=== PATIENT | female | born 1955 | race Caucasian/White ===

== ENCOUNTER → 2019-11-04 12:51 | Outpatient (BNVA) | payer MEDICARE, MEDICAID, SELFPAY | PROVIDERS: Family Provider Physician Assistant; PCP Family Medicine; Visit Provider Nurse Practitioner Psychiatric/Mental Health | DX: F33.2 Major depressive disorder, recurrent severe without psychotic features (principal) | CPT/HCPCS: 99214 ==

== ENCOUNTER → 2020-02-02 07:59 | Outpatient (BNVA) | payer MEDICARE, MEDICAID, SELFPAY | PROVIDERS: Family Provider Physician Assistant; PCP Family Medicine; Visit Provider Nurse Practitioner Psychiatric/Mental Health | DX: F33.2 Major depressive disorder, recurrent severe without psychotic features (principal); F41.1 Generalized anxiety disorder | CPT/HCPCS: 99213 ==

== ENCOUNTER → 2020-04-26 10:35 | Outpatient (BNVA) | payer MEDICARE, MEDICAID, SELFPAY | PROVIDERS: Family Provider Physician Assistant; PCP Family Medicine; Visit Provider Nurse Practitioner Psychiatric/Mental Health | DX: F33.2 Major depressive disorder, recurrent severe without psychotic features (principal) | CPT/HCPCS: 99213 ==

== ENCOUNTER → 2020-07-26 07:53 | Outpatient (BNVA) | payer MEDICARE, MEDICAID, SELFPAY | PROVIDERS: Family Provider Physician Assistant; PCP Family Medicine; Visit Provider Nurse Practitioner Psychiatric/Mental Health | DX: F33.2 Major depressive disorder, recurrent severe without psychotic features (principal) | CPT/HCPCS: 99213 ==

== ENCOUNTER → 2020-10-24 08:15 | Outpatient (BNVA) | payer MEDICARE, MEDICAID, SELFPAY | PROVIDERS: Family Provider Physician Assistant; PCP Family Medicine; Visit Provider Nurse Practitioner Psychiatric/Mental Health | DX: F33.2 Major depressive disorder, recurrent severe without psychotic features (principal) | CPT/HCPCS: 99214 ==

== ENCOUNTER → 2021-01-24 08:01 | Outpatient (BNVA) | payer MEDICARE, MEDICAID, SELFPAY | PROVIDERS: Family Provider Physician Assistant; PCP Family Medicine; Visit Provider Nurse Practitioner Psychiatric/Mental Health | DX: F33.2 Major depressive disorder, recurrent severe without psychotic features (principal) | CPT/HCPCS: 99214 ==

== ENCOUNTER 2021-03-17 10:18 | Inpatient (IN) | payer MEDICARE, MEDICAID, SELFPAY ==
[2021-03-17] VITALS (9 sets, daily range): BP systolic 91–127; BP diastolic 52–100; PULSE 84–114; RESP 15–24; TEMP 36.6–37.3; O2SAT 92–97; BMI 64.3
--- NOTE | 2021-03-17 10:53 | XR_ITS ---
WS: [id number] Portable AP upright chest, 03/17/2021 Clinical Data: dyspnea/cough Comparison: None. Findings: No nodules, masses or effusions are seen. The heart is normal. The pulmonary vascularity is not increased. No pneumonia or pneumothorax is seen. The aortic arch and descending aorta show minim al tortuosity. There is a left cardiomediastinal phrenic fat pad or cyst unchanged. XR/XR chest 1V portable [id number] Impression: Atherosclerosis.
--- NOTE | 2021-03-17 10:53 | ECG_ITS ---
[facility] Test Date: 2021-03-17 Pat Name: Sirena Priest Department: Room: Gender: Female Medical Information Specialist: : [id number] Requested By: Nate Britt Order Number: [id number] Juan R MD: Azul Garcia M.D. Measurements Intervals [place] Rate: 138 P: [place]: QRS: 15 QRSD: 83 T: 145 QT: 262 QTc: 398 Interpretive Statements ATRIAL FIBRILLATION WITH RAPID VENTRICULAR RESPONSE NONSPECIFIC ST & T-WAVE ABNORMALITY No previous ECG available for comparison Electronically Signed On 03-17-2021 14:56:27 CDT by Azul Garcia M.D. [id number]
--- NOTE | 2021-03-17 11:44 | ED_ITS ---
HPI - Nausea/Vomiting/Diarrhea General: Chief complaint: Nausea/Vomiting/Diarrhea Stated complaint: N/V, Time Seen by Provider: 03/17/21 10:42 History of Present Illness: MD elicited complaint: nausea and vomiting Onset (ago): day(s) (3) Description of vomiting: food contents and watery Associated nausea: Yes Associated abdominal pain: Yes Location of pain: Diffuse Radiation: diffuse Pain consistency: intermittent Severity: mild Quality: cramping Exacerbating factors: eating and movement Relieving factors: none Associated symtoms: Reports bloating, cough, fatigue, anorexia, malaise, myalgias, nausea and weakness; Denies altered mental status, anxiety, change in vision, chest pain, diaphoresi s, decreased urine output, dizziness, dysuria, epistaxis, fecal incontinence, fevers/chills, headache(s), numbness, palpitations, rash, short of breath, syncope, tenesmus or tinnitus Review of Systems Const: Reports: fatigue and malaise; Denies: diaphoresis Eyes: Denies: change in vision ENMT: Denies: tinnitus or epistaxis Card: Denies: chest pain, palpitations or syncope Resp: Denies: dyspnea, productive cough or non-productive cough GI: Reports: nausea and bloating; Denies: fecal incontinence : Denies: dysuria Skin/Breast: Denies: rash or pruritus Neuro: Denies: headache(s) or dizziness Psych: Denies: anxiety PFSH ED PFSH: Medical History BMI over 35 BMI of 61.7 Major depressive disorder, recurrent severe without psychotic features Obstructive sleep apnea Restless leg syndrome Ventral hernia Surgical History H/O laparoscopy adhesiolysis Family History Other Family history non-contributory Social History Smoking and tobacco status: never smoked Second hand smoke exposure: No Alcohol intake: never Adopted: No Lives independently: Yes Marital status: Current gender identity: Female Physical Exam Const: COMMON NORMALS: no acute distress EXAM LIMITATIONS: no altered mental status GENERAL APPEARANCE: cooperative and comfortable OR IENTATION/CONSCIOUSNESS: Yes awake, Yes oriented to person, Yes oriented to place and Yes oriented to time HENMT: COMMON NORMALS: normocephalic, atraumatic and hearing grossly normal bilaterally HEAD & SCALP: normocephalic and atraumatic Neck/C-Spine: COMMON NORMALS: no JVD Resp: COMMON NORMALS: normal respiratory effort, No retractions, No use of accessory muscles and clear to auscultation bilaterally AUSCULTATION: clear to auscultation bilaterally Cardio: COMMON NORMALS: no JVD, regular rate, regular rhythm and No murmurs present (Cardio) RATE: regular rate RHYTHM: regular rhythm GI: COMMON NORMALS: Soft to palpation and No hepatosplenomegaly present AUSCULTATION: Yes normoactive bowel sounds PALPATION: Yes Soft to palpation, No Tenderness to palpation present (GI), No Guarding due to palpation present (GI) and Yes No hepatosplenomegaly present Extremity: NARRATIVE EXTREMITY EXAM: Drainage from the left leg mildly reddened GENERAL: Yes edema Neuro: SENSORIUM/ORIENTATION: Yes oriented to person, Yes oriented to place and Yes oriented to time Course Vital Signs: Vital signs: Vital Signs Temperature 98 F 03/19/21 23:56 Pulse Rate 105 H 03/19/21 23:56 Respiratory Rate 31 H 03/19/21 23:56 Blood Pressure 108/68 03/19/21 23:56 Pulse Oximetry 91 03/19/21 23:56 MDM - Nausea/Vomiting/Diarrhea MDM Narrative: Medical decision making narrative: Acute kidney injury along with A. fib with RVR. Started on rate control. Discussed with hospitalist will admit. Treat for cellulitis. Lab Data: Labs: Lab Results 03/17/21 03/17/21 03/17/21 Range/Units 11:45 11:45 11:45 WBC 9.1 (4.0-10.0) 10^3/ uL RBC 3.81 L (4.1-5.3) 10^6/u L Hgb 11.3 L (11.5-15.3) g/dL Hct 35.5 L (37.0-47.0) % MCV 93.2 (81-99) fL MCH 29.7 (28.0-34.0) pg MCHC 31.8 (30.0-36.0) g/dL RDW 15.2 H (12.1-15.1) % Plt Count 297 (130-400) 10^3/c mm MPV 10.3 (7.4-10.4) fL Neut % (Auto) 79.7 % Lymph % (Auto) 10.4 % [place] % (Auto) 8.3 % Eos % (Auto) 0.4 % Baso % (Auto) 0.4 % Neut # (Auto) 7.28 (1.8-7.7) 10^3/u L Lymph # (Auto) 1.0 (0.8-4.8) 10^3/u L [place] # (Auto) 0.8 (0.2-0.9) 10^3/u L Eos # (Auto) 0.0 (0.0-0.8) 10^3/u L Baso # (Auto) 0.0 (0.0-0.1) 10^3/u L Nucleated RBC % (a uto) 0 % Nucleated RBCs # 0.0 /100WBC APTT (23.9-36.7) SECO NDS D-Dimer (0-0.59) ug/mIFE U Sodium 136 (136-145) mmol/L Potassium 4.1 (3.5-5.1) mmol/L Chloride 95 L (98-107) mmol/L Carbon Dioxide 23 (22-29) mmol/L Anion Gap 22.1 H (5-19) BUN 58 H (8-23) mg/dL Creatinine 2.1 H (0.5-0.9) mg/dL GFR Calculation 23.7 L (90-130) mL/min Glucose 142 H (65-115) mg/dL POC Glucose (70-110) mg/dL Calculated Osmolal ity 301 H (285-295) mOsm/k g Lactic Acid 2.5 H (0.5-2.2) mmol/L Lactic Acid (Sepsi s) (0.5-2.2) mmol/L Calcium 8.6 (8.5-10.5) mg/dL Magnesium (1.7-2.3) mg/dL Total Bilirubin 0.7 (0.15-1.2) mg/dL AST 15 (0-32) U/L ALT 11 (0-33) U/L Alkaline Phosphata se 86 (35-105) IU/L Creatine Kinase 100 (26-192) U/L Total Protein 7.0 (6.6-8.7) g/dL Albumin 3.4 L (3.5-5.2) g/dL Globulin 3.6 (1.3-4.6) g/dL Lipase 11 L (13-60) U/L TSH (0.27-4.20) uIU/ mL Free T4 (0.82-1.77) ng/d L Urine Color (Yellow) Urine Appearance (CLEAR) Urine pH (5-7) Ur Specific Gravit y (1.005-1.030) Urine Protein (Negative) Urine Glucose (UA) (Normal) Urine Ketones (Negative) Urine Blood (Negative) Urine Nitrate (Negative) Urine Bilirubin (Negative) Urine Urobilinogen (Negative) mg/dL Ur Leukocyte Cande ase (Negative) Urine RBC (0-2) /hpf Urine WBC (0-5) /hpf Ur Squamous Epith Cells (0-5) /hpf Amorphous Sediment Urine Bacteria (NONE) /hpf Coarse Granular Ca sts /lpf 03/17/21 03/17/21 03/17/21 Range/Units 11:45 11:45 13:22 WBC (4.0-10.0) 10^3/ uL RBC (4.1-5.3) 10^6/u L Hgb (11.5-15.3) g/dL Hct (37.0-47.0) % MCV (81-99) fL MCH (28.0-34.0) pg MCHC (30.0-36.0) g/dL RDW (12.1-15.1) % Plt Count (130-400) 10^3/c mm MPV (7.4-10.4) fL Neut % (Auto) % Lymph % (Auto) % [place] % (Auto) % Eos % (Auto) % Baso % (Auto) % Neut # (Auto) (1.8-7.7) 10^3/u L Lymph # (Auto) (0.8-4.8) 10^3/u L [place] # (Auto) (0.2-0.9) 10^3/u L Eos # (Auto) (0.0-0.8) 10^3/u L Baso # (Auto) (0.0-0.1) 10^3/u L Nucleated RBC % (a uto) % Nucleated RBCs # /100WBC APTT (23.9-36.7) SECO NDS D-Dimer (0-0.59) ug/mIFE U Sodium (136-145) mmol/L Potassium (3.5-5.1) mmol/L Chloride (98-107) mmol/L Carbon Dioxide (22-29) mmol/L Anion Gap (5-19) BUN (8-23) mg/dL Creatinine (0.5-0.9) mg/dL GFR Calculation (90-130) mL/min Glucose (65-115) mg/dL POC Glucose (70-110) mg/dL Calculated Osmolal ity (285-295) mOsm/k g Lactic Acid (0.5-2.2) mmol/L Lactic Acid (Sepsi s) (0.5-2.2) mmol/L Calcium (8.5-10.5) mg/dL Magnesium 1.3 L (1.7-2.3) mg/dL Total Bilirubin (0.15-1.2) mg/dL AST (0-32) U/L ALT (0-33) U/L Alkaline Phosphata se (35-105) IU/L Creatine Kinase (26-192) U/L Total Protein (6.6-8.7) g/dL Albumin (3.5-5.2) g/dL Globulin (1.3-4.6) g/dL Lipase (13-60) U/L TSH 5.09 H (0.27-4.20) uIU/ mL Free T4 1.19 (0.82-1.77) ng/d L Urine Color Yellow (Yellow) Urine Appearance Sl hazy (CLEAR) Urine pH 5 (5-7) Ur Specific Gravit y 1.015 (1.005-1.030) Urine Protein Trace (Negative) Urine Glucose (UA) Trace H (Normal) Urine Ketones Negative (Negative) Urine Blood 2+ H (Negative) Urine Nitrate Negative (Negative) Urine Bilirubin 1+ H (Negative) Urine Urobilinogen Norm (Negative) mg/dL Ur Leukocyte Cande ase Trace H (Negative) Urine RBC 5-10 H (0-2) /hpf Urine WBC 5-10 H (0-5) /hpf Ur Squamous Epith Cells 5-10 H (0-5) /hpf Amorphous Sediment Not Reportable Urine Bacteria Trace (NONE) /hpf Coarse Granular Ca sts 0-4 H /lpf 03/17/21 03/17/21 03/17/21 Range/Units 14:52 18:40 21:20 WBC (4.0-10.0) 10^3/ uL RBC (4.1-5.3) 10^6/u L Hgb (11.5-15.3) g/dL Hct (37.0-47.0) % MCV (81-99) fL MCH (28.0-34.0) pg MCHC (30.0-36.0) g/dL RDW (12.1-15.1) % Plt Count (130-400) 10^3/c mm MPV (7.4-10.4) fL Neut % (Auto) % Lymph % (Auto) % [place] % (Auto) % Eos % (Auto) % Baso % (Auto) % Neut # (Auto) (1.8-7.7) 10^3/u L Lymph # (Auto) (0.8-4.8) 10^3/u L [place] # (Auto) (0.2-0.9) 10^3/u L Eos # (Auto) (0.0-0.8) 10^3/u L Baso # (Auto) (0.0-0.1) 10^3/u L Nucleated RBC % (a uto) % Nucleated RBCs # /100WBC APTT (23.9-36.7) SECO NDS D-Dimer 9.74 H (0-0.59) ug/mIFE U Sodium (136-145) mmol/L Potassium (3.5-5.1) mmol/L Chloride (98-107) mmol/L Carbon Dioxide (22-29) mmol/L Anion Gap (5-19) BUN (8-23) mg/dL Creatinine (0.5-0.9) mg/dL GFR Calculation (90-130) mL/min Glucose (65-115) mg/dL POC Glucose 124 H (70-110) mg/dL Calculated Osmolal ity (285-295) mOsm/k g Lactic Acid (0.5-2.2) mmol/L Lactic Acid (Sepsi s) 1.9 (0.5-2.2) mmol/L Calcium (8.5-10.5) mg/dL Magnesium (1.7-2.3) mg/dL Total Bilirubin (0.15-1.2) mg/dL AST (0-32) U/L ALT (0-33) U/L Alkaline Phosphata se (35-105) IU/L Creatine Kinase (26-192) U/L Total Protein (6.6-8.7) g/dL Albumin (3.5-5.2) g/dL Globulin (1.3-4.6) g/dL Lipase (13-60) U/L TSH (0.27-4.20) uIU/ mL Free T4 (0.82-1.77) ng/d L Urine Color (Yellow) Urine Appearance (CLEAR) Urine pH (5-7) Ur Specific Gravit y (1.005-1.030) Urine Protein (Negative) Urine Glucose (UA) (Normal) Urine Ketones (Negative) Urine Blood (Negative) Urine Nitrate (Negative) Urine Bilirubin (Negative) Urine Urobilinogen (Negative) mg/dL Ur Leukocyte Cande ase (Negative) Urine RBC (0-2) /hpf Urine WBC (0-5) /hpf Ur Squamous Epith Cells (0-5) /hpf Amorphous Sediment Urine Bacteria (NONE) /hpf Coarse Granular Ca sts /lpf 03/17/21 03/18/21 03/18/21 Range/Units Unknown 03:50 03:50 WBC 5.9 (4.0-10.0) 10^3/ uL RBC 3.31 L (4.1-5.3) 10^6/u L Hgb 9.9 L (11.5-15.3) g/dL Hct 31.3 L (37.0-47.0) % MCV 94.6 (81-99) fL MCH 29.9 (28.0-34.0) pg MCHC 31.6 (30.0-36.0) g/dL RDW 15.1 (12.1-15.1) % Plt Count 268 (130-400) 10^3/c mm MPV 10.7 H (7.4-10.4) fL Neut % (Auto) 67.8 % Lymph % (Auto) 17.5 % [place] % (Auto) 12.1 % Eos % (Auto) 1.2 % Baso % (Auto) 0.7 % Neut # (Auto) 4.03 (1.8-7.7) 10^3/u L Lymph # (Auto) 1.0 (0.8-4.8) 10^3/u L [place] # (Auto) 0.7 (0.2-0.9) 10^3/u L Eos # (Auto) 0.1 (0.0-0.8) 10^3/u L Baso # (Auto) 0.0 (0.0-0.1) 10^3/u L Nucleated RBC % (a uto) 0 % Nucleated RBCs # 0.0 /100WBC APTT 29.8 (23.9-36.7) SECO NDS D-Dimer (0-0.59) ug/mIFE U Sodium 136 (136-145) mmol/L Potassium 3.6 (3.5-5.1) mmol/L Chloride 101 (98-107) mmol/L Carbon Dioxide 22 (22-29) mmol/L Anion Gap 16.6 (5-19) BUN 58 H (8-23) mg/dL Creatinine 1.7 H (0.5-0.9) mg/dL GFR Calculation 30.3 L (90-130) mL/min Glucose 96 (65-115) mg/dL POC Glucose (70-110) mg/dL Calculated Osmolal ity 298 H (285-295) mOsm/k g Lactic Acid (0.5-2.2) mmol/L Lactic Acid (Sepsi s) (0.5-2.2) mmol/L Calcium 7.5 L (8.5-10.5) mg/dL Magnesium (1.7-2.3) mg/dL Total Bilirubin 0.7 (0.15-1.2) mg/dL AST 13 (0-32) U/L ALT 9 (0-33) U/L Alkaline Phosphata se 72 (35-105) IU/L Creatine Kinase (26-192) U/L Total Protein 5.6 L (6.6-8.7) g/dL Albumin 2.9 L (3.5-5.2) g/dL Globulin 2.7 (1.3-4.6) g/dL Lipase (13-60) U/L TSH (0.27-4.20) uIU/ mL Free T4 (0.82-1.77) ng/d L Urine Color (Yellow) Urine Appearance (CLEAR) Urine pH (5-7) Ur Specific Gravit y (1.005-1.030) Urine Protein (Negative) Urine Glucose (UA) (Normal) Urine Ketones (Negative) Urine Blood (Negative) Urine Nitrate (Negative) Urine Bilirubin (Negative) Urine Urobilinogen (Negative) mg/dL Ur Leukocyte Cande ase (Negative) Urine RBC (0-2) /hpf Urine WBC (0-5) /hpf Ur Squamous Epith Cells (0-5) /hpf Amorphous Sediment Urine Bacteria (NONE) /hpf Coarse Granular Ca sts /lpf 03/18/21 03/18/21 03/18/21 Range/Units 03:50 03:50 06:26 WBC (4.0-10.0) 10^3/ uL RBC (4.1-5.3) 10^6/u L Hgb (11.5-15.3) g/dL Hct (37.0-47.0) % MCV (81-99) fL MCH (28.0-34.0) pg MCHC (30.0-36.0) g/dL RDW (12.1-15.1) % Plt Count (130-400) 10^3/c mm MPV (7.4-10.4) fL Neut % (Auto) % Lymph % (Auto) % [place] % (Auto) % Eos % (Auto) % Baso % (Auto) % Neut # (Auto) (1.8-7.7) 10^3/u L Lymph # (Auto) (0.8-4.8) 10^3/u L [place] # (Auto) (0.2-0.9) 10^3/u L Eos # (Auto) (0.0-0.8) 10^3/u L Baso # (Auto) (0.0-0.1) 10^3/u L Nucleated RBC % (a uto) % Nucleated RBCs # /100WBC APTT 24.0 (23.9-36.7) SECO NDS D-Dimer (0-0.59) ug/mIFE U Sodium (136-145) mmol/L Potassium (3.5-5.1) mmol/L Chloride (98-107) mmol/L Carbon Dioxide (22-29) mmol/L Anion Gap (5-19) BUN (8-23) mg/dL Creatinine (0.5-0.9) mg/dL GFR Calculation (90-130) mL/min Glucose (65-115) mg/dL POC Glucose 109 (70-110) mg/dL Calculated Osmolal ity (285-295) mOsm/k g Lactic Acid (0.5-2.2) mmol/L Lactic Acid (Sepsi s) (0.5-2.2) mmol/L Calcium (8.5-10.5) mg/dL Magnesium 1.5 L (1.7-2.3) mg/dL Total Bilirubin (0.15-1.2) mg/dL AST (0-32) U/L ALT (0-33) U/L Alkaline Phosphata se (35-105) IU/L Creatine Kinase (26-192) U/L Total Protein (6.6-8.7) g/dL Albumin (3.5-5.2) g/dL Globulin (1.3-4.6) g/dL Lipase (13-60) U/L TSH (0.27-4.20) uIU/ mL Free T4 (0.82-1.77) ng/d L Urine Color (Yellow) Urine Appearance (CLEAR) Urine pH (5-7) Ur Specific Gravit y (1.005-1.030) Urine Protein (Negative) Urine Glucose (UA) (Normal) Urine Ketones (Negative) Urine Blood (Negative) Urine Nitrate (Negative) Urine Bilirubin (Negative) Urine Urobilinogen (Negative) mg/dL Ur Leukocyte Cande ase (Negative) Urine RBC (0-2) /hpf Urine WBC (0-5) /hpf Ur Squamous Epith Cells (0-5) /hpf Amorphous Sediment Urine Bacteria (NONE) /hpf Coarse Granular Ca sts /lpf 03/18/21 03/18/21 Range/Units 11:27 12:50 WBC (4.0-10.0) 10^3/ uL RBC (4.1-5.3) 10^6/u L Hgb (11.5-15.3) g/dL Hct (37.0-47.0) % MCV (81-99) fL MCH (28.0-34.0) pg MCHC (30.0-36.0) g/dL RDW (12.1-15.1) % Plt Count (130-400) 10^3/c mm MPV (7.4-10.4) fL Neut % (Auto) % Lymph % (Auto) % [place] % (Auto) % Eos % (Auto) % Baso % (Auto) % Neut # (Auto) (1.8-7.7) 10^3/u L Lymph # (Auto) (0.8-4.8) 10^3/u L [place] # (Auto) (0.2-0.9) 10^3/u L Eos # (Auto) (0.0-0.8) 10^3/u L Baso # (Auto) (0.0-0.1) 10^3/u L Nucleated RBC % (a uto) % Nucleated RBCs # /100WBC APTT 229.2 H* D (23.9-36.7) SECO NDS D-Dimer (0-0.59) ug/mIFE U Sodium (136-145) mmol/L Potassium (3.5-5.1) mmol/L Chloride (98-107) mmol/L Carbon Dioxide (22-29) mmol/L Anion Gap (5-19) BUN (8-23) mg/dL Creatinine (0.5-0.9) mg/dL GFR Calculation (90-130) mL/min Glucose (65-115) mg/dL POC Glucose 113 H (70-110) mg/dL Calculated Osmolal ity (285-295) mOsm/k g Lactic Acid (0.5-2.2) mmol/L Lactic Acid (Sepsi s) (0.5-2.2) mmol/L Calcium (8.5-10.5) mg/dL Magnesium (1.7-2.3) mg/dL Total Bilirubin (0.15-1.2) mg/dL AST (0-32) U/L ALT (0-33) U/L Alkaline Phosphata se (35-105) IU/L Creatine Kinase (26-192) U/L Total Protein (6.6-8.7) g/dL Albumin (3.5-5.2) g/dL Globulin (1.3-4.6) g/dL Lipase (13-60) U/L TSH (0.27-4.20) uIU/ mL Free T4 (0.82-1.77) ng/d L Urine Color (Yellow) Urine Appearance (CLEAR) Urine pH (5-7) Ur Specific Gravit y (1.005-1.030) Urine Protein (Negative) Urine Glucose (UA) (Normal) Urine Ketones (Negative) Urine Blood (Negative) Urine Nitrate (Negative) Urine Bilirubin (Negative) Urine Urobilinogen (Negative) mg/dL Ur Leukocyte Cande ase (Negative) Urine RBC (0-2) /hpf Urine WBC (0-5) /hpf Ur Squamous Epith Cells (0-5) /hpf Amorphous Sediment Urine Bacteria (NONE) /hpf Coarse Granular Ca sts /lpf Discharge Plan Discharge Patient Disposition: Admitted As Inpatient Admit Provider: Calista Myles Clinical Impression: Atrial fibrillation with RVR, YUSRA (acute kidney injury), Cellulitis Condition: Stable Coding Level of Care Code ED Crinkling Machine Operator for Chg Fwd Exam Comprehensive
[2021-03-17 11:55] LABS: Basophils % 0.4 %; Eosinophils % 0.4 %; Hematocrit 35.5 % (37.0-47.0); Hemoglobin 11.3 g/dL (11.5-15.3); Lymphocytes % 10.4 %; Mean Corpuscular HGB Conc 31.8 g/dL (30.0-36.0); Mean Corpuscular Hemoglobin 29.7 pg (28.0-34.0); Mean Corpuscular Volume 93.2 fL (81-99); Mean Platelet Volume 10.3 fL (7.4-10.4); Monocytes # 0.8 10^3/uL (0.2-0.9); Monocytes % 8.3 %; Neutrophils # 7.28 10^3/uL (1.8-7.7); Neutrophils % 79.7 %; Nucleated Red Blood Cells % 0 %; Platelet Count 297 10^3/cmm (130-400); Red Blood Count 3.81 10^6/uL (4.1-5.3); Red Cell Distribution Width 15.2 % (12.1-15.1); White Blood Count 9.1 10^3/uL (4.0-10.0)
[2021-03-17 12:14] LABS: Alanine Aminotransferase 11 U/L (0-33); Albumin Level 3.4 g/dL (3.5-5.2); Alkaline Phosphatase 86 IU/L (35-105); Anion Gap 22.1 (5-19); Aspartate Amino Transferase 15 U/L (0-32); Blood Urea Nitrogen 58 mg/dL (8-23); Calcium 8.6 mg/dL (8.5-10.5); Carbon Dioxide 23 mmol/L (22-29); Chloride 95 mmol/L (98-107); Creatine Phosphokinase 100 U/L (26-192); Globulin 3.6 g/dL (1.3-4.6); Glomerular Filtration Rate 23.7 mL/min (90-130); Glucose 142 mg/dL (65-115); Lipase 11 U/L (13-60); Osmolality Calculated 301 mOsm/kg (285-295); Potassium 4.1 mmol/L (3.5-5.1); Sodium 136 mmol/L (136-145); Total Bilirubin 0.7 mg/dL (0.15-1.2)
[2021-03-17 12:15] LABS: Lactic Sepsis W/Reflex 2.5 mmol/L (0.5-2.2)
[2021-03-17 12:18] LABS: Slide Review Slide Review Perform
[2021-03-17] MEDS: ondansetron 2 mg/ML SDV 2 mL 4 MG IVP (12:26)
[2021-03-17 13:38] LABS: Reflex Lactate Order REFLEX LACTIC ORDERD
[2021-03-17 13:42] LABS: Bilirubin Urine 1+ (Negative); Blood Urine 2+ (Negative); Glucose Urine UA Trace (Normal); Ketones Urine Negative (Negative); Nitrate Urine Negative (Negative); Protein Urine Trace (Negative); Specific Gravity, Urine 1.015 (1.005-1.030); Urine Appearance SL Hazy (CLEAR); Urine Color Yellow (Yellow); pH Urine 5 (5-7)
[2021-03-17 13:43] LABS: Add Urine Culture? No; Add Urine Microscopic? YES; Bacteria Urine TRACE /hpf; Coarse Granular Casts Urine 0-4 /lpf; Leukocyte Esterase Urine Trace (Negative); Urobilinogen Urine Norm (Negative)
--- NOTE | 2021-03-17 15:03 | PC.PHAR ---
pt states she takes care of her own medications-pt states she hasnt taken her meds since saturday03/14/21
[2021-03-17] MEDS: metoprolol tartrate 1 mg/1 mL SDV 5 mL 5 MG IV (15:04)
[2021-03-17] MEDS: metoprolol tartrate 25 mg Tablet PO (15:04)
[2021-03-17 15:35] LABS: Lactic Acid level (Lactate) 1.9 mmol/L (0.5-2.2)
--- NOTE | 2021-03-17 16:10 | P.HP_ITS ---
Providers/Chief Complaint Primary Care Provider: Nate Sainz DO Chief Complaint: N/V, History of Present Illness Sirena Priest is a 65 year old female who presented today with chief complaint of recurrent vomiting. During that her symptoms started on Saturday with abdominal cramps and pain which were associated with nausea and dry heaves the next day and then 24 hours before her arrival in the ER experienced 5 episodes of emesis. She has not noticed any fever, blood in stool or recent use of antibiotics. She has been noticing increase her left leg swelling with discharge. She is requiring frequent dressing change. She also has home health service who would visit her once or twice a week. She is denying chest pain, shortness of breath, fever. She is vaccinated with moderna vaccine. Diagnostics in the ER revealed A. fib RVR for which she required Lopressor 5 mg IV push and then p.o. 25 mg which did not improve her heart rate which necessitated hospitalization, she was started on Cardizem drip which was running at 5 at the time of my evaluation heart rate fluctuate between 95-1 05. Normal hemodynamically, I have requested TSH which came back high 5.09 will get free T4, check magnesium level no active signs of infection. Lactic 2.5 magnesium 1.3 started on heparin drip because of high [id number] score Review of Systems Const: Reports: chills, body aches, change in weight and fatigue; Denies: fever(s) Eyes: Denies: change in vision ENMT: Denies: throat pain Card: Denies: chest pain Resp: Reports: dyspnea GI: Reports: abdominal pain, nausea and vomiting; Denies: diarrhea : Denies: flank pain Musc: Reports: extremity swelling, limited range of motion and muscle cramps; Denies: neck pain Skin/Breast: Reports: skin pain, skin tenderness, skin swelling, new lesions, non-healing lesions and lesions; Denies: rash Neuro: Denies: headache(s) Psych: Reports: anxiety Endo: Denies: polyuria Shade/Lymph: Denies: easy bruising All/Imm: Denies: urticaria Medications/Allergies Home Medications Medication Instructions Recorded Confirmed Last Taken Type atorvastatin 40 mg tablet 40 mg PO BEDTIME 11/04/19 03/17/21 03/14/21 History cetirizine 10 mg capsule 10 mg PO DAILY PRN 11/04/19 03/17/21 Unknown History cyanocobalamin (vitamin B-12) 1,000 mcg IM Q30D ml 11/04/19 03/17/21 02/23/21 History 1,000 mcg/mL injection solution gabapentin 600 mg tablet 300 mg PO BID tab 11/04/19 03/17/21 03/14/21 History hydrochlorothiazide 25 mg tablet 25 mg PO DAILY 11/04/19 03/17/21 03/14/21 History hydrocodone 7.5 mg-ibuprofen 200 1 tab PO QID PRN 11/04/19 03/17/21 Unknown History mg tablet metformin 850 mg tablet 850 mg PO TID 11/04/19 03/17/21 03/14/21 History metoprolol tartrate 25 mg tablet 25 mg PO BID 11/04/19 03/17/21 03/14/21 History pioglitazone 15 mg tablet 15 mg PO DAILY 11/04/19 03/17/21 03/14/21 History ramipril 10 mg capsule 10 mg PO DAILY 11/04/19 03/17/21 03/14/21 History ferrous gluconate 324 mg (37.5 mg 324 mg PO DAILY tab 10/21/20 03/17/21 03/14/21 History iron) tablet clonazepam 1 mg tablet 1 mg PO BID PRN #60 tab 10/24/20 03/17/21 Unknown Rx ropinirole 1 mg tablet 2 mg PO BID #360 tab 10/24/20 03/17/21 Unknown Rx Seroquel 25 - 50 mg PO BEDTIME PRN 03/17/21 03/17/21 03/14/21 History furosemide 40 mg PO DAILY 03/17/21 03/17/21 Unknown History Allergies Allergy/AdvReac Type Severity Reaction Status Date / Time No Known Allergies Allergy Verified 03/17/21 15:02 PFSH Acute PFSH: Medical History BMI over 35 BMI of 61.7 Major depressive disorder, recurrent severe without psychotic features Obstructive sleep apnea Restless leg syndrome Ventral hernia Surgical History H/O laparoscopy adhesiolysis Family History Other Family history non-contributory Social History Smoking and tobacco status: never smoked Second hand smoke exposure: No Alcohol intake: never Adopted: No Lives independently: Yes Marital status: Current gender identity: Female Vitals/I&O/Wt Last Vital Signs Temp 97.9 F 03/17/21 10:34 Pulse 108 H 03/17/21 15:06 Resp 18 03/17/21 15:06 BP 112/62 03/17/21 10:34 Pulse Ox 92 03/17/21 15:06 Weight last 48 hrs Weight 164.654 kg Physical Exam Narrative: EXAM NARRATIVE: Morbid obese female She is laying comfortably in her bed saturating well on room air S1, S2 variable with active signs of lower extremity edema Serosanguineous discharge of left leg with mild purulence around medial side noted dressing soaked with discharge from the wound EOMI, PERRLA No neurological deficit Distended abdomen soreness to deep palpation No joint swelling Appropriate mood and affect No acute respiratory distress Data : 03/17/21 11:45 03/17/21 11:45 A&P Assessment and plan (1) Atrial fibrillation with RVR: Status: Acute (2) YUSRA (acute kidney injury): Status: Acute (3) Cellulitis: Status: Acute Additional A&P Information Symptomatic A. fib with acute RVR Patient chief complaint was abdominal pain however no hematochezia no active signs of peritonitis Highly doubt mesenteric/embolic phenomenon at this point however going to start heparin drip considering high [id number] 4, Currently on Cardizem drip running at 5 heart rate fluctuating between 95-1 01 We will request echo in the morning, she does have electrolyte abnormality hypomagnesemia and abnormal TSH We will request free T4 and replenish magnesium Patient is vaccinated with moderate vaccine she received 2 doses Acute kidney injury Likely secondary to CHF exacerbation/prerenal Active sign of fluid overload will start patient on Bumex Avoid fluids Discontinue Metformin I do believe her lactic acidemia is secondary to Metformin with YUSRA no active signs of sepsis, monitor for Metformin toxicity Purulent cellulitis We will start her on doxycycline, dry dressing, Kerlix and ABD Morbid obesity Consistent carb diet Full code DVT prophylaxis currently on heparin drip will switch to p.o. anticoagulant once kidney function improves Attestations Medical Necessity Statement*: Anticipating discharge within 48 hours need IV Cardizem for rate control Time Spent in Patient Care: 35mins Coding Level of Care Code Acute Predictive Maintenance Technician for Chg Fwd Diagnoses Atrial fibrillation with RVR I48.91 YUSRA (acute kidney injury) N17.9 Cellulitis L03.90
[2021-03-17] MEDS: sodium chlor 0.9% + KCl 20 mEq 20 MEQ/1,000 ML BAG 125 MEQ IV (16:18)
[2021-03-17 17:17] LABS: Magnesium 1.3 mg/dL (1.7-2.3); Thyroid Stimulating Hormone 5.09 uIU/mL (0.27-4.20)
[2021-03-17 19:39] LABS: D Dimer 9.74 ug/mIFEU (0-0.59)
[2021-03-17 19:58] LABS: Partial Thromboplastin Time 29.8 SECONDS (23.9-36.7)
[2021-03-17 20:02] LABS: Free T4 Free Thyroxine 1.19 ng/dL (0.82-1.77)
[2021-03-17 21:32] LABS: Glucose Point of Care 124 mg/dL (70-110)
[2021-03-17] MEDS: heparin drip 25,000 UNIT/500 ML PREMIX 36 UNIT IV (21:41)
[2021-03-17] MEDS: heparin 5,000 unit/mL INJ 1 mL IV (21:48)
[2021-03-17] MEDS: magnesium sulfate premix 2 GM/50 ML PIGGYBACK IV (22:08)
[2021-03-17] MEDS: metoprolol tartrate 50 mg Tablet PO (22:09)
[2021-03-17] MEDS: quetiapine 25 mg Tablet PO (22:10)
[2021-03-17] MEDS: acetaminophen 500 mg Tablet PO (22:10)
[2021-03-17] MEDS: ropinirole 1 mg Tablet 2 MG PO (22:10)
[2021-03-17] MEDS: atorvastatin 40 mg Tablet PO (22:10)
[2021-03-18] VITALS (11 sets, daily range): BP systolic 89–137; BP diastolic 53–72; PULSE 64–130; RESP 15–22; TEMP 36.2–37.1; O2SAT 93–98
[2021-03-18] MEDS: acetaminophen 500 mg Tablet PO ×4 (02:55→23:51)
[2021-03-18] MEDS: CLONazepam 1 mg Tablet PO (03:31)
[2021-03-18 04:35] LABS: Alanine Aminotransferase 9 U/L (0-33); Albumin Level 2.9 g/dL (3.5-5.2); Alkaline Phosphatase 72 IU/L (35-105); Anion Gap 16.6 (5-19); Aspartate Amino Transferase 13 U/L (0-32); Blood Urea Nitrogen 58 mg/dL (8-23); Calcium 7.5 mg/dL (8.5-10.5); Carbon Dioxide 22 mmol/L (22-29); Chloride 101 mmol/L (98-107); Globulin 2.7 g/dL (1.3-4.6); Glomerular Filtration Rate 30.3 mL/min (90-130); Glucose 96 mg/dL (65-115); Osmolality Calculated 298 mOsm/kg (285-295); Potassium 3.6 mmol/L (3.5-5.1); Sodium 136 mmol/L (136-145); Total Bilirubin 0.7 mg/dL (0.15-1.2); Total Protein 5.6 g/dL (6.6-8.7)
[2021-03-18 04:43] LABS: Basophils % 0.7 %; Eosinophils # 0.1 10^3/uL (0.0-0.8); Eosinophils % 1.2 %; Hematocrit 31.3 % (37.0-47.0); Hemoglobin 9.9 g/dL (11.5-15.3); Lymphocytes % 17.5 %; Mean Corpuscular HGB Conc 31.6 g/dL (30.0-36.0); Mean Corpuscular Hemoglobin 29.9 pg (28.0-34.0); Mean Corpuscular Volume 94.6 fL (81-99); Mean Platelet Volume 10.7 fL (7.4-10.4); Monocytes # 0.7 10^3/uL (0.2-0.9); Monocytes % 12.1 %; Neutrophils # 4.03 10^3/uL (1.8-7.7); Neutrophils % 67.8 %; Nucleated Red Blood Cells % 0 %; Platelet Count 268 10^3/cmm (130-400); Red Blood Count 3.31 10^6/uL (4.1-5.3); Red Cell Distribution Width 15.1 % (12.1-15.1); White Blood Count 5.9 10^3/uL (4.0-10.0)
[2021-03-18] MEDS: heparin 5,000 unit/mL INJ 1 mL IV (05:51)
[2021-03-18 06:42] LABS: Glucose Point of Care 109 mg/dL (70-110)
[2021-03-18] MEDS: ropinirole 1 mg Tablet 2 MG PO ×2 (07:31→17:37)
[2021-03-18] MEDS: doxycycline 100 mg Tablet PO ×2 (07:32→17:37)
[2021-03-18] MEDS: metoprolol tartrate 50 mg Tablet PO ×2 (07:32→09:01)
[2021-03-18] MEDS: bumetanide 1 mg Tablet PO (07:32)
[2021-03-18] MEDS: dilTIAZem ER (12HR) 60 mg Capsule PO ×2 (09:01→17:38)
[2021-03-18 09:54] LABS: Magnesium 1.5 mg/dL (1.7-2.3)
--- NOTE | 2021-03-18 10:18 | PC.NURSE ---
she has had a bowel movement of stool and urine three times
[2021-03-18 11:37] LABS: Glucose Point of Care 113 mg/dL (70-110)
[2021-03-18] MEDS: heparin drip 25,000 UNIT/500 ML PREMIX 44 UNIT IV (12:19)
[2021-03-18] MEDS: ondansetron 2 mg/ML SDV 2 mL 4 MG IVP (12:36)
--- NOTE | 2021-03-18 13:06 | P.PN_ITS ---
Subjective Subjective: Interval history: Patient was seen and examined this morning, her Cardizem drip was stopped around midnight and she was not bridged with any AV ame blocking agent after that she received first dose of metoprolol in the morning and her heart rate in the morning was fluctuating between 1 10-1 20s No active symptoms Patient is feeling very nauseous and complaining of diarrhea I have given her extra dose of metoprolol this morning and she will get 100 mg of metoprolol twice a day added Cardizem 60 mg twice a day Vitals/I&O/Wt Last Vital Signs Temp 97.7 F 03/18/21 08:00 Pulse 97 03/18/21 08:00 Resp 18 03/18/21 08:00 BP 110/67 03/18/21 08:00 Pulse Ox 94 03/18/21 08:00 03/17/21 03/18/21 03/18/21 22:59 06:59 14:59 Intake Total 29.25 / 29.25 2363 / 2392.25 320 / 320 Balance 29.25 / 29.25 2363 / 2392.25 320 / 320 Weight last 48 hrs Weight 164.654 kg Physical Exam Narrative: EXAM NARRATIVE: Patient was in distress because of her diarrhea otherwise no active chest pain shortness of breath she was saturating well on room air Her low extremities were wrapped with clean dressing Heart rate fluctuated between 1 10-1 20s A. fib RVR CHF exacerbation with fluid overload state Distended abdomen with obesity Lower extremity 3+ pitting edema extending up to her thighs Bilateral breath sounds without adventitious rhonchi or crackles Data : 03/18/21 03:50 03/18/21 03:50 A&P Assessment and plan (1) Cellulitis: Status: Acute (2) YUSRA (acute kidney injury): Status: Acute (3) Atrial fibrillation with RVR: Status: Acute (4) BMI over 35: Status: Chronic (5) Hypomagnesemia: Status: Acute Additional A&P Information A. fib with RVR I have increased her metoprolol 200 mg twice a day and added Cardizem 60 mg twice a day heart rate still fluctuating between 100 220s I would like to monitor her 1 more day to keep her heart rate at least below 110 on ambulation, No active chest pain or shortness of breath Electrolyte abnormality noted [id number] score 4 for age, sex, CHF and diabetes, currently on heparin drip which I will transition to Eliquis without any loading dose, will obtain lower extremity Dopplers Abnormal TsH normal T4 Hypomagnesemia: Repleted YUSRA: Improving, continue diuresis, current creatinine 1.7 improved from 2.1 patient has not made adequate urine with diuresis, monitor for now Diarrhea: Rule out C. difficile Mesenteric ischemia/embolic phenomenon less likely Purulent cellulitis of left foot: Continue doxycycline no active signs of sepsis cultures negative to date Kerlix and ABD dressing Cardiac diet Full code DVT prophylaxis currently on therapeutic dose of heparin which will be transitioned to Eliquis Attestations Medical Necessity Statement*: Anticipating discharge tomorrow Time Spent in Patient Care: 30mins Coding Level of Care Code Acute Special Collections Librarian for Chg Fwd Diagnoses Cellulitis L03.90 YUSRA (acute kidney injury) N17.9 Atrial fibrillation with RVR I48.91 BMI over 35 Hypomagnesemia E83.42
--- NOTE | 2021-03-18 13:15 | USR_ITS ---
PROCEDURE INFORMATION: Exam: US Duplex Lower Extremity Veins, Bilateral Exam date and time: 03/18/2021 1:15 PM Age: 65 years old Clinical indication: Swelling (edema) of limb; Lower extremity, bilateral; Additional info: Swelling rule out dvt TECHNIQUE: Imaging protocol: Real-time duplex ultrasound of the extremities with 2-D woodward scale, color Doppler flow and spectral waveform analysis with image documentation. Complete exam focused on the bilateral lower extremity veins. COMPARISON: US Renal Kidney Structu* [id number] 08/16/2015 6:55 AM FINDINGS: Right deep veins: There is nonocclusive thrombus in the right popliteal and peroneal veins. The age of this finding is unknown. . The common femoral, femoral, proximal profunda and femoral veins are patent without thrombus. Normal Doppler waveforms. Normal compressibility and/or augmentation response. Right superficial veins: Saphenofemoral junction is patent without thrombus. Left deep veins: Unremarkable. The common femoral, femoral, proximal profunda femoral and popliteal veins are patent without thrombus. Normal Doppler waveforms. Normal compressibility and/or augmentation response. Left superficial veins: Saphenofemoral junction is patent without thrombus. Soft tissues: Unremarkable. US/[place] [id number] IMPRESSION: 1. Nonocclusive intraluminal thrombus right popliteal and peroneal likely DVT 2. No evidence of left leg deep vein thrombosis.
--- NOTE | 2021-03-18 13:16 | NMR_ITS ---
PROCEDURE INFORMATION: Exam: ND Lung Ventilation and Perfusion Imaging Exam date and time: 03/18/2021 1:16 PM Age: 65 years old Clinical indication: Abnormal findings; Abnormal diagnostic tests; Elevated d-dimer; Additional info: New onset a. Fib rvr rule out dvt high d-dimer TECHNIQUE: Imaging protocol: Nuclear pulmonary ventilation with aerosol or gas was performed followed by perfusion. Views: Ventilation acquired with multiple projections. Perfusion acquired with multiple projections. Total images: 2 Radiopharmaceutical: 5.5 mCi Tc-99m MAA (Macroaggregated Albumin), IV. 32.5 mCi Tc-99m DTPA (DTPA Aerosol), Inhalation. COMPARISON: CR XR chest 1V portable [id number] 03/17/2021 11:12 AM FINDINGS: Ventilation: Normal. No ventilation defects. Perfusion: Normal. No perfusion defects. ND/ND pul vent and perfus* [id number] IMPRESSION: Normal perfusion. No evidence of pulmonary embolism.
[2021-03-18 13:52] LABS: Partial Thromboplastin Time 229.2 SECONDS (23.9-36.7)
--- NOTE | 2021-03-18 14:08 | PC.NURSE ---
PTT 229.2.DR VIZCARRA NOTIFIED AT 1400.HEPARIN DEEDEE BOWEN'Leti.PT TO START ELIQUIS THIS EVENING.
[2021-03-18] MEDS: potassium chloride ER 20 mEq Tablet 40 MEQ PO ×2 (15:03→17:37)
--- NOTE | 2021-03-18 16:14 | PC.NURSE ---
right leg positive for dvt.dr ledezma aware.completed vq scan..tolerated well.
[2021-03-18] MEDS: metoprolol tartrate 50 mg Tablet 100 MG PO (17:36)
[2021-03-18] MEDS: magnesium oxide 400 mg tablet PO (17:38)
[2021-03-18 17:41] LABS: Glucose Point of Care 82 mg/dL (70-110)
[2021-03-18] MEDS: apixaban 5 mg Tablet 10 MG PO (21:41)
[2021-03-18] MEDS: atorvastatin 40 mg Tablet PO (21:41)
[2021-03-18 21:45] LABS: Glucose Point of Care 101 mg/dL (70-110)
[2021-03-18] MEDS: quetiapine 25 mg Tablet PO (23:55)
[2021-03-19] VITALS (8 sets, daily range): BP systolic 97–116; BP diastolic 53–82; PULSE 82–128; RESP 13–31; TEMP 36.6–36.8; O2SAT 91–99
[2021-03-19] MEDS: CLONazepam 1 mg Tablet PO (01:23)
[2021-03-19] MEDS: HYDROcodone-acetaminophen 5-325 mg Tablet 1 TAB PO ×2 (03:41→22:29)
[2021-03-19 03:50] LABS: Basophils % 0.4 %; Hematocrit 33.8 % (37.0-47.0); Hemoglobin 10.9 g/dL (11.5-15.3); Lymphocytes # 1.9 10^3/uL (0.8-4.8); Lymphocytes % 23.9 %; Mean Corpuscular HGB Conc 32.2 g/dL (30.0-36.0); Mean Corpuscular Hemoglobin 30.2 pg (28.0-34.0); Mean Corpuscular Volume 93.6 fL (81-99); Mean Platelet Volume 10.6 fL (7.4-10.4); Monocytes # 0.7 10^3/uL (0.2-0.9); Monocytes % 8.5 %; Neutrophils # 5.17 10^3/uL (1.8-7.7); Neutrophils % 66.3 %; Nucleated Red Blood Cells % 0 %; Platelet Count 320 10^3/cmm (130-400); Red Blood Count 3.61 10^6/uL (4.1-5.3); Red Cell Distribution Width 14.9 % (12.1-15.1); White Blood Count 7.8 10^3/uL (4.0-10.0)
[2021-03-19 04:20] LABS: Anion Gap 16.1 (5-19); Blood Urea Nitrogen 64 mg/dL (8-23); Calcium 7.8 mg/dL (8.5-10.5); Carbon Dioxide 23 mmol/L (22-29); Chloride 101 mmol/L (98-107); Glomerular Filtration Rate 30.3 mL/min (90-130); Glucose 104 mg/dL (65-115); Osmolality Calculated 303 mOsm/kg (285-295); Potassium 3.1 mmol/L (3.5-5.1); Sodium 137 mmol/L (136-145)
[2021-03-19 04:31] LABS: NT Pro B Type Natriuretic Pept 10359 pg/mL (0-125)
--- NOTE | 2021-03-19 06:00 | USCV_ITS ---
Sirena Priest Age: 65 Gender: F : 1955 Exam Date: 03/19/2021 11:11 Ordering Phys: Calista Myles MD Technologist: Oliva Wall Exam Location: [facility] [place] Indication: Atrial fibrillation, CHF BP: 98 / 53 HR: 94 Rhythm: Atrial fibrillation Technical Quality: Poor because of body habitus MEASUREMENTS (Male / Female) Normal Values 2D ECHO LV Diastolic Diameter PLAX 3.7 cm 4.2 - 5.9 / 3.9 - 5.3 cm LV Systolic Diameter PLAX 2.7 cm LV Chamber Size 5.3 cm IVS Diastolic Thickness 1.3 cm 0.6 - 1.0 / 0.6 - 0.9 cm IVS Systolic Thickness 1.9 cm LVPW Diastolic Thickness 1.1 cm 0.6 - 1.0 / 0.6 - 0.9 cm LVPW Systolic Thickness 1.7 cm RV Chamber Size 2.9 cm LVOT Diameter 1.8 cm LV Ejection Fraction 2D Teich 54.5 % LV Ejection Fraction MOD 2C 67.2 % LV Ejection Fraction 2C AL 66.5 % LA Diameter 3.5 cm LA Width 3.2 cm LA Height 5.6 cm RA Width 3.4 cm RA Height 5.1 cm Aorta at Sinotubular Diameter 2.6 cm M-MODE LV Diastolic Diameter MM 5.3 cm 4.2 - 5.9 / 3.9 - 5.3 cm LV Systolic Diameter MM 3.3 cm LV Ejection Fraction MM Teich 68.6 % IVS Diastolic Thickness MM 1.5 cm 0.6 - 1.0 / 0.6 - 0.9 cm IVS Systolic Thickness MM 2.2 cm LVPW Diastolic Thickness MM 1.4 cm 0.6 - 1.0 / 0.6 - 0.9 cm LVPW Systolic Thickness MM 2.4 cm Aortic Annulus Diameter 3.0 cm LA Ao Ratio MM 1.3 MV E Point Septal Separation 0.3 cm DOPPLER AV Peak Velocity 106.0 cm/s LVOT Peak Velocity 69.0 cm/s AV Area Cont Eq vti 1.9 cm squared AV Area Cont Eq pk 1.6 cm squared MV Area PHT 4.8 cm squared MV E' Velocity 86.0 cm/s TR Peak Velocity 183.4 cm/s TR Peak Gradient 13.4 mmHg TR Mean Velocity 158.5 cm/s TR Mean Gradient 10.5 mmHg TR Velocity Time Integral 58.1 cm Right Atrial Pressure 3.0 mmHg Pulmonary Artery Systolic Pressu 16.4 mmHg PV Peak Velocity 72.0 cm/s RV Acceleration Time 0.1 s RV Ejection Time 0.2 s RV AcT/ET 0.3 FINDINGS Left Ventricle Normal left ventricular cavity size and systolic function. Increased left ventricular wall thickness. Left ventricular ejection fraction is estimated at 60 %. No regional wall motion abnormalities. Rhythm precludes evaluation of diastolic function. Abnormal septal motion. Right Ventricle Upper normal right ventricle size. Mildly decreased right ventricular systolic function with right ventrciular free wall hypokinesis. Right ventricular systolic pressure 21 mmHg. Right Atrium Mildly increased right atrial size. Right atrial pressure estimated at 3 mm Hg. Left Atrium Mildly increased left atrial size. Mitral Valve Mild mitral annular calcification. Mildly thickened mitral valve. No mitral valve stenosis. No significant mitral valve regurgitation. Aortic Valve Structurally normal trileaflet aortic valve. No aortic valve stenosis. No aortic valve regurgitation. Tricuspid Valve Structurally normal tricuspid valve. No tricuspid valve stenosis. Mild tricuspid valve regurgitation. Pulmonic Valve Structurally normal pulmonic valve. No pulmonary valve stenosis. Trace pulmonary valve regurgitation. Pericardium No pericardial effusion. Aorta Normal size aortic root. Normal sized inferior vena cava with normal respiratory variation. CONCLUSIONS 1. Normal left ventricular cavity size and systolic function. Increased left ventricular wall thickness. Left ventricular ejection fraction is estimated at 60 %. No regional wall motion abnormalities. Abnormal septal motion. 2. Upper normal right ventricle size. Mildly decreased right ventricular systolic function with right ventrciular free wall hypokinesis. 3. Mild tricuspid valve regurgitation. 4. Normal pulmonary artery pressure. 5. Mild biatrial enlargement. 6. No prior similar studies to compare. Jannette Santacruz MD (Electronically Signed) Final Date: 19 March 2021 12:13 S
[2021-03-19] MEDS: acetaminophen 500 mg Tablet PO (06:11)
[2021-03-19 07:03] LABS: Glucose Point of Care 94 mg/dL (70-110)
[2021-03-19] MEDS: metoprolol tartrate 50 mg Tablet 100 MG PO ×2 (09:02→17:45)
[2021-03-19] MEDS: bumetanide 1 mg Tablet 2 MG PO (09:02)
[2021-03-19] MEDS: potassium chloride ER 20 mEq Tablet 40 MEQ PO ×2 (09:02→09:05)
[2021-03-19] MEDS: apixaban 5 mg Tablet 10 MG PO ×2 (09:03→20:19)
[2021-03-19] MEDS: magnesium oxide 400 mg tablet PO ×2 (09:03→17:44)
[2021-03-19] MEDS: doxycycline 100 mg Tablet PO ×2 (09:03→17:44)
[2021-03-19] MEDS: ropinirole 1 mg Tablet 2 MG PO ×2 (09:03→17:44)
[2021-03-19] MEDS: digoxin 250 mcg/ml INJ 2 mL 125 MCG IVP ×2 (09:04→14:45)
--- NOTE | 2021-03-19 11:16 | XR_ITS ---
WS: [id number] XR KUB portable [id number] REASON FOR EXAM: abd pain FINDINGS: No free air or retroperitoneal air. There is significantly dilated small bowel in the central and lef t abdomen. No colon gas. No mass or significant calcification. XR/XR KUB portable [id number] IMPRESSION: Findings compatible with distal small bowel obstruction.
--- NOTE | 2021-03-19 11:31 | P.PN_ITS ---
Subjective Subjective: Interval history: Patient was seen and examined this morning, patient is stating that she was able to tolerate her breakfast this morning, had 1 regular bowel movement her abdominal pain has subsided, heart rate is fluctuating between 1 20-1 30s on ambulation it gets up to 140s, blood pressure on softer side systolic ranging between 98 to 110 mmHg no active chest pain or shortness of breath, urine output has not been calculated correctly Right leg DVT on Doppler Echo is pending Noted low potassium will check magnesium level Requested Dr. Santacruz consult Updated family Creatinine 1.7 BNP 10,000 Vitals/I&O/Wt Last Vital Signs Temp 98.2 F 03/19/21 08:00 Pulse 122 H 03/19/21 08:00 Resp 16 03/19/21 08:00 BP 116/82 03/19/21 08:00 Pulse Ox 94 03/19/21 08:00 03/18/21 03/19/21 03/19/21 22:59 06:59 14:59 Intake Total 240 / 1180 Balance 240 / 1180 Physical Exam Narrative: EXAM NARRATIVE: Patient was sitting in her chair saturating well on room air No active chest pain Variable S1-S2 with signs of fluid overload Lower extremity nonpitting edema Bilateral breath sounds with crackles at the bases Awake alert oriented x3 GCS 15 abdomen soft nontender bowel sounds present EOMI, PERRLA Left lower extremity hyperemia will serosanguineous discharge Data : 03/19/21 03:17 03/19/21 03:17 A&P Assessment and plan (1) Atrial fibrillation with RVR: Status: Acute (2) Hypomagnesemia: Status: Acute (3) Cellulitis: Status: Acute (4) YUSRA (acute kidney injury): Status: Acute (5) Ventral hernia: Status: Acute (6) BMI over 35: Status: Chronic Additional A&P Information Atrial fibrillation with acute RVR On day 1 Cardizem drip was initiated her heart rate improved within 12 hours and that was turned off at midnight however next dose of p.o. metoprolol was given around 8 AM, then metoprolol dose was increased to 100 mg twice a day with Cardizem 60 mg twice a day and today her heart rate is still fluctuating between 1 20-1 30s Her echo is still pending I do not know her ejection fraction I have discontinued Cardizem because of her low blood pressure, continue metoprolol and added digoxin low-dose because of YUSRA, scheduled for another dose in 6 hours on [address] Santacruz's consult No active chest pain,, no signs of PE or VQ scan, elevated D-dimer, right leg DVT Would continue Eliquis, monitor creatinine closely, she has poor IV access it was very hard to monitor APTT heparin was discontinued yesterday, she has been getting loading dose of Eliquis Abdominal pain No signs of mesenteric ischemia, today her bowel movement improve no active fever no signs of peritonitis We will get KUB to rule out ileus she does complain abdominal pain after eating food would add Protonix and sucralfate for GERD GI cocktail She also has history of ventral hernia repair Hypomagnesemia and hypokalemia secondary to frequent bowel movements, today her bowel movement improved potassium repleted today check magnesium level currently on 400 mg twice a day Acute kidney injury with signs of fluid overload BNP 10,000, this most likely is cardiorenal in nature Would not request urine electrolytes that would show skewed results Her creatinine improved from 2.1-1.7 with Bumex 2 mg dosage Her urine output has not been calculated correctly Patient is denying dysuria she has been complaining of frequent urination with Bumex No fever or signs of leukocytosis Right leg DVT currently on loading dose of Eliquis Monitor creatinine function poor IV access heparin was discontinued yesterday Purulent cellulitis of left leg: Currently on doxycycline no signs of sepsis Full code Cardiac diet Currently on loading dose of Eliquis Attestations Medical Necessity Statement*: Continue medical management for A. fib RVR Time Spent in Patient Care: 30mins Coding Level of Care Code Acute Supervisor Motor Vehicle [employer] for Chg Fwd Diagnoses Atrial fibrillation with RVR I48.91 Hypomagnesemia E83.42 Cellulitis L03.90 YUSRA (acute kidney injury) N17.9 Ventral hernia K43.9 BMI over 35
[2021-03-19 14:16] LABS: Magnesium 1.6 mg/dL (1.7-2.3)
[2021-03-19 14:57] LABS: Glucose Point of Care 114 mg/dL (70-110)
--- NOTE | 2021-03-19 15:44 | P.CONIM_ITS ---
Providers/Reason For Consult Consulting Physician/Specialty*: Dr. Santacruz, cardiology Reason for Consult*: Atrial fibrillation with rapid ventricle response and congestive heart failure Attending Physician: Calista Myles MD Primary Care Provider: Nate Sainz DO History of Present Illness History of Present Illness Sirena Priest is a 65 year old female with past medical history of with past medical history of hypertension, diabetes mellitus type 2, obstructive sleep apnea intolerant to CPAP, morbid obesity, restless leg syndrome presented with chief complaints of nausea, vomiting and right upper abdominal pain. She complains of recurrent episodes of vomiting with inability to eat or drink along with nausea and dry heaving for almost 3 days prior to arrival. No fever no hematochezia or melena. She lives by herself and also noticed left leg swelling with discharge. She has home health services at home. On arrival to the ER where she was noted to be in A. fib with RVR she was started on Cardizem drip and subsequently transitioned to metoprolol p.o. and this morning she has been started on digoxin because of heart rate running in 120s. BNP was elevated, creatinine increased and potassium and magnesium are low. I have been asked to assist in further management. She denies any prior prior cardiac history. No CAD, NH, stroke or TIA or PAD history. No known history of atrial fibrillation or chronic kidney disease. She was also noted to have right lower extremity DVT and was started on anticoagulation. Review of Systems Narrative: GENERAL: Averagely built and averagely nourished in no acute distress HEENT: Extraocular movement intact. Pupils equal round reactive to light. No pallor or icterus. NECK: central trachea, [] JVD, [] abdominojugular reflex. No carotid bruit. CARDIOVASCULAR SYSTEM: S1-S2 regular. No S3 or S4 present. [No murmur rubs or gallops.] RESPIRATORY SYSTEM: Chest clear to auscultation. No wheezes rhonchi or rubs heard. [] No use of accessory muscles. ABDOMEN: Soft, nontender and nondistended. Normal bowel sounds present. No hepatosplenomegaly appreciated. [] EXTREMITIES: No cyanosis or clubbing. [No edema]. No signs of chronic venous insufficiency. PROFESSOR OF KINESIOLOGY: Patient is alert oriented ?3. No focal neurological deficits. Cranial nerves intact. [] SKIN: Normal turgor and temperature. No breakdown, rash or nail changes noted. [] PSYCH: Normal insight and judgment. No suicidal or homicidal ideations. Meds/Allergies Home Medications and Allergies Home Medications Medication Instructions Recorded Confirmed Last Taken Type atorvastatin 40 mg tablet 40 mg PO BEDTIME 11/04/19 03/17/21 03/14/21 History cetirizine 10 mg capsule 10 mg PO DAILY PRN 11/04/19 03/17/21 Unknown History cyanocobalamin (vitamin B-12) 1,000 mcg IM Q30D ml 11/04/19 03/17/21 02/23/21 History 1,000 mcg/mL injection solution gabapentin 600 mg tablet 300 mg PO BID tab 11/04/19 03/17/21 03/14/21 History hydrochlorothiazide 25 mg tablet 25 mg PO DAILY 11/04/19 03/17/21 03/14/21 History hydrocodone 7.5 mg-ibuprofen 200 1 tab PO QID PRN 11/04/19 03/17/21 Unknown History mg tablet metformin 850 mg tablet 850 mg PO TID 11/04/19 03/17/21 03/14/21 History metoprolol tartrate 25 mg tablet 25 mg PO BID 11/04/19 03/17/21 03/14/21 History pioglitazone 15 mg tablet 15 mg PO DAILY 11/04/19 03/17/21 03/14/21 History ramipril 10 mg capsule 10 mg PO DAILY 11/04/19 03/17/21 03/14/21 History ferrous gluconate 324 mg (37.5 mg 324 mg PO DAILY tab 10/21/20 03/17/21 03/14/21 History iron) tablet clonazepam 1 mg tablet 1 mg PO BID PRN #60 tab 10/24/20 03/17/21 Unknown Rx ropinirole 1 mg tablet 2 mg PO BID #360 tab 10/24/20 03/17/21 Unknown Rx Seroquel 25 - 50 mg PO BEDTIME PRN 03/17/21 03/17/21 03/14/21 History furosemide 40 mg PO DAILY 03/17/21 03/17/21 Unknown History Allergies Allergy/AdvReac Type Severity Reaction Status Date / Time No Known Allergies Allergy Verified 03/17/21 15:02 Current Medications Current Medications Generic Name Dose Route Start Last Admin Trade Name Freq PRN Reason Stop Dose Admin Acetaminophen 500 mg 03/17/21 19:04 03/19/21 06:11 Acetaminophen 500 Mg Tablet PO 500 mg Q4H PRN Administration fever Hydrocodone Bitart/Acetaminophen 1 tab 03/19/21 03:31 03/19/21 03:41 Hydrocodone-Acetaminophen 5-325 Mg Tablet PO 1 tab Q6H PRN Administration MODERATE PAIN Apixaban 10 mg 03/18/21 21:00 03/19/21 09:03 Apixaban 5 Mg Tablet PO 10 mg BID@0900,2100 HERNANDEZ Administration Atorvastatin Calcium 40 mg 03/17/21 21:00 03/18/21 21:41 Atorvastatin 40 Mg Tablet PO 40 mg BEDTIME HERNANDEZ Administration Bumetanide 2 mg 03/19/21 09:00 03/19/21 09:02 Bumetanide 1 Mg Tablet PO 2 mg DAILY HERNANDEZ Administration Clonazepam 1 mg 03/17/21 19:04 03/19/21 01:23 Clonazepam 1 Mg Tablet PO 1 mg BID PRN Administration anxiety Doxycycline Monohydrate 100 mg 03/18/21 09:00 03/19/21 09:03 Doxycycline 100 Mg Tablet PO 100 mg BID HERNANDEZ Administration Protocol Insulin Aspart 0 unit 03/17/21 21:00 03/19/21 12:03 Insulin Aspart 100 Unit/1 Ml SUBCUT Not Given WM&BEDTIME HERNANDEZ Protocol Magnesium Oxide 400 mg 03/18/21 18:00 03/19/21 09:03 Magnesium Oxide 400 Mg Tablet PO 400 mg BID HERNANDEZ Administration Metoprolol Tartrate 100 mg 03/18/21 18:00 03/19/21 09:02 Metoprolol Tartrate 50 Mg Tablet PO 100 mg BID HERNANDEZ Administration Ondansetron HCl 4 mg 03/17/21 19:04 03/18/21 12:36 Ondansetron 2 Mg/Ml Sdv 2 Ml IVP 4 mg Q6H PRN Administration NAUSEA AND VOMITING Potassium Chloride 40 meq 03/19/21 09:00 03/19/21 09:05 Potassium Chloride Er 20 Meq Tablet PO 40 meq DAILY HERNANDEZ Administration Quetiapine Fumarate 25 mg 03/17/21 19:04 03/18/21 23:55 Quetiapine 25 Mg Tablet PO 25 mg BEDTIME PRN Administration sleep Ropinirole HCl 2 mg 03/17/21 19:04 03/19/21 09:03 Ropinirole 1 Mg Tablet PO 2 mg BID HERNANDEZ Administration Senna/Docusate Sodium 1 tab 03/18/21 09:00 03/19/21 09:05 Sennosides-Docusate Tablet PO Not Given DAILY HERNANDEZ PFSH Acute PFSH: Medical History BMI over 35 BMI of 61.7 Major depressive disorder, recurrent severe without psychotic features Obstructive sleep apnea Restless leg syndrome Ventral hernia Surgical History H/O laparoscopy adhesiolysis Family History Other Family history non-contributory Social History Smoking and tobacco status: never smoked Second hand smoke exposure: No Alcohol intake: never Adopted: No Lives independently: Yes Marital status: Current gender identity: Female Vitals/I&O/Wt Last Vital Signs Temp 98.0 F 03/19/21 15:36 Pulse 91 03/19/21 15:36 Resp 18 03/19/21 15:36 BP 108/73 03/19/21 15:36 Pulse Ox 99 03/19/21 15:36 03/19/21 03/19/21 03/19/21 06:59 14:59 22:59 Intake Total 360 / 360 Output Total 1100 / 1100 Balance -740 / -740 Physical Exam Narrative: EXAM NARRATIVE: GENERAL: Morbidly obese patient in no acute distress HEENT: Extraocular movement intact. Pupils equal round reactive to light. NECK: Short thick neck. JVD not appreciated. CARDIOVASCULAR SYSTEM: S1-S2 irregular. No murmur appreciated. RESPIRATORY SYSTEM: Chest clear to auscultation. Decreased breath sounds at bases likely habitus related ABDOMEN: Soft, distended with fat with mild tenderness in right upper quadrant. Normal bowel sounds present. Abdominal pannus+ EXTREMITIES: No cyanosis or clubbing. Trace right lower extremity and 1+ left lower extremity edema. Bilateral leg dressing present PROFESSOR OF KINESIOLOGY: Patient is alert oriented ?3. No focal neurological deficits. PSYCH: Normal insight and judgment. Data Micro: Micro: Microbiology 03/19/21 09:50 C.difficile Toxin B Gene (PCR) - Fin al Stool Routine Col lection Other Data: Attestation for Other Data: I personally reviewed and interpreted the following: Other data: 18 March 2021: normal perfusion no evidence of pulmonary embolism on VQ scan. 19 March 2021: Transthoracic echocardiogram CONCLUSIONS 1. Normal left ventricular cavity size and systolic function. Increased left ventricular wall thickness. Left ventricular ejection fraction is estimated at 60 %. No regional wall motion abnormalities. Abnormal septal motion. 2. Upper normal right ventricle size. Mildly decreased right ventricular systolic function with right ventrciular free wall hypokinesis. 3. Mild tricuspid valve regurgitation. 4. Normal pulmonary artery pressure. 5. Mild biatrial enlargement. 6. No prior similar studies to compare. EKG with A. fib with RVR at [address]-T wave abnormality. A&P Assessment and plan (1) Atrial fibrillation with RVR: Newly diagnosed atrial fibrillation [id number]= 4/ , 1 for hypertension, 1 for diabetes mellitus, 1 for female sex and 1 for CHF. -Dose of metoprolol was increased from 50 to 100 mg twice daily. She received 2 dosages of digoxin 125 mcg IV. -Heart rate is fairly controlled right now. -May start on p.o. Cardizem 30 mg p.o. every 8 hours if she is tachycardic. -Continue Eliquis. Status: Acute (2) YUSRA (acute kidney injury): Status: Acute (3) CHF (congestive heart failure), NYHA class III: RV dysfunction likely in setting of untreated sleep apnea and OHS. -No PE noted on VQ scan. She is anticoagulated anyways with Eliquis. -Currently on p.o. Bumex. -May need to transition to Bumex IV. Status: Acute (4) Cellulitis: Status: Acute Additional A&P Information YUSRA: No known history of CKD however baseline is not available. Creatinine has improved to 1.7. Hypokalemia Hypomagnesemia History of renal stones Nonocclusive intraluminal thrombus thrombus in right popliteal and peroneal likely DVT Anemia Abdominal pain Thank you for allowing me to participate in patient's care. Please feel free to call with questions or concerns. Consult Attestations Time Spent in Patient Care: Greater than 35 minutes (>than 50% of time spent in counselling and/or direct pt care on unit) . 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
[2021-03-19] MEDS: sucralfate 1 gm Tablet PO ×2 (17:44→20:19)
[2021-03-19] MEDS: quetiapine 25 mg Tablet PO (20:19)
[2021-03-19] MEDS: atorvastatin 40 mg Tablet PO (20:19)
[2021-03-19 20:53] LABS: Glucose Point of Care 115 mg/dL (70-110)
[2021-03-20] VITALS (9 sets, daily range): BP systolic 109–127; BP diastolic 62–87; PULSE 69–136; RESP 15–21; TEMP 36.4–36.7; O2SAT 92–98
[2021-03-20] MEDS: acetaminophen 500 mg Tablet PO (02:50)
[2021-03-20] MEDS: HYDROcodone-acetaminophen 5-325 mg Tablet 1 TAB PO ×3 (05:15→21:08)
[2021-03-20 05:17] LABS: Basophils % 0.4 %; Eosinophils # 0.2 10^3/uL (0.0-0.8); Eosinophils % 1.9 %; Hematocrit 33.3 % (37.0-47.0); Hemoglobin 10.7 g/dL (11.5-15.3); Lymphocytes # 2.3 10^3/uL (0.8-4.8); Lymphocytes % 25.6 %; Mean Corpuscular HGB Conc 32.1 g/dL (30.0-36.0); Mean Corpuscular Hemoglobin 30.4 pg (28.0-34.0); Mean Corpuscular Volume 94.6 fL (81-99); Mean Platelet Volume 10.2 fL (7.4-10.4); Monocytes # 0.9 10^3/uL (0.2-0.9); Monocytes % 9.6 %; Neutrophils # 5.45 10^3/uL (1.8-7.7); Neutrophils % 59.7 %; Nucleated Red Blood Cells % 0 %; Platelet Count 330 10^3/cmm (130-400); Red Blood Count 3.52 10^6/uL (4.1-5.3); Red Cell Distribution Width 15.1 % (12.1-15.1); White Blood Count 9.1 10^3/uL (4.0-10.0)
[2021-03-20 05:46] LABS: Anion Gap 16.2 (5-19); Blood Urea Nitrogen 53 mg/dL (8-23); Calcium 7.6 mg/dL (8.5-10.5); Carbon Dioxide 23 mmol/L (22-29); Chloride 104 mmol/L (98-107); Glucose 97 mg/dL (65-115); Magnesium 1.5 mg/dL (1.7-2.3); Osmolality Calculated 304 mOsm/kg (285-295); Potassium 3.2 mmol/L (3.5-5.1); Sodium 140 mmol/L (136-145)
[2021-03-20] MEDS: sucralfate 1 gm Tablet PO ×4 (06:28→21:07)
[2021-03-20 06:44] LABS: Glucose Point of Care 98 mg/dL (70-110)
--- NOTE | 2021-03-20 09:06 | CT_ITS ---
WS: [id number] CT ABDOMEN PELVIS TECHNIQUE: Noncontrast CT of the abdomen and pelvis with coronal and sagittal reformatted images. CLINICAL INFORMATION: SBO COMPARISON: None. DLP: 5002.[address] scans at [facility] use at least one of these dose optimization techniques: automat ed exposure control; mA and/or kV adjustment per patient size (includes targeted exams where dose is matched to clinical indication); or iterative reconstruction. FINDINGS: Prior hysterectomy. Diastases of the rectus muscles with diffuse laxity of the abdominal wall. Left v entral abdominal wall hernia containing a loop small bowel with air-fluid levels. Mild partial small bowel obstruction. No evidence of perforation or ischemia. Incidental Fat-containing right ventral a bdominal wall hernia. Noncontrast liver is normal. Noncontrast spleen is normal. Normal GE junction. Lung bases are well ae rated. Adrenal glands are normal. No hydronephrosis in either kidney. Noncontrast pancreas is normal. Normal caliber abdominal aorta. No abdominal or pelvic lymphadenopath y. No inguinal lymphadenopathy. Diffuse induration and subcutaneous edema in the pelvic pannus consis tent with cellulitis. No drainable fluid collections. Diffuse skin thickening. CT/CT abdomen pelvis wo con [id number] IMPRESSION: 1. Left lower abdominal wall ventral [place] hernia with hernia mouth measur ing 4.5 CM. Herniated loop of small bowel with air-fluid levels. Mild small bow el obstruction. Mild distention of fluid-filled small bowel loops. No ischemia or strangulation. 2. Additional fat-containing right ventral abdominal wall hernia. 3. Diffuse skin thickening with cellulitis involving the pelvic pannus. No mady inable fluid collections. Recommend correlation for infection. 4. No other significant changes from previous. 5. Prior hysterectomy.
[2021-03-20] MEDS: metoprolol tartrate 50 mg Tablet 100 MG PO ×2 (09:25→18:49)
[2021-03-20] MEDS: potassium chloride ER 20 mEq Tablet 40 MEQ PO ×2 (09:25→18:48)
[2021-03-20] MEDS: ropinirole 1 mg Tablet 2 MG PO ×2 (09:25→18:49)
[2021-03-20] MEDS: sennosides-docusate Tablet 1 TAB PO (09:26)
[2021-03-20] MEDS: doxycycline 100 mg Tablet PO ×2 (09:26→18:49)
[2021-03-20] MEDS: magnesium oxide 400 mg tablet PO ×2 (09:26→18:49)
[2021-03-20] MEDS: bumetanide 1 mg Tablet 2 MG PO (09:26)
[2021-03-20] MEDS: pantoprazole DR 40 mg Tablet PO (09:26)
[2021-03-20] MEDS: lidocaine 1% 5 ML in potassium chloride premix 100 ML 50 ML IV (09:27)
[2021-03-20] MEDS: apixaban 5 mg Tablet 10 MG PO ×2 (09:27→21:07)
[2021-03-20] MEDS: magnesium sulfate premix 2 GM/50 ML PIGGYBACK IV (09:28)
--- NOTE | 2021-03-20 09:57 | P.PN_ITS ---
Subjective Subjective: Interval history: No CP. She feels tired. Had CT abdomen today Medications: Reviewed: Yes Medication Review Details: Current Medications Acetaminophen (Acetaminophen 500 Mg Tablet) 500 mg PO Q4H PRN PRN Reason: fever Last Admin: 03/20/21 02:50 Dose: 500 mg Documented by: Hydrocodone Bitart/Acetaminophen (Hydrocodone-Acetaminophen 5-325 Mg Tablet) 1 tab PO Q6H PRN PRN Reason: MODERATE PAIN Last Admin: 03/20/21 05:15 Dose: 1 tab Documented by: Apixaban (Apixaban 5 Mg Tablet) 10 mg PO BID@0900,2100 [facility] Last Admin: 03/20/21 09:27 Dose: 10 mg Documented by: Atorvastatin Calcium (Atorvastatin 40 Mg Tablet) 40 mg PO BEDTIME HERNANDEZ Last Admin: 03/19/21 20:19 Dose: 40 mg Documented by: Bumetanide (Bumetanide 1 Mg Tablet) 2 mg PO DAILY [facility] Last Admin: 03/20/21 09:26 Dose: 2 mg Documented by: Clonazepam (Clonazepam 1 Mg Tablet) 1 mg PO BID PRN PRN Reason: anxiety Last Admin: 03/19/21 01:23 Dose: 1 mg Documented by: Dextrose (Dextrose 50% Syringe 50 Ml) 25 ml IVP ONCE PRN; Protocol PRN Reason: hypoglycemia protocol Dextrose (Dextrose 50% Syringe 50 Ml) 50 ml IVP PRN PRN; Protocol PRN Reason: hypoglycemia protocol Doxycycline Monohydrate (Doxycycline 100 Mg Tablet) 100 mg PO BID [facility]; Protocol Last Admin: 03/20/21 09:26 Dose: 100 mg Documented by: Glucagon (Glucagon 1 Mg/Ml Inj 1 Ml) 1 mg IM ONCE PRN; Protocol PRN Reason: Adult Acute Hypoglycemia Prot. Dextrose (D5w) 500 mls @ 100 mls/hr IV ONCE PRN; Protocol PRN Reason: Adult Acute Hypoglycemia Prot Lidocaine HCl 5 ml/ Potassium (Chloride) 105 mls @ 50 mls/hr IV ONCE ONE Stop: 03/20/21 10:00 Last Admin: 03/20/21 09:27 Dose: 50 mls/hr Documented by: Insulin Aspart (Insulin Aspart 100 Unit/1 Ml) 0 unit SUBCUT WM&BEDTIME HERNANDEZ; Protocol Last Admin: 03/20/21 07:35 Dose: Not Given Documented by: Magnesium Oxide (Magnesium Oxide 400 Mg Tablet) 400 mg PO BID [facility] Last Admin: 03/20/21 09:26 Dose: 400 mg Documented by: Metoprolol Tartrate (Metoprolol Tartrate 50 Mg Tablet) 100 mg PO BID [facility] Last Admin: 03/20/21 09:25 Dose: 100 mg Documented by: Ondansetron HCl (Ondansetron 2 Mg/Ml Sdv 2 Ml) 4 mg IVP Q6H PRN PRN Reason: NAUSEA AND VOMITING Last Admin: 03/18/21 12:36 Dose: 4 mg Documented by: Pantoprazole Sodium (Pantoprazole Dr 40 Mg Tablet) 40 mg PO DAILY [facility] Last Admin: 03/20/21 09:26 Dose: 40 mg Documented by: Potassium Chloride (Potassium Chloride Er 20 Meq Tablet) 40 meq PO BID [facility] Last Admin: 03/20/21 09:25 Dose: 40 meq Documented by: Quetiapine Fumarate (Quetiapine 25 Mg Tablet) 25 mg PO BEDTIME PRN PRN Reason: sleep Last Admin: 03/19/21 20:19 Dose: 25 mg Documented by: Ropinirole HCl (Ropinirole 1 Mg Tablet) 2 mg PO BID [facility] Last Admin: 03/20/21 09:25 Dose: 2 mg Documented by: Senna/Docusate Sodium (Sennosides-Docusate Tablet) 1 tab PO DAILY [facility] Last Admin: 03/20/21 09:26 Dose: 1 tab Documented by: Sucralfate (Sucralfate 1 Gm Tablet) 1 gm PO AC&BEDTIME [facility] Last Admin: 03/20/21 06:28 Dose: 1 gm Documented by: Vitals/I&O/Wt Last Vital Signs Temp 97.6 F 03/20/21 08:00 Pulse 79 03/20/21 08:00 Resp 19 H 03/20/21 08:00 BP 109/87 03/20/21 08:00 Pulse Ox 98 03/20/21 08:00 03/19/21 03/20/21 03/20/21 22:59 06:59 14:59 Intake Total 100 / 460 Output Total 300 / 1400 500 / 1900 Balance -300 / -1040 -400 / -1440 Physical Exam Narrative: EXAM NARRATIVE: GENERAL: Morbidly obese patient in no acute distress HEENT: Extraocular movement intact. Pupils equal round reactive to light. NECK: Short thick neck. JVD not appreciated. CARDIOVASCULAR SYSTEM: S1-S2 irregular. No murmur appreciated. RESPIRATORY SYSTEM: Chest clear to auscultation. Decreased breath sounds at bases likely habitus related ABDOMEN: Soft, distended with fat with mild tenderness in right upper quadrant. Normal bowel sounds present. Large abdominal pannus+ EXTREMITIES: No cyanosis or clubbing. Trace right lower extremity and 1+ left lower extremity edema. Bilateral leg dressing present BATTERY CHECKER: Patient is alert oriented ?3. No focal neurological deficits. PSYCH: Normal insight and judgment. Data : 03/20/21 04:28 03/21/21 04:53 Micro: Microbiology 03/19/21 09:50 C.difficile Toxin B Gene (PCR) - Final Stool Routine Collection A&P Assessment and plan (1) Atrial fibrillation with RVR: Newly diagnosed atrial fibrillation [id number]= 4/ , 1 for hypertension, 1 for diabetes mellitus, 1 for female sex and 1 for CHF. -Dose of metoprolol was increased from 50 to 100 mg twice daily. She received 2 dosages of digoxin 125 mcg IV. -Heart rate is fairly controlled right now. start on digoxin PO. -May start on p.o. Cardizem 30 mg p.o. every 8 hours if she is tachycardic. -Continue Eliquis. Status: Acute (2) YUSRA (acute kidney injury): Status: Acute (3) CHF (congestive heart failure), NYHA class III: RV dysfunction likely in setting of untreated sleep apnea and OHS. -No PE noted on VQ scan. She is anticoagulated anyways with Eliquis. -Currently on p.o. Bumex. -diuresing well. Status: Acute (4) Cellulitis: Status: Acute Additional A&P Information YUSRA: No known history of CKD however baseline is not available. Creatinine has improved to 1.5. Hypokalemia : replaced Hypomagnesemia: replaced History of renal stones Nonocclusive intraluminal thrombus thrombus in right popliteal and peroneal likely DVT Anemia Abdominal pain Hernia Thank you for allowing me to participate in patient's care. Please feel free to call with questions or concerns. Attestations Medical Necessity Statement*: Needs hospital stay for CHF, anemia and placement Time Spent in Patient Care: 16 - 35 minutes (>than 50% of time spent in counselling and/or direct pt care on unit) . 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
[2021-03-20 12:19] LABS: Glucose Point of Care 99 mg/dL (70-110)
--- NOTE | 2021-03-20 12:47 | P.PN_ITS ---
Subjective Subjective: Interval history: Ms. Priest is able to tolerate her diet, she has been having 1 bowel movement for last 2 days, no active nausea or vomiting, afebrile, With addition of digoxin her heart rate has been better today heart rate ranging between 95-1 09, blood pressure fluctuating between 10 9-1 20 mmhg No active chest pain or shortness of breath No extremity wound dressing intact without any active signs of drainage Requested Dr. Nieto for abd CT findings Vitals/I&O/Wt Last Vital Signs Temp 97.6 F 03/20/21 08:00 Pulse 79 03/20/21 08:00 Resp 19 H 03/20/21 08:00 BP 109/87 03/20/21 08:00 Pulse Ox 98 03/20/21 08:00 03/19/21 03/20/21 03/20/21 22:59 06:59 14:59 Intake Total 100 / 460 Output Total 300 / 1400 500 / 1900 Balance -300 / -1040 -400 / -1440 Physical Exam Narrative: EXAM NARRATIVE: Pleasant elderly female who was sitting in her chair when I entered the room She did not endorse any abdominal pain no active nausea vomiting Abdomen soft, distended, with obesity, morbid obesity No active signs of peritonitis Lower extremity bilateral pitting edema Left leg with signs of cellulitis Abdominal pannus with mild signs of cellulitis Variable S1-S2 Volume overloaded Saturating well on room air Appropriate mood and affect Data : 03/20/21 04:28 03/20/21 04:28 Micro: Microbiology 03/19/21 09:50 C.difficile Toxin B Gene (PCR) - Final Stool Routine Collection A&P Assessment and plan (1) Ventral hernia: Status: Acute (2) Atrial fibrillation with RVR: Status: Acute (3) YUSRA (acute kidney injury): Status: Acute (4) Cellulitis: Status: Acute (5) Hypomagnesemia: Status: Acute (6) CHF (congestive heart failure), NYHA class III: Status: Acute (7) BMI over 35: Status: Chronic Additional A&P Information A. fib with CHF exacerbation Heart rate seems to be slightly better on digoxin Digoxin maintenance dose started by cardiology [id number] score of 4 Continue Eliquis 10 twice daily Currently she is on Bumex 2 mg Metoprolol 100 mg twice a day she has preserved ejection fraction, if needed Cardizem can be added check digoxin level within 3 days Hypokalemia: Potassium repleted Hypomagnesemia: Magnesium repleted Ventral hernia Initial presentation with bowel obstruction which has improved patient is able to tolerate p.o. diet having bowel movement every day Will request general surgery consult however no active ischemia strangulation or incarceration signs of hernia, Dr. 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
--- NOTE | 2021-03-20 13:10 | P.CONIM_ITS ---
Providers/Reason For Consult Consulting Physician/Specialty*: General Surgery Edson Nieto MD Reason for Consult*: Recurrent incisional hernia with evidence of bowel obstruction at this admission. Attending Physician: Calista Myles MD Primary Care Provider: Nate Sainz DO History of Present Illness History of Present Illness Sirena Priest is a 65 year old female who who was admitted several days ago with atrial fibrillation with rapid ventricular response. She said she actually started having trouble with abdominal cramping, nausea and vomiting for a day prior to presenting to the emergency department. I believe all of her symptoms were felt secondary to her cardiac abnormality at that time, but eventually a KUB showed possible evidence of a small bowel obstruction. A CAT scan today showed evidence of a recurrent incisional hernia with that being the likely cisco rce of the obstructive process. Since she had the CAT scan, however, she has been eating, having bowel movements, etc. She says her abdomen is no longer symptomatic. The patient had a laparoscopic incisional hernia repair done by Dr. Ravin mcqueen in 2014. She seems to recall that she had a another bulge at the site even prior to leaving the hospital at that time. Despite that, she says she has been asymptomatic until just this last episode occurred. Review of Systems General: Reports: 10 or more systems reviewed and unremarkable except in HPI and below Const: Denies: fever(s) GI: Reports: abdominal pain (Resolved) and vomiting (Resolved) Musc: Reports: joint pain (Arthritis) Meds/Allergies Home Medications and Allergies Home Medications Medication Instructions Recorded Confirmed Last Taken Type atorvastatin 40 mg tablet 40 mg PO BEDTIME 11/04/19 03/17/21 03/14/21 History cetirizine 10 mg capsule 10 mg PO DAILY PRN 11/04/19 03/17/21 Unknown History cyanocobalamin (vitamin B-12) 1,000 mcg IM Q30D ml 11/04/19 03/17/21 02/23/21 History 1,000 mcg/mL injection solution gabapentin 600 mg tablet 300 mg PO BID tab 11/04/19 03/17/21 03/14/21 History hydrochlorothiazide 25 mg tablet 25 mg PO DAILY 11/04/19 03/17/21 03/14/21 History hydrocodone 7.5 mg-ibuprofen 200 1 tab PO QID PRN 11/04/19 03/17/21 Unknown History mg tablet metformin 850 mg tablet 850 mg PO TID 11/04/19 03/17/21 03/14/21 History metoprolol tartrate 25 mg tablet 25 mg PO BID 11/04/19 03/17/21 03/14/21 History pioglitazone 15 mg tablet 15 mg PO DAILY 11/04/19 03/17/21 03/14/21 History ramipril 10 mg capsule 10 mg PO DAILY 11/04/19 03/17/21 03/14/21 History ferrous gluconate 324 mg (37.5 mg 324 mg PO DAILY tab 10/21/20 03/17/21 03/14/21 History iron) tablet clonazepam 1 mg tablet 1 mg PO BID PRN #60 tab 10/24/20 03/17/21 Unknown Rx ropinirole 1 mg tablet 2 mg PO BID #360 tab 10/24/20 03/17/21 Unknown Rx Seroquel 25 - 50 mg PO BEDTIME PRN 03/17/21 03/17/21 03/14/21 History furosemide 40 mg PO DAILY 03/17/21 03/17/21 Unknown History Allergies Allergy/AdvReac Type Severity Reaction Status Date / Time No Known Allergies Allergy Verified 03/17/21 15:02 Current Medications Current Medications Generic Name Dose Route Start Last Admin Trade Name Freq PRN Reason Stop Dose Admin Acetaminophen 500 mg 03/17/21 19:04 03/20/21 02:50 Acetaminophen 500 Mg Tablet PO 500 mg Q4H PRN Administration fever Hydrocodone Bitart/Acetaminophen 1 tab 03/19/21 03:31 03/20/21 05:15 Hydrocodone-Acetaminophen 5-325 Mg Tablet PO 1 tab Q6H PRN Administration MODERATE PAIN Apixaban 10 mg 03/18/21 21:00 03/20/21 09:27 Apixaban 5 Mg Tablet PO 10 mg BID@0900,2100 HERNANDEZ Administration Atorvastatin Calcium 40 mg 03/17/21 21:00 03/19/21 20:19 Atorvastatin 40 Mg Tablet PO 40 mg BEDTIME HERNANDEZ Administration Bumetanide 2 mg 03/19/21 09:00 03/20/21 09:26 Bumetanide 1 Mg Tablet PO 2 mg DAILY HERNANDEZ Administration Clonazepam 1 mg 03/17/21 19:04 03/19/21 01:23 Clonazepam 1 Mg Tablet PO 1 mg BID PRN Administration anxiety Doxycycline Monohydrate 100 mg 03/18/21 09:00 03/20/21 09:26 Doxycycline 100 Mg Tablet PO 100 mg BID HERNANDEZ Administration Protocol Insulin Aspart 0 unit 03/17/21 21:00 03/20/21 07:35 Insulin Aspart 100 Unit/1 Ml SUBCUT Not Given WM&BEDTIME HERNANDEZ Protocol Magnesium Oxide 400 mg 03/18/21 18:00 03/20/21 09:26 Magnesium Oxide 400 Mg Tablet PO 400 mg BID HERNANDEZ Administration Metoprolol Tartrate 100 mg 03/18/21 18:00 03/20/21 09:25 Metoprolol Tartrate 50 Mg Tablet PO 100 mg BID HERNANDEZ Administration Ondansetron HCl 4 mg 03/17/21 19:04 03/18/21 12:36 Ondansetron 2 Mg/Ml Sdv 2 Ml IVP 4 mg Q6H PRN Administration NAUSEA AND VOMITING Pantoprazole Sodium 40 mg 03/20/21 09:00 03/20/21 09:[address] 40 Mg Tablet PO 40 mg DAILY HERNANDEZ Administration Potassium Chloride 40 meq 03/20/21 09:00 03/20/21 09:25 Potassium Chloride Er 20 Meq Tablet PO 40 meq BID HERNANDEZ Administration Quetiapine Fumarate 25 mg 03/17/21 19:04 03/19/21 20:19 Quetiapine 25 Mg Tablet PO 25 mg BEDTIME PRN Administration sleep Ropinirole HCl 2 mg 03/17/21 19:04 03/20/21 09:25 Ropinirole 1 Mg Tablet PO 2 mg BID HERNANDEZ Administration Senna/Docusate Sodium 1 tab 03/18/21 09:00 03/20/21 09:26 Sennosides-Docusate Tablet PO 1 tab DAILY HERNANDEZ Administration Sucralfate 1 gm 03/19/21 17:00 03/20/21 06:28 Sucralfate 1 Gm Tablet PO 1 gm AC&BEDTIME HERNANDEZ Administration PFSH Acute PFSH: Medical History (Updated 03/20/21 @ 13:18 by Edson Nieto MD) BMI over 35 BMI of 61.7 Major depressive disorder, recurrent severe without psychotic features Obstructive sleep apnea Restless leg syndrome Surgical History (Updated 03/20/21 @ 13:14 by Edson Nieto MD) H/O laparoscopy adhesiolysis/repair of incisional hernia with mesh -- 2014 -- Dr. Alicia History of section, low vertical X 2 History of total abdominal hysterectomy and bilateral salpingo-oophorectomy Family History Other Family history non-contributory Social History Smoking and tobacco status: never smoked Second hand smoke exposure: No Alcohol intake: never Adopted: No Lives independently: Yes Marital status: Current gender identity: Female Vitals/I&O/Wt Last Vital Signs Temp 97.6 F 03/20/21 08:00 Pulse 79 03/20/21 08:00 Resp 19 H 03/20/21 08:00 BP 109/87 03/20/21 08:00 Pulse Ox 98 03/20/21 08:00 03/19/21 03/20/21 03/20/21 22:59 06:59 14:59 Intake Total 100 / 460 240 / 240 Output Total 300 / 1900 500 / 1900 1700 / 1700 Balance -300 / -1440 -400 / -1440 -1460 / -1460 Physical Exam Narrative: EXAM NARRATIVE: The patient was encountered in her hospital room. She does not appear to be in any distress. The pupils seem equal. No carotid bruits are heard. The lungs are clear anteriorly. The heart is actually regular despite her history of atrial fibrillation. The abdomen is super obese with a dependent pannus. The patient has an obvious hernia on the left side somewhat lower in the dependent portion of her abdominal tissue. It is very soft and nontender, however. The extremities reveal edema and she has her left lower extremity wrapped with some Kerlix. Neurologically the patient can move all limbs. Data Micro: Micro: Microbiology 03/19/21 09:50 C.difficile Toxin B Gene (PCR) - Fin al Stool Routine Col lection Imaging^: CT Abd/Pel: Radiologist's impression: CT abdomen/pelvis 03/20/2021 IMPRESSION: 1. Left lower abdominal wall ventral wide mouth hernia with hernia mouth measuring 4.5 CM. Herniated loop of small bowel with air-fluid levels. Mild small bowel obstruction. Mild distention of fluid-filled small bowel loops. No ischemia or strangulation. 2. Additional fat-containing right ventral abdominal wall hernia. 3. Diffuse skin thickening with cellulitis involving the pelvic pannus. No drainable fluid collections. Recommend correlation for infection. 4. No other significant changes from previous. 5. Prior hysterectomy. A&P Assessment and plan (1) Recurrent incisional hernia: The patient has a recurrent incisional hernia. Based on her imaging, I believe this was the cause of her abdominal symptoms that started just prior to this admission. She seems to think that the hernia may have been there even before she left the hospital at the time of her repair in 2014. If that was the case, it does not seem to have caused any trouble until now by her own reports. I told the patient that I would be happy to set her back up to see Dr. Alicia to discuss any options if she has an interest in that. She says she would just like to keep an eye on this for now but she will contact him if she continues to have any symptoms. Status: Acute Consult Attestations Medical Necessity Statement: See admitting service's notation. 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
[2021-03-20 13:12] LABS: Glucose Point of Care 84 mg/dL (70-110)
[2021-03-20] MEDS: digoxin 125 mcg Tablet PO (13:38)
[2021-03-20 17:11] LABS: Glucose Point of Care 107 mg/dL (70-110)
--- NOTE | 2021-03-20 19:46 | PC.NURSE ---
Drsg to lower legs done with silvercel covered with abd pad and wrapped with gauze. Pt tolerated well. Call light in reach.
[2021-03-20 20:32] LABS: Glucose Point of Care 101 mg/dL (70-110)
[2021-03-20] MEDS: quetiapine 25 mg Tablet PO (21:08)
[2021-03-20] MEDS: atorvastatin 40 mg Tablet PO (21:08)
[2021-03-20] MEDS: CLONazepam 1 mg Tablet PO (23:44)
[2021-03-21] VITALS (12 sets, daily range): BP systolic 98–129; BP diastolic 56–89; PULSE 76–136; RESP 15–24; TEMP 36.4–36.9; O2SAT 93–97
[2021-03-21] MEDS: HYDROcodone-acetaminophen 5-325 mg Tablet 1 TAB PO ×3 (03:31→17:18)
[2021-03-21 05:38] LABS: Anion Gap 18.7 (5-19); Blood Urea Nitrogen 49 mg/dL (8-23); Calcium 7.6 mg/dL (8.5-10.5); Carbon Dioxide 24 mmol/L (22-29); Chloride 103 mmol/L (98-107); Glomerular Filtration Rate 37.9 mL/min (90-130); Glucose 158 mg/dL (65-115); Osmolality Calculated 310 mOsm/kg (285-295); Potassium 3.7 mmol/L (3.5-5.1); Sodium 142 mmol/L (136-145)
[2021-03-21] MEDS: sucralfate 1 gm Tablet PO ×4 (06:12→20:47)
[2021-03-21 06:45] LABS: Glucose Point of Care 119 mg/dL (70-110)
[2021-03-21] MEDS: apixaban 5 mg Tablet 10 MG PO ×2 (09:12→20:47)
[2021-03-21] MEDS: dilTIAZem 30 mg Tablet PO (09:12)
[2021-03-21] MEDS: digoxin 125 mcg Tablet PO (09:12)
[2021-03-21] MEDS: metoprolol tartrate 50 mg Tablet 100 MG PO ×2 (09:13→17:17)
[2021-03-21] MEDS: bumetanide 1 mg Tablet 2 MG PO (09:13)
[2021-03-21] MEDS: sennosides-docusate Tablet 1 TAB PO (09:13)
[2021-03-21] MEDS: ropinirole 1 mg Tablet 2 MG PO ×2 (09:13→17:19)
[2021-03-21] MEDS: magnesium oxide 400 mg tablet PO ×2 (09:13→17:19)
[2021-03-21] MEDS: doxycycline 100 mg Tablet PO ×2 (09:13→17:19)
[2021-03-21] MEDS: potassium chloride ER 20 mEq Tablet 40 MEQ PO ×2 (09:14→17:18)
[2021-03-21] MEDS: pantoprazole DR 40 mg Tablet PO (09:22)
--- NOTE | 2021-03-21 10:44 | P.PN_ITS ---
Subjective Subjective: Interval history: c/o some blood in stool on wiping today. Medications: Reviewed: Yes Vitals/I&O/Wt Last Vital Signs Temp 98.4 F 03/21/21 08:00 Pulse 123 H 03/21/21 09:12 Resp 15 03/21/21 08:00 BP 129/89 03/21/21 08:00 Pulse Ox 96 03/21/21 08:00 03/20/21 03/21/21 03/21/21 22:59 06:59 14:59 Intake Total 360 / 755 150 / 905 240 / 240 Output Total 600 / 2300 150 / 2450 Balance -240 / -1545 0 / -1545 240 / 240 Physical Exam Narrative: EXAM NARRATIVE: GENERAL: Morbidly obese patient in no acute distress HEENT: Extraocular movement intact. Pupils equal round reactive to light. NECK: Short thick neck. JVD not appreciated. CARDIOVASCULAR SYSTEM: S1-S2 irregular. No murmur appreciated. RESPIRATORY SYSTEM: Chest clear to auscultation. Decreased breath sounds at bases likely habitus related ABDOMEN: Soft, distended with fat. Normal bowel sounds present. Large abdominal pannus+ EXTREMITIES: No cyanosis or clubbing. trace-1+ Right lower extremity and 1+ left lower extremity edema. 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 No focal neurological deficits. PSYCH: Normal insight and judgment. Data : 03/20/21 04:28 03/21/21 04:53 A&P Assessment and plan (1) Atrial fibrillation with RVR: Newly diagnosed atrial fibrillation [id number]= 4/9 , 1 for hypertension, 1 for diabetes mellitus, 1 for female sex and 1 for CHF. -continue on metoprolol tartrate 100 mg twice daily. She received 2 dosages of digoxin 125 mcg IV on 03/19/21. -continue on digoxin PO. - started on p.o. Cardizem 30 mg p.o. every 8 hours. May have to increase depending on her HR. -Continue Eliquis. Status: Acute (2) YUSRA (acute kidney injury): BUN and creatinine improving with diuresis, down to 1.4. Status: Acute (3) CHF (congestive heart failure), NYHA class III: RV dysfunction likely in setting of untreated sleep apnea and OHS. -No PE noted on VQ scan. She is anticoagulated anyways with Eliquis. -Currently on p.o. Bumex. -diuresing well. Status: Acute (4) Cellulitis: Status: Acute Additional A&P Information Hypokalemia : replaced Hypomagnesemia: replaced History of renal stones Nonocclusive intraluminal thrombus thrombus in right popliteal and peroneal likely DVT Anemia Ventral hernia Abdominal pain likley d/t above Hernia Thank you for allowing me to participate in patient's care. Please feel free to call with questions or concerns. Attestations Medical Necessity Statement*: Needs hospital stay for CHF, A. fib with RVR and NH placement Time Spent in Patient Care: 16 - 35 minutes (>than 50% of time spent in counselling and/or direct pt care on unit) . 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
[2021-03-21 11:01] LABS: Glucose Point of Care 114 mg/dL (70-110)
--- NOTE | 2021-03-21 11:27 | PC.SOCIAL ---
IMM Update Pg. 2 of IMM updated and reviewed with patient, who verbalized understanding. Copy provided to patient.
[2021-03-21 11:29] LABS: Magnesium 1.8 mg/dL (1.7-2.3)
--- NOTE | 2021-03-21 13:42 | P.PN_ITS ---
Subjective Subjective: Interval history: Patient was seen and examined this morning she was sitting at the bedside, she is feeling tired and fatigued and agreeable to go to a assisted, Today I have added Cardizem because of her A. fib RVR heart rate fluctuate between 120-1 40s at night Potassium 3.7 magnesium 1.8 today, noticed some blood when she wiped herself today her previous hemoglobin has been stable between 10.7-10.9 hemodynamically stable No pain around hernia able to tolerate her diet and have bowel movement Vitals/I&O/Wt Last Vital Signs Temp 98.4 F 03/21/21 08:00 Pulse 123 H 03/21/21 09:12 Resp 15 03/21/21 08:00 BP 129/89 03/21/21 08:00 Pulse Ox 96 03/21/21 08:00 03/20/21 03/21/21 03/21/21 22:59 06:59 14:59 Intake Total 360 / 755 150 / 905 240 / 240 Output Total 600 / 2300 150 / 2450 Balance -240 / -1545 0 / -1545 240 / 240 Physical Exam Narrative: EXAM NARRATIVE: Patient was sitting at the bedside Morbidly obese female Ventral hernia without any pain Dependent pannus Variable S1-S2 with signs of fluid overload Bilateral lower extremity pitting edema 3+ Left lower extremity dressing covered with exudative discharge, tender to touch some regression of hyperemic borders noted No acute respite distress Awake alert oriented x3 GCS 15 Data : 03/20/21 04:28 03/21/21 04:53 A&P Assessment and plan (1) Recurrent incisional hernia: Status: Acute (2) CHF (congestive heart failure), NYHA class III: Status: Acute (3) Hypomagnesemia: Status: Acute (4) Cellulitis: Status: Acute (5) YUSRA (acute kidney injury): Status: Acute (6) Atrial fibrillation with RVR: Status: Acute (7) BMI over 35: Status: Chronic (8) Hypokalemia: Status: Acute Additional A&P Information A. fib RVR Currently on metoprolol 100 mg twice a day, digoxin maintenance dose, Cardizem added on 03/21 30 mg every 6h Currently on Eliquis loading dose for DVT No active chest pain or shortness of breath Appreciate cardiology recommendations EF preserved Recurrent incisional hernia: No active signs of obstruction, she is able to tolerate diet and have bowel movement, hemodynamically stable, patient would like to follow-up with Dr. Alicia in case of her recurrence of symptoms no in tervention recommended by general surgery for now, appreciate general surgery recommendations YUSRA: Improving with diuresis, I will continue her current dose of Bumex for now Hypomagnesemia: Repleted Hypokalemia: Repleted Purulent cellulitis of left leg: Continue doxycycline no active signs of sepsis Right leg DVT currently on loading dose of Eliquis Will need assisted placement on discharge PT Cardiac diet DVT prophylaxis Eliquis would suffice Attestations Medical Necessity Statement*: Awaiting assisted placement Time Spent in Patient Care: 16 - 35 minutes 30mins Coding Level of Care Code Acute 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
--- NOTE | 2021-03-21 14:36 | ECG_ITS ---
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 Measurements Intervals [place] Rate: 93 P: MD: QRS: 20 QRSD: 89 T: 10 QT: 362 QTc: 451 Interpretive Statements ATRIAL FIBRILLATION NONSPECIFIC ST & T-WAVE ABNORMALITY ABNORMAL RHYTHM ECG Compared to ECG 03/17/2021 14:18:12 No significant changes Electronically Signed On 03-22-2021 0:54:04 CDT by Alexis Hill M.D. [id number]
[2021-03-21 17:50] LABS: Glucose Point of Care 124 mg/dL (70-110)
[2021-03-21 20:33] LABS: Glucose Point of Care 123 mg/dL (70-110)
[2021-03-21] MEDS: atorvastatin 40 mg Tablet PO (20:47)
[2021-03-21] MEDS: quetiapine 25 mg Tablet PO (21:09)
[2021-03-22] MEDS: dilTIAZem 30 mg Tablet PO ×2 (02:12→08:45)
[2021-03-22] MEDS: HYDROcodone-acetaminophen 5-325 mg Tablet 1 TAB PO ×2 (03:07→11:51)
[2021-03-22 04:00] VITALS: BP 120/75; PULSE 78; RESP 26; TEMP 36.6; O2SAT 94
[2021-03-22 04:21] LABS: Basophils % 0.4 %; Eosinophils # 0.1 10^3/uL (0.0-0.8); Hematocrit 32.8 % (37.0-47.0); Hemoglobin 10.2 g/dL (11.5-15.3); Lymphocytes # 2.4 10^3/uL (0.8-4.8); Lymphocytes % 23.9 %; Mean Corpuscular HGB Conc 31.1 g/dL (30.0-36.0); Mean Corpuscular Volume 96.5 fL (81-99); Mean Platelet Volume 9.9 fL (7.4-10.4); Monocytes # 0.9 10^3/uL (0.2-0.9); Monocytes % 8.6 %; Neutrophils # 6.18 10^3/uL (1.8-7.7); Neutrophils % 62.2 %; Nucleated Red Blood Cells % 0.2 %; Platelet Count 329 10^3/cmm (130-400); White Blood Count 9.9 10^3/uL (4.0-10.0)
[2021-03-22 04:40] LABS: Anion Gap 14.4 (5-19); Blood Urea Nitrogen 46 mg/dL (8-23); Calcium 7.6 mg/dL (8.5-10.5); Carbon Dioxide 27 mmol/L (22-29); Chloride 105 mmol/L (98-107); Glomerular Filtration Rate 41.2 mL/min (90-130); Glucose 105 mg/dL (65-115); Magnesium 1.7 mg/dL (1.7-2.3); Osmolality Calculated 308 mOsm/kg (285-295); Potassium 3.4 mmol/L (3.5-5.1); Sodium 143 mmol/L (136-145)
[2021-03-22] MEDS: acetaminophen 500 mg Tablet PO (05:25)
[2021-03-22] MEDS: CLONazepam 1 mg Tablet PO (06:03)
[2021-03-22 06:50] LABS: Glucose Point of Care 102 mg/dL (70-110)
[2021-03-22 08:00] VITALS: BP 105/60; PULSE 128; RESP 19; TEMP 36.7; O2SAT 97
[2021-03-22] MEDS: ropinirole 1 mg Tablet 2 MG PO (08:45)
[2021-03-22] MEDS: potassium chloride ER 20 mEq Tablet 40 MEQ PO (08:45)
[2021-03-22 08:46] VITALS: PULSE 109
[2021-03-22] MEDS: pantoprazole DR 40 mg Tablet PO (08:46)
[2021-03-22] MEDS: digoxin 125 mcg Tablet PO (08:46)
[2021-03-22] MEDS: doxycycline 100 mg Tablet PO (08:46)
[2021-03-22] MEDS: bumetanide 1 mg Tablet 2 MG PO (08:46)
[2021-03-22] MEDS: magnesium oxide 400 mg tablet PO (08:46)
[2021-03-22] MEDS: metoprolol tartrate 50 mg Tablet 100 MG PO (08:46)
[2021-03-22] MEDS: sucralfate 1 gm Tablet PO ×2 (08:47→11:51)
[2021-03-22] MEDS: apixaban 5 mg Tablet 10 MG PO (08:47)
[2021-03-22 10:39] LABS: SARS Covid-2 Antigen Negative (Negative)
--- NOTE | 2021-03-22 10:42 | P.DS_ITS ---
Discharge Providers Date of Admission: 03/18/21 15:55 Date of Discharge: March 22, 2021 Attending Provider at Admission: Calista Myles MD Attending Provider at Discharge: Calista Myles MD Primary Care Provider: Nate Sainz DO Diagnoses at Discharge Discharge Diagnosis (1) Recurrent incisional hernia: Status: Acute (2) CHF (congestive heart failure), NYHA class III: Status: Acute (3) Hypomagnesemia: Status: Acute (4) Cellulitis: Status: Acute (5) YUSRA (acute kidney injury): Status: Acute (6) Atrial fibrillation with RVR: Status: Acute (7) BMI over 35: Status: Chronic Permanent problem details: BMI of 61.7 (8) Hypokalemia: Status: Acute Reason for Visit Reason for Visit: N/V, Hospital Course Hospital Course [facility] Sirena Priest is a 65 year old female who presented today with chief complaint of recurrent vomiting. During that her symptoms started on Saturday with abdominal cramps and pain which were associated with nausea and dry heaves the next day and then 24 hours before her arrival in the ER experienced 5 episodes of emesis. She has not noticed any fever, blood in stool or recent use of antibiotics. She has been noticing increase her left leg swelling with discharge. She is requiring frequent dressing change. She also has home health service who would visit her once or twice a week. She is denying chest pain, shortness of breath, fever. She is vaccinated with moderna vaccine. Diagnostics in the ER revealed A. fib RVR for which she required Lopressor 5 mg IV push and then p.o. 25 mg which did not improve her heart rate which necessitated hospitalization, she was started on Cardizem drip which was running at 5 at the time of my evaluation heart rate fluctuate between 95-1 05. Normal hemodynamically, I have requested TSH which came back high 5.09 will get free T4, check magnesium level no active signs of infection. Lactic 2.5 magnesium 1.3 started on heparin drip because of high [id number] score Hospital course Patient was admitted for management of A. fib without acute RVR, she was on Cardizem drip for about 12 hours which was discontinued and metoprolol was initiated next day, dose was increased 100 mg twice a day, her heart rate was fluctuating between 95-1 30s, secondary to her preserved ejection fraction heart failure exacerbation digoxin was added after loading dose of 125 mcg x 2, low- dose was chosen secondary to YUSRA, which seemed to improved her heart rate to some extent but it was never below 110. Cardiology was consulted who recommen ded Cardizem p.o. 30 mg every 8 hours, it seemed to improve her heart rate. Echo showed preserved ejection fraction TSH 5.09 however free T4 normal Her hypomagnesemia and hypokalemia was repleted Events during hospitalization Left leg cellulitis: Purulent: She was not septic, she was treated with doxycycline, Kerlix and ABD with dry dressing Right leg DVT noted with venous Doppler, she was started on Eliquis loading dose CTA rule out PE COVID-19 negative Recurrent ventral hernia, CT abdomen revealed large multiple ventral hernia without any signs of obstruction, her initial complaint abdominal pain nausea and vomiting improved, she was able to tolerate diet and have a bowel movement, Dr. Niteo was consulted. Patient will like to follow-up with Dr. Alicia in case of recurrence of symptoms no signs of strangulation or incarceration noted on CT abdomen pelvis. YUSRA: Improved with aggressive diuresis of Bumex 2 mg p.o. daily Medications added at the time of discharge Metoprolol 100 mg twice a day Cardizem extended release 120 mg daily Digoxin 125 mcg daily Bumex 1 mg daily Eliquis 5 mg twice a day for at least 3 months then she will need another Doppler, provoked DVT secondary to sedentary lifestyle Follow-up Cardiology and general surgery PT evaluation was done: qualify for SNF without any oxygen Physical Exam Narrative: EXAM NARRATIVE: Patient was very pleasant and was eating her breakfast Morbidly obese female Ventral hernia without any pain Dependent pannus Variable S1-S2 with signs of fluid overload Bilateral lower extremity pitting edema 3+ Left lower extremity dressing covered with exudative discharge, tender to touch some regression of hyperemic borders noted No acute respite distress Awake alert oriented x3 GCS 15 Discharge Data Data Completed and Pending: Completed Studies During Hospitalization Category Date Time Status CT abdomen pelvis wo con [id number] Stat Cat Scan 03/20/21 09:06 Completed XR KUB portable 7 [id number] Routine Exams 03/19/21 11:16 Completed XR chest 1V donna ble [id number] Stat Exams 03/17/21 10:53 Completed NM pul vent and p erfus* [id number] Routi ne Nuc Med 03/18/21 13:16 [place] [id number] Routin e Ultrasound 03/18/21 13:15 Completed CV. echo complete * [id number] Routine Ultrasound 03/19/21 06:00 Completed Labs from last 24 hours 03/22/21 03/22/21 03/22/21 09:30 06:44 03:40 WBC RBC Hgb Hct MCV MCH MCHC RDW Plt Count MPV Neut % (Auto) Lymph % (Auto) Crook % (Auto) Eos % (Auto) Baso % (Auto) Neut # (Auto) Lymph # (Auto) [place] # (Auto) Eos # (Auto) Baso # (Auto) Nucleated RBC % (a uto) Nucleated RBCs # Sodium 143 Potassium 3.4 L Chloride 105 Carbon Dioxide 27 Anion Gap 14.4 BUN 46 H Creatinine 1.3 H GFR Calculation 41.2 L Glucose 105 POC Glucose 102 Calculated Osmolal ity 308 H Calcium 7.6 L Magnesium 1.7 SARS-CoV-2 Ag (Rap id) Negative 03/22/21 03/21/21 03/21/21 03:40 19:45 17:18 WBC 9.9 RBC 3.40 L Hgb 10.2 L Hct 32.8 L MCV 96.5 MCH 30.0 MCHC 31.1 RDW 15.0 Plt Count 329 MPV 9.9 Neut % (Auto) 62.2 Lymph % (Auto) 23.9 Crook % (Auto) 8.6 Eos % (Auto) 1.0 Baso % (Auto) 0.4 Neut # (Auto) 6.18 Lymph # (Auto) 2.4 Crook # (Auto) 0.9 Eos # (Auto) 0.1 Baso # (Auto) 0.0 Nucleated RBC % (a uto) 0.2 Nucleated RBCs # 0.0 Sodium Potassium Chloride Carbon Dioxide Anion Gap BUN Creatinine GFR Calculation Glucose POC Glucose 123 H 124 H Calculated Osmolal ity Calcium Magnesium SARS-CoV-2 Ag (Rap id) 03/21/21 03/21/21 10:56 04:53 WBC RBC Hgb Hct MCV MCH MCHC RDW Plt Count MPV Neut % (Auto) Lymph % (Auto) [place] % (Auto) Eos % (Auto) Baso % (Auto) Neut # (Auto) Lymph # (Auto) [place] # (Auto) Eos # (Auto) Baso # (Auto) Nucleated RBC % (a uto) Nucleated RBCs # Sodium Potassium Chloride Carbon Dioxide Anion Gap BUN Creatinine GFR Calculation Glucose POC Glucose 114 H Calculated Osmolal ity Calcium Magnesium 1.8 SARS-CoV-2 Ag (Rap id) Vitals: Last Vital Signs Temp 98.1 F 03/22/21 08:00 Pulse 109 H 03/22/21 08:46 Resp 19 H 03/22/21 08:00 BP 105/60 03/22/21 08:00 Pulse Ox 97 03/22/21 08:00 Discharge Plan Discharge Patient Disposition: Xfer SNF Condition: Stable Prescriptions: New bumetanide 1 mg Tablet 1 mg PO DAILY 30 Days Qty: 30 RF: 0 Eliquis 5 mg tablet 5 mg PO BID 30 Days Qty: 60 RF: 3 magnesium 30 mg tablet 30 mg PO DAILY 30 Days Qty: 30 RF: 1 doxycycline monohydrate 100 mg Tablet 100 mg PO BID 5 Days Qty: 10 RF: 0 metoprolol tartrate 50 mg Tablet 100 mg PO BID 30 Days Qty: 120 RF: 0 potassium chloride [Klor-Con M20] 20 mEq Tablet,Er Particles/Crystals 40 meq PO DAILY 30 Days Qty: 30 RF: 0 digoxin 125 mcg (0.125 mg) Tablet 125 mcg PO DAILY 30 Days Qty: 30 RF: 1 diltiazem HCl [Cardizem CD] 120 mg capsule,extended release 24hr 120 mg PO DAILY 30 Days Qty: 30 RF: 1 Continued atorvastatin 40 mg tablet 40 mg PO BEDTIME RF: 0 All Day Allergy (cetirizine) 10 mg capsule 10 mg PO DAILY PRN (Reason: Allergy Symptoms) RF: 0 ramipril 10 mg capsule 10 mg PO DAILY RF: 0 pioglitazone 15 mg tablet 15 mg PO DAILY RF: 0 hydrocodone-ibuprofen 7.5-200 mg tablet 1 tab PO QID PRN (Reason: Pain) RF: 0 cyanocobalamin (vitamin B-12) 1,000 mcg/mL solution 1,000 mcg IM Q30D RF: 0 ferrous gluconate 324 mg (37.5 mg iron) tablet 324 mg PO DAILY RF: 0 clonazepam [Klonopin] 1 mg tablet 1 mg PO BID PRN (Reason: anxiety) Qty: 60 RF: 3 ropinirole 1 mg tablet 2 mg PO BID Qty: 360 RF: 2 Seroquel 25 mg tablet 25 - 50 mg PO BEDTIME PRN (Reason: sleep) RF: 0 Changed gabapentin 600 mg tablet 100 mg PO BID Qty: 0 RF: 0 Discontinued metoprolol tartrate 25 mg tablet 25 mg PO BID RF: 0 hydrochlorothiazide 25 mg tablet 25 mg PO DAILY RF: 0 metformin 850 mg tablet 850 mg PO TID RF: 0 furosemide 40 mg tablet 40 mg PO DAILY RF: 0 Discharge Orders: Discharge Order (Routine); Ordered 03/22/21 Ordered By: Calista Myles Other Ambulatory Orders: CV venous dup insufficie LE RT (Routine) Timeframe: 3 Months Facility: [facility] - Location: Radiology Ordered By: Calista Myles Referrals: Red Alicia MD [Physician] - 1 month Jannette Santacruz MD [Physician] - 2 weeks Discharge Diet: Cardiac and Diabetic Discharge Activity: Use walker/crutches as instructed and As per PT/OT instructions Activity Restrictions/Additional Instructions: 1-continue Eliquis 5 mg twice a day for DVT, you will need another right leg ultrasound to see progression of DVT within 3 months 2-you will need digoxin, metoprolol 100 mg twice a day and Cardizem 120 mg daily for control of your heart rate ideally at rest should be less than 100 on ambulation less than 110 If your heart rate is less than 60 and blood pressure systolic less than 90 you can hold your metoprolol and Cardizem 3-for recurrence of ventral hernia symptoms please follow-up with Dr. Alicia Discharge Attestations Time Spent in Discharge Care*: less than 30 min Quality Metrics Clinical Quality Measures During this hospital stay, did patient experience: VTE Contraindication to Overlap Therapy: Overlap therapy prescribed VTE Discharge Education: Education about anticoagulant therapy/Care Notes given Deep Vein Thrombosis/Pulmonary Embolism Present on Admission: Yes Contraindication to Pharm VTE Prophylaxis: VTE prophylaxis given and None Coding Level of Care Code Acute Chg FW DC note Diagnoses Recurrent incisional hernia K43.2 CHF (congestive heart failure), NYHA class III I50.9 Hypomagnesemia E83.42 Cellulitis L03.90 YUSRA (acute kidney injury) N17.9 Atrial fibrillation with RVR I48.91 BMI over 35 Hypokalemia E87.6
[2021-03-22 12:00] VITALS: BP 107/60; PULSE 72; RESP 17; TEMP 36.7; O2SAT 95
[2021-03-22 12:09] LABS: Glucose Point of Care 105 mg/dL (70-110)
[2021-03-22 12:37] VITALS: BP 107/60; PULSE 72; RESP 17; TEMP 36.7; O2SAT 95
[2021-03-22 12:39] VITALS: BP 107/60; PULSE 72; RESP 17; TEMP 36.7; O2SAT 95
--- NOTE | 2021-03-22 12:43 | PC.NURSE ---
report phoned to [facility].pt discharged via w/c.transportation service to transport pt.
== END 2021-03-22 12:43 | disposition skilled nursing facility (03) | DRG 308 ==
LOC: ER 12:52 → CSU 18:27
PROVIDERS: Internal Medicine Cardiovascular Disease; Admitting Provider Internal Medicine; Emergency Provider Family Medicine; PCP Family Medicine; Visit Provider Internal Medicine
DX: I48.91 Unspecified atrial fibrillation (principal); I50.33 Acute on chronic diastolic (congestive) heart failure; N17.9 Acute kidney failure, unspecified; L03.90 Cellulitis, unspecified; I82.431 Acute embolism and thrombosis of right popliteal vein; I82.451 Acute embolism and thrombosis of right peroneal vein; F33.2 Major depressive disorder, recurrent severe without psychotic features; Z68.44 Body mass index [BMI] 60.0-69.9, adult; K43.0 Incisional hernia with obstruction, without gangrene; E87.2 Acidosis; T38.3X5A Adverse effect of insulin and oral hypoglycemic [antidiabetic] drugs, initial encounter; I11.0 Hypertensive heart disease with heart failure; E83.42 Hypomagnesemia; E66.01 Morbid (severe) obesity due to excess calories; G47.33 Obstructive sleep apnea (adult) (pediatric); G25.81 Restless legs syndrome; E87.6 Hypokalemia; E11.9 Type 2 diabetes mellitus without complications; D64.9 Anemia, unspecified; Z79.84 Long term (current) use of oral hypoglycemic drugs; Z87.442 Personal history of urinary calculi
CPT/HCPCS: 36415; 36416; 71045; 74018; 74176; 78014; 80048; 80053; 81001; 82550; 82962; 83605; 83690; 83735; 83880; 84439; 84443; 85025; 85378; 85730; 87426; 87493; 93005; 93306; 93970; 96365; 96367; 96372; 96375; 97116; 97161; 97530; 99285; A9540; A9567; G0378; J1160; J1644; J2405; J3475; J3480; J3490

== ENCOUNTER 2021-04-16 14:24 | Outpatient (CLI) | payer OTHER, SELFPAY ==
[2021-04-16 15:33] LABS: Anion Gap 13.3 (5-19); Blood Urea Nitrogen 22 mg/dL (8-23); Calcium 8.1 mg/dL (8.5-10.5); Carbon Dioxide 31 mmol/L (22-29); Chloride 102 mmol/L (98-107); Glomerular Filtration Rate 34.9 mL/min (90-130); Glucose 118 mg/dL (65-115); Osmolality Calculated 298 mOsm/kg (285-295); Potassium 4.3 mmol/L (3.5-5.1); Sodium 142 mmol/L (136-145)
== END 2021-04-16 14:25 | disposition home or self-care (01) ==
PROVIDERS: PCP Family Medicine; Visit Provider Internal Medicine
DX: I50.9 Heart failure, unspecified (principal)
CPT/HCPCS: 80048

== ENCOUNTER → 2021-04-18 07:37 | Outpatient (BNVA) | payer MEDICARE, MEDICAID, SELFPAY | PROVIDERS: PCP Family Medicine; Visit Provider Nurse Practitioner Psychiatric/Mental Health | DX: F33.2 Major depressive disorder, recurrent severe without psychotic features (principal) | CPT/HCPCS: 99214 ==

== ENCOUNTER → 2021-05-16 07:35 | Outpatient (BNVA) | payer MEDICARE, MEDICAID, SELFPAY | PROVIDERS: PCP Physician Assistant; Visit Provider Nurse Practitioner Psychiatric/Mental Health | DX: F33.2 Major depressive disorder, recurrent severe without psychotic features (principal) | CPT/HCPCS: 99214 ==

== ENCOUNTER → 2021-06-14 08:29 | Outpatient (BNVA) | payer MEDICARE, MEDICAID, SELFPAY | PROVIDERS: PCP Physician Assistant; Visit Provider Nurse Practitioner Psychiatric/Mental Health | DX: F33.2 Major depressive disorder, recurrent severe without psychotic features (principal) | CPT/HCPCS: 99214 ==

== ENCOUNTER 2021-06-15 14:00 | Outpatient (CLI) | payer MEDICARE, MEDICAID, SELFPAY | END 2021-06-15 14:01 | disposition home or self-care (01) | LOC: WOUND 14:02 | PROVIDERS: PCP Physician Assistant; Visit Provider Emergency Medicine | DX: E11.622 Type 2 diabetes mellitus with other skin ulcer (principal); L97.821 Non-pressure chronic ulcer of other part of left lower leg limited to breakdown of skin | CPT/HCPCS: 87070; 87077; 87186; 97597; 97598; G0463 ==

== ENCOUNTER 2021-06-20 15:18 | Outpatient (CLI) | payer MEDICARE, MEDICAID, SELFPAY ==
--- NOTE | 2021-06-20 15:21 | USCV_ITS ---
Sirena Priest Age: 66 Gender: F : 1955 Exam Date: 06/20/2021 15:29 Ordering Phys: Esther Min DO Technologist: Sherry Christy Exam Location: [facility] [place] Indication: H/O DVT HISTORY: Lower extremity swelling. Patient has history of. DVT. PROCEDURES: Venous duplex imaging was performed in bilateral lower extremities. The following venous structures were evaluated: common femoral vein, profunda vein, proximal portion of the greater saphenous vein, superficial femoral vein, and the popliteal vein. In addition, the posterior tibial and peroneal trunk were evaluated. FINDINGS: Very TDS due to body habitus. All veins where seen appear compressible and free of thrombus at this time. CONCLUSIONS No DVT bilateral lower extremities. Dr. Virginie Reeder DO (Electronically Signed) Final Date: 20 June 2021 16:14 S
== END 2021-06-20 15:19 | disposition home or self-care (01) ==
LOC: RAD 15:19
PROVIDERS: PCP Physician Assistant; Visit Provider Emergency Medicine
DX: E11.622 Type 2 diabetes mellitus with other skin ulcer (principal); Z86.718 Personal history of other venous thrombosis and embolism
CPT/HCPCS: 93970

== ENCOUNTER 2021-06-22 15:03 | Outpatient (CLI) | payer MEDICARE, MEDICAID, SELFPAY | END 2021-06-22 15:04 | disposition home or self-care (01) | LOC: WOUND 15:04 | PROVIDERS: PCP Physician Assistant; Visit Provider Thoracic Surgery (Cardiothoracic Vascular Surgery) | DX: E11.622 Type 2 diabetes mellitus with other skin ulcer (principal); L97.821 Non-pressure chronic ulcer of other part of left lower leg limited to breakdown of skin | CPT/HCPCS: 97597; 97598 ==

== ENCOUNTER 2021-06-29 14:01 | Outpatient (CLI) | payer MEDICARE, MEDICAID, SELFPAY | END 2021-06-29 14:02 | disposition home or self-care (01) | LOC: WOUND 14:02 | PROVIDERS: PCP Physician Assistant; Visit Provider Nurse Practitioner Family | DX: I96 Gangrene, not elsewhere classified (principal); E11.622 Type 2 diabetes mellitus with other skin ulcer; L97.829 Non-pressure chronic ulcer of other part of left lower leg with unspecified severity; I10 Essential (primary) hypertension; I87.2 Venous insufficiency (chronic) (peripheral) | CPT/HCPCS: 87070; 87075; 87077; 87186; 87205; A6253; G0463 ==

== ENCOUNTER 2021-07-06 14:44 | Outpatient (CLI) | payer MEDICARE, MEDICAID, SELFPAY | END 2021-07-06 14:45 | disposition home or self-care (01) | LOC: WOUND 14:47 | PROVIDERS: PCP Physician Assistant; Visit Provider Emergency Medicine | DX: E11.622 Type 2 diabetes mellitus with other skin ulcer (principal); L97.822 Non-pressure chronic ulcer of other part of left lower leg with fat layer exposed; L97.812 Non-pressure chronic ulcer of other part of right lower leg with fat layer exposed; I87.2 Venous insufficiency (chronic) (peripheral); I10 Essential (primary) hypertension | CPT/HCPCS: 11042; 11045; 99212 ==

== ENCOUNTER 2021-07-13 14:36 | Outpatient (CLI) | payer MEDICARE, MEDICAID, SELFPAY | END 2021-07-13 14:37 | disposition home or self-care (01) | LOC: WOUND 14:37 | PROVIDERS: PCP Physician Assistant; Visit Provider Nurse Practitioner Family | DX: E11.622 Type 2 diabetes mellitus with other skin ulcer (principal); L97.829 Non-pressure chronic ulcer of other part of left lower leg with unspecified severity; S30.811A Abrasion of abdominal wall, initial encounter; X58.XXXA Exposure to other specified factors, initial encounter; I87.2 Venous insufficiency (chronic) (peripheral); I10 Essential (primary) hypertension | CPT/HCPCS: G0463 ==

== ENCOUNTER 2021-07-18 15:25 | Inpatient (IN) | payer MEDICARE, MEDICAID, SELFPAY ==
[2021-07-18] VITALS (7 sets, daily range): BP systolic 87–115; BP diastolic 40–48; PULSE 68–88; RESP 15–20; TEMP 36.8; O2SAT 92–98; BMI 54.6
--- NOTE | 2021-07-18 15:42 | XRR_ITS ---
PROCEDURE INFORMATION: Exam: XR Right Shoulder Exam date and time: 07/18/2021 3:42 PM Age: 66 years old Clinical indication: Injury or trauma; Fall; Blunt trauma (contusions or hematomas); Shoulder; Right TECHNIQUE: Imaging protocol: XR Right shoulder. Views: 2 or more views. Total images: 3 COMPARISON: CR XR chest 1V portable [id number] 03/17/2021 11:12 AM FINDINGS: Bones/joints: No visible evidence of active or acute osseous pathology. Mild arthrosis of the acromioclavicular joint. Soft tissues: Unremarkable. XR/XR shoulder RT min 2V* [id number] IMPRESSION: Nonacute. Radiation Dose CTDIVOL = (mGy): DLP = (mGy-cm)
--- NOTE | 2021-07-18 15:42 | ECG_ITS ---
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 Measurements Intervals [place] Rate: 64 P: 93 MT: 191 QRS: 27 QRSD: 102 T: 45 QT: 381 QTc: 394 Interpretive Statements SINUS RHYTHM Compared to ECG 03/21/2021 15:08:53 Atrial fibrillation no longer present T-wave abnormality no longer present Electronically Signed On 07-19-2021 17:39:40 BATTERY INSTALLER by Alexis Hill M.D. [id number]
--- NOTE | 2021-07-18 15:42 | XRR_ITS ---
PROCEDURE INFORMATION: Exam: XR Chest Exam date and time: 07/18/2021 3:42 PM Age: 66 years old Clinical indication: Cough and dyspnea; Additional info: Dyspnea/cough TECHNIQUE: Imaging protocol: XR of the chest. Views: 1 view. Total images: 1 COMPARISON: CR XR chest 1V portable [id number] 03/17/2021 11:12 AM FINDINGS: Lungs: No visible active interstitial or alveolar airspace disease. Pleural spaces: Unremarkable. No pleural effusion. No pneumothorax. Heart/Mediastinum: Cardiac structures and configuration stable with mild arteriosclerosis. Bones/joints: Scoliosis of the spine. Soft tissues: Heavy body habitus. XR/XR chest 1V portable [id number] IMPRESSION: Nonacute. Radiation Dose CTDIVOL = (mGy): DLP = (mGy-cm)
[2021-07-18 16:34] LABS: Basophils # 0.1 10^3/uL (0.0-0.1); Basophils % 0.4 %; Hematocrit 34.1 % (37.0-47.0); Hemoglobin 10.5 g/dL (11.5-15.3); Lymphocytes # 2.7 10^3/uL (0.8-4.8); Lymphocytes % 23.2 %; Mean Corpuscular HGB Conc 30.8 g/dL (30.0-36.0); Mean Corpuscular Hemoglobin 30.3 pg (28.0-34.0); Mean Corpuscular Volume 98.6 fl (81-99); Mean Platelet Volume 10.4 fL (7.4-10.4); Monocytes # 0.8 10^3/uL (0.2-0.9); Monocytes % 6.5 %; Neutrophils # 8.12 10^3/uL (1.8-7.7); Neutrophils % 69.4 %; Nucleated Red Blood Cells % 0 %; Platelet Count 340 10^3/cmm (130-400); Red Blood Count 3.46 10^6/uL (4.1-5.3); Red Cell Distribution Width 13.7 % (12.1-15.1); White Blood Count 11.7 10^3/uL (4.0-10.0)
--- NOTE | 2021-07-18 16:51 | W.ED.WEAKNES ---
HPI - Weakness General: Chief complaint: Weakness Stated complaint: LOW BP Time Seen by Provider: 07/18/21 15:33 History of Present Illness: HPI Narrative: 66-year-old female presents emergency room complaining of low blood pressure generally not feeling well and being very weak. They recently adjusted some medications stop diltiazem and digoxin and increased her metoprolol. She denies any chest pain. She states she is weak confused and felt very disoriented yesterday its a little better today but it persisted. She denies any difficulty breathing no dysuria urgency or frequency. MD Complaint: generalized weakness Onset (ago): day(s) Duration: constant and improved (Slightly) Location: generalized Severity: moderate Relieving factors: none Exacerbating factors: none Associated symptoms: Reports confusion; Denies chest pain, chills, melena, decreased appetite, diaphoresis, dysuria, easy bruising, fever(s), headache(s), myalgias, nausea, rash, short of breath, syncope or vomiting Review of Systems Const: Denies: fever(s), chills or diaphoresis ENMT: Denies: throat pain, ear or mastoid pain, nasal discharge or nasal congestion Card: Denies: chest pain or syncope Resp: Denies: dyspnea, productive cough or non-productive cough GI: Denies: nausea, vomiting or melena : Denies: dysuria Skin/Breast: Denies: rash or pruritus Neuro: Reports: confusion; Denies: headache(s) Shade/Lymph: Denies: easy bruising PFSH ED PFSH: Medical History Atrial fibrillation with RVR BMI over 35 BMI of 61.7 CHF (congestive heart failure), NYHA class III History of kidney stones Major depressive disorder, recurrent severe without psychotic features Obstructive sleep apnea Psychiatric care Recurrent incisional hernia Restless leg syndrome Surgical History H/O laparoscopy adhesiolysis/repair of incisional hernia with mesh -- 2014 -- Dr. Alicia History of section, low vertical X 2 History of lithotripsy R temporary ureteral stent History of total abdominal hysterectomy and bilateral salpingo-oophorectomy Family History Other Family history non-contributory Social History Second hand smoke exposure: No Alcohol intake: never Adopted: No Lives independently: Yes Marital status: Current gender identity: Female Physical Exam Const: COMMON NORMALS: no acute distress GENERAL APPEARANCE: cooperative and comfortable ORIENTATION/CONSCIOUSNESS: Yes awake, Yes oriented to person, Yes oriented to place and Yes oriented to time HENMT: COMMON NORMALS: normocephalic, atraumatic, hearing grossly normal bilaterally and external ears normal HEAD & SCALP: normocephalic and atraumatic EXTERNAL EAR: Yes external ears normal Neck/C-Spine: COMMON NORMALS: no JVD Resp: COMMON NORMALS: normal respiratory effort, No retractions, No use of accessory muscles and clear to auscultation bilaterally AUSCULTATION: clear to auscultation bilaterally Cardio: COMMON NORMALS: no JVD, regular rate, regular rhythm and No murmurs present (Cardio) RATE: regular rate RHYTHM: regular rhythm GI: COMMON NORMALS: Soft to palpation and No hepatosplenomegaly present AUSCULTATION: Yes normoactive bowel sounds PALPATION: Yes Soft to palpation, No Tenderness to palpation present (GI), No Guarding due to palpation present (GI) and Yes No hepatosplenomegaly present Extremity: COMMON NORMALS: normal to inspection, capillary refill normal, no clubbing, cyanosis or edema and no calf tenderness GENERAL: Yes edema Neuro: SENSORIUM/ORIENTATION: Yes oriented to person, Yes oriented to place and Yes oriented to time Skin: COMMON NORMALS: no rashes or lesions noted GENERAL SKIN EXAM: no rashes or lesions noted Course Vital Signs: Vital signs: Vital Signs Temperature 99.0 F 07/21/21 19:05 Pulse Rate 68 07/22/21 08:00 Respiratory Rate 20 H 07/22/21 08:00 Blood Pressure 109/60 07/22/21 08:00 Pulse Oximetry 97 07/22/21 08:00 MDM - Weakness MDM Narrative: Medical decision making narrative: Acute renal failure. Patient also has hyperkalemia. We will go ahead and admit her discussed with hospitalist orders written Lab Data: Labs: Lab Results 07/18/21 07/18/21 07/18/21 16:10 16:20 16:20 WBC 11.7 10^3/uL H 10 ^3/uL (4.0-10.0) RBC 3.46 10^6/uL L 10 ^6/uL (4.1-5.3) Hgb 10.5 g/dL L g/dL (11.5-15.3) Hct 34.1 % L % (37.0-47.0) MCV 98.6 fl fl (81-99) MCH 30.3 pg pg (28.0-34.0) MCHC 30.8 g/dL g/dL (30.0-36.0) RDW 13.7 % % (12.1-15.1) Plt Count 340 10^3/cmm 10^3 /cmm (130-400) MPV 10.4 fL fL (7.4-10.4) Neut % (Auto) 69.4 % % Lymph % (Auto) 23.2 % % Cross % (Auto) 6.5 % % Eos % (Auto) 0.0 % % Baso % (Auto) 0.4 % % Neut # (Auto) 8.12 10^3/uL H 10 ^3/uL (1.8-7.7) Lymph # (Auto) 2.7 10^3/uL 10^3/ uL (0.8-4.8) Cross # (Auto) 0.8 10^3/uL 10^3/ uL (0.2-0.9) Eos # (Auto) 0.0 10^3/uL 10^3/ uL (0.0-0.8) Baso # (Auto) 0.1 10^3/uL 10^3/ uL (0.0-0.1) Nucleated RBC % (a uto) 0 % % Nucleated RBCs # 0.0 /100WBC /100W BC Sodium 134 mmol/L L mmol /L (136-145) Potassium 8.3 mmol/L H* mmo l/L (3.5-5.1) Chloride 101 mmol/L mmol/L (98-107) Carbon Dioxide 18 mmol/L L mmol/ L (22-29) Anion Gap 23.3 H (5-19) BUN 98 mg/dL H* D mg/ dL (8-23) Creatinine 5.3 mg/dL H mg/dL (0.5-0.9) GFR Calculation 8.1 mL/min L mL/m in (90-130) Glucose 90 mg/dL mg/dL (65-115) Calculated Osmolal ity 308 mOsm/kg H mOs m/kg (285-295) Calcium 8.8 mg/dL mg/dL (8.5-10.5) Total Bilirubin 0.7 mg/dL mg/dL (0.15-1.2) AST 14 U/L U/L (0-32) ALT 13 U/L U/L (0-33) Alkaline Phosphata se 90 IU/L IU/L (35-105) Total Protein 7.4 g/dL g/dL (6.6-8.7) Albumin 3.6 g/dL g/dL (3.5-5.2) Globulin 3.8 g/dL g/dL (1.3-4.6) Urine Color Yellow (Yellow) Urine Appearance Clear (CLEAR) Urine pH 5 (5-7) Ur Specific Gravit y 1.015 (1.005-1.030) Urine Protein Neg (Negative) Urine Glucose (UA) Norm (Normal) Urine Ketones Negative (Negative) Urine Blood 2+ H (Negative) Urine Nitrate Negative (Negative) Urine Bilirubin Neg (Negative) Urine Urobilinogen Norm mg/dL mg/dL (Negative) Ur Leukocyte Cande ase Negative (Negative) Urine RBC None /hpf /hpf (0-2) Urine WBC 0-4 /hpf H /hpf (0-5) Ur Squamous Epith Cells None /hpf /hpf (0-5) Amorphous Sediment Not Reportable Urine Bacteria None /hpf /hpf (NONE) Discharge Plan Discharge Patient Disposition: Admitted As Inpatient Admit Provider: Mima Gutierres Clinical Impression: Acute kidney failure, Hyperkalemia, Altered mental state, Obstructive sleep apnea Condition: Stable Coding Level of Care Code ED Farm Products Shipper for Chg Fwd Exam Comprehensive
[2021-07-18 16:58] LABS: Add Urine Culture? No; Add Urine Microscopic? YES; Bilirubin Urine Neg (Negative); Blood Urine 2+ (Negative); Glucose Urine UA Norm (Normal); Ketones Urine Negative (Negative); Leukocyte Esterase Urine Negative (Negative); Nitrate Urine Negative (Negative); Protein Urine Neg (Negative); Specific Gravity, Urine 1.015 (1.005-1.030); Urine Appearance Clear (CLEAR); Urine Color Yellow (Yellow); Urobilinogen Urine Norm (Negative); WBC Urine 0-4 /hpf (0-5); pH Urine 5 (5-7)
[2021-07-18 17:00] LABS: Alanine Aminotransferase 13 U/L (0-33); Albumin Level 3.6 g/dL (3.5-5.2); Alkaline Phosphatase 90 IU/L (35-105); Anion Gap 23.3 (5-19); Aspartate Amino Transferase 14 U/L (0-32); Calcium 8.8 mg/dL (8.5-10.5); Carbon Dioxide 18 mmol/L (22-29); Chloride 101 mmol/L (98-107); Globulin 3.8 g/dL (1.3-4.6); Glomerular Filtration Rate 8.1 mL/min (90-130); Glucose 90 mg/dL (65-115); Osmolality Calculated 308 mOsm/kg (285-295); Sodium 134 mmol/L (136-145); Total Bilirubin 0.7 mg/dL (0.15-1.2); Total Protein 7.4 g/dL (6.6-8.7)
[2021-07-18 17:01] LABS: Creatinine Clr Calc Pharmacy 14.5881
[2021-07-18 17:04] LABS: Blood Urea Nitrogen 98 mg/dL (8-23); Potassium 8.3 mmol/L (3.5-5.1)
[2021-07-18] MEDS: dextrose 50% syringe 50 mL IVP ×2 (17:30→21:50)
[2021-07-18] MEDS: sodium bicarbonate 8.4% 1 mEq/mL 50mL Syr 100 MEQ IVP (17:38)
[2021-07-18] MEDS: calcium gluconate 0.1 gm/mL 10% SDV 10mL 2 GM IVP (17:42)
[2021-07-18] MEDS: sodium chloride 0.9% 1,000 ML 999 ML IV (17:47)
[2021-07-18] MEDS: sodium polystyrene sulfonate 15 gm/60 mL Btl 30 GM PO (17:49)
[2021-07-18] MEDS: insulin regular-human 100 units/1 mL 10 UNIT IVP ×2 (17:50→22:04)
--- NOTE | 2021-07-18 17:59 | PC.PHAR ---
pt states she takes care of her own medications-pt states the dr blue her dilt xr 120mg daily filled on 07/07/21 30d/s and digoxin 125mcg daily filled on 05/17/21 30d/s-notes are made in the pharmacy comments-pt states she finished her cipro and cefdinir this am
[2021-07-18 19:45] LABS: ABG PCO2 34.7 mmHg (35-45); ABG PH Result 7.35 (7.35-7.45); Arterial Blood Gas Hematocrit 34.6 % (37-47); Base Excess ABG -5.6 mmol/L (-2.0-2.0); Blood Gas Allen Test Pos; Blood Gas Operator Identificat glc; Blood Gas Sample Site Radial, left; Blood Gas Sample Type Arterial; HCO3 ABG 19.3 mmol/L (22-26); Oxygen Device ROOM AIR; PO2 ABG 78.7 mmHg (80.0-100.0)
--- NOTE | 2021-07-18 20:06 | PM.CONSULT ---
Providers/Reason For Consult Consulting Physician/Specialty*: Nephrology Reason for Consult*: Renal failure and hyperkalemia Primary Care Provider: Farzaneh Grewal History of Present Illness History of Present Illness Thank you for consultation, today the pleasure of reviewing this very pleasant 66-year-old female for evaluation of acute kidney injury. Back in February, she was admitted for atrial fibrillation with RVR, she was medically managed, discharged to rehab. Her course was complicated by severe lower extremity lymphedema, cellulitis. She was initiated on combination diuretic therapy and ultimately sent home. At the time of her discharge she was 351 pounds. It appears that she takes combination diuretic pills, it is likely somewhat of an error as she takes both bumetanide and furosemide in combination with spironolactone, ramipril. She also takes potassium supplements for kaliuresis. Over the last few months following her discharge, her weight is come down from 351 to 308 pounds. She reports significant improvement in her lower extremity lymphedema, her wounds are clearing up nicely. Over the last few days she has become progressively more confused, disoriented, she is having wild, vivid dreams. Family members have noticed her acting unusually as well. Her blood pressure has been low and has been checked and they have had difficulty getting an accurate read. Her legs didn't work today, she couldn't mobilize and so her daughter advised her to come to the emergency room. On arrival here her blood pressure was 87/40 and initial lab work demonstrated a potassium of 8.3, BUN 98, creatinine 5.3, bicarb of 18 and an anion gap of 23.3. She is received hyperkalemic cocktail including a bolus of normal saline, insulin, dextrose, Kayexalate. She is still to have a bowel movement. Haile catheter was placed, she has produced 500 mL of clear urine. Lying supine on the bed, she feels comfortable at this time. She is lucid, clear minded. Her blood pressure is now improved to 115/43. She denies any liik-pyt-vjogyxr anti-inflammatory medications or other potentially nephrotoxic substances. She reports having prior episodes of acute kidney injury, back in February it is noted that admission creatinine was 2.1, but more recently her creatinine was 1.5 mg/dL which likely represents her baseline. She has not received dialysis and does not follow with a kidney specialist. No episodes of bladder outflow obstruction or urinary incontinence. Review of Systems Narrative: ROS - 12 point review of systems completed per HPI and subjective assessment, this includes Constitutional: Weakness, fatigue Respiratory: No SOB on exertion, comfortable at rest CardioVasc: No chest pain, palpitations Gastrointestinal: No nausea, no vomiting Neurological: No seizures, no AMS Derm: No new rashes, lesions or wounds Immunological: No seasonal and no food allergies Meds/Allergies Home Medications and Allergies Home Medications Medication Instructions Recorded Confirmed Last Taken Type atorvastatin 40 mg tablet 40 mg PO BEDTIME 11/04/19 07/18/21 07/17/21 History cetirizine 10 mg capsule 10 mg PO DAILY PRN 11/04/19 07/18/21 Unknown History ramipril 10 mg capsule 10 mg PO QAM 11/04/19 07/18/21 07/18/21 History ropinirole 1 mg tablet 2 mg PO BID #360 tab 10/24/20 07/18/21 07/18/21 09:00 Rx loperamide 2 mg capsule 2 mg PO TID PRN cap 04/17/21 07/18/21 Unknown History ondansetron HCl 4 mg tablet 4 mg PO Q6H PRN 04/17/21 07/18/21 Unknown History apixaban 5 mg tablet 5 mg PO BID tab 04/18/21 07/18/21 07/18/21 09:00 History bumetanide 1 mg tablet 2 mg PO QAM tab 04/18/21 07/18/21 07/18/21 09:00 History clonazepam 1 mg tablet 1 mg PO BID PRN #60 tab 04/18/21 07/18/21 Unknown Rx hydrocodone 7.5 mg-acetaminophen 1 tab PO QID PRN tab 05/12/21 07/18/21 07/18/21 10:00 History 325 mg tablet metformin 850 mg tablet 850 mg PO TID 05/12/21 07/18/21 07/18/21 09:00 History potassium chloride 10 mEq 40 meq PO QAM cap 05/12/21 07/18/21 07/18/21 History capsule,extended release quetiapine 25 mg tablet 25 - 50 mg PO BEDTIME PRN #60 tab 05/16/21 07/18/21 Unknown Rx spironolactone 25 mg tablet 12.5 mg PO DAILY tab 06/22/21 07/18/21 Unknown History magnesium oxide 400 mg PO BID tab 06/28/21 07/18/21 07/18/21 History cefdinir 300 mg PO BID 07/18/21 07/18/21 07/18/21 History finished this am ciprofloxacin HCl 500 mg PO BID 07/18/21 07/18/21 07/18/21 History finished this am cyanocobalamin (vitamin B-12) 1,000 mcg IM Q30D 07/18/21 07/18/21 Unknown History furosemide 40 mg PO DAILY 07/18/21 07/18/21 07/18/21 History gabapentin 300 mg PO BID 07/18/21 07/18/21 07/18/21 09:00 History metoprolol tartrate See Rx Instructions .ROUTE .COMPLEX 07/18/21 07/18/21 07/18/21 09:00 History 75 mg Allergies Allergy/AdvReac Type Severity Reaction Status Date / Time No Known Allergies Allergy Verified 07/18/21 17:59 PFSH Acute PFSH: Medical History Atrial fibrillation with RVR BMI over 35 BMI of 61.7 CHF (congestive heart failure), NYHA class III History of kidney stones Major depressive disorder, recurrent severe without psychotic features Obstructive sleep apnea Psychiatric care Recurrent incisional hernia Restless leg syndrome Surgical History H/O laparoscopy adhesiolysis/repair of incisional hernia with mesh -- 2014 -- Dr. Alicia History of section, low vertical X 2 History of lithotripsy R temporary ureteral stent History of total abdominal hysterectomy and bilateral salpingo-oophorectomy Family History Other Family history non-contributory Social History Second hand smoke exposure: No Alcohol intake: never Adopted: No Lives independently: Yes Marital status: Current gender identity: Female Vitals/I&O/Wt Last Vital Signs Temp 98.3 F 07/18/21 15:27 Pulse 85 07/18/21 19:39 Resp 15 07/18/21 19:39 BP 115/43 07/18/21 19:39 Pulse Ox 92 07/18/21 19:39 Weight last 48 hrs Weight 139.706 kg Physical Exam Narrative: EXAM NARRATIVE: Constitutional: Awake, comfortable HEENT: Wet mucosa, no jvp, non icteric Lungs: Bilaterally clear without discernible wheeze or rales in all lung zones CVS: S1 S2, no murmurs Abdo: Soft, BS ok Ext 4: Minimal edema, peripheral perfusion with no cyanosis Neurological: Grossly non-focal Urinary Catheter Management^: Haile Latex Free: Cath Placed During This Visit: yes Reason for Continuing Indwelling Catheter: Other Urinary Catheter Date of Insertion: 07/18/21 Urinary Catheter Time of Insertion: 18:35 A&P Additional A&P Information 1. Acute renal failure Unfortunately it appears that she is now overmedicated on combination loop diuretic therapy. It is likely this has been an error as she is on both bumetanide as well as furosemide. The diuretic therapy is in combination with spironolactone, ramipril which will also increase potassium. Of note due to a variety of homeostatic mechanisms, in the setting of volume depletion, loop diuretics lose their efficacy and lose the kaliuretic properties but despite this she continued to take potassium supplements. The perfect storm. Fortunately she came to the emergency room just in time. Obviously we have to hold the diuretic therapy She received a bolus of normal saline I will continue normal saline at 200 mL/h She has received temporizing therapy, continue to monitor potassium levels every couple of hours. If potassium levels continue to stay in this range I'll provide stat emergency hemodialysis this evening. Limited evaluation to include renal sonogram, fractional excretion of sodium, CPK, uric acid, TSH. Her current weight of 305lbs is a big drop of likely water weight since her discharge in March from 351lbs. Her ideal weight will likely be in the 320lb range. Dose medication for GFR less than 15 Avoid usual nephrotoxic agents. 2. Electrolytes As mentioned above, the perfect storm to cause hyperkalemia. Management of hyperkalemia as outlined above. Anion gap metabolic acidosis, likely secondary to uremia but will check lactic acid levels, ketones (these were negative and the urine) other chemistry looks acceptable and mildly aberrant. 3. Hemodynamics Blood pressures on the low side consistent with hypovolemia. EKG reviewed, no peaked T waves at this time. 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
[2021-07-18 20:10] LABS: Anion Gap 22.2 (5-19); Calcium 9.5 mg/dL (8.5-10.5); Carbon Dioxide 20 mmol/L (22-29); Chloride 102 mmol/L (98-107); Glomerular Filtration Rate 7.8 mL/min (90-130); Glucose 111 mg/dL (65-115); Osmolality Calculated 315 mOsm/kg (285-295); Potassium 6.2 mmol/L (3.5-5.1); Sodium 138 mmol/L (136-145)
[2021-07-18 20:16] LABS: Blood Urea Nitrogen 92 mg/dL (8-23)
[2021-07-18 20:31] LABS: Creatine Phosphokinase 114 U/L (26-192)
[2021-07-18] MEDS: sodium chloride 0.9% 1,000 ML 200 ML IV (21:56)
--- NOTE | 2021-07-18 22:51 | P.HP_ITS ---
Providers/Chief Complaint Admitting Physician: Mima Gutierres MD Primary Care Provider: Farzaneh Grewal Chief Complaint: LOW BP History of Present Illness 66-year-old with a past medical history significant for hypertension, diabetes mellitus , obstructive sleep apnea , restless leg syndrome, paroxysmal atrial fibrillation and right lower extremity DVT on Eliquis who presented to the ER with altered mental status. Patient was confused and drowsy at the time of my eval. History was obtained from review of records. Patient apparently weak and noted to have difficulty ambulating. Unable to fully assess review of systems. Laboratory workup on arrival showed a WBC of 11.7, hemoglobin 10.5, hematocrit 34.1 and a platelet count of 340. Sodium 134, potassium 8.3, chloride 101, bicarb 18, BUN 98 and creatinine of 5.3. Appears previous creatinine of 1.5 on 04/16. Imaging studies included chest x-ray which did not show any acute findings. Right shoulder x-ray also was negative for any acute findings. Patient was treated with calcium gluconate 2gm Iv x 1, 1amp d50/ Insulin 10units combo x 2, sodium bicarb 100 meq IV x 1, kayexalate 30g Po x 1, and started on NS at 200cc/hr. Nephrology was consulted. Repeat bmp had shown a creatinine of 5.5 and a potassium of 6.2. Review of Systems General: Reports: ROS unobtainable due to medical condition Medications/Allergies Home Medications Medication Instructions Recorded Confirmed Last Taken Type atorvastatin 40 mg tablet 40 mg PO BEDTIME 11/04/19 07/18/21 07/17/21 History cetirizine 10 mg capsule 10 mg PO DAILY PRN 11/04/19 07/18/21 Unknown History ramipril 10 mg capsule 10 mg PO QAM 11/04/19 07/18/21 07/18/21 History ropinirole 1 mg tablet 2 mg PO BID #360 tab 10/24/20 07/18/21 07/18/21 09:00 Rx loperamide 2 mg capsule 2 mg PO TID PRN cap 04/17/21 07/18/21 Unknown History ondansetron HCl 4 mg tablet 4 mg PO Q6H PRN 04/17/21 07/18/21 Unknown History apixaban 5 mg tablet 5 mg PO BID tab 04/18/21 07/18/2121 09:00 History bumetanide 1 mg tablet 2 mg PO QAM tab 04/18/21 07/18/21 07/18/21 09:00 History clonazepam 1 mg tablet 1 mg PO BID PRN #60 tab 04/18/21 07/18/21 Unknown Rx hydrocodone 7.5 mg-acetaminophen 1 tab PO QID PRN tab 05/12/21 07/18/21 07/18/21 10:00 History 325 mg tablet metformin 850 mg tablet 850 mg PO TID 05/12/21 07/18/21 07/18/21 09:00 History potassium chloride 10 mEq 40 meq PO QAM cap 05/12/21 07/18/21 07/18/21 History capsule,extended release quetiapine 25 mg tablet 25 - 50 mg PO BEDTIME PRN #60 tab 05/16/21 07/18/21 Unknown Rx spironolactone 25 mg tablet 12.5 mg PO DAILY tab 06/22/21 07/18/21 Unknown History magnesium oxide 400 mg PO BID tab 06/28/21 07/18/21 07/18/21 History cefdinir 300 mg PO BID 07/18/21 07/18/21 07/18/21 History finished this am ciprofloxacin HCl 500 mg PO BID 07/18/21 07/18/21 07/18/21 History finished this am cyanocobalamin (vitamin B-12) 1,000 mcg IM Q30D 07/18/21 07/18/21 Unknown History furosemide 40 mg PO DAILY 07/18/21 07/18/21 07/18/21 History gabapentin 300 mg PO BID 07/18/21 07/18/21 07/18/21 09:00 History metoprolol tartrate See Rx Instructions .ROUTE .COMPLEX 07/18/21 07/18/21 07/18/21 09:00 History 75 mg Allergies Allergy/AdvReac Type Severity Reaction Status Date / Time No Known Allergies Allergy Verified 07/18/21 17:59 PFSH Acute PFSH: Medical History Atrial fibrillation with RVR BMI over 35 BMI of 61.7 CHF (congestive heart failure), NYHA class III History of kidney stones Major depressive disorder, recurrent severe without psychotic features Obstructive sleep apnea Psychiatric care Recurrent incisional hernia Restless leg syndrome Surgical History H/O laparoscopy adhesiolysis/repair of incisional hernia with mesh -- 2014 -- Dr. Alicia History of section, low vertical X 2 History of lithotripsy R temporary ureteral stent History of total abdominal hysterectomy and bilateral salpingo-oophorectomy Family History Other Family history non-contributory Social History Second hand smoke exposure: No Alcohol intake: never Adopted: No Lives independently: Yes Marital status: Current gender identity: Female Vitals/I&O/Wt Last Vital Signs Temp 98.0 F 07/19/21 00:34 Pulse 84 07/19/21 00:34 Resp 16 07/19/21 00:34 BP 84/51 07/19/21 00:34 Pulse Ox 90 07/19/21 00:34 07/18/21 07/18/21 07/19/21 14:59 22:59 06:59 Intake Total 1783.333 / 1783.333 Balance 1783.333 / 1783.333 Weight last 48 hrs Weight 139.706 kg Physical Exam Narrative: EXAM NARRATIVE: General : Morbid obesity, sleeping, NAD HEENT ; Grossly unremarkable CVS: NSR Chest: CTABL - difficult to assess due to body habitus ABD; soft Ext; B/L LE edema Urinary Catheter Management^: Haile Latex Free: Cath Placed During This Visit: yes Reason for Continuing Indwelling Catheter: Other Urinary Catheter Date of Insertion: 07/18/21 Urinary Catheter Time of Insertion: 18:35 Data : 07/18/21 16:20 07/18/21 19:15 A&P Assessment and plan (1) Altered mental state: Likely due to toxic metabolic Baseline mental status unclear Bedside swallow Status: Acute (2) Acute kidney failure: Creatinine of 1.5 in 03/2021 Likely component of chronic kidney Renal US ordered NS at 200cc/hr Haile placement Nephrology on consult Monitor u/o Holding diuretics BMP in am Status: Acute (3) Hyperkalemia: Due to YUSRA Creatinine improved to 6.2 Telemetry monitoring sp Calcium gluconate 2g IV x1 Kayexelate 30g Po x 1 Sodium bicarb Insulin + d50 Nephro on board Status: Acute (4) Obstructive sleep apnea: hx of intolerace to cpap Status: Acute (5) Paroxysmal atrial fibrillation: currently hypotensive holding rate control Verify if on eliquis at home Status: Acute (6) DVT prophylaxis: Verify and resume eliquis if no indication for HD Will hold for now as may need HD catheter placement if worsening renal failure SCDS ordered Status: Acute Attestations Medical Necessity Statement*: anticipate > 2 midnight stay in hospital for barb l and treatment Time Spent in Patient Care: Greater than 35 minutes (>than 50% of time spent in counselling and/or direct pt care on unit) . 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
[2021-07-19] VITALS (7 sets, daily range): BP systolic 84–178; BP diastolic 49–75; PULSE 75–113; RESP 16–18; TEMP 36.7–37.4; O2SAT 90–93
[2021-07-19] MEDS: sodium chloride 0.9% 1,000 ML 200 ML IV ×2 (01:51→07:48)
[2021-07-19 05:24] LABS: Basophils % 0.3 %; Hematocrit 30.2 % (37.0-47.0); Hemoglobin 9.3 g/dL (11.5-15.3); Lymphocytes # 2.1 10^3/uL (0.8-4.8); Lymphocytes % 23.2 %; Mean Corpuscular HGB Conc 30.8 g/dL (30.0-36.0); Mean Corpuscular Hemoglobin 30.3 pg (28.0-34.0); Mean Corpuscular Volume 98.4 fl (81-99); Mean Platelet Volume 10.8 fL (7.4-10.4); Monocytes # 0.8 10^3/uL (0.2-0.9); Monocytes % 8.9 %; Neutrophils % 67.3 %; Nucleated Red Blood Cells % 0 %; Platelet Count 281 10^3/cmm (130-400); Red Blood Count 3.07 10^6/uL (4.1-5.3); Red Cell Distribution Width 13.9 % (12.1-15.1); White Blood Count 9.1 10^3/uL (4.0-10.0)
[2021-07-19 05:41] LABS: Anion Gap 18.7 (5-19); Calcium 8.4 mg/dL (8.5-10.5); Carbon Dioxide 20 mmol/L (22-29); Chloride 108 mmol/L (98-107); Glomerular Filtration Rate 10.9 mL/min (90-130); Glucose 95 mg/dL (65-115); Osmolality Calculated 318 mOsm/kg (285-295); Potassium 5.7 mmol/L (3.5-5.1); Sodium 141 mmol/L (136-145)
[2021-07-19 05:44] LABS: Blood Urea Nitrogen 85 mg/dL (8-23)
--- NOTE | 2021-07-19 06:00 | US_ITS ---
WS: [id number] RENAL ULTRASOUND HISTORY: renal failure COMPARISON: 08/16/2015 TECHNIQUE: 2-D and color Doppler imaging of the kidney submitted. Right kidney: 11.3 cm x 4.4 cm x 4.2 cm. Normal echogenicity with no hydronephrosis or mass. Left kidney: 12.3 cm x 5.3 cm x 5.5 cm. Normal echogenicity with no hydronephrosis or mass. Aorta: Normal. Urinary Bladder: Not visualized. Due to body habitus. Haile catheter is in place. US/US renal BI* [id number] IMPRESSION: Normal renal ultrasound.
[2021-07-19 06:33] LABS: Glucose Point of Care 100 mg/dL (70-110)
[2021-07-19] MEDS: ropinirole 2 mg Tablet PO ×2 (07:48→17:02)
[2021-07-19] MEDS: gabapentin 300 mg Capsule PO ×2 (07:48→17:02)
--- NOTE | 2021-07-19 09:18 | P.PN_ITS ---
Subjective Subjective: Interval history: still weak, feels better. has good uop in [place]. no n/v/f/c/tucker/d Medications: Reviewed: Yes Medication Review Details: Current Medications Acetaminophen (Acetaminophen 325 Mg Tablet) 650 mg PO Q6H PRN PRN Reason: Mild/Mod Pain Or Temp >/= 101 Apixaban (Apixaban 5 Mg Tablet) 5 mg PO BID [facility] Atorvastatin Calcium (Atorvastatin 40 Mg Tablet) 40 mg PO BEDTIME HERNANDEZ Dextrose (Dextrose 50% Syringe 50 Ml) 25 ml IVP ONCE PRN; Protocol PRN Reason: hypoglycemia protocol Dextrose (Dextrose 50% Syringe 50 Ml) 50 ml IVP PRN PRN; Protocol PRN Reason: hypoglycemia protocol Gabapentin (Gabapentin 300 Mg Capsule) 300 mg PO BID [facility] Last Admin: 07/19/21 07:48 Dose: 300 mg Documented by: Glucagon (Glucagon 1 Mg/Ml Inj 1 Ml) 1 mg IM ONCE PRN; Protocol PRN Reason: Adult Acute Hypoglycemia Prot. Sodium Chloride (Sodium Chloride 0.9%) 1,000 mls @ 200 mls/hr IV .Q5H [facility] Last Admin: 07/19/21 07:48 Dose: 200 mls/hr Documented by: Dextrose (D5w) 500 mls @ 100 mls/hr IV ONCE PRN; Protocol PRN Reason: Adult Acute Hypoglycemia Prot Insulin Human Lispro (Insulin Lispro 100 Unit/1 Ml) 0 unit SUBCUT WM&BEDTIME [facility]; Protocol Last Admin: 07/19/21 07:33 Dose: Not Given Documented by: Ondansetron HCl (Ondansetron 2 Mg/Ml Sdv 2 Ml) 4 mg IVP Q6H PRN PRN Reason: NAUSEA AND VOMITING Ropinirole HCl (Ropinirole 2 Mg Tablet) 2 mg PO BID [facility] Last Admin: 07/19/21 07:48 Dose: 2 mg Documented by: Vitals/I&O/Wt Last Vital Signs Temp 98.5 F 07/19/21 07:52 Pulse 75 07/19/21 07:52 Resp 16 07/19/21 07:52 BP 178/75 07/19/21 07:52 Pulse Ox 91 07/19/21 07:52 07/18/21 07/19/21 07/19/21 22:59 06:59 14:59 Intake Total 2022.333 / 2023.333 1000 / 1000 Output Total 500 / 500 Balance 1523.333 / 4330.864 9605 / 1000 Weight last 48 hrs Weight 139.706 kg Physical Exam Narrative: EXAM NARRATIVE: exam by hospitalist- telehealth visit vs noted- bp elevated heent- nc/at, eomi, anicteric neck supple lungs clear heart reg abd soft, nt, + bs ext 1+ edema neuro- a,a, o x 3 Urinary Catheter Management^: [place] Latex Free: Cath Placed During This Visit: yes Reason for Continuing Indwelling Catheter: Other Urinary Catheter Date of Insertion: 07/18/21 Urinary Catheter Time of Insertion: 18:35 Data : 07/19/21 04:22 07/19/21 04:22 A&P Additional A&P Information 1. Acute renal failure likely from medications, aldactone, loop diuretics, ramipril, potassium - normal renal us -renal fxn improving off above meds and w/ ivf -u/a 2+ blood -monitor uop, chemistries Her current weight of 305lbs is a big drop of likely water weight since her discharge in March from 351lbs. Her ideal weight will likely be in the 320lb range. Dose medication for GFR less than 15 Avoid usual nephrotoxic agents. -MS improving -please lower eliquis dose w/ YUSRA 1b. CKD stage 3- baseline cr 1.5 mg/dl- underlying obesity, dm, htn 2. hyperkalemia -improving 3. anemia 4. 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
[2021-07-19 10:09] LABS: Uric Acid 11.5 mg/dL (2.4-5.7)
--- NOTE | 2021-07-19 10:22 | PC.CHAP ---
Pastoral Care Encounter/Spiritual Assessment Type of Contact [] Declined teacher of the handicapped visit [] Patient/Family/Request visit [] Outpatient visit [] Follow-up visit [] Physician referral [] Code/Alert [x] Routine visit [] Staff referral [] Actively dying [] Patient sleeping [] Family support [] [] Out of room [] Palliative care [] [] Receiving care in room [] Pre-surgical visit [] Trauma [] Long length of stay [] ICU visit [] Other: Relational/Emotional Strength [x] Patient feels connected with others/family/visitors/staff [] Distress [] Loneliness/isolation [] Abandonment Spirituality of Patient [x] Person of Isha [] Attends Jain of their Isha [x] Believes in Prayer [x] Reads Bible or Mormonism materials [] There are Spiritual issues to be addressed Sieve Maker Interventions [x] Prayer [x] Active listening [x] Non-anxious presence [x] Spiritual/emotional support [] Crisis/trauma care [] Spiritual counseling [] Bereavement support [] Provided bereavement packet [] Provided Bible/devotional materials [] Provided toy/stuffed animal, coloring book to patient or family member [] Provided Communion [] Anointing/Calion [] Salvation [x] Completed spiritual assessment [] Other: Impact on Illness or Injury [] Angry [] Fearful [] Anxious [] Often cries [] Exhaustion [] Unable to work [] Unable to attend baptism [] Unable to walk/stand [] Unable to read [] Unable to drive [] Unable to eat/drink [] Unable to sleep [] Unable to be with family [] Patient intubated [] Other: Summary patient feelinf much better Time spent with patient 10 min
[2021-07-19 11:01] LABS: Glucose Point of Care 116 mg/dL (70-110)
[2021-07-19 14:20] LABS: Anion Gap 15.7 (5-19); Blood Urea Nitrogen 74 mg/dL (8-23); Carbon Dioxide 22 mmol/L (22-29); Chloride 108 mmol/L (98-107); Creatinine Clr Calc Pharmacy 25.7722; Glomerular Filtration Rate 15.7 mL/min (90-130); Glucose 114 mg/dL (65-115); Osmolality Calculated 315 mOsm/kg (285-295); Potassium 4.7 mmol/L (3.5-5.1); Sodium 141 mmol/L (136-145)
--- NOTE | 2021-07-19 14:34 | P.PN_ITS ---
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 Barclay. Patient states she is doing much better. She states she is much more coherent now. Does not feel confused anymore. Does not offer any complaints. She wanted to know her potassium level this morning it was 5.7. Vitals/I&O/Wt Last Vital Signs Temp 98.8 F 07/19/21 11:23 Pulse 81 07/19/21 11:23 Resp 16 07/19/21 11:23 BP 94/49 07/19/21 11:23 Pulse Ox 91 07/19/21 11:23 07/18/21 07/19/21 07/19/21 22:59 06:59 14:59 Intake Total 3.333 / 3.333 2096.667 / 2096.667 Output Total 500 / 500 550 / 550 Balance 1523.333 / 9841.914 0508.667 / 1546.667 Weight last 48 hrs Weight 139.706 kg Physical Exam Narrative: EXAM NARRATIVE: EXAM NARRATIVE: General : Morbid obesity, alert and oriented x3 and coherent. HEENT ; Grossly unremarkable CVS: NSR, no murmurs rubs or gallops associated Chest: CTABL -no crackles wheezes or rhonchi heard. ABD; soft, nontender, abdominal obesity Ext; B/L TRACE LE edema, wearing compression stockings. Urinary Catheter Management^: Haile Latex Free: Cath Placed During This Visit: yes Reason for Continuing Indwelling Catheter: Other Urinary Catheter Date of Insertion: 07/18/21 Urinary Catheter Time of Insertion: 18:35 Data : 07/19/21 04:22 07/19/21 12:59 A&P Assessment and plan (1) Paroxysmal atrial fibrillation: Status: Acute (2) Hyperkalemia: Status: Acute (3) Acute kidney failure: Status: Acute (4) Altered mental state: Status: Acute (5) Obstructive sleep apnea: Status: Acute (6) CHF (congestive heart failure), NYHA class III: Status: Acute Qualifiers: Congestive heart failure type: diastolic Congestive heart failure chronicity: chronic Qualified Code(s): I50.32 - Chronic diastolic (congestive) heart failure Additional A&P Information #Acute renal failure #Hyperkalemia #Altered mental status?resolved -Potassium 8.3 on admission. Improved to 5.7 today. ?Nephrology on board. Will follow recommendations She got Kayexalate 30x1, sodium bicarb, insulin plus D50 at admission in the ER. Continue normal saline at 200 cc/h as per nephrology recommendations. ?We will monitor electrolytes ?Continue to monitor output through Haile catheter -No plan to dialyze for now. #Obstructive sleep apnea #Congestive heart failure?not in exacerbation -Last echo February 2021 showed LVEF 60%, mildly decreased right ventricular systolic function with right ventricular free wall hypokinesis, mild tricuspid valve regurg. ?Continue CPAP at night Continue metoprolol tartrate, Eliquis, Hold spironolactone, potassium tablets, Lasix, Bumex ?Patient will definitely need reconciliation of medication at discharge. Reduce Eliquis dose due to renal failure. Full code Diet: Renal cardiac diabetic diet. Attestations Medical Necessity Statement*: Greater than 48 hours day. 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
[2021-07-19 17:07] LABS: Glucose Point of Care 140 mg/dL (70-110)
[2021-07-19] MEDS: atorvastatin 40 mg Tablet PO (19:59)
[2021-07-19 21:27] LABS: Glucose Point of Care 296 mg/dL (70-110)
[2021-07-19 21:27] LABS: Glucose Point of Care 141 mg/dL (70-110)
[2021-07-19 21:42] LABS: Glucose Point of Care 147 mg/dL (70-110)
[2021-07-19] MEDS: quetiapine 25 mg Tablet PO (23:04)
[2021-07-20] VITALS (8 sets, daily range): BP systolic 96–129; BP diastolic 60–78; PULSE 85–130; RESP 17–18; TEMP 36.5–37.8; O2SAT 91–97
[2021-07-20] MEDS: acetaminophen 325 mg Tablet 650 MG PO (03:30)
--- NOTE | 2021-07-20 04:41 | ECG_ITS ---
[facility] Test Date: 2021-07-20 Pat Name: Sirena Priest Department: Room: 252 Gender: Female Residential Care Facility Manager: : [id number] Requested By: Sondra Palacio Order Number: [id number] Juan R MD: ANI REDD Measurements Intervals [place] Rate: 137 P: OK: QRS: 28 QRSD: 90 T: 32 QT: 272 QTc: 412 Interpretive Statements ATRIAL FIBRILLATION WITH RAPID VENTRICULAR RESPONSE LOW QRS VOLTAGE IN PRECORDIAL LEADS [QRS DEFLECTION < 1.0 mV IN CHEST LEADS] NONSPECIFIC ST & T-WAVE ABNORMALITY ABNORMAL RHYTHM ECG Compared to ECG 07/18/2021 16:05:40 Low QRS voltage now present T-wave abnormality now present Sinus rhythm no longer present Electronically Signed On 07-21-2021 14:31:06 IOS PROGRAMMER by ANI REDD [id number]
[2021-07-20 05:35] LABS: Basophils % 0.3 %; Hematocrit 27.7 % (37.0-47.0); Hemoglobin 8.6 g/dL (11.5-15.3); Lymphocytes # 2.5 10^3/uL (0.8-4.8); Lymphocytes % 26.2 %; Mean Corpuscular Hemoglobin 30.3 pg (28.0-34.0); Mean Corpuscular Volume 97.5 fl (81-99); Mean Platelet Volume 10.5 fL (7.4-10.4); Monocytes # 0.7 10^3/uL (0.2-0.9); Monocytes % 7.8 %; Neutrophils # 6.13 10^3/uL (1.8-7.7); Neutrophils % 65.2 %; Nucleated Red Blood Cells % 0 %; Platelet Count 258 10^3/cmm (130-400); Red Blood Count 2.84 10^6/uL (4.1-5.3); Red Cell Distribution Width 13.7 % (12.1-15.1); White Blood Count 9.4 10^3/uL (4.0-10.0)
[2021-07-20 06:04] LABS: Alanine Aminotransferase 8 U/L (0-33); Albumin Level 2.5 g/dL (3.5-5.2); Alkaline Phosphatase 62 IU/L (35-105); Anion Gap 15.8 (5-19); Aspartate Amino Transferase 11 U/L (0-32); Blood Urea Nitrogen 53 mg/dL (8-23); Calcium 8.3 mg/dL (8.5-10.5); Carbon Dioxide 23 mmol/L (22-29); Chloride 109 mmol/L (98-107); Ferritin 131 ng/mL (15-150); Globulin 2.9 g/dL (1.3-4.6); Glomerular Filtration Rate 26.5 mL/min (90-130); Glucose 102 mg/dL (65-115); Iron 33 ug/dL (37-145); Magnesium 1.6 mg/dL (1.7-2.3); Osmolality Calculated 313 mOsm/kg (285-295); Phosphorus 3.7 mg/dL (2.5-4.5); Potassium 3.8 mmol/L (3.5-5.1); Sodium 144 mmol/L (136-145); Total Bilirubin 0.9 mg/dL (0.15-1.2); Total Iron Binding Capacity 165 mcg/dl; Total Protein 5.4 g/dL (6.6-8.7); Unsaturated Iron Binding 132 ug/dL (112-347)
[2021-07-20 06:11] LABS: 25 Hydroxy Vitamin D 32 ng/mL (30-100)
[2021-07-20 06:12] LABS: Parathyroid Hormone 73.3 pg/mL (15-65)
[2021-07-20 06:13] LABS: Calcium 8.2 mg/dL (8.5-10.5)
[2021-07-20 06:35] LABS: Glucose Point of Care 129 mg/dL (70-110)
[2021-07-20] MEDS: ropinirole 2 mg Tablet PO ×2 (07:58→20:37)
[2021-07-20] MEDS: gabapentin 300 mg Capsule PO ×2 (07:58→17:28)
--- NOTE | 2021-07-20 08:00 | PM.PN ---
Subjective Subjective: Interval history: feels better. no n/v/f/c/tucker/d Medications: Reviewed: Yes Medication Review Details: Current Medications Acetaminophen (Acetaminophen 325 Mg Tablet) 650 mg PO Q6H PRN PRN Reason: Mild/Mod Pain Or Temp >/= 101 Last Admin: 07/20/21 03:30 Dose: 650 mg Documented by: Apixaban (Apixaban 5 Mg Tablet) 2.5 mg PO BID HERNANDEZ Atorvastatin Calcium (Atorvastatin 40 Mg Tablet) 40 mg PO BEDTIME HERNANDEZ Last Admin: 07/19/21 19:59 Dose: 40 mg Documented by: Dextrose (Dextrose 50% Syringe 50 Ml) 25 ml IVP ONCE PRN; Protocol PRN Reason: hypoglycemia protocol Dextrose (Dextrose 50% Syringe 50 Ml) 50 ml IVP PRN PRN; Protocol PRN Reason: hypoglycemia protocol Diltiazem HCl (Diltiazem 30 Mg Tablet) 30 mg PO Q6H HERNANDEZ Gabapentin (Gabapentin 300 Mg Capsule) 300 mg PO BID [facility] Last Admin: 07/20/21 07:58 Dose: 300 mg Documented by: Glucagon (Glucagon 1 Mg/Ml Inj 1 Ml) 1 mg IM ONCE PRN; Protocol PRN Reason: Adult Acute Hypoglycemia Prot. Dextrose (D5w) 500 mls @ 100 mls/hr IV ONCE PRN; Protocol PRN Reason: Adult Acute Hypoglycemia Prot Sodium Bicarbonate 75 meq/ (Dextrose/Sodium Chloride) 1,075 mls @ 75 mls/hr IV .[id number] [facility] Last Admin: 07/20/21 00:50 Dose: 75 mls/hr Documented by: Magnesium Sulfate (Magnesium Sulfate Premix) 2 gm in 50 mls @ 50 mls/hr IV ONCE ONE Stop: 07/20/21 09:00 Insulin Human Lispro (Insulin Lispro 100 Unit/1 Ml) 0 unit SUBCUT WM&BEDTIME HERNANDEZ; Protocol Last Admin: 07/20/21 07:35 Dose: Not Given Documented by: Metoprolol Tartrate (Metoprolol Tartrate 50 Mg Tablet) 50 mg PO BID@0900,2100 [facility] Ondansetron HCl (Ondansetron 2 Mg/Ml Sdv 2 Ml) 4 mg IVP Q6H PRN PRN Reason: NAUSEA AND VOMITING Quetiapine Fumarate (Quetiapine 25 Mg Tablet) 25 mg PO BEDTIME [facility] Last Admin: 07/19/21 23:04 Dose: 25 mg Documented by: Ropinirole HCl (Ropinirole 2 Mg Tablet) 2 mg PO BID HERNANDEZ Last Admin: 07/20/21 07:58 Dose: 2 mg Documented by: Vitals/I&O/Wt Last Vital Signs Temp 100.0 F H 07/20/21 07:46 Pulse 111 H 07/20/21 07:46 Resp 18 07/20/21 07:46 BP 129/64 07/20/21 07:46 Pulse Ox 92 07/20/21 07:46 07/19/21 07/20/21 07/20/21 22:59 06:59 14:59 Intake Total 250 / 2346.667 1595 / 3941.667 Output Total 1150 / 1700 1650 / 3350 Balance -900 / 646.667 -55 / 591.667 Weight last 48 hrs Weight 139.706 kg Physical Exam Narrative: EXAM NARRATIVE: exam by hospitalist- telehealth visit vs noted- low grade temp, techycardic, bp normal heent- nc/at, eomi, anicteric neck supple lungs- b/l crackles heart reg abd soft, nt, + bs ext 1+ edema neuro- a,a, o x 3 Urinary Catheter Management^: Haile Latex Free: Cath Placed During This Visit: yes Reason for Continuing Indwelling Catheter: Other Urinary Catheter Date of Insertion: 07/18/21 Urinary Catheter Time of Insertion: 18:35 Data : 07/20/21 04:42 07/20/21 04:42 A&P Additional A&P Information 1. Acute renal failure likely from medications, aldactone, loop diuretics, ramipril, potassium - normal renal us -renal fxn improving off above meds and w/ ivf -u/a 2+ blood -monitor uop, chemistries Avoid usual nephrotoxic agents. -MS improved 2. CKD stage 3- baseline cr 1.5 mg/dl- underlying obesity, dm, htn -pth 73- repeat in 4- 6 weeks as renal fxn improves 3. recent leg infection 4. hyperkalemia -improved 5. anemia -iron sat 20%, ferritin 131- start iv iron 4. ANDRA Exam and interview performed with aid of hospitalist, Dr Gutierres using telemedicine Time spent 30 min inc > 50% of time in face to face counseling Attestations Medical Necessity Statement*: per medicine. 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
[2021-07-20] MEDS: magnesium sulfate premix 2 GM/50 ML PIGGYBACK IV (09:06)
[2021-07-20] MEDS: potassium chloride oral liq 20 mEq/15 mL UDC 10 MEQ PO (09:06)
[2021-07-20] MEDS: dilTIAZem 30 mg Tablet PO ×3 (09:06→20:37)
[2021-07-20] MEDS: metoprolol tartrate 50 mg Tablet PO ×2 (09:06→20:37)
[2021-07-20] MEDS: ferric gluconate 125 MG in sodium chloride 0.9% (100 ml) 100 ML 110 MG IV (10:13)
--- NOTE | 2021-07-20 10:32 | PM.PN ---
Subjective Subjective: Interval history: Seen this AM. She says she had a rough night and couldnt sleep due to restless legs. She is on ropinirole at home for that. Otherwise she feels ok. Vitals/I&O/Wt Last Vital Signs Temp 100.0 F H 07/20/21 07:46 Pulse 111 H 07/20/21 07:46 Resp 18 07/20/21 07:46 BP 129/64 07/20/21 07:46 Pulse Ox 92 07/20/21 07:46 07/19/21 07/20/21 07/20/21 22:59 06:59 14:59 Intake Total 250 / 2346.667 1595 / 3941.667 546.5 / 546.5 Output Total 1150 / 1700 1650 / 3350 Balance -900 / 646.667 -55 / 591.667 546.5 / 546.5 Weight last 48 hrs Weight 139.706 kg Physical Exam Narrative: EXAM NARRATIVE: EXAM NARRATIVE: General : Morbid obesity, alert and oriented x3 and coherent. HEENT ; Grossly unremarkable CVS: NSR, no murmurs rubs or gallops associated Chest: CTABL -no crackles wheezes or rhonchi heard. ABD; soft, nontender, abdominal obesity Ext; B/L TRACE LE edema, wearing compression stockings. Urinary Catheter Management^: Haile Latex Free: Cath Placed During This Visit: yes Reason for Continuing Indwelling Catheter: Other Urinary Catheter Date of Insertion: 07/18/21 Urinary Catheter Time of Insertion: 18:35 Data : 07/20/21 04:42 07/20/21 04:42 A&P Assessment and plan (1) Paroxysmal atrial fibrillation: Status: Acute (2) Hyperkalemia: Status: Acute (3) Acute kidney failure: Status: Acute (4) Altered mental state: Status: Acute (5) Obstructive sleep apnea: Status: Acute (6) CHF (congestive heart failure), NYHA class III: Status: Acute Qualifiers: Congestive heart failure type: diastolic Congestive heart failure chronicity: chronic Qualified Code(s): I50.32 - Chronic diastolic (congestive) heart failure Additional A&P Information #Acute renal failure #Hyperkalemia - resolved. #Altered mental status?resolved -Potassium 8.3 on admission. Improved to 5.7 today. K 3.8. ?Nephrology on board. Will follow recommendations -She got Kayexalate 30x1, sodium bicarb, insulin plus D50 at admission in the ER. ?We will monitor electrolytes ?Continue to monitor output through Haile catheter -No plan to dialyze for now. - Cr improved to 1.9, #Atrial fibrillation with RVR - in afib this AM. - restart cardizem 60 q6H and metoprolol 50 BID - Continue eliquis but with dropped hemoglobin today, will hold. Will recheck CBC and BMP in afternoon - WIll check FOBT #Obstructive sleep apnea #Congestive heart failure?not in exacerbation -Last echo February 2021 showed LVEF 60%, mildly decreased right ventricular systolic function with right ventricular free wall hypokinesis, mild tricuspid valve regurg. ?Continue CPAP at night Continue metoprolol tartrate, Eliquis, Hold spironolactone, potassium tablets, Lasix, Bumex ?Patient will definitely need reconciliation of medication at discharge. -Reduce Eliquis dose due to renal failure. Full code Diet: Renal cardiac diabetic diet. Attestations Medical Necessity Statement*: > 24 hour stay Coding Level of Care Code Acute Single Fold Machine Operator for [facility] Fwd Diagnoses Paroxysmal atrial fibrillation I48.0 Hyperkalemia E87.5 Acute kidney failure N17.9 Altered mental state R41.82 Obstructive sleep apnea G47.33 CHF (congestive heart failure), NYHA class III I50.32 Congestive heart failure type: diastolic Congestive heart failure chronicity: chronic
[2021-07-20 12:02] LABS: Glucose Point of Care 160 mg/dL (70-110)
[2021-07-20] MEDS: insulin lispro 100 unit/1 mL SUBCUT (13:06)
[2021-07-20 16:13] LABS: Basophils % 0.2 %; Hematocrit 33.3 % (37.0-47.0); Hemoglobin 10.2 g/dL (11.5-15.3); Lymphocytes # 2.2 10^3/uL (0.8-4.8); Lymphocytes % 18.5 %; Mean Corpuscular HGB Conc 30.6 g/dL (30.0-36.0); Mean Corpuscular Hemoglobin 30.4 pg (28.0-34.0); Mean Corpuscular Volume 99.1 fl (81-99); Mean Platelet Volume 10.4 fL (7.4-10.4); Monocytes # 1.1 10^3/uL (0.2-0.9); Neutrophils # 8.36 10^3/uL (1.8-7.7); Neutrophils % 71.8 %; Nucleated Red Blood Cells % 0 %; Platelet Count 237 10^3/cmm (130-400); Red Blood Count 3.36 10^6/uL (4.1-5.3); Red Cell Distribution Width 13.7 % (12.1-15.1); White Blood Count 11.7 10^3/uL (4.0-10.0)
[2021-07-20 16:37] LABS: Blood Urea Nitrogen 44 mg/dL (8-23); Calcium 8.5 mg/dL (8.5-10.5); Carbon Dioxide 24 mmol/L (22-29); Chloride 107 mmol/L (98-107); Glomerular Filtration Rate 30.2 mL/min (90-130); Glucose 104 mg/dL (65-115); Osmolality Calculated 307 mOsm/kg (285-295); Sodium 143 mmol/L (136-145)
[2021-07-20 16:38] LABS: Anion Gap 16.3 (5-19); Potassium 4.3 mmol/L (3.5-5.1)
[2021-07-20 17:23] LABS: Glucose Point of Care 124 mg/dL (70-110)
[2021-07-20] MEDS: quetiapine 25 mg Tablet PO (20:37)
[2021-07-20] MEDS: atorvastatin 40 mg Tablet PO (20:37)
[2021-07-20 21:07] LABS: Glucose Point of Care 115 mg/dL (70-110)
[2021-07-21] VITALS (10 sets, daily range): BP systolic 104–127; BP diastolic 57–70; PULSE 77–120; RESP 9–19; TEMP 36.6–37.5; O2SAT 90–97
[2021-07-21] MEDS: dilTIAZem 30 mg Tablet PO ×4 (02:25→20:46)
[2021-07-21 06:32] LABS: Glucose Point of Care 112 mg/dL (70-110)
[2021-07-21 06:47] LABS: Basophils % 0.2 %; Hematocrit 27.5 % (37.0-47.0); Hemoglobin 8.6 g/dL (11.5-15.3); Lymphocytes # 2.1 10^3/uL (0.8-4.8); Lymphocytes % 25.6 %; Mean Corpuscular HGB Conc 31.3 g/dL (30.0-36.0); Mean Corpuscular Hemoglobin 30.8 pg (28.0-34.0); Mean Corpuscular Volume 98.6 fl (81-99); Mean Platelet Volume 10.8 fL (7.4-10.4); Monocytes # 0.8 10^3/uL (0.2-0.9); Monocytes % 9.3 %; Neutrophils # 5.38 10^3/uL (1.8-7.7); Neutrophils % 64.3 %; Nucleated Red Blood Cells % 0 %; Platelet Count 250 10^3/cmm (130-400); Red Blood Count 2.79 10^6/uL (4.1-5.3); Red Cell Distribution Width 13.9 % (12.1-15.1); White Blood Count 8.4 10^3/uL (4.0-10.0)
[2021-07-21 07:11] LABS: Alanine Aminotransferase 7 U/L (0-33); Albumin Level 2.5 g/dL (3.5-5.2); Alkaline Phosphatase 53 IU/L (35-105); Blood Urea Nitrogen 35 mg/dL (8-23); Calcium 7.9 mg/dL (8.5-10.5); Carbon Dioxide 23 mmol/L (22-29); Chloride 110 mmol/L (98-107); Globulin 2.9 g/dL (1.3-4.6); Glomerular Filtration Rate 45.1 mL/min (90-130); Glucose 87 mg/dL (65-115); Magnesium 1.6 mg/dL (1.7-2.3); Osmolality Calculated 305 mOsm/kg (285-295); Phosphorus 2.4 mg/dL (2.5-4.5); Sodium 144 mmol/L (136-145); Total Bilirubin 0.7 mg/dL (0.15-1.2); Total Protein 5.4 g/dL (6.6-8.7)
[2021-07-21 07:12] LABS: Anion Gap 14.9 (5-19); Aspartate Amino Transferase 11 U/L (0-32); Potassium 3.9 mmol/L (3.5-5.1)
--- NOTE | 2021-07-21 07:55 | PC.NURSE ---
pt. in Afib. Pulse was fluctuating between 80-115 and went up to 100- 120.
[2021-07-21] MEDS: gabapentin 300 mg Capsule PO ×2 (09:02→17:59)
[2021-07-21] MEDS: ropinirole 2 mg Tablet PO ×2 (09:02→17:59)
[2021-07-21] MEDS: metoprolol tartrate 50 mg Tablet PO (09:02)
[2021-07-21] MEDS: apixaban 5 mg Tablet 2.5 MG PO ×2 (09:02→17:59)
[2021-07-21 10:18] LABS: Urine Random Sodium 44 mmol/L
[2021-07-21] MEDS: ferric gluconate 125 MG in sodium chloride 0.9% (100 ml) 100 ML 110 MG IV (10:58)
[2021-07-21 11:13] LABS: Glucose Point of Care 142 mg/dL (70-110)
[2021-07-21 15:43] LABS: Glucose Point of Care 119 mg/dL (70-110)
--- NOTE | 2021-07-21 16:19 | PC.SOCIAL ---
IMM updated IMM initialed and dated and copy given to patient
--- NOTE | 2021-07-21 17:03 | P.PN_ITS ---
Subjective Subjective: Interval history: Seen this morning. Patient states she is doing well. Overnight on telemetry there were some bradycardic events noted down to 50s. And she has also had tachycardia/A. fib 160s 170s. I was not notified of any of these events. Patient does not report any issues overnight. Creatinine is improved to 1.2. We will be transferring her to cardiac stepdown unit for management of atrial fibrillation. Eliquis has been continued at this point. Patient denies having obstructive sleep apnea and does not wear CPAP at night. Vitals/I&O/Wt Last Vital Signs Temp 98.7 F 07/21/21 16:30 Pulse 87 07/21/21 16:30 Resp 15 07/21/21 16:30 BP 118/57 07/21/21 16:30 Pulse Ox 95 07/21/21 16:30 07/21/21 07/21/21 07/21/21 06:59 14:59 22:59 Intake Total 1656.25 / 3837.75 0 / 0 Output Total 1750 / 2950 450 / 450 Balance -93.75 / 887.75 -450 / -450 Physical Exam Narrative: EXAM NARRATIVE: EXAM NARRATIVE: General : Morbid obesity, alert and oriented x3 and coherent. HEENT ; Grossly unremarkable CVS: NSR, no murmurs rubs or gallops associated Chest: CTABL -no crackles wheezes or rhonchi heard. ABD; soft, nontender, abdominal obesity Ext; B/L TRACE LE edema, wearing compression stockings. Urinary Catheter Management^: Haile Latex Free: Cath Placed During This Visit: yes, but has since been removed by the nurse Reason for Continuing Indwelling Catheter: Accurate Measurement of Urinary Output in Critically Ill Patients Urinary Catheter Date of Insertion: 07/18/21 Urinary Catheter Time of Insertion: 18:35 Date Urinary Catheter Removed: 07/21/21 Time Urinary Catheter Discontinued: 12:18 Data : 07/21/21 05:40 07/21/21 05:40 A&P Assessment and plan (1) Paroxysmal atrial fibrillation: Status: Acute (2) Hyperkalemia: Status: Acute (3) Acute kidney failure: Status: Acute (4) Altered mental state: Status: Acute (5) Obstructive sleep apnea: hx of intolerace to cpap Status: Acute (6) CHF (congestive heart failure), NYHA class III: Status: Acute Qualifiers: Congestive heart failure type: diastolic Congestive heart failure chronicity: chronic Qualified Code(s): I50.32 - Chronic diastolic (congestive) heart failure Additional A&P Information #Acute renal failure Resolved #Hyperkalemia - resolved. #Altered mental status?resolved -Potassium 8.3 on admission. Improved to 5.7 today. K 3.8. ?Nephrology on board. Will follow recommendations -She got Kayexalate 30x1, sodium bicarb, insulin plus D50 at admission in the ER. ?We will monitor electrolytes ?Continue to monitor output through Haile catheter -No plan to dialyze for now. - Cr improved to 1.2 #Atrial fibrillation with RVR #Possible tachybradycardia syndrome. - in afib this AM. - restart cardizem 60 q6H and metoprolol 50 BID yesterday -Had some bradycardic events overnight. Seems to be a tachybradycardia type of syndrome at this point. We will cut down metoprolol to half the dose of home dose to metoprolol 25 twice daily. We will continue Cardizem 60 every 6 hours. Will transfer to cardiac stepdown unit for further monitoring of atrial fibrillation. We will adjust Cardizem as required. Curb sided cardiology as well. We will try the following and if patient still uncontrolled will discuss with cardiology again. -Eliquis to be continued at this point. ?Hemoglobin stable between 8-10 range. Will order for FOBT. Iron panel shows low percent saturation. She was ordered Venofer by nephrology. We will continue. #Obstructive sleep apnea (as reported in documentation but patient denies having it.) #Congestive heart failure?not in exacerbation -Last echo February 2021 showed LVEF 60%, mildly decreased right ventricular systolic function with right ventricular free wall hypokinesis, mild tricuspid valve regurg. ?Continue CPAP at night Continue metoprolol tartrate, Eliquis, Hold spironolactone, potassium tablets, Lasix, Bumex ?Patient will definitely need reconciliation of medication at discharge. -Reduce Eliquis dose due to renal failure. Full code Diet: Renal cardiac diabetic diet. Attestations Medical Necessity Statement*: > 24 hour due to a.fib Coding Level of Care Code Acute Mixer Operator for [facility] Fwd Diagnoses Paroxysmal atrial fibrillation I48.0 Hyperkalemia E87.5 Acute kidney failure N17.9 Altered mental state R41.82 Obstructive sleep apnea G47.33 CHF (congestive heart failure), NYHA class III I50.32 Congestive heart failure type: diastolic Congestive heart failure chronicity: chronic
--- NOTE | 2021-07-21 19:09 | PC.NURSE ---
Received report from ADIN Vera. Patient resting in bed watching tv. Discussed need for stool sample and plan for scheduled dressing changes. Patient is aware and verbalized understanding. Denies pain at this time. No other distress observed.
[2021-07-21 20:18] LABS: Glucose Point of Care 96 mg/dL (70-110)
[2021-07-21] MEDS: metoprolol tartrate 25 mg Tablet PO (20:46)
[2021-07-21] MEDS: atorvastatin 40 mg Tablet PO (20:46)
[2021-07-21] MEDS: quetiapine 25 mg Tablet PO (20:46)
--- NOTE | 2021-07-21 21:23 | PC.NURSE ---
Dressing changes performed to bilateral calves and lower panis. No drainage observed to bilateral leg wounds. Light drainage with serosanguenous drainage to panis. Cleaned all sites with NS. Covered bilateral legs with Optifoam and replaced compression dressings to legs. Covered panis site with Optifoam x2 and placed ABD pads to help with additional drainage. Patient tolerated well. Patient did stated, I can't feel anything on the right side of my panis. Just numb. No other distress observed.
[2021-07-22] VITALS (28 sets, daily range): BP systolic 65–120; BP diastolic 46–80; PULSE 50–80; RESP 17–20; TEMP 36.6; O2SAT 90–100
[2021-07-22] MEDS: dilTIAZem 30 mg Tablet PO ×3 (01:36→20:09)
[2021-07-22 06:16] LABS: Basophils % 0.3 %; Hematocrit 27.7 % (37.0-47.0); Hemoglobin 8.5 g/dL (11.5-15.3); Lymphocytes # 2.1 10^3/uL (0.8-4.8); Lymphocytes % 26.2 %; Mean Corpuscular HGB Conc 30.7 g/dL (30.0-36.0); Mean Corpuscular Hemoglobin 30.7 pg (28.0-34.0); Mean Platelet Volume 10.5 fL (7.4-10.4); Monocytes # 0.7 10^3/uL (0.2-0.9); Monocytes % 9.1 %; Neutrophils # 5.05 10^3/uL (1.8-7.7); Neutrophils % 64.1 %; Nucleated Red Blood Cells % 0 %; Platelet Count 230 10^3/cmm (130-400); Red Blood Count 2.77 10^6/uL (4.1-5.3); Red Cell Distribution Width 13.8 % (12.1-15.1); White Blood Count 7.9 10^3/uL (4.0-10.0)
--- NOTE | 2021-07-22 06:19 | PC.NURSE ---
Shift Note Frequent safety and comfort rounds continue. Orders and/or nursing care completed as indicated. Patient monitored for response to intervention and treatment(s). Education provided includes yesi. Patient verbalized complete understanding. Patient used cpap periodically through the night. Reports mask not comfortable and smells funny . Patient denies pain or other needs. No distress observed. Will continue to monitor.
[2021-07-22] MEDS: acetaminophen 325 mg Tablet 650 MG PO (06:29)
[2021-07-22 06:32] LABS: Alanine Aminotransferase 10 U/L (0-33); Albumin Level 2.4 g/dL (3.5-5.2); Alkaline Phosphatase 53 IU/L (35-105); Anion Gap 14.7 (5-19); Aspartate Amino Transferase 12 U/L (0-32); Blood Urea Nitrogen 27 mg/dL (8-23); Calcium 7.7 mg/dL (8.5-10.5); Carbon Dioxide 22 mmol/L (22-29); Chloride 109 mmol/L (98-107); Globulin 2.9 g/dL (1.3-4.6); Glomerular Filtration Rate 45.1 mL/min (90-130); Glucose 86 mg/dL (65-115); Magnesium 1.6 mg/dL (1.7-2.3); Osmolality Calculated 298 mOsm/kg (285-295); Phosphorus 2.9 mg/dL (2.5-4.5); Potassium 3.7 mmol/L (3.5-5.1); Sodium 142 mmol/L (136-145); Total Bilirubin 0.6 mg/dL (0.15-1.2); Total Protein 5.3 g/dL (6.6-8.7)
[2021-07-22 06:43] LABS: Glucose Point of Care 92 mg/dL (70-110)
[2021-07-22] MEDS: ropinirole 2 mg Tablet PO ×2 (08:41→18:32)
[2021-07-22] MEDS: metoprolol tartrate 25 mg Tablet PO (08:41)
[2021-07-22] MEDS: gabapentin 300 mg Capsule PO ×2 (08:41→18:32)
[2021-07-22] MEDS: apixaban 5 mg Tablet 2.5 MG PO ×2 (08:41→18:32)
[2021-07-22 12:13] LABS: Glucose Point of Care 93 mg/dL (70-110)
--- NOTE | 2021-07-22 12:30 | EV_ITS ---
[facility] Test Date: 2021-08-13 Pat Name: Sirena Priest Department: Room: 104 Gender: Female Alumni Coordinator: : 1955 Requested By: Mima Gutierres Order Number: [id number] MD: Jannette Santacruz M.D. Interpretive Statements Date of enrollment: 24 July 2021 End of service: 13 August 2021 Name of study: Mobile cardiac telemetry Requesting provider: Dr. Myles Clinical indication: Paroxysmal atrial fibrillation Interpretation: EVENT MONITOR FINDINGS: Total events recorded----14 Manual 2 Auto triggered------ 12 The baseline rhythm was sinus rhythm with PAC with a heart rate of 67 bpm. There were 0 critical, 3 serious and 11 stable events that occurred. There were episodes of paroxysmal atrial fibrillation. Heart rate ranged from 62 to 176 bpm with average heart rate of 104 bpm. Longest episode of atrial fibrillation was 7 hours 40 minutes on 07 August at 4:07 PM. Patient was tachycardic less than 1% and bradycardic 9% (46-59, average 55 bpm) of time. There were less than 1% ventricular ectopic beats, 6% supraventricular ectopic and less than 1% other beats. Average heart rate of 76 beats per minute. There were 2 pauses greater than or equal to 3 seconds. Symptoms mentioned with the recording---- None Arrhythmias recorded with the monitoring-- Episodes of atrial fibrillation with RVR, runs of NSVT. Atrial fibrillation with pauses > 3 sec (3-4.3 sec) on 08/05/21 at 07:55 am. Maximum heart rate recorded atrial fibrillation with rapid response at 176 bpm on 25 July 2021 at 8:06 AM. Minimum heart rate recorded sinus bradycardia at 46 bpm on 28 July at 1:07 AM. Conclusion: 1. Baseline rhythm is sinus rhythm. HR ranged from 46-176 bpm, average 76 bpm. 2. Episodes of atrial fibrillation with RVR, runs of NSVT. Atrial fibrillation with pauses > 3 sec (3-4.3 sec) on 08/05/21 at 07:55 am. 3. There were episodes of paroxysmal atrial fibrillation. Heart rate ranged from 62 to 176 bpm with average heart rate of 104 bpm. Longest episode of atrial fibrillation was 7 hours 40 minutes on 07 August at 4:07 PM. 4. No patient symptoms mentioned. Copies to Dr. Myles Electronically Signed On 08-21-2021 23:07:42 NETWORK CONTRACTOR by Jannette Santacruz M.D. [email or web address]
--- NOTE | 2021-07-22 12:37 | PM.PN ---
Subjective Subjective: Interval history: Seen this morning. Overnight telemetry reviewed. Patient has had elevated heart rate 130s 140s at times but unsure she was moving at the time or having any activity. She also had 1 bradycardic event overnight heart rate 50. Discussed with on-call victim witness administrator. Advised to switch to Toprol 12.5 succinate overnight and to long-acting Cardizem during the day. From nephrology standpoint patient is cleared to discharge. Will place event monitor for her at discharge. Physical therapy has however recommended rehab. Discussed with case management for placement. Patient wore CPAP overnight. She also has a mask at home today she told me. But she has an older model of the machine. I have encouraged her to wear that daily at night. Vitals/I&O/Wt Last Vital Signs Temp 98 F 07/22/21 11:38 Pulse 62 07/22/21 11:38 Resp 18 07/22/21 11:38 BP 118/80 07/22/21 11:38 Pulse Ox 94 07/22/21 11:38 07/21/21 07/22/21 07/22/21 22:59 06:59 14:59 Intake Total 1161 / 1161 240 / 240 Output Total 250 / 700 500 / 1200 Balance 911 / 461 -500 / -39 240 / 240 Physical Exam Narrative: EXAM NARRATIVE: EXAM NARRATIVE: General : Morbid obesity, alert and oriented x3 and coherent. HEENT ; Grossly unremarkable CVS: NSR, no murmurs rubs or gallops associated Chest: CTABL -no crackles wheezes or rhonchi heard. ABD; soft, nontender, abdominal obesity Ext; B/L TRACE LE edema, wearing compression stockings. Urinary Catheter Management^: Haile Latex Free: Cath Placed During This Visit: yes, but has since been removed by the nurse Reason for Continuing Indwelling Catheter: Accurate Measurement of Urinary Output in Critically Ill Patients Urinary Catheter Date of Insertion: 07/18/21 Urinary Catheter Time of Insertion: 18:35 Date Urinary Catheter Removed: 07/21/21 Time Urinary Catheter Discontinued: 12:18 Data : 07/22/21 05:32 07/22/21 05:32 Micro: Microbiology 07/21/21 23:24 Occult Blood (FIT) - Final Stool Routine Collection A&P Assessment and plan (1) Paroxysmal atrial fibrillation: Status: Acute (2) Hyperkalemia: Status: Acute (3) Acute kidney failure: Status: Acute (4) Altered mental state: Status: Acute (5) Obstructive sleep apnea: hx of intolerace to cpap Status: Acute (6) CHF (congestive heart failure), NYHA class III: Status: Acute Qualifiers: Congestive heart failure type: diastolic Congestive heart failure chronicity: chronic Qualified Code(s): I50.32 - Chronic diastolic (congestive) heart failure Additional A&P Information #Acute renal failure Resolved #Hyperkalemia - resolved. #Altered mental status?resolved -Potassium 8.3 on admission. Improved to 5.7 today. K 3.8. ?Nephrology on board. Will follow recommendations -She got Kayexalate 30x1, sodium bicarb, insulin plus D50 at admission in the ER. ?We will monitor electrolytes ?Continue to monitor output through Haile catheter -No plan to dialyze for now. - Cr improved to 1.2 #Atrial fibrillation with RVR #Possible tachybradycardia syndrome. #History of right heart failure #Obstructive sleep apnea -Eliquis to be continued at this point. ?Hemoglobin stable between 8-10 range. Will order for FOBT. Iron panel shows low percent saturation. She was ordered Venofer by nephrology. We will continue. -She has been off diuretics since being in the hospital and did receive IV fluids. Anemia could be dilutional at this point. I restarted her Bumex 1 mg daily today. She is on 2 mg at home. Creatinine down to 1.2. ?Discussed with on-call victim witness administrator. Patient did have a bradycardic event overnight yesterday and the day before. We will switch her to Toprol succinate 12 point 5 at night time. Will change Cardizem to long-acting 120 daily in the morning. I was advised to put a cardiac event monitor at discharge. Patient will follow up outpatient with Dr. Santacruz after discharge. #Obstructive sleep apnea (as reported in documentation but patient denies having it.) #Right heart congestive heart failure?not in exacerbation -Last echo February 2021 showed LVEF 60%, mildly decreased right ventricular systolic function with right ventricular free wall hypokinesis, mild tricuspid valve regurg. ?Continue CPAP at night Continue metoprolol tartrate, Eliquis, Hold spironolactone, potassium tablets, Lasix, ?Patient will definitely need reconciliation of medication at discharge. -Reduce Eliquis dose due to renal failure. Full code Diet: Renal cardiac diabetic diet. Attestations Medical Necessity Statement*: Greater than 24-hour stay. Pending placement. Coding Level of Care Code Acute Pickling Tank Operator for [facility] Fwd Diagnoses Paroxysmal atrial fibrillation I48.0 Hyperkalemia E87.5 Acute kidney failure N17.9 Altered mental state R41.82 Obstructive sleep apnea G47.33 CHF (congestive heart failure), NYHA class III I50.32 Congestive heart failure type: diastolic Congestive heart failure chronicity: chronic
[2021-07-22] MEDS: ferric gluconate 125 MG in sodium chloride 0.9% (100 ml) 100 ML 110 MG IV (12:55)
[2021-07-22] MEDS: bumetanide 1 mg Tablet PO (13:15)
--- NOTE | 2021-07-22 15:32 | PC.NURSE ---
14:00 cardizem held due to decreased heart rate (50-60's).pt was sleeping with bipap on at the time.dr radford notified..and instructed to have manager shift hold evenin doses of cardizem and metoprolol if hr below 60
[2021-07-22 17:31] LABS: Glucose Point of Care 95 mg/dL (70-110)
--- NOTE | 2021-07-22 18:28 | PC.NURSE ---
Patient up to shower this afternoon. Patient has dry, flaky, peeling skin to bilateral legs with redness to calves. No drainage observed to legs. These areas are left open to air presently with compression tubing reapplied to both lower extremeties. Medial lower panis continues to have moderate drainage that is clear, yellow with some purulent areas. Noted large area of maceration to this area. Site cleaned with NS. 4x4 drain sponges x4 in addition to 2 abd pads applied. Used foam tape to secure in place. Patient tolerated well. Still complain of not being able to feel anything to right side of panis during dressing change. Nystatin cream ordered. Instructed patient on the use of nystatin to include possible side effects and benefits. Patient verbalized complete understanding. Waiting for medication from pharmacy.
[2021-07-22] MEDS: nystatin cream 30 gm 1 APPLIC TOPICAL (20:09)
[2021-07-22] MEDS: atorvastatin 40 mg Tablet PO (20:10)
[2021-07-22] MEDS: quetiapine 25 mg Tablet PO (20:10)
[2021-07-22] MEDS: metoprolol succinate ER (24 HR) 25 mg Tablet 12.5 MG PO (20:10)
[2021-07-22 20:17] LABS: Glucose Point of Care 80 mg/dL (70-110)
[2021-07-23] VITALS (12 sets, daily range): BP systolic 96–124; BP diastolic 50–87; PULSE 59–83; RESP 16–24; TEMP 36.6–36.9; O2SAT 91–99
[2021-07-23] MEDS: acetaminophen 325 mg Tablet 650 MG PO (01:30)
--- NOTE | 2021-07-23 03:05 | PC.NURSE ---
Patient c/o pain 7-8/10 to bilateral legs. Patient unable to get comfortable. Assisted patient up to chair. Dr Palacio present on the floor. Informed Dr Palacio of patient complaint of increased pain to bilateral legs. Received verbal order for Hydrocodone 7.5/325 PO one time. RBVO
[2021-07-23] MEDS: HYDROcodone-acetaminophen 7.5-325 mg Tablet 1 TAB PO (03:21)
[2021-07-23 04:37] LABS: Basophils % 0.2 %; Hematocrit 30.6 % (37.0-47.0); Hemoglobin 9.4 g/dL (11.5-15.3); Lymphocytes # 1.7 10^3/uL (0.8-4.8); Mean Corpuscular HGB Conc 30.7 g/dL (30.0-36.0); Mean Corpuscular Hemoglobin 30.8 pg (28.0-34.0); Mean Corpuscular Volume 100.3 fl (81-99); Mean Platelet Volume 10.8 fL (7.4-10.4); Monocytes # 0.5 10^3/uL (0.2-0.9); Monocytes % 5.6 %; Neutrophils # 6.79 10^3/uL (1.8-7.7); Neutrophils % 75.1 %; Nucleated Red Blood Cells % 0 %; Platelet Count 236 10^3/cmm (130-400); Red Blood Count 3.05 10^6/uL (4.1-5.3); Red Cell Distribution Width 13.7 % (12.1-15.1); White Blood Count 9.1 10^3/uL (4.0-10.0)
[2021-07-23 05:01] LABS: Anion Gap 16.7 (5-19); Blood Urea Nitrogen 25 mg/dL (8-23); Carbon Dioxide 24 mmol/L (22-29); Chloride 106 mmol/L (98-107); Glomerular Filtration Rate 41.1 mL/min (90-130); Glucose 92 mg/dL (65-115); Magnesium 1.4 mg/dL (1.7-2.3); Osmolality Calculated 300 mOsm/kg (285-295); Potassium 3.7 mmol/L (3.5-5.1); Sodium 143 mmol/L (136-145)
--- NOTE | 2021-07-23 06:35 | PC.NURSE ---
Shift Note Frequent safety and comfort rounds continue. Orders and/or nursing care completed as indicated. Patient monitored for response to intervention and treatment(s). Education provided includes hydrocodone. Patient verbalized understanding. Patient reporting that her pain medication has provided no relief this morning. Patient reports constant aching pain to bilateral legs. Patient has been up to chair, side of bed and frequent position changes to help with pain. No other distress observed. Will continue to monitor.
[2021-07-23 06:38] LABS: Glucose Point of Care 88 mg/dL (70-110)
[2021-07-23] MEDS: magnesium sulfate premix 2 GM/50 ML PIGGYBACK IV (09:25)
[2021-07-23] MEDS: apixaban 5 mg Tablet 2.5 MG PO ×2 (09:26→18:00)
[2021-07-23] MEDS: dilTIAZem ER (24HR) 120 mg Capsule PO (09:26)
[2021-07-23] MEDS: gabapentin 300 mg Capsule PO ×2 (09:26→18:00)
[2021-07-23] MEDS: ropinirole 2 mg Tablet PO ×2 (09:26→21:41)
[2021-07-23] MEDS: bumetanide 1 mg Tablet PO (09:26)
[2021-07-23] MEDS: nystatin cream 30 gm 1 APPLIC TOPICAL ×2 (10:42→18:01)
[2021-07-23] MEDS: ferric gluconate 125 MG in sodium chloride 0.9% (100 ml) 100 ML 110 MG IV (10:43)
--- NOTE | 2021-07-23 10:57 | PC.SOCIAL ---
IMM Updated IMM initialed and dated and copy given to patient
[2021-07-23 11:44] LABS: Glucose Point of Care 82 mg/dL (70-110)
--- NOTE | 2021-07-23 11:52 | PM.CONSULT ---
Providers/Reason For Consult Consulting Physician/Specialty*: Paroxysmal A. fib difficult to control, CHF Reason for Consult*: Cardiology Attending Physician: Mima Gutierres MD Primary Care Provider: Farzaneh Grewal History of Present Illness History of Present Illness Sirena Priest is a 66 year old female past medical history significant for paroxysmal atrial fibrillation hypertension diastolic heart failure diabetes mellitus chronic renal insufficiency obstructive sleep apnea was admitted with mental status changes acute on chronic renal failure with electrolyte imbalance. She was treated for infection renal failure but also noted to be in A. fib with RVR difficult to control with possible tachybradycardia syndrome specially she drops down in the night into 30s to 40s while asleep. We have been asked to assist in her care. Currently she is in sinus rhythm, our hospitalist colleague already had titrated her medications she is taking 120 mg of Cardizem in the morning and metoprolol succinate in the evening. Review of Systems General: Reports: ROS unobtainable due to medical condition Narrative: ROS - 12 point review of systems completed per HPI and subjective assessment, this includes Constitutional: Weakness, fatigue Respiratory: No SOB on exertion, comfortable at rest CardioVasc: No chest pain, palpitations Gastrointestinal: No nausea, no vomiting Neurological: No seizures, no AMS Derm: No new rashes, lesions or wounds Immunological: No seasonal and no food allergies Const: Denies: fever(s), chills or diaphoresis ENMT: Denies: throat pain, ear or mastoid pain, nasal discharge or nasal congestion Card: Denies: chest pain or syncope Resp: Denies: dyspnea, productive cough or non-productive cough GI: Denies: nausea, vomiting or melena : Denies: dysuria Skin/Breast: Denies: rash or pruritus Neuro: Reports: confusion; Denies: headache(s) Shade/Lymph: Denies: easy bruising Meds/Allergies Home Medications and Allergies Home Medications Medication Instructions Recorded Confirmed Last Taken Type atorvastatin 40 mg tablet 40 mg PO BEDTIME 11/04/19 07/18/21 07/17/21 History cetirizine 10 mg capsule 10 mg PO DAILY PRN 11/04/19 07/18/21 Unknown History ramipril 10 mg capsule 10 mg PO QAM 11/04/19 07/18/21 07/18/21 History ropinirole 1 mg tablet 2 mg PO BID #360 tab 10/24/20 07/18/21 07/18/21 09:00 Rx loperamide 2 mg capsule 2 mg PO TID PRN cap 04/17/21 07/18/21 Unknown History ondansetron HCl 4 mg tablet 4 mg PO Q6H PRN 04/17/21 07/18/21 Unknown History apixaban 5 mg tablet 5 mg PO BID tab 04/18/21 07/18/21 07/18/21 09:00 History bumetanide 1 mg tablet 2 mg PO QAM tab 04/18/21 07/18/21 07/18/21 09:00 History clonazepam 1 mg tablet 1 mg PO BID PRN #60 tab 04/18/21 07/18/21 Unknown Rx hydrocodone 7.5 mg-acetaminophen 1 tab PO QID PRN tab 05/12/21 07/18/21 07/18/21 10:00 History 325 mg tablet metformin 850 mg tablet 850 mg PO TID 05/12/21 07/18/21 07/18/21 09:00 History potassium chloride 10 mEq 40 meq PO QAM cap 05/12/21 07/18/21 07/18/21 History capsule,extended release quetiapine 25 mg tablet 25 - 50 mg PO BEDTIME PRN #60 tab 05/16/21 07/18/21 Unknown Rx spironolactone 25 mg tablet 12.5 mg PO DAILY tab 06/22/21 07/18/21 Unknown History magnesium oxide 400 mg PO BID tab 06/28/21 07/18/21 07/18/21 History cefdinir 300 mg PO BID 07/18/21 07/18/21 07/18/21 History finished this am ciprofloxacin HCl 500 mg PO BID 07/18/21 07/18/21 07/18/21 History finished this am cyanocobalamin (vitamin B-12) 1,000 mcg IM Q30D 07/18/21 07/18/21 Unknown History furosemide 40 mg PO DAILY 07/18/21 07/18/21 07/18/21 History gabapentin 300 mg PO BID 07/18/21 07/18/21 07/18/21 09:00 History metoprolol tartrate See Rx Instructions .ROUTE .COMPLEX 07/18/21 07/18/21 07/18/21 09:00 History 75 mg Allergies Allergy/AdvReac Type Severity Reaction Status Date / Time No Known Allergies Allergy Verified 07/18/21 17:59 Current Medications Current Medications Generic Name Dose Route Start Last Admin Trade Name Luisito PRN Reason Stop Dose Admin Acetaminophen 650 mg 07/18/21 23:05 07/23/21 01:30 Acetaminophen 325 Mg Tablet PO 650 mg Q6H PRN Administration Mild/Mod Pain Or Temp >/= 101 Apixaban 2.5 mg 07/19/21 18:00 07/23/21 09:26 Apixaban 5 Mg Tablet PO 2.5 mg BID HERNANDEZ Administration Atorvastatin Calcium 40 mg 07/19/21 21:00 07/22/21 20:10 Atorvastatin 40 Mg Tablet PO 40 mg BEDTIME HERNANDEZ Administration Bumetanide 1 mg 07/22/21 12:40 07/23/21 09:26 Bumetanide 1 Mg Tablet PO 1 mg DAILY HERNANDEZ Administration Diltiazem HCl 120 mg 07/23/21 09:00 07/23/21 09:26 Diltiazem Er (24hr) 120 Mg Capsule PO 120 mg DAILY HERNANDEZ Administration Gabapentin 300 mg 07/19/21 09:00 07/23/21 09:26 Gabapentin 300 Mg Capsule PO 300 mg BID HERNANDEZ Administration Ferric Sodium Gluconate 125 mg 110 mls @ 110 mls/hr 07/20/21 09:00 07/23/21 10:43 / Sodium Chloride IV 07/27/21 11:59 110 mls/hr Q24H HERNANDEZ Administration Insulin Human Lispro 0 unit 07/19/21 08:00 07/23/21 09:25 Insulin Lispro 100 Unit/1 Ml SUBCUT Not Given WM&BEDTIME HERNANDEZ Protocol Metoprolol Succinate 12.5 mg 07/22/21 21:00 07/22/21 20:10 Metoprolol Succinate Er (24 Hr) 25 Mg Tablet PO 12.5 mg BEDTIME HERNANDEZ Administration Nystatin 1 applic 07/22/21 19:00 07/23/21 10:42 Nystatin Cream 30 Gm TOPICAL 1 applic BID HERNANDEZ Administration Quetiapine Fumarate 25 mg 07/19/21 23:00 07/22/21 20:10 Quetiapine 25 Mg Tablet PO 25 mg BEDTIME HERNANDEZ Administration Ropinirole HCl 2 mg 07/19/21 09:00 07/23/21 09:26 Ropinirole 2 Mg Tablet PO 2 mg BID HERNANDEZ Administration Additional Medication Information Current Medications Acetaminophen (Acetaminophen 325 Mg Tablet) 650 mg PO Q6H PRN PRN Reason: Mild/Mod Pain Or Temp >/= 101 Last Admin: 07/20/21 03:30 Dose: 650 mg Documented by: Apixaban (Apixaban 5 Mg Tablet) 2.5 mg PO BID [facility] Atorvastatin Calcium (Atorvastatin 40 Mg Tablet) 40 mg PO BEDTIME [facility] Last Admin: 07/19/21 19:59 Dose: 40 mg Documented by: Dextrose (Dextrose 50% Syringe 50 Ml) 25 ml IVP ONCE PRN; Protocol PRN Reason: hypoglycemia protocol Dextrose (Dextrose 50% Syringe 50 Ml) 50 ml IVP PRN PRN; Protocol PRN Reason: hypoglycemia protocol Diltiazem HCl (Diltiazem 30 Mg Tablet) 30 mg PO Q6H HERNANDEZ Gabapentin (Gabapentin 300 Mg Capsule) 300 mg PO BID [facility] Last Admin: 07/20/21 07:58 Dose: 300 mg Documented by: Glucagon (Glucagon 1 Mg/Ml Inj 1 Ml) 1 mg IM ONCE PRN; Protocol PRN Reason: Adult Acute Hypoglycemia Prot. Dextrose (D5w) 500 mls @ 100 mls/hr IV ONCE PRN; Protocol PRN Reason: Adult Acute Hypoglycemia Prot Sodium Bicarbonate 75 meq/ (Dextrose/Sodium Chloride) 1,075 mls @ 75 mls/hr IV .[id number] [facility] Last Admin: 07/20/21 00:50 Dose: 75 mls/hr Documented by: Magnesium Sulfate (Magnesium Sulfate Premix) 2 gm in 50 mls @ 50 mls/hr IV ONCE ONE Stop: 07/20/21 09:00 Insulin Human Lispro (Insulin Lispro 100 Unit/1 Ml) 0 unit SUBCUT WM&BEDTIME [facility]; Protocol Last Admin: 07/20/21 07:35 Dose: Not Given Documented by: Metoprolol Tartrate (Metoprolol Tartrate 50 Mg Tablet) 50 mg PO BID@0900,2100 [facility] Ondansetron HCl (Ondansetron 2 Mg/Ml Sdv 2 Ml) 4 mg IVP Q6H PRN PRN Reason: NAUSEA AND VOMITING Quetiapine Fumarate (Quetiapine 25 Mg Tablet) 25 mg PO BEDTIME [facility] Last Admin: 07/19/21 23:04 Dose: 25 mg Documented by: Ropinirole HCl (Ropinirole 2 Mg Tablet) 2 mg PO BID [facility] Last Admin: 07/20/21 07:58 Dose: 2 mg Documented by: PFSH Acute PFSH: Medical History Atrial fibrillation with RVR BMI over 35 BMI of 61.7 CHF (congestive heart failure), NYHA class III History of kidney stones Major depressive disorder, recurrent severe without psychotic features Obstructive sleep apnea Psychiatric care Recurrent incisional hernia Restless leg syndrome Surgical History H/O laparoscopy adhesiolysis/repair of incisional hernia with mesh -- 2014 -- Dr. Alicia History of section, low vertical X 2 History of lithotripsy R temporary ureteral stent History of total abdominal hysterectomy and bilateral salpingo-oophorectomy Family History Other Family history non-contributory Social History Second hand smoke exposure: No Alcohol intake: never Adopted: No Lives independently: Yes Marital status: Current gender identity: Female Dietary Habits: Current diet type/program: regular Caffeine: Yes Caffeine intake frequency: carbonated beverages Vitals/I&O/Wt Last Vital Signs Temp 98.0 F 07/23/21 03:39 Pulse 71 07/23/21 06:00 Resp 18 07/23/21 03:39 BP 105/57 07/23/21 03:39 Pulse Ox 95 07/23/21 03:39 07/22/21 07/23/21 07/23/21 22:59 06:59 14:59 Intake Total 350 / 830 240 / 1070 240 / 240 Output Total 800 / 1100 500 / 1600 550 / 550 Balance -450 / -270 -260 / -530 -310 / -310 Physical Exam Narrative: EXAM NARRATIVE: GENERAL: Patient is alert, awake and oriented x3. Patient laying in the bed comfortably NECK: No jugular vein distension. HEENT: No cyanosis. No icterus. No pallor. HEART: Regular S1 and S2. No murmur, rub or gallop. LUNGS: Clear to auscultate bilaterally. ABDOMEN: Soft, nontender and nondistended. Positive bowel sounds. No guarding, rebound or tenderness. CENTRAL NERVOUS SYSTEM: Grossly nonfocal. EXTREMITIES: Lower extremities without edema bilaterally. Urinary Catheter Management^: Haile Latex Free: Cath Placed During This Visit: yes, but has since been removed by the nurse Reason for Continuing Indwelling Catheter: Accurate Measurement of Urinary Output in Critically Ill Patients Urinary Catheter Date of Insertion: 07/18/21 Urinary Catheter Time of Insertion: 18:35 Date Urinary Catheter Removed: 07/21/21 Time Urinary Catheter Discontinued: 12:18 A&P Assessment and plan (1) Paroxysmal atrial fibrillation: Patient appear to be in sinus rhythm we agree with continuing Cardizem 120 in the morning and 25 mg of metoprolol succinate in the evening, will recommend event monitor at discharge for titration of therapy as patient may have underlying conduction abnormality. At some point we may need to try dronedarone which in case of tachybradycardia syndrome may be better for the patient in order to prevent paroxysmal of atrial fibrillation and tachybradycardia syndrome. At this point we will continue with Cardizem and beta-mode. Status: Acute (2) Hyperkalemia: Resolved Status: Acute (3) Acute kidney failure: Improved. Continue as per nephrology recommendation Status: Acute Qualifiers: Acute renal failure type: with other specified pathological lesion Qualified Code(s): N17.8 - Other acute kidney failure (4) CHF (congestive heart failure), NYHA class III: Appear to be well compensated advise discontinuing Aldactone and other diuretics upon discharge. Continue to follow with Dr. Santacruz Status: Acute Qualifiers: Congestive heart failure type: diastolic Congestive heart failure chronicity: chronic Qualified Code(s): I50.32 - Chronic diastolic (congestive) heart failure (5) Cellulitis: As per medicine. Status: Acute Qualifiers: Site of cellulitis: unspecified site Qualified Code(s): L03.90 - Cellulitis, unspecified Consult Attestations Medical Necessity Statement: Patient require continuation hospitalization for above defined care. 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
--- NOTE | 2021-07-23 15:51 | PM.PN ---
Subjective Subjective: Interval history: She is doing well. Still has bradycardia overnight. Cardiology will be seeing patient making recommendations. Otherwise she is pending placement. Creatinine stable. She offers no complaints today. Vitals/I&O/Wt Last Vital Signs Temp 98.0 F 07/23/21 03:39 Pulse 73 07/23/21 09:00 Resp 18 07/23/21 03:39 BP 105/57 07/23/21 09:00 Pulse Ox 98 07/23/21 09:00 07/23/21 07/23/21 07/23/21 06:59 14:59 22:59 Intake Total 240 / 1070 480 / 480 Output Total 500 / 1600 800 / 800 Balance -260 / -530 -320 / -320 Physical Exam Narrative: EXAM NARRATIVE: EXAM NARRATIVE: General : Morbid obesity, alert and oriented x3 and coherent. HEENT ; Grossly unremarkable CVS: NSR, no murmurs rubs or gallops associated Chest: CTABL -no crackles wheezes or rhonchi heard. ABD; soft, nontender, abdominal obesity Ext; B/L TRACE LE edema, wearing compression stockings. Urinary Catheter Management^: Haile Latex Free: Cath Placed During This Visit: yes, but has since been removed by the nurse Reason for Continuing Indwelling Catheter: Accurate Measurement of Urinary Output in Critically Ill Patients Urinary Catheter Date of Insertion: 07/18/21 Urinary Catheter Time of Insertion: 18:35 Date Urinary Catheter Removed: 07/21/21 Time Urinary Catheter Discontinued: 12:18 Data : 07/23/21 03:53 07/23/21 03:53 A&P Assessment and plan (1) Paroxysmal atrial fibrillation: Status: Acute (2) Hyperkalemia: Status: Acute (3) Acute kidney failure: Status: Acute Qualifiers: Acute renal failure type: with other specified pathological lesion Qualified Code(s): N17.8 - Other acute kidney failure (4) Altered mental state: Status: Acute (5) Obstructive sleep apnea: hx of intolerace to cpap Status: Acute (6) CHF (congestive heart failure), NYHA class III: Status: Acute Qualifiers: Congestive heart failure type: diastolic Congestive heart failure chronicity: chronic Qualified Code(s): I50.32 - Chronic diastolic (congestive) heart failure Additional A&P Information #Acute renal failure Resolved #Hyperkalemia - resolved. #Altered mental status?resolved -Potassium 8.3 on admission. Improved to 5.7 today. K 3.8. ?Nephrology on board. Will follow recommendations -She got Kayexalate 30x1, sodium bicarb, insulin plus D50 at admission in the ER. ?We will monitor electrolytes ?Continue to monitor output through Haile catheter -No plan to dialyze for now. - Cr improved to 1.2. Creatinine 1.3 today. #Atrial fibrillation with RVR #Possible tachybradycardia syndrome. #History of right heart failure #Obstructive sleep apnea -Eliquis to be continued at this point. ?Hemoglobin stable between 8-10 range. Will order for FOBT. Iron panel shows low percent saturation. She was ordered Venofer by nephrology. We will continue. -She has been off diuretics since being in the hospital and did receive IV fluids. Anemia could be dilutional at this point. I restarted her Bumex 1 mg daily today. She is on 2 mg at home. Creatinine down to 1.2. ?Discussed with on-call dry heat cabinet attendant. Patient did have a bradycardic event overnight yesterday and the day before. We will switch her to Toprol succinate 12 point 5 at night time. Will change Cardizem to long-acting 120 daily in the morning. I was advised to put a cardiac event monitor at discharge. Patient will follow up outpatient with Dr. Santacruz after discharge. Cardiology saw patient. Recommendations appreciated. #Obstructive sleep apnea (as reported in documentation but patient denies having it.) #Right heart congestive heart failure?not in exacerbation -Last echo February 2021 showed LVEF 60%, mildly decreased right ventricular systolic function with right ventricular free wall hypokinesis, mild tricuspid valve regurg. ?Continue CPAP at night Continue metoprolol tartrate, Eliquis, Hold spironolactone, potassium tablets, Lasix, ?Patient will definitely need reconciliation of medication at discharge. -Reduce Eliquis dose due to renal failure. Full code Diet: Renal cardiac diabetic diet. Attestations Medical Necessity Statement*: Discharge pending placement to rehab. 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
[2021-07-23 16:41] LABS: Glucose Point of Care 107 mg/dL (70-110)
[2021-07-23 20:50] LABS: Glucose Point of Care 121 mg/dL (70-110)
[2021-07-23] MEDS: quetiapine 25 mg Tablet PO (21:41)
[2021-07-23] MEDS: atorvastatin 40 mg Tablet PO (21:41)
[2021-07-23] MEDS: metoprolol succinate ER (24 HR) 25 mg Tablet 12.5 MG PO (21:41)
--- NOTE | 2021-07-24 02:55 | PC.NURSE ---
Patient asking for home Clonazepam. Patient states her restless legs are really bothering her. Dr. Palacio notified. One time order given.
[2021-07-24 03:19] VITALS: BP 122/58; PULSE 82; RESP 18; O2SAT 94
[2021-07-24] MEDS: CLONazepam 1 mg Tablet PO (03:19)
--- NOTE | 2021-07-24 03:42 | PC.NURSE ---
Tubi photography coordinator changed to clean pair that patient brought from home and aloe vesta cream applied to bilateral lower legs per patient request.
[2021-07-24 05:35] LABS: Anion Gap 14.3 (5-19); Blood Urea Nitrogen 22 mg/dL (8-23); Calcium 7.8 mg/dL (8.5-10.5); Carbon Dioxide 26 mmol/L (22-29); Chloride 105 mmol/L (98-107); Glomerular Filtration Rate 41.1 mL/min (90-130); Glucose 93 mg/dL (65-115); Osmolality Calculated 297 mOsm/kg (285-295); Potassium 3.3 mmol/L (3.5-5.1); Sodium 142 mmol/L (136-145)
[2021-07-24 05:51] VITALS: PULSE 59
[2021-07-24 06:41] LABS: Glucose Point of Care 99 mg/dL (70-110)
[2021-07-24] MEDS: gabapentin 300 mg Capsule PO (09:08)
[2021-07-24] MEDS: dilTIAZem ER (24HR) 120 mg Capsule PO (09:08)
[2021-07-24] MEDS: apixaban 5 mg Tablet 2.5 MG PO (09:08)
[2021-07-24] MEDS: ropinirole 2 mg Tablet PO (09:08)
[2021-07-24 10:07] VITALS: BP 106/68; PULSE 78; TEMP 36.9; O2SAT 92
[2021-07-24] MEDS: bumetanide 1 mg Tablet PO (10:15)
[2021-07-24 10:24] LABS: Bilirubin Urine Neg (Negative); Blood Urine 2+ (Negative); Glucose Urine UA Norm (Normal); Ketones Urine Negative (Negative); Nitrate Urine Negative (Negative); Protein Urine Neg (Negative); Urine Appearance Clear (CLEAR); Urine Color Yellow (Yellow); pH Urine 5 (5-7)
[2021-07-24 10:25] LABS: Add Urine Microscopic? YES; Leukocyte Esterase Urine Negative (Negative); Urobilinogen Urine Norm (Negative)
[2021-07-24 10:30] LABS: Creatinine Urine, Random 98 mg/dL (28-217)
[2021-07-24 10:41] LABS: Bacteria Urine 1+ /hpf; RBC Urine RARE /hpf (0-2)
[2021-07-24 10:42] LABS: Add Urine Culture? No; Mucus Urine TRACE /hpf
[2021-07-24 11:15] VITALS: PULSE 59; RESP 16; O2SAT 93
[2021-07-24 12:02] LABS: Glucose Point of Care 102 mg/dL (70-110)
[2021-07-24 12:38] VITALS: BP 132/59; PULSE 85; TEMP 36.8
[2021-07-24 13:14] LABS: SARS Covid-2 Antigen Negative (Negative)
[2021-07-24 13:52] VITALS: BP 132/59; PULSE 85; RESP 18; TEMP 36.8; O2SAT 92
--- NOTE | 2021-07-24 14:15 | PC.NURSE ---
Pt discharge to SNF pt is brought to [facility] for event monitor fitting.
--- NOTE | 2021-07-24 14:30 | PC.NURSE ---
Report provided to SNF talked to staff at [facility].
--- NOTE | 2021-07-24 14:40 | PM.DCS ---
Discharge Providers Date of Admission: 07/18/21 17:43 Date of Discharge: July 24, 2021 Attending Provider at Admission: Mima Gutierres MD Attending Provider at Discharge: Calista Myles MD Primary Care Provider: Farzaneh Grewal Diagnoses at Discharge Discharge Diagnosis (1) Paroxysmal atrial fibrillation: Status: Resolved (2) Hyperkalemia: Status: Resolved (3) Acute kidney failure: Status: Resolved Qualifiers: Acute renal failure type: with other specified pathological lesion Qualified Code(s): N17.8 - Other acute kidney failure (4) Altered mental state: Status: Resolved (5) Obstructive sleep apnea: (6) CHF (congestive heart failure), NYHA class III: Qualifiers: Congestive heart failure chronicity: chronic Congestive heart failure type: diastolic Qualified Code(s): I50.32 - Chronic diastolic (congestive) heart failure Reason for Visit Reason for Visit: LOW BP Hospital Course Hospital Course History of Present Illness by Dr Palacio 66-year-old with a past medical history significant for hypertension, diabetes mellitus , obstructive sleep apnea , restless leg syndrome, paroxysmal atrial fibrillation and right lower extremity DVT on Eliquis who presented to the ER with altered mental status. Patient was confused and drowsy at the time of my eval. History was obtained from review of records. Patient apparently weak and noted to have difficulty ambulating. Unable to fully assess review of systems. Laboratory workup on arrival showed a WBC of 11.7, hemoglobin 10.5, hematocrit 34.1 and a platelet count of 340. Sodium 134, potassium 8.3, chloride 101, bicarb 18, BUN 98 and creatinine of 5.3. Appears previous creatinine of 1.5 on 04/16. Imaging studies included chest x-ray which did not show any acute findings. Right shoulder x-ray also was negative for any acute findings. Patient was treated with calcium gluconate 2gm Iv x 1, 1amp d50/ Insulin 10units combo x 2, sodium bicarb 100 meq IV x 1, kayexalate 30g Po x 1, and started on NS at 200cc/hr. Nephrology was consulted. Repeat bmp had shown a creatinine of 5.5 and a potassium of 6.2 HOSP COURSE: Patient was admitted for evaluation of encephalopathy which was related to metabolic derangement, YUSRA,. There was some discrepancy regarding her home medications, she has been taking combination of spironolactone, Lasix, Bumex on top of higher dose of potassium supplementation. Her potassium improved with treatment in the ER. She did not show any hyperkalemia related EKG changes. Her mentation improved as well with IV hydration and holding most of her medications. Cardiology was consulted who recommended using Cardizem 120 mg in the morning and metoprolol succinate 25mg at night for her possible tachybradycardia syndrome. Please review cardiology consultation note for further details. She will be discharged to a retirement with event monitor and moderate change in her discharge medications. Physical Exam Narrative: EXAM NARRATIVE: General : Morbid obesity, alert and oriented x3 and coherent. HEENT ; Grossly unremarkable CVS: NSR, no murmurs rubs or gallops associated Chest: CTABL -no crackles wheezes or rhonchi heard. ABD; soft, nontender, abdominal obesity Ext; B/L TRACE LE edema, wearing compression stockings. Urinary Catheter Management^: Haile Latex Free: Cath Placed During This Visit: yes, but has since been removed by the nurse Reason for Continuing Indwelling Catheter: Accurate Measurement of Urinary Output in Critically Ill Patients Urinary Catheter Date of Insertion: 07/18/21 Urinary Catheter Time of Insertion: 18:35 Date Urinary Catheter Removed: 07/21/21 Time Urinary Catheter Discontinued: 12:18 Discharge Data Data Completed and Pending: Completed Studies During Hospitalization Category Date Time Status XR chest 1V donna ble [id number] Stat Exams 07/18/21 15:42 Completed XR shoulder RT mi n 2V* [id number] Stat Exams 07/18/21 15:42 Completed US renal BI* [id number] Routine Ultrasound 07/19/21 06:00 Completed Pending at discharge Category Date Time Status CA cardiac event monitor Routine Exams 07/22/21 12:30 Ordered Labs from last 24 hours 07/24/21 07/24/21 07/24/21 12:42 11:52 09:00 Sodium Potassium Chloride Carbon Dioxide Anion Gap BUN Creatinine GFR Calculation Glucose POC Glucose 102 Calculated Osmolal ity Calcium Urine Color Yellow Urine Appearance Clear Urine pH 5 Ur Specific Gravit y 1.010 Urine Protein Neg Urine Glucose (UA) Norm Urine Ketones Negative Urine Blood 2+ H Urine Nitrate Negative Urine Bilirubin Neg Urine Urobilinogen Norm Ur Leukocyte Cande ase Negative Urine RBC Rare Urine WBC 5-10 H Ur Squamous Epith Cells 5-10 H Amorphous Sediment Not Reportable Urine Bacteria 1+ H Urine Mucus Trace Urine Creatinine 98 SARS-CoV-2 Ag (Rap id) Negative 07/24/21 07/24/21 07/23/21 06:30 04:09 19:27 Sodium 142 Potassium 3.3 L Chloride 105 Carbon Dioxide 26 Anion Gap 14.3 BUN 22 Creatinine 1.3 H GFR Calculation 41.1 L Glucose 93 POC Glucose 99 121 H Calculated Osmolal ity 297 H Calcium 7.8 L Urine Color Urine Appearance Urine pH Ur Specific Gravit y Urine Protein Urine Glucose (UA) Urine Ketones Urine Blood Urine Nitrate Urine Bilirubin Urine Urobilinogen Ur Leukocyte Cande ase Urine RBC Urine WBC Ur Squamous Epith Cells Amorphous Sediment Urine Bacteria Urine Mucus Urine Creatinine SARS-CoV-2 Ag (Rap id) 07/23/21 16:29 Sodium Potassium Chloride Carbon Dioxide Anion Gap BUN Creatinine GFR Calculation Glucose POC Glucose 107 Calculated Osmolal ity Calcium Urine Color Urine Appearance Urine pH Ur Specific Gravit y Urine Protein Urine Glucose (UA) Urine Ketones Urine Blood Urine Nitrate Urine Bilirubin Urine Urobilinogen Ur Leukocyte Cande ase Urine RBC Urine WBC Ur Squamous Epith Cells Amorphous Sediment Urine Bacteria Urine Mucus Urine Creatinine SARS-CoV-2 Ag (Rap id) Vitals: Last Vital Signs Temp 98.3 F 07/24/21 13:52 Pulse 85 07/24/21 13:52 Resp 18 07/24/21 13:52 BP 132/59 07/24/21 13:52 Pulse Ox 92 07/24/21 13:52 Discharge Plan Discharge Patient Disposition: Xfer SNF Condition: Stable Prescriptions: New bumetanide 1 mg tablet 1 mg PO DAILY Qty: 30 RF: 3 potassium chloride 10 mEq capsule, extended release 10 meq PO DAILY Qty: 30 RF: 3 Cardizem LA 120 mg tablet extended release 24 hr 120 mg PO .breakfast Qty: 60 RF: 0 Toprol XL 25 mg tablet extended release 24 hr 25 mg PO .evening Qty: 60 RF: 0 Continued Seroquel 25 mg tablet 25 - 50 mg PO BEDTIME PRN (Reason: sleep) Qty: 60 RF: 3 hydrocodone-acetaminophen 7.5-325 mg tablet 1 tab PO QID PRN (Reason: Pain) RF: 0 metformin 850 mg tablet 850 mg PO TID RF: 0 atorvastatin 40 mg tablet 40 mg PO BEDTIME RF: 0 All Day Allergy (cetirizine) 10 mg capsule 10 mg PO DAILY PRN (Reason: Allergy Symptoms) RF: 0 ropinirole 1 mg tablet 2 mg PO BID Qty: 360 RF: 2 loperamide [Imodium A-D] 2 mg capsule 2 mg PO TID PRN (Reason: Diarrhea) RF: 0 ondansetron HCl [Zofran] 4 mg tablet 4 mg PO Q6H PRN (Reason: Nausea And Vomiting) RF: 0 Eliquis 5 mg tablet 5 mg PO BID RF: 0 clonazepam [Klonopin] 1 mg tablet 1 mg PO BID PRN (Reason: anxiety) Qty: 60 RF: 3 magnesium oxide 400 mg magnesium tablet 400 mg PO BID RF: 0 cyanocobalamin (vitamin B-12) 1,000 mcg/mL solution 1,000 mcg IM Q30D RF: 0 gabapentin 300 mg capsule 300 mg PO BID RF: 0 Held ramipril 10 mg capsule 10 mg PO QAM RF: 0 Hold Instructions: Resume on 07/31/21. Discontinued potassium chloride 10 mEq capsule, extended release 40 meq PO QAM RF: 0 bumetanide 1 mg tablet 2 mg PO QAM RF: 0 spironolactone 25 mg tablet 12.5 mg PO DAILY RF: 0 furosemide 40 mg tablet 40 mg PO DAILY RF: 0 ciprofloxacin HCl 500 mg tablet 500 mg PO BID RF: 0 cefdinir 300 mg capsule 300 mg PO BID RF: 0 metoprolol tartrate 50 mg tablet See Rx Instructions .ROUTE .COMPLEX RF: 0 No Action ferrous gluconate 324 mg (36 mg iron) Tablet 324 mg PO DAILY RF: 0 lidocaine 4 % Adhesive Patch,Medicated 1 patch TOPICAL DAILY RF: 0 ProAir HFA 90 mcg/actuation Hfa Aerosol Inhaler 2 puff INHALATION QID PRN (Reason: shortness of breath) RF: 0 hydrochlorothiazide 25 mg Tablet 25 mg PO DAILY RF: 0 aspirin 81 mg Capsule 81 mg PO DAILY RF: 0 Discharge Orders: Discharge Order (Routine); Ordered 07/24/21 Ordered By: Calista Myles Other Ambulatory Orders: CA cardiac event monitor (Routine) Timeframe: 3 Weeks [facility] Location: [facility] Ordered By: Calista Myles DME: CPAP (Order) Location: None Selected Ordered By: Calista Myles Referrals: Andrew Kern MD [Referring] - 7-10 days Pat Moreau FNP [Nurse Practitioner] - 4-7 days Discharge Diet: Advance as tolerated and Cardiac Discharge Activity: Resume usual activity Patient Instructions: Bumetanide (By mouth) (Bumex), Potassium Chloride (By mouth) (K-Dur, K-Cayla, K-Tab, Viktor Mur) Activity Restrictions/Additional Instructions: Immediately after discharge, Please got down to [facility] to be fitted with an EVENT MONITOR. Thank you Discharge Attestations Time Spent in Discharge Care*: less than 30 min Quality Metrics Clinical Quality Measures During this hospital stay, did patient experience: None Coding Level of Care Code Acute Chg FW DC note Diagnoses Paroxysmal atrial fibrillation I48.0 Hyperkalemia E87.5 Acute kidney failure N17.8 Acute renal failure type: with other specified pathological lesion Altered mental state R41.82 Obstructive sleep apnea G47.33 CHF (congestive heart failure), NYHA class III I50.32 Congestive heart failure chronicity: chronic Congestive heart failure type: diastolic
--- NOTE | 2021-07-24 15:13 | PC.NURSE ---
Discharge meds Their is no actions on her Aspirin 81 mg, Hydrochlorothiazide 25 mg daily, ferrous sulfate, and pro air. Notified Dr. Myles said to Discontinue aspirin and hydrochlorothiazide. continue ferrous and pro air breathing treatment PRN. order received for cpap. Faxed discharge med list and cpap to snf.
--- NOTE | 2021-07-24 19:33 | P.PN_ITS ---
Subjective Subjective: Interval history: Continue to be sinus rhythm Medications: Reviewed: Yes Medication Review Details: Current Medications Acetaminophen (Acetaminophen 325 Mg Tablet) 650 mg PO Q6H PRN PRN Reason: Mild/Mod Pain Or Temp >/= 101 Last Admin: 07/20/21 03:30 Dose: 650 mg Documented by: Apixaban (Apixaban 5 Mg Tablet) 2.5 mg PO BID HERNANDEZ Atorvastatin Calcium (Atorvastatin 40 Mg Tablet) 40 mg PO BEDTIME HERNANDEZ Last Admin: 07/19/21 19:59 Dose: 40 mg Documented by: Dextrose (Dextrose 50% Syringe 50 Ml) 25 ml IVP ONCE PRN; Protocol PRN Reason: hypoglycemia protocol Dextrose (Dextrose 50% Syringe 50 Ml) 50 ml IVP PRN PRN; Protocol PRN Reason: hypoglycemia protocol Diltiazem HCl (Diltiazem 30 Mg Tablet) 30 mg PO Q6H HERNANDEZ Gabapentin (Gabapentin 300 Mg Capsule) 300 mg PO BID [facility] Last Admin: 07/20/21 07:58 Dose: 300 mg Documented by: Glucagon (Glucagon 1 Mg/Ml Inj 1 Ml) 1 mg IM ONCE PRN; Protocol PRN Reason: Adult Acute Hypoglycemia Prot. Dextrose (D5w) 500 mls @ 100 mls/hr IV ONCE PRN; Protocol PRN Reason: Adult Acute Hypoglycemia Prot Sodium Bicarbonate 75 meq/ (Dextrose/Sodium Chloride) 1,075 mls @ 75 mls/hr IV .[id number] [facility] Last Admin: 07/20/21 00:50 Dose: 75 mls/hr Documented by: Magnesium Sulfate (Magnesium Sulfate Premix) 2 gm in 50 mls @ 50 mls/hr IV ONCE ONE Stop: 07/20/21 09:00 Insulin Human Lispro (Insulin Lispro 100 Unit/1 Ml) 0 unit SUBCUT WM&BEDTIME HERNANDEZ; Protocol Last Admin: 07/20/21 07:35 Dose: Not Given Documented by: Metoprolol Tartrate (Metoprolol Tartrate 50 Mg Tablet) 50 mg PO BID@0900,2100 [facility] Ondansetron HCl (Ondansetron 2 Mg/Ml Sdv 2 Ml) 4 mg IVP Q6H PRN PRN Reason: NAUSEA AND VOMITING Quetiapine Fumarate (Quetiapine 25 Mg Tablet) 25 mg PO BEDTIME [facility] Last Admin: 07/19/21 23:04 Dose: 25 mg Documented by: Ropinirole HCl (Ropinirole 2 Mg Tablet) 2 mg PO BID HERNANDEZ Last Admin: 07/20/21 07:58 Dose: 2 mg Documented by: Vitals/I&O/Wt Last Vital Signs Temp 98.3 F 07/24/21 13:52 Pulse 85 07/24/21 13:52 Resp 18 07/24/21 13:52 BP 132/59 07/24/21 13:52 Pulse Ox 92 07/24/21 13:52 07/24/21 07/24/21 07/24/21 06:59 14:59 22:59 Intake Total 360 / 360 Output Total 350 / 350 Balance Physical Exam Narrative: EXAM NARRATIVE: GENERAL: Patient is alert, awake and oriented x3. HEENT: No cyanosis. No icterus. No pallor. HEART: Regular S1 and S2. No murmur, rub or gallop. LUNGS: Clear to auscultate bilaterally. ABDOMEN: Soft, nontender and nondistended. Positive bowel sounds. No guarding, rebound or tenderness. CENTRAL NERVOUS SYSTEM: Grossly nonfocal. EXTREMITIES: Lower extremities without edema bilaterally. Urinary Catheter Management^: Haile Latex Free: Cath Placed During This Visit: yes, but has since been removed by the nurse Reason for Continuing Indwelling Catheter: Accurate Measurement of Urinary Output in Critically Ill Patients Urinary Catheter Date of Insertion: 07/18/21 Urinary Catheter Time of Insertion: 18:35 Date Urinary Catheter Removed: 07/21/21 Time Urinary Catheter Discontinued: 12:18 Data : 07/23/21 03:53 07/24/21 04:09 A&P Assessment and plan (1) Paroxysmal atrial fibrillation: Patient appear to be in sinus rhythm we agree with continuing Cardizem 120 in the morning and 25 mg of metoprolol succinate in the evening, will recommend event monitor at discharge for titration of therapy as patient may have underlying conduction abnormality. At some point we may need to try dronedarone which in case of tachybradycardia syndrome may be better for the patient in order to prevent paroxysmal of atrial fibrillation and tachybradycardia syndrome. At this point we will continue with Cardizem and beta-mode. Patient is in sinus rhythm denies any problem continue current regimen Status: Acute (2) Hyperkalemia: Resolved Status: Acute (3) Acute kidney failure: Improving Status: Acute Qualifiers: Acute renal failure type: with other specified pathological lesion Qualified Code(s): N17.8 - Other acute kidney failure (4) CHF (congestive heart failure), NYHA class III: Well compensated continue current regimen Status: Acute Qualifiers: Congestive heart failure type: diastolic Congestive heart failure chronicity: chronic Qualified Code(s): I50.32 - Chronic diastolic (congestive) heart failure (5) Cellulitis: As per medicine. Status: Acute Qualifiers: Site of cellulitis: unspecified site Qualified Code(s): L03.90 - Cellulitis, unspecified Attestations Medical Necessity Statement*: As per medicine Coding Level of Care Code Established Pt Acute Potato Picker for g Fwd Patient Type Established History Detailed Exam Detailed Medical Decision Making Moderate Complexity Diagnoses Paroxysmal atrial fibrillation I48.0 Hyperkalemia E87.5 Acute kidney failure N17.8 Acute renal failure type: with other specified pathological lesion CHF (congestive heart failure), NYHA class III I50.32 Congestive heart failure type: diastolic Congestive heart failure chronicity: chronic Cellulitis L03.90 Site of cellulitis: unspecified site
== END 2021-07-24 14:00 | disposition skilled nursing facility (03) | DRG 682 ==
LOC: ER 16:05 → MEDSURG 21:47 → CSU 07-21 14:53
PROVIDERS: Emergency Medicine; Internal Medicine Nephrology; Admitting Provider Internal Medicine; Emergency Provider Family Medicine; PCP Physician Assistant; Visit Provider Internal Medicine
DX: N17.9 Acute kidney failure, unspecified (principal); G93.41 Metabolic encephalopathy; Z68.43 Body mass index [BMI] 50.0-59.9, adult; I13.0 Hypertensive heart and chronic kidney disease with heart failure and stage 1 through stage 4 chronic kidney disease, or unspecified chronic kidney disease; I50.32 Chronic diastolic (congestive) heart failure; F33.9 Major depressive disorder, recurrent, unspecified; I48.0 Paroxysmal atrial fibrillation; E66.9 Obesity, unspecified; N18.30 Chronic kidney disease, stage 3 unspecified; E11.22 Type 2 diabetes mellitus with diabetic chronic kidney disease; Z87.442 Personal history of urinary calculi; G47.33 Obstructive sleep apnea (adult) (pediatric); G25.81 Restless legs syndrome; E87.5 Hyperkalemia; Z86.718 Personal history of other venous thrombosis and embolism; D63.1 Anemia in chronic kidney disease; I49.5 Sick sinus syndrome; Z79.01 Long term (current) use of anticoagulants; Z79.84 Long term (current) use of oral hypoglycemic drugs; Z79.891 Long term (current) use of opiate analgesic
CPT/HCPCS: 36415; 36416; 36600; 51702; 71045; 73030; 76770; 80048; 80053; 81001; 82274; 82306; 82310; 82550; 82575; 82728; 82803; 82962; 83540; 83550; 83735; 83970; 84100; 84300; 84550; 85025; 87426; 93005; 93271; 94640; 94660; 96372; 96374; 96375; 97116; 97161; 97530; 99285; J0610; J1815; J2916; J3475; J7030; J7611; J7799; Q3014

== ENCOUNTER → 2021-08-09 08:03 | Outpatient (BNVA) | payer MEDICARE, MEDICAID, SELFPAY | PROVIDERS: PCP Physician Assistant; Visit Provider Nurse Practitioner Psychiatric/Mental Health | DX: F33.2 Major depressive disorder, recurrent severe without psychotic features (principal) | CPT/HCPCS: 99214 ==

== ENCOUNTER → 2021-09-25 07:39 | Outpatient (BNVA) | payer MEDICARE, MEDICAID, SELFPAY | PROVIDERS: PCP Internal Medicine; Visit Provider Nurse Practitioner Psychiatric/Mental Health | DX: F33.2 Major depressive disorder, recurrent severe without psychotic features (principal) | CPT/HCPCS: 99214 ==

== ENCOUNTER → 2021-11-17 07:35 | Outpatient (BNVA) | payer MEDICARE, MEDICAID, SELFPAY | PROVIDERS: PCP Internal Medicine; Visit Provider Nurse Practitioner Psychiatric/Mental Health | DX: F33.2 Major depressive disorder, recurrent severe without psychotic features (principal) | CPT/HCPCS: 99214 ==

== ENCOUNTER → 2021-12-04 10:54 | Outpatient (BNVA) | payer MEDICARE, MEDICAID, SELFPAY | PROVIDERS: PCP Internal Medicine; Visit Provider Internal Medicine Cardiovascular Disease | DX: I48.0 Paroxysmal atrial fibrillation (principal); I50.32 Chronic diastolic (congestive) heart failure; R00.1 Bradycardia, unspecified; G47.33 Obstructive sleep apnea (adult) (pediatric); K43.2 Incisional hernia without obstruction or gangrene; F33.2 Major depressive disorder, recurrent severe without psychotic features | CPT/HCPCS: 99214 ==

== ENCOUNTER → 2022-01-03 06:58 | Outpatient (BNVA) | payer MEDICARE, MEDICAID, SELFPAY | PROVIDERS: PCP Internal Medicine; Visit Provider Nurse Practitioner Psychiatric/Mental Health | DX: F33.2 Major depressive disorder, recurrent severe without psychotic features (principal) | CPT/HCPCS: 99214 ==

== ENCOUNTER 2022-01-04 16:58 | Outpatient (CLI) | payer MEDICARE, MEDICAID, SELFPAY ==
[2022-01-04 17:19] LABS: Basophils % 0.3 %; Hematocrit 36.5 % (37.0-47.0); Hemoglobin 11.5 g/dL (11.5-15.3); Lymphocytes # 2.7 10^3/uL (0.8-4.8); Lymphocytes % 22.3 %; Mean Corpuscular HGB Conc 31.5 g/dL (30.0-36.0); Mean Corpuscular Hemoglobin 29.5 pg (28.0-34.0); Mean Corpuscular Volume 93.6 fl (81-99); Mean Platelet Volume 10.5 fL (7.4-10.4); Monocytes # 0.7 10^3/uL (0.2-0.9); Monocytes % 5.9 %; Neutrophils # 8.67 10^3/uL (1.8-7.7); Neutrophils % 71.2 %; Nucleated Red Blood Cells % 0 %; Platelet Count 324 10^3/cmm (130-400); Red Cell Distribution Width 13.7 % (12.1-15.1); White Blood Count 12.2 10^3/uL (4.0-10.0)
[2022-01-04 18:42] LABS: Alanine Aminotransferase 10 U/L (0-33); Albumin Level 3.7 g/dL (3.5-5.2); Alkaline Phosphatase 124 IU/L (35-105); Anion Gap 18.9 (5-19); Aspartate Amino Transferase 15 U/L (0-32); Blood Urea Nitrogen 20 mg/dL (8-23); Calcium 8.5 mg/dL (8.5-10.5); Carbon Dioxide 28 mmol/L (22-29); Chloride 97 mmol/L (98-107); Globulin 3.2 g/dL (1.3-4.6); Glomerular Filtration Rate 41.1 mL/min (90-130); Glucose 114 mg/dL (65-115); Osmolality Calculated 293 mOsm/kg (285-295); Potassium 3.9 mmol/L (3.5-5.1); Sodium 140 mmol/L (136-145); Total Bilirubin 0.6 mg/dL (0.15-1.2); Total Protein 6.9 g/dL (6.6-8.7)
== END 2022-01-04 16:59 | disposition home or self-care (01) ==
LOC: LAB 17:04
PROVIDERS: PCP Internal Medicine; Visit Provider Internal Medicine
DX: I13.10 Hypertensive heart and chronic kidney disease without heart failure, with stage 1 through stage 4 chronic kidney disease, or unspecified chronic kidney disease (principal); N18.9 Chronic kidney disease, unspecified
CPT/HCPCS: 80053; 85025

== ENCOUNTER → 2022-02-07 06:11 | Outpatient (BNVA) | payer MEDICARE, MEDICAID, SELFPAY | PROVIDERS: PCP Internal Medicine; Visit Provider Nurse Practitioner Psychiatric/Mental Health | DX: F33.2 Major depressive disorder, recurrent severe without psychotic features (principal) | CPT/HCPCS: 99214 ==

== ENCOUNTER 2022-03-29 17:30 | Outpatient (CLI) | payer MEDICARE, MEDICAID, SELFPAY ==
[2022-03-29 19:22] LABS: Anion Gap 14.4 (5-19); Blood Urea Nitrogen 27 mg/dL (8-23); Calcium 8.7 mg/dL (8.5-10.5); Carbon Dioxide 33 mmol/L (22-29); Chloride 96 mmol/L (98-107); Glomerular Filtration Rate 45.1 mL/min (90-130); Glucose 143 mg/dL (65-115); Osmolality Calculated 298 mOsm/kg (285-295); Potassium 3.4 mmol/L (3.5-5.1); Sodium 140 mmol/L (136-145)
== END 2022-03-29 17:31 | disposition home or self-care (01) ==
PROVIDERS: PCP Internal Medicine; Visit Provider Internal Medicine
DX: I48.91 Unspecified atrial fibrillation (principal); I10 Essential (primary) hypertension
CPT/HCPCS: 80048

== ENCOUNTER 2022-04-27 20:41 | Outpatient (CLI) | payer MEDICARE, MEDICAID, SELFPAY ==
[2022-04-27 21:20] LABS: Anion Gap 16.5 (5-19); Blood Urea Nitrogen 31 mg/dL (8-23); Carbon Dioxide 33 mmol/L (22-29); Chloride 95 mmol/L (98-107); Glomerular Filtration Rate 44.9 mL/min (90-130); Glucose 111 mg/dL (65-115); Osmolality Calculated 299 mOsm/kg (285-295); Potassium 3.5 mmol/L (3.5-5.1); Sodium 141 mmol/L (136-145)
== END 2022-04-27 20:42 | disposition home or self-care (01) ==
LOC: LAB 20:44
PROVIDERS: PCP Internal Medicine; Visit Provider Internal Medicine
DX: I13.0 Hypertensive heart and chronic kidney disease with heart failure and stage 1 through stage 4 chronic kidney disease, or unspecified chronic kidney disease (principal)
CPT/HCPCS: 80048

== ENCOUNTER 2022-06-04 16:18 | Outpatient (CLI) | payer MEDICARE, MEDICAID, SELFPAY ==
[2022-06-04 18:19] LABS: Alanine Aminotransferase 13 U/L (0-33); Albumin Level 3.7 g/dL (3.5-5.2); Alkaline Phosphatase 138 U/L (35-105); Anion Gap 16.2 (5-19); Aspartate Amino Transferase 15 U/L (0-32); Blood Urea Nitrogen 20 mg/dL (8-23); Calcium 9.1 mg/dL (8.5-10.5); Carbon Dioxide 31 mmol/L (22-29); Chloride 96 mmol/L (98-107); Globulin 3.5 g/dL (1.3-4.6); Glomerular Filtration Rate 37.6 mL/min (90-130); Glucose 105 mg/dL (65-115); Osmolality Calculated 291 mOsm/kg (285-295); Potassium 4.2 mmol/L (3.5-5.1); Sodium 139 mmol/L (136-145); Total Bilirubin 0.9 mg/dL (0.15-1.2); Total Protein 7.2 g/dL (6.6-8.7)
== END 2022-06-04 16:19 | disposition home or self-care (01) ==
LOC: LAB 16:26
PROVIDERS: PCP Internal Medicine; Visit Provider Internal Medicine
DX: N18.30 Chronic kidney disease, stage 3 unspecified (principal)
CPT/HCPCS: 80053

== ENCOUNTER → 2022-06-12 11:14 | Outpatient (BNVA) | payer MEDICARE, MEDICAID, SELFPAY | PROVIDERS: PCP Internal Medicine; Visit Provider Internal Medicine Cardiovascular Disease | DX: I11.0 Hypertensive heart disease with heart failure (principal); I50.32 Chronic diastolic (congestive) heart failure; I48.0 Paroxysmal atrial fibrillation; Z79.01 Long term (current) use of anticoagulants | CPT/HCPCS: 99214 ==

== ENCOUNTER 2022-06-17 12:39 | Emergency (ER) | payer MEDICARE, MEDICAID, SELFPAY ==
[2022-06-17 13:42] VITALS: BMI 57.4
[2022-06-17 13:47] VITALS: BP 137/70; PULSE 57; RESP 18; TEMP 36.3; O2SAT 96
--- NOTE | 2022-06-17 14:14 | ECG_ITS ---
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 Measurements Intervals [place] Rate: 59 P: 88 MT: 192 QRS: 26 QRSD: 102 T: 55 QT: 459 QTc: 455 Interpretive Statements SINUS BRADYCARDIA Compared to ECG 07/20/2021 04:59:31 Atrial fibrillation no longer present T-wave abnormality no longer present Electronically Signed On 06-17-2022 21:45:29 CDT by Jannette Santacruz M.D. [email or web address]
--- NOTE | 2022-06-17 14:41 | W.ED.WEAKNES ---
HPI - Weakness General: Chief complaint: Weakness Stated complaint: WEAKNESS Time Seen by Provider: 06/17/22 14:13 History of Present Illness: 67-year-old female presenting today with Weakness. Patient notes started to have weakness last night. Recently had multiple medications changed. Including her spironolactone, Bumex, potassium supplements. Patient states she is concerned her potassium is either too high. Or she is taking too much of the spironolactone. Notes her weakness has improved since being in the ED. She denies chest pain. She notes dyspnea on exertion. She denies abdominal pain. She denies dysuria or polyuria. She notes gradual bilateral leg swelling. Review of Systems General: Reports: 10 or more systems reviewed and unremarkable except in HPI and below PFSH ED PFSH: Medical History Atrial fibrillation with RVR BMI over 35 BMI of 61.7 Bradycardia Cellulitis CHF (congestive heart failure), NYHA class III History of kidney stones Major depressive disorder, recurrent severe without psychotic features Obstructive sleep apnea Psychiatric care Recurrent incisional hernia Restless leg syndrome Surgical History H/O laparoscopy adhesiolysis/repair of incisional hernia with mesh -- 2015 -- Dr. Alicia History of section, low vertical X 2 History of lithotripsy R temporary ureteral stent History of total abdominal hysterectomy and bilateral salpingo-oophorectomy Family History Other Family history non-contributory Social History Smoking and tobacco status: never smoked Second hand smoke exposure: No Alcohol intake: never Adopted: No Lives independently: Yes Marital status: Current gender identity: Female Physical Exam Const: COMMON NORMALS: no acute distress, patient oriented x3 and alert GENERAL APPEARANCE: cooperative ORIENTATION/CONSCIOUSNESS: Yes awake, Yes oriented to person, Yes oriented to place and Yes oriented to time HENMT: COMMON NORMALS: normocephalic, atraumatic, external ears normal, Normal external nose present and moist oral mucous membranes HEAD & SCALP: normal to inspection, normocephalic and atraumatic NOSE: Normal external nose present GENERAL EAR: hearing grossly impaired EXTERNAL EAR: Yes external ears normal Eye: COMMON NORMALS: Equal, round and reactive pupils present, EOMs intact bilaterally, conjunctivae normal and no scleral icterus GENERAL EYE: appearance normal, both eyes and all related structures EYELID: eyelids normal CONJUNCTIVA: Yes conjunctivae normal SCLERA: sclerae normal PUPIL: Yes Equal, round and reactive pupils present Neck/C-Spine: COMMON NORMALS: full ROM, supple and no JVD GENERAL: Yes normal visual inspection Lymph: LYMPHATIC: no lymphadenopathy noted and no lymphedema noted Chest: COMMONS NORMALS: normal inspection of the chest Resp: COMMON NORMALS: normal respiratory effort, No retractions and No use of accessory muscles Cardio: COMMON NORMALS: no JVD, regular rate and regular rhythm RATE: regular rate RHYTHM: regular rhythm GI: COMMON NORMALS: Normal to inspection, nondistended, normoactive bowel sounds present : COMMON NORMALS: Yes no CVA tenderness BLADDER/KIDNEY EXAM: Yes no CVA tenderness Back/Pelvis: COMMON NORMALS: no CVA tenderness and thoracic and lumbar spine normal to inspection Extremity: COMMON NORMALS: normal to inspection, full ROM and capillary refill normal GENERAL: Yes normal exam except as noted Neuro: COMMON NORMALS: patient oriented x3, CN's II-XII intact bilaterally, moves all extremities, no focal motor deficits, no sensory deficits noted and gait normal SENSORIUM/ORIENTATION: Yes alert, Yes oriented to person, Yes oriented to place and Yes oriented to time Psych: COMMON NORMALS: mental status grossly normal, Normal thought process present, cooperative and normal affect THOUGHT PROCESS: Normal thought process present Skin: COMMON NORMALS: no rashes or lesions noted and no wounds GENERAL SKIN EXAM: no rashes or lesions noted Course Vital Signs: Vital signs: Vital Signs Temperature 97.4 F L 06/17/22 13:47 Pulse Rate 57 L 06/17/22 13:47 Respiratory Rate 18 06/17/22 13:47 Blood Pressure 137/70 06/17/22 13:47 Pulse Oximetry 96 06/17/22 13:47 Oxygen Delivery Me thod 06/17/22 13:47 MDM - Weakness Medical Decision Making 67-year-old female presenting today with weakness. CBC is with slight leukocytosis. CMP is with renal insufficiency which appears to be patient's baseline. Urinalysis is unremarkable. EKG is unremarkable. Troponin within normal limits. Patient was given strict return precautions and recommended routine outpatient follow-up. Lab Data : 06/17/22 14:35 06/17/22 14:35 Laboratory Results WBC 11.4 10^3/uL (4.0-10.0) H 06/17/22 14:35 RBC 4.27 10^6/uL (4.1-5.3) 06/17/22 14:35 Hgb 13.4 g/dL (11.5-15.3) 06/17/22 14:35 Hct 41.1 % (37.0-47.0) 06/17/22 14:35 MCV 96.3 fl (81-99) 06/17/22 14:35 MCH 31.4 pg (28.0-34.0) 06/17/22 14:35 MCHC 32.6 g/dL (30.0-36.0) 06/17/22 14:35 RDW 13.9 % (12.1-15.1) 06/17/22 14:35 Plt Count 347 10^3/cmm (130-400) 06/17/22 14:35 MPV 9.8 fL (7.4-10.4) 06/17/22 14:35 Neut % (Auto) 71.8 % 06/17/22 14:35 Lymph % (Auto) 22.5 % 06/17/22 14:35 [place] % (Auto) 4.9 % 06/17/22 14:35 Eos % (Auto) 0.0 % 06/17/22 14:35 Baso % (Auto) 0.4 % 06/17/22 14:35 Neut # (Auto) 8.20 10^3/uL (1.8-7.7) H 06/17/22 14:35 Lymph # (Auto) 2.6 10^3/uL (0.8-4.8) 06/17/22 14:35 [place] # (Auto) 0.6 10^3/uL (0.2-0.9) 06/17/22 14:35 Eos # (Auto) 0.0 10^3/uL (0.0-0.8) 06/17/22 14:35 Baso # (Auto) 0.1 10^3/uL (0.0-0.1) 06/17/22 14:35 Nucleated RBC % (auto) 0 % 06/17/22 14:35 Nucleated RBCs # 0.0 /100WBC 06/17/22 14:35 Sodium 142 mmol/L (136-145) 06/17/22 14:35 Potassium 4.1 mmol/L (3.5-5.1) 06/17/22 14:35 Chloride 96 mmol/L (98-107) L 06/17/22 14:35 Carbon Dioxide 32 mmol/L (22-29) H 06/17/22 14:35 Anion Gap 18.1 (5-19) 06/17/22 14:35 BUN 29 mg/dL (8-23) H 06/17/22 14:35 Creatinine 1.4 mg/dL (0.5-0.9) H 06/17/22 14:35 GFR Calculation 37.6 mL/min (90-130) L 06/17/22 14:35 Glucose 115 mg/dL (65-115) 06/17/22 14:35 Calculated Osmolality 301 mOsm/kg (285-295) H 06/17/22 14:35 Calcium 9.5 mg/dL (8.5-10.5) 06/17/22 14:35 Total Bilirubin 0.7 mg/dL (0.15-1.2) 06/17/22 14:35 AST 17 U/L (0-32) 06/17/22 14:35 ALT 13 U/L (0-33) 06/17/22 14:35 Alkaline Phosphatase 148 U/L (35-105) H 06/17/22 14:35 Troponin T Baseline 16 ng/L (0-10) H 06/17/22 15:00 Total Protein 8.4 g/dL (6.6-8.7) 06/17/22 14:35 Albumin 4.5 g/dL (3.5-5.2) 06/17/22 14:35 Globulin 3.9 g/dL (1.3-4.6) 06/17/22 14:35 Urine Color Straw (Yellow) 06/17/22 15:25 Urine Appearance Clear (CLEAR) 06/17/22 15:25 Urine pH 7 (5-7) 06/17/22 15:25 Ur Specific [place] 1.010 (1.005-1.030) 06/17/22 15:25 Urine Protein Neg (Negative) 06/17/22 15:25 Urine Glucose (UA) Norm (Normal) 06/17/22 15:25 Urine Ketones Negative (Negative) 06/17/22 15:25 Urine Blood 2+ (Negative) H 06/17/22 15:25 Urine Nitrate Negative (Negative) 06/17/22 15:25 Urine Bilirubin Neg (Negative) 06/17/22 15:25 Urine Urobilinogen Norm mg/dL (Negative) 06/17/22 15:25 Ur Leukocyte Esterase Negative (Negative) 06/17/22 15:25 Urine RBC 0-4 /hpf (0-2) H 06/17/22 15:25 Urine WBC Rare /hpf (0-5) 06/17/22 15:25 Ur Squamous Epith Cells 0-4 /hpf (0-5) H 06/17/22 15:25 Ur Transition Epith Cell 0-4 /hpf 06/17/22 15:25 Amorphous Sediment Not Reportable 06/17/22 15:25 Urine Bacteria Trace /hpf (NONE) 06/17/22 15:25 Discharge Plan Discharge Patient Disposition: Home Clinical Impression: Weakness Condition: Stable Prescriptions: No Action hydrocodone-acetaminophen 7.5-325 mg tablet 1 tab PO QID PRN (Reason: Pain) atorvastatin 40 mg tablet 40 mg PO BEDTIME All Day Allergy (cetirizine) 10 mg capsule 10 mg PO DAILY PRN (Reason: Allergy Symptoms) ropinirole 1 mg tablet 2 mg PO BID Qty: 360 2RF ondansetron HCl [Zofran] 4 mg tablet 4 mg PO Q6H PRN (Reason: Nausea And Vomiting) Eliquis 5 mg tablet 5 mg PO BID docusate sodium 100 mg capsule 100 mg PO DAILY PRN amiodarone 200 mg tablet 200 mg PO DAILY Cardizem LA 180 mg tablet extended release 24 hr 180 mg PO .breakfast Qty: 90 2RF quetiapine [Seroquel] 25 mg tablet 25 mg PO DIRECTED PRN (Reason: anxiety) Qty: 90 1RF Rx Instructions: May take one tablet three times per day as needed for anxiety potassium chloride 10 mEq capsule, extended release 20 meq PO .5X daily spironolactone 25 mg tablet 12.5 mg PO DAILY bumetanide 1 mg tablet 2 mg PO BID magnesium oxide 400 mg magnesium tablet 400 mg PO BID cyanocobalamin (vitamin B-12) 1,000 mcg/mL solution 1,000 mcg IM Q30D gabapentin 300 mg capsule 300 mg PO BID Discharge Orders: Discharge ED (Routine); Ordered 06/17/22 Ordered By: Valentin Lowe Referrals: Sameer Yang DO [Primary Care Provider] - Patient Instructions: Weakness (ED) Coding Level of Care Code ED [employer] for [employer] Fwd Exam Comprehensive
[2022-06-17 14:44] LABS: Basophils # 0.1 10^3/uL (0.0-0.1); Basophils % 0.4 %; Hematocrit 41.1 % (37.0-47.0); Hemoglobin 13.4 g/dL (11.5-15.3); Lymphocytes # 2.6 10^3/uL (0.8-4.8); Lymphocytes % 22.5 %; Mean Corpuscular HGB Conc 32.6 g/dL (30.0-36.0); Mean Corpuscular Hemoglobin 31.4 pg (28.0-34.0); Mean Corpuscular Volume 96.3 fl (81-99); Mean Platelet Volume 9.8 fL (7.4-10.4); Monocytes # 0.6 10^3/uL (0.2-0.9); Monocytes % 4.9 %; Neutrophils % 71.8 %; Nucleated Red Blood Cells % 0 %; Platelet Count 347 10^3/cmm (130-400); Red Blood Count 4.27 10^6/uL (4.1-5.3); Red Cell Distribution Width 13.9 % (12.1-15.1); White Blood Count 11.4 10^3/uL (4.0-10.0)
[2022-06-17 15:12] LABS: Alanine Aminotransferase 13 U/L (0-33); Albumin Level 4.5 g/dL (3.5-5.2); Alkaline Phosphatase 148 U/L (35-105); Aspartate Amino Transferase 17 U/L (0-32); Blood Urea Nitrogen 29 mg/dL (8-23); Calcium 9.5 mg/dL (8.5-10.5); Carbon Dioxide 32 mmol/L (22-29); Chloride 96 mmol/L (98-107); Globulin 3.9 g/dL (1.3-4.6); Glomerular Filtration Rate 37.6 mL/min (90-130); Glucose 115 mg/dL (65-115); Osmolality Calculated 301 mOsm/kg (285-295); Sodium 142 mmol/L (136-145); Total Bilirubin 0.7 mg/dL (0.15-1.2); Total Protein 8.4 g/dL (6.6-8.7)
[2022-06-17 15:13] LABS: Anion Gap 18.1 (5-19); Potassium 4.1 mmol/L (3.5-5.1)
[2022-06-17 15:31] LABS: Troponin(5th) Baseline 16 ng/L (0-10)
[2022-06-17 15:40] LABS: Add Urine Microscopic? YES; Bilirubin Urine Neg (Negative); Blood Urine 2+ (Negative); Glucose Urine UA Norm (Normal); Ketones Urine Negative (Negative); Leukocyte Esterase Urine Negative (Negative); Nitrate Urine Negative (Negative); Protein Urine Neg (Negative); Urine Appearance Clear (CLEAR); Urine Color Straw (Yellow); Urobilinogen Urine Norm (Negative); pH Urine 7 (5-7)
[2022-06-17 15:41] LABS: Add Urine Culture? No; Bacteria Urine TRACE /hpf; RBC Urine 0-4 /hpf (0-2); Squamous Epithelial Cell Urine 0-4 /hpf (0-5); Transitional Epi Cells Urine 0-4 /hpf; WBC Urine RARE /hpf (0-5)
[2022-06-17 15:53] VITALS: BP 114/60; PULSE 54; RESP 16; O2SAT 97
== END 2022-06-17 17:26 | disposition home or self-care (01) ==
PROVIDERS: Emergency Provider Emergency Medicine; PCP Internal Medicine
DX: R53.1 Weakness (principal); I48.91 Unspecified atrial fibrillation; I50.9 Heart failure, unspecified; Z79.01 Long term (current) use of anticoagulants
CPT/HCPCS: 80053; 81001; 84484; 85025; 93005; 99284

== ENCOUNTER 2022-06-19 17:17 | Outpatient (CLI) | payer MEDICARE, MEDICAID, SELFPAY ==
[2022-06-19 19:02] LABS: Blood Urea Nitrogen 28 mg/dL (8-23); Calcium 8.9 mg/dL (8.5-10.5); Carbon Dioxide 29 mmol/L (22-29); Chloride 98 mmol/L (98-107); Glomerular Filtration Rate 37.6 mL/min (90-130); Glucose 135 mg/dL (65-115); Osmolality Calculated 298 mOsm/kg (285-295); Sodium 140 mmol/L (136-145)
== END 2022-06-19 17:18 | disposition home or self-care (01) ==
PROVIDERS: PCP Internal Medicine; Visit Provider Internal Medicine
DX: N18.9 Chronic kidney disease, unspecified (principal); D63.1 Anemia in chronic kidney disease
CPT/HCPCS: 80048

== ENCOUNTER 2022-07-05 09:48 | Outpatient (CLI) | payer MEDICARE, MEDICAID, SELFPAY ==
[2022-07-05 10:30] LABS: Anion Gap 15.8 (5-19); Blood Urea Nitrogen 22 mg/dL (8-23); Calcium 8.8 mg/dL (8.5-10.5); Carbon Dioxide 28 mmol/L (22-29); Chloride 99 mmol/L (98-107); Glomerular Filtration Rate 44.9 mL/min (90-130); Glucose 98 mg/dL (65-115); Osmolality Calculated 291 mOsm/kg (285-295); Potassium 3.8 mmol/L (3.5-5.1); Sodium 139 mmol/L (136-145)
== END 2022-07-05 09:49 | disposition home or self-care (01) ==
PROVIDERS: PCP Internal Medicine; Visit Provider Internal Medicine
DX: Z01.89 Encounter for other specified special examinations (principal)
CPT/HCPCS: 80048

== ENCOUNTER 2022-07-24 16:30 | Outpatient (CLI) | payer MEDICARE, MEDICAID, SELFPAY ==
[2022-07-24 17:38] LABS: Anion Gap 15.4 (5-19); Blood Urea Nitrogen 21 mg/dL (8-23); Calcium 8.7 mg/dL (8.5-10.5); Carbon Dioxide 31 mmol/L (22-29); Chloride 99 mmol/L (98-107); Glomerular Filtration Rate 44.9 mL/min (90-130); Glucose 142 mg/dL (65-115); Osmolality Calculated 299 mOsm/kg (285-295); Potassium 3.4 mmol/L (3.5-5.1); Sodium 142 mmol/L (136-145)
== END 2022-07-24 16:31 | disposition home or self-care (01) ==
LOC: LAB 16:33
PROVIDERS: PCP Internal Medicine; Visit Provider Internal Medicine
DX: I48.91 Unspecified atrial fibrillation (principal); I50.32 Chronic diastolic (congestive) heart failure
CPT/HCPCS: 36415; 80048; 99214

== ENCOUNTER 2022-08-01 08:51 | Outpatient (CLI) | payer MEDICARE, MEDICAID, SELFPAY ==
[2022-08-01 09:53] LABS: Anion Gap 15.7 (5-19); Blood Urea Nitrogen 14 mg/dL (8-23); Calcium 8.8 mg/dL (8.5-10.5); Carbon Dioxide 30 mmol/L (22-29); Chloride 97 mmol/L (98-107); Glucose 116 mg/dL (65-115); Osmolality Calculated 289 mOsm/kg (285-295); Potassium 3.7 mmol/L (3.5-5.1); Sodium 139 mmol/L (136-145)
== END 2022-08-01 08:52 | disposition home or self-care (01) ==
PROVIDERS: PCP Internal Medicine; Visit Provider Internal Medicine
DX: I13.0 Hypertensive heart and chronic kidney disease with heart failure and stage 1 through stage 4 chronic kidney disease, or unspecified chronic kidney disease (principal)
CPT/HCPCS: 80048

== ENCOUNTER 2022-08-07 09:48 | Outpatient (CLI) | payer MEDICARE, MEDICAID, SELFPAY ==
[2022-08-07 11:00] LABS: Anion Gap 8.1 (5-19); Blood Urea Nitrogen 12 mg/dL (8-23); Carbon Dioxide 38 mmol/L (22-29); Chloride 102 mmol/L (98-107); Glomerular Filtration Rate 49.7 mL/min (90-130); Glucose 116 mg/dL (65-115); Osmolality Calculated 299 mOsm/kg (285-295); Potassium 4.1 mmol/L (3.5-5.1); Sodium 144 mmol/L (136-145)
== END 2022-08-07 09:49 | disposition home or self-care (01) ==
LOC: LAB 09:51
PROVIDERS: PCP Internal Medicine; Visit Provider Internal Medicine
DX: I13.0 Hypertensive heart and chronic kidney disease with heart failure and stage 1 through stage 4 chronic kidney disease, or unspecified chronic kidney disease (principal)
CPT/HCPCS: 80048

== ENCOUNTER 2022-08-16 09:43 | Outpatient (CLI) | payer MEDICARE, MEDICAID, SELFPAY ==
[2022-08-16 10:30] LABS: Anion Gap 17.5 (5-19); Blood Urea Nitrogen 18 mg/dL (8-23); Calcium 8.6 mg/dL (8.5-10.5); Carbon Dioxide 29 mmol/L (22-29); Chloride 96 mmol/L (98-107); Glucose 124 mg/dL (65-115); Osmolality Calculated 291 mOsm/kg (285-295); Potassium 3.5 mmol/L (3.5-5.1); Sodium 139 mmol/L (136-145)
== END 2022-08-16 09:44 | disposition home or self-care (01) ==
LOC: LAB 09:47
PROVIDERS: PCP Internal Medicine; Visit Provider Physician Assistant
DX: I13.0 Hypertensive heart and chronic kidney disease with heart failure and stage 1 through stage 4 chronic kidney disease, or unspecified chronic kidney disease (principal)
CPT/HCPCS: 80048

== ENCOUNTER 2022-08-22 14:24 | Outpatient (CLI) | payer MEDICARE, MEDICAID, SELFPAY ==
[2022-08-22 16:09] LABS: Anion Gap 12.9 (5-19); Blood Urea Nitrogen 17 mg/dL (8-23); Carbon Dioxide 33 mmol/L (22-29); Chloride 100 mmol/L (98-107); Glucose 141 mg/dL (65-115); Osmolality Calculated 298 mOsm/kg (285-295); Potassium 3.9 mmol/L (3.5-5.1); Sodium 142 mmol/L (136-145)
== END 2022-08-22 14:25 | disposition home or self-care (01) ==
LOC: LAB 14:27
PROVIDERS: PCP Internal Medicine; Visit Provider Internal Medicine
DX: I10 Essential (primary) hypertension (principal)
CPT/HCPCS: 80048

== ENCOUNTER 2022-08-29 09:10 | Outpatient (CLI) | payer MEDICARE, MEDICAID, SELFPAY ==
[2022-08-29 10:20] LABS: Anion Gap 16.8 (5-19); Blood Urea Nitrogen 12 mg/dL (8-23); Calcium 8.4 mg/dL (8.5-10.5); Carbon Dioxide 32 mmol/L (22-29); Chloride 98 mmol/L (98-107); Glomerular Filtration Rate 44.9 mL/min (90-130); Glucose 98 mg/dL (65-115); Osmolality Calculated 296 mOsm/kg (285-295); Potassium 3.8 mmol/L (3.5-5.1); Sodium 143 mmol/L (136-145)
== END 2022-08-29 09:11 | disposition home or self-care (01) ==
PROVIDERS: PCP Internal Medicine; Visit Provider Internal Medicine
DX: I13.0 Hypertensive heart and chronic kidney disease with heart failure and stage 1 through stage 4 chronic kidney disease, or unspecified chronic kidney disease (principal)
CPT/HCPCS: 80048

== ENCOUNTER 2022-09-05 09:26 | Outpatient (CLI) | payer MEDICARE, MEDICAID, SELFPAY ==
[2022-09-05 10:11] LABS: Anion Gap 16.6 (5-19); Blood Urea Nitrogen 19 mg/dL (8-23); Calcium 8.4 mg/dL (8.5-10.5); Carbon Dioxide 30 mmol/L (22-29); Chloride 99 mmol/L (98-107); Glucose 168 mg/dL (65-115); Osmolality Calculated 300 mOsm/kg (285-295); Potassium 3.6 mmol/L (3.5-5.1); Sodium 142 mmol/L (136-145)
== END 2022-09-05 09:27 | disposition home or self-care (01) ==
LOC: LAB 09:29
PROVIDERS: PCP Internal Medicine; Visit Provider Internal Medicine
DX: I13.0 Hypertensive heart and chronic kidney disease with heart failure and stage 1 through stage 4 chronic kidney disease, or unspecified chronic kidney disease (principal)
CPT/HCPCS: 80048

== ENCOUNTER → 2022-11-23 12:43 | Outpatient (BNVA) | payer MEDICARE, MEDICAID, SELFPAY | PROVIDERS: PCP Internal Medicine; Visit Provider Surgery | DX: K43.2 Incisional hernia without obstruction or gangrene (principal) | CPT/HCPCS: 99203 ==

== ENCOUNTER → 2023-01-30 14:53 | Outpatient (BNVA) | payer MEDICARE, MEDICAID, SELFPAY | PROVIDERS: PCP Internal Medicine; Visit Provider Internal Medicine Cardiovascular Disease | DX: I50.32 Chronic diastolic (congestive) heart failure (principal); I48.91 Unspecified atrial fibrillation; R00.1 Bradycardia, unspecified; G47.33 Obstructive sleep apnea (adult) (pediatric); K43.2 Incisional hernia without obstruction or gangrene; F33.2 Major depressive disorder, recurrent severe without psychotic features; Z79.01 Long term (current) use of anticoagulants | CPT/HCPCS: 99214 ==

== ENCOUNTER 2023-03-26 18:09 | Emergency (ER) | payer MEDICARE, MEDICAID, SELFPAY ==
[2023-03-26 18:30] VITALS: BP 120/64; PULSE 68; RESP 16; TEMP 36.8; O2SAT 94; BMI 58.4
--- NOTE | 2023-03-26 18:49 | CTR_ITS ---
PROCEDURE INFORMATION: Exam: CT Abdomen And Pelvis Without Contrast Exam date and time: 03/26/2023 8:48 PM Age: 67 years old Clinical indication: Other: Hernia; Additional info: Abd pain, hernia TECHNIQUE: Imaging protocol: Computed tomography of the abdomen and pelvis without contrast. Radiation optimization: All CT scans at this facility use at least one of these dose optimization techniques: automated exposure control; mA and/or kV adjustment per patient size (includes targeted exams where dose is matched to clinical indication); or iterative reconstruction. REPORTING DATA: Count of CT and Cardiac NM exams in prior 12 months: This patient has received 0 known CTs and 0 known cardiac nuclear medicine studies in the 12 months prior to the current study. COMPARISON: CT abdomen pelvis wo con [id number] 03/20/2021 10:03 AM RADIATION DOSE METRICS: Total DLP (mGy-cm): 1442.63 FINDINGS: Liver: Normal. No mass. Gallbladder and bile ducts: Minimal cholelithiasis. Pancreas: Normal. No ductal dilation. Spleen: Normal. No splenomegaly. Adrenal glands: Normal. No mass. Kidneys and ureters: Left kidney lower pole punctate nonobstructing calyceal stone. Stomach and bowel: Unremarkable. No obstruction. No mucosal thickening. Appendix: No evidence of appendicitis. Intraperitoneal space: Unremarkable. No free air. No significant fluid collection. Vasculature: Unremarkable. No abdominal aortic aneurysm. Lymph nodes: Unremarkable. No enlarged lymph nodes. Urinary bladder: Unremarkable as visualized. Reproductive: Unremarkable as visualized. Bones/joints: Unremarkable. No acute fracture. Soft tissues: Right lower abdominal wall hernia containing bowel without dilation or inflammation. Left lower abdominal wall hernia containing bowel without dilation or inflammation. CT/CT abdomen pelvis wo con [id number] IMPRESSION: 1. Negative for acute inflammatory process in the abdomen or pelvis. 2. Minimal cholelithiasis. 3. Left kidney lower pole punctate nonobstructing calyceal stone. 4. Right lower abdominal wall hernia containing bowel without dilation or inflammation. 5. Left lower abdominal wall hernia containing bowel without dilation or inflammation.
--- NOTE | 2023-03-26 18:58 | W.ED.ABDPA2 ---
HPI - Abdominal Pain General: Chief Complaint: Abdominal Pain Stated Complaint: Hernia Leaking Time Seen by Provider: 03/26/23 18:37 Source: patient Mode of arrival: ambulatory Limitations: no limitations History of Present Illness: 67-year-old female who has had a history of hernias for quite some time she states states that surgeon told her its inoperable due to her CHF and her weight. She states she became concerned as she has had some drainage from one of the hernias.. She has some excoriated skin on the hernia. She denies any increased pain she had no vomiting or diarrhea denies any fevers Associated Symptoms: Denies chills, diarrhea, fever(s), nausea and vomiting Review of Systems Const: Denies: fever(s) or chills ENMT: Denies: throat pain or dental pain Card: Denies: chest pain Resp: Denies: dyspnea GI: Reports: abdominal pain; Denies: nausea, vomiting or diarrhea Musc: Denies: neck pain or back pain Skin/Breast: Denies: rash Neuro: Denies: headache(s) PFSH ED PFSH: Medical History Atrial fibrillation with RVR BMI over 35 BMI of 61.7 Bradycardia Cellulitis CHF (congestive heart failure), NYHA class III History of kidney stones Major depressive disorder, recurrent severe without psychotic features Obstructive sleep apnea Psychiatric care Recurrent incisional hernia Restless leg syndrome Surgical History H/O laparoscopy adhesiolysis/repair of incisional hernia with mesh -- 2014 -- Dr. Alicia History of section, low vertical X 2 History of lithotripsy R temporary ureteral stent History of total abdominal hysterectomy and bilateral salpingo-oophorectomy Family History Other Family history non-contributory Social History Smoking and tobacco status: never smoked Second hand smoke exposure: No Alcohol intake: never Substance/Drug Use: never Adopted: No Lives independently: Yes Marital status: Current gender identity: Female Physical Exam Const: COMMON NORMALS: no acute distress, patient oriented x3 and healthy appearing HENMT: COMMON NORMALS: normocephalic and atraumatic HEAD & SCALP: normocephalic and atraumatic Neck/C-Spine: COMMON NORMALS: full ROM and supple Chest: COMMONS NORMALS: normal inspection of the chest and normal palpation of entire chest wall Resp: COMMON NORMALS: normal respiratory effort, No retractions, No use of accessory muscles and clear to auscultation bilaterally AUSCULTATION: clear to auscultation bilaterally Cardio: COMMON NORMALS: regular rate, regular rhythm and No murmurs present (Cardio) RATE: regular rate RHYTHM: regular rhythm GI: COMMON NORMALS: Soft to palpation and non-tender PALPATION: Yes Soft to palpation OTHER: Multiple large hernias she does have some erythema to her lower pannus with some slight drainage possible cellulitis or fungal infection Extremity: COMMON NORMALS: normal to inspection and full ROM Neuro: COMMON NORMALS: patient oriented x3, moves all extremities and no focal motor deficits Psych: COMMON NORMALS: mental status grossly normal, Normal thought process present and cooperative THOUGHT PROCESS: Normal thought process present Skin: COMMON NORMALS: no rashes or lesions noted and no wounds GENERAL SKIN EXAM: no rashes or lesions noted Course Vital Signs: Vital signs: Vital Signs Temperature 98.2 F 03/26/23 18:30 Pulse Rate 66 03/26/23 21:55 Respiratory Rate 18 03/26/23 21:55 Blood Pressure 124/62 03/26/23 21:55 Pulse Oximetry 94 03/26/23 21:55 Oxygen Delivery Me thod Room Air 03/26/23 20:34 MDM - Abdominal Pain Medical Decision Making Patient presents here with some erythema to her lower abdomen on her pannus does have some erythema with some slight drainage we will treat for cellulitis with possible fungal infection we will place her on Keflex and nystatin powder she sees her PCP next week she is to follow-up then CT shows no acute findings. Medical Records I reviewed the patient's medical records. Lab Data I reviewed the patient's lab results. 03/26/23 19:03 03/26/23 19:03 Labs/Radiology: Radiology Impressions Abdomen/Pelvis CT 03/26/23 18:49 IMPRESSION: 1. Negative for acute inflammatory process in the abdomen or pelvis. 2. Minimal cholelithiasis. 3. Left kidney lower pole punctate nonobstructing calyceal stone. 4. Right lower abdominal wall hernia containing bowel without dilation or inflammation. 5. Left lower abdominal wall hernia containing bowel without dilation or inflammation. Laboratory Results WBC 12.1 10^3/uL (4.0-10.0) H 03/26/23 19:03 RBC 3.89 10^6/uL (4.1-5.3) L 03/26/23 19:03 Hgb 12.0 g/dL (11.5-15.3) 03/26/23 19:03 Hct 39.5 % (37.0-47.0) 03/26/23 19:03 MCV 101.5 fl (81-99) H 03/26/23 19:03 MCH 30.8 pg (28.0-34.0) 03/26/23 19: MCHC 30.4 g/dL (30.0-36.0) 03/26/23 19:03 RDW 13.7 % (12.1-15.1) 03/26/23 19:03 Plt Count 352 10^3/cmm (130-400) 03/26/23 19:03 MPV 10.0 fL (7.4-10.4) 03/26/23 19:03 Neut % (Auto) 75.7 % 03/26/23 19:03 Lymph % (Auto) 16.9 % 03/26/23 19:03 [place] % (Auto) 6.3 % 03/26/23 19:03 Eos % (Auto) 0.0 % 03/26/23 19:03 Baso % (Auto) 0.4 % 03/26/23 19:03 Neut # (Auto) 9.17 10^3/uL (1.8-7.7) H 03/26/23 19:03 Lymph # (Auto) 2.0 10^3/uL (0.8-4.8) 03/26/23 19:03 [place] # (Auto) 0.8 10^3/uL (0.2-0.9) 03/26/23 19:03 Eos # (Auto) 0.0 10^3/uL (0.0-0.8) 03/26/23 19:03 Baso # (Auto) 0.1 10^3/uL (0.0-0.1) 03/26/23 19:03 Nucleated RBC % (auto) 0 % 03/26/23 19:03 Nucleated RBCs # 0.0 /100WBC 03/26/23 19:03 Sodium 137 mmol/L (136-145) 03/26/23 19:03 Potassium 3.8 mmol/L (3.5-5.1) 03/26/23 19:03 Chloride 98 mmol/L (98-107) 03/26/23 19:03 Carbon Dioxide 24 mmol/L (22-29) 03/26/23 19:03 Anion Gap 18.8 (5-19) 03/26/23 19:03 BUN 21 mg/dL (8-23) 03/26/23 19:03 Creatinine 1.8 mg/dL (0.5-0.9) H 03/26/23 19:03 GFR Calculation 28.2 mL/min (90-130) L 03/26/23 19:03 Glucose 124 mg/dL (65-115) H 03/26/23 19:03 Calculated Osmolality 288 mOsm/kg (285-295) 03/26/23 19:03 Calcium 7.8 mg/dL (8.5-10.5) L 03/26/23 19:03 Total Bilirubin 0.9 mg/dL (0.15-1.2) 03/26/23 19:03 AST 18 U/L (0-32) 03/26/23 19:03 ALT 10 U/L (0-33) 03/26/23 19:03 Alkaline Phosphatase 142 U/L (35-105) H 03/26/23 19:03 Total Protein 6.9 g/dL (6.6-8.7) 03/26/23 19:03 Albumin 3.2 g/dL (3.5-5.2) L 03/26/23 19:03 Globulin 3.7 g/dL (1.3-4.6) 03/26/23 19:03 Lipase 35 U/L (13-60) 03/26/23 19:03 Discharge Plan Discharge Patient Disposition: Home Clinical Impression: Recurrent incisional hernia, Cellulitis Condition: Stable Prescriptions: New cephalexin 500 mg capsule 500 mg PO TID 7 Days Qty: 21 0RF nystatin 100,000 unit/gram powder 1 applic topical BID 14 Days Qty: 15 0RF No Action hydrocodone-acetaminophen 7.5-325 mg tablet 1 tab PO QID PRN (Reason: Pain) atorvastatin 40 mg tablet 40 mg PO BEDTIME All Day Allergy (cetirizine) 10 mg capsule 10 mg PO DAILY PRN (Reason: Allergy Symptoms) ropinirole 1 mg tablet 2 mg PO BID Qty: 360 2RF ondansetron HCl [Zofran] 4 mg tablet 4 mg PO Q6H PRN (Reason: Nausea And Vomiting) Eliquis 5 mg tablet 5 mg PO BID docusate sodium 100 mg capsule 100 mg PO DAILY PRN Cardizem [place] 180 mg tablet extended release 24 hr 180 mg PO .breakfast Qty: 90 2RF Metamucil Fiber Singles 3.4 gram powder in packet 1 packet PO DAILY calcium carbonate [Calcium 600] 600 mg calcium (1,500 mg) tablet 600 mg PO BID cholecalciferol (vitamin D3) 25 mcg (1,000 unit) capsule 25 mcg PO DAILY spironolactone 25 mg tablet 12.5 mg PO DAILY Patient Comments: Dr. Yang okayed for her to take a half a pill at midday. If she has any weakness patient is to notify Dr. Yang her PCP. quetiapine [Seroquel] 25 mg tablet 25 mg PO DIRECTED PRN (Reason: anxiety) Qty: 90 4RF Rx Instructions: May take one tablet three times per day as needed for anxiety potassium chloride 10 mEq capsule, extended release 20 meq PO .5X daily bumetanide 1 mg tablet 2 mg PO BID magnesium oxide 400 mg magnesium tablet 400 mg PO BID amiodarone 200 mg tablet 200 mg PO DAILY Qty: 90 1RF cyanocobalamin (vitamin B-12) 1,000 mcg/mL solution 1,000 mcg IM Q30D gabapentin 300 mg capsule 300 mg PO BID Discharge Orders: Discharge ED (Routine); Ordered 03/26/23 Ordered By: Dot Lemon Referrals: Sameer Yang DO [Primary Care Provider] - 1-3 days Discharge Diet: Advance as tolerated Discharge Activity: Resume usual activity Patient Instructions: Cellulitis (ED) Coding Level of Care Code 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
[2023-03-26 19:20] LABS: Basophils # 0.1 10^3/uL (0.0-0.1); Basophils % 0.4 %; Hematocrit 39.5 % (37.0-47.0); Lymphocytes % 16.9 %; Mean Corpuscular HGB Conc 30.4 g/dL (30.0-36.0); Mean Corpuscular Hemoglobin 30.8 pg (28.0-34.0); Mean Corpuscular Volume 101.5 fl (81-99); Monocytes # 0.8 10^3/uL (0.2-0.9); Monocytes % 6.3 %; Neutrophils # 9.17 10^3/uL (1.8-7.7); Neutrophils % 75.7 %; Nucleated Red Blood Cells % 0 %; Platelet Count 352 10^3/cmm (130-400); Red Blood Count 3.89 10^6/uL (4.1-5.3); Red Cell Distribution Width 13.7 % (12.1-15.1); White Blood Count 12.1 10^3/uL (4.0-10.0)
[2023-03-26 19:48] LABS: Alanine Aminotransferase 10 U/L (0-33); Albumin Level 3.2 g/dL (3.5-5.2); Alkaline Phosphatase 142 U/L (35-105); Blood Urea Nitrogen 21 mg/dL (8-23); Calcium 7.8 mg/dL (8.5-10.5); Carbon Dioxide 24 mmol/L (22-29); Chloride 98 mmol/L (98-107); Globulin 3.7 g/dL (1.3-4.6); Glomerular Filtration Rate 28.2 mL/min (90-130); Glucose 124 mg/dL (65-115); Lipase 35 U/L (13-60); Osmolality Calculated 288 mOsm/kg (285-295); Sodium 137 mmol/L (136-145); Total Bilirubin 0.9 mg/dL (0.15-1.2); Total Protein 6.9 g/dL (6.6-8.7)
[2023-03-26 20:20] LABS: Anion Gap 18.8 (5-19); Aspartate Amino Transferase 18 U/L (0-32); Creatinine Clr Calc Pharmacy 44.3183; Potassium 3.8 mmol/L (3.5-5.1)
[2023-03-26 20:34] VITALS: BP 103/64; PULSE 69; RESP 20; O2SAT 94
[2023-03-26 21:55] VITALS: BP 124/62; PULSE 66; RESP 18; O2SAT 94
== END 2023-03-26 21:59 | disposition home or self-care (01) ==
PROVIDERS: Emergency Provider Emergency Medicine; PCP Internal Medicine
DX: K43.2 Incisional hernia without obstruction or gangrene (principal); L03.311 Cellulitis of abdominal wall; Z79.01 Long term (current) use of anticoagulants; I50.9 Heart failure, unspecified
CPT/HCPCS: 36415; 74176; 80053; 83690; 85025; 99284

== ENCOUNTER 2024-04-12 12:13 | Inpatient (IN) | payer MEDICARE, MEDICAID, SELFPAY ==
[2024-04-12] VITALS (9 sets, daily range): BP systolic 117–153; BP diastolic 41–67; PULSE 68–71; RESP 18–26; TEMP 36.8–37.2; O2SAT 95–100; BMI 56.7
--- NOTE | 2024-04-12 12:41 | ED_ITS ---
HPI - General Adult 2 General: Chief complaint: General Medical Stated complaint: N/V Time Seen by Provider: 04/12/24 12:35 Source: patient and EMS Mode of arrival: EMS Limitations: no limitations History of Present Illness: 68-year-old female states been having na usea vomiting for last 3 days she states she had taken some black blood and she thinks she is allergic to it been causing of the nausea and vomiting. She denies any pain anywhere states she has had some weakness had hypokalemia in the past. States she has not had much of an appetite due to the nausea. Denies any fevers or dysuria Associated symptoms: Reports nausea and vomiting; Deny chest pain, dyspnea, headache(s) or rash Related Data Home Medications Medication Instructions Recorded Confirmed atorvastatin 40 mg tablet 40 mg PO BEDTIME 11/04/19 03/07/23 cetirizine 10 mg capsule (All Day 10 mg PO DAILY PRN Allergy Symptoms 11/04/19 03/07/23 Allergy (cetirizine)) ondansetron HCl 4 mg tablet 4 mg PO Q6H PRN Nausea And Vomiting 04/17/21 03/07/23 (Zofran) apixaban 5 mg tablet (Eliquis) 5 mg PO BID 04/18/21 03/07/23 hydrocodone 7.5 mg-acetaminophen 1 tab PO QID PRN Pain 05/12/21 03/07/23 325 mg tablet magnesium oxide 400 mg PO BID 06/28/21 03/07/23 cyanocobalamin (vitamin B-12) 1,000 mcg IM Q30D 07/18/21 03/07/23 1,000 mcg/mL injection solution gabapentin 300 mg capsule 300 mg PO BID 07/18/21 03/07/23 docusate sodium 100 mg capsule 100 mg PO DAILY PRN 12/04/21 03/07/23 potassium chloride 10 mEq 20 meq PO .5X daily 06/12/22 03/07/23 capsule,extended release calcium carbonate (Calcium 600) 600 mg PO BID 09/20/22 03/07/23 cholecalciferol (vitamin D3) 25 25 mcg PO DAILY 09/20/22 03/07/23 mcg (1,000 unit) capsule psyllium husk (aspartame) 3.4 gram 1 packet PO DAILY 09/20/22 03/07/23 oral powder packet (Metamucil Fiber Singles) bumetanide 1 mg tablet 2 mg PO BID 11/23/22 03/07/23 spironolactone 25 mg tablet 12.5 mg PO DAILY 12/13/22 03/07/23 Previous Rx's Medication Instructions Recorded ropinirole 1 mg tablet 2 mg (2 x 1 mg) PO BID #360 tabs 10/24/20 diltiazem HCl 180 mg 180 mg PO .breakfast #90 tabs 12/05/21 tablet,extended release 24 hr quetiapine 25 mg tablet (Seroquel) 25 mg PO DIRECTED PRN anxiety 03/07/23 #90 tabs amiodarone 200 mg tablet 200 mg PO DAILY #90 tabs 05/02/23 Allergies Allergy/AdvReac Type Severity Reaction Status Date / Time spironolactone AdvReac ADV-Weaknes Verified 03/26/23 18:29 s Review of Systems 2 Const: Denies: fever(s), chills, body aches or change in appetite ENMT: Denies: throat pain or dental pain Card: Denies: chest pain Resp: Denies: dyspnea GI: Reports: nausea and vomiting; Denies: abdominal pain or diarrhea Musc: Denies: neck pain or back pain Skin/Breast: Denies: rash Neuro: Denies: headache(s) PFSH ED 2 PFSH: Medical History (Updated 04/12/24 @ 17:41 by Taryn Manning MD) Bradycardia History of kidney stones Recurrent incisional hernia CHF (congestive heart failure), NYHA class III Cellulitis Atrial fibrillation with RVR BMI over 35 BMI of 61.7 Restless leg syndrome Obstructive sleep apnea Major depressive disorder, recurrent severe without psychotic features Surgical History History of lithotripsy R temporary ureteral stent History of total abdominal hysterectomy and bilateral salpingo-oophorectomy History of section, low vertical X 2 H/O laparoscopy adhesiolysis/repair of incisional hernia with mesh -- 2014 -- Dr. Alicia Family History Other Family history non-contributory Social History Smoking and tobacco/nicotine status: never used tobacco/nicotine Second hand smoke exposure: No Alcohol intake: never Substance/Drug Use: never Adopted: No Lives independently: Yes Marital status: Current gender identity: Female Physical Exam 2 Const: COMMON NORMALS: patient oriented x3 HENMT: COMMON NORMALS: normocephalic and atraumatic HEAD & SCALP: n ormocephalic and atraumatic Eye: COMMON NORMALS: conjunctivae normal CONJUNCTIVA: Yes conjunctivae normal Neck/C-Spine: COMMON NORMALS: full ROM and supple Chest: COMMONS NORMALS: normal inspection of the chest and normal palpation of entire chest wall Resp: COMMON NORMALS: normal respiratory effort, No retractions, No use of accessory muscles and clear to auscultation bilaterally AUSCULTATION: clear to auscultation bilaterally Cardio: COMMON NORMALS: regular rate, regular rhythm and No murmurs present (Cardio) RATE: regular rate RHYTHM: regular rhythm GI: COMMON NORMALS: Normal to inspection, nondistended, normoactive bowel sounds present, Soft to palpation, non-tender and no masses PALPATION: Yes Soft to palpation Extremity: COMMON NORMALS: normal to inspection and full ROM Neuro: COMMON NORMALS: patient oriented x3, moves all extremities and no focal motor deficits Psych: COMMON NORMALS: mental status grossly normal, Normal thought process present and cooperative THOUGHT PROCESS: Normal thought process present Skin: COMMON NORMALS: no rashes or lesions noted and no wounds GENERAL SKIN EXAM: no rashes or lesions noted Course 2 Vital Signs: Vital signs: Vital Signs Temperature 98.9 F 04/12/24 17:10 Pulse Rate 68 04/12/24 17:10 Respiratory Rate 18 04/12/24 17:10 Blood Pressure 129/59 04/12/24 17:10 Pulse Oximetry 99 04/12/24 17:10 Oxygen Delivery Me thod Room Air 04/12/24 15:38 MDM - General Adult Medical Decision Making Patient presents here with diarrhea she likely has an enteritis I did a rectal exam showed brown stool that was Hemoccult positive she is anemic here she been hemodynamically stable no signs of large amounts of bleeding. She does have acute kidney injury as well likely from dehydration from her diarrhea I spoke to surgery along with hospitalist will admit start her on IV antibiotics did transfuse her blood. Medical Records I reviewed the patient's medical records. Lab Data I reviewed the patient's lab results. 04/12/24 13:37 04/12/24 14:18 Radiology Impressions Abdomen/Pelvis CT 04/12/24 15:07 IMPRESSION: 1. Acute distal enteritis (ileitis) with a mild partial obstruction/reactive focal ileus. I do not see a discrete transition point/mechanical obstruction related to the known abdominal wall hernias. Close follow-up is advised. 2. Reactive mesenteric adenitis. ADDENDUM: 04/12/24 [id number] Comments: THIS REPORT CONTAINS FINDINGS THAT MAY BE CRITICAL TO PATIENT CARE. The findings were verbally communicated via telephone conference with TARYN MANNING at 5:21 PM CDT on 04/12/2024. The findings were acknowledged and understood. Laboratory Results WBC 21.71 10^3/uL (3.29-11.43) H 04/12/24 13:37 RBC 3.13 10^6/uL (3.85-5.65) L 04/12/24 13:37 Hgb 6.30 g/dL (11.27-16.99) L* 04/12/24 13:37 Hct 23.2 % (36-47) L 04/12/24 13:37 MCV 74.1 fl (85-98) L 04/12/24 13:37 MCH 20.1 pg (27-33) L 04/12/24 13:37 MCHC 27.2 g/dL (30-55) L 04/12/24 13:37 RDW 19.5 % (12.1-15.1) H 04/12/24 13:37 Plt Count 555 10^3/cmm (157-399) H 04/12/24 13:37 MPV 8.6 fL (7.4-10.4) 04/12/24 13:37 Neut % (Auto) 83.8 % 04/12/24 13:37 Lymph % (Auto) 8.1 % 04/12/24 13:37 [place] % (Auto) 6.9 % 04/12/24 13:37 Eos % (Auto) 0.0 % 04/12/24 13:37 Baso % (Auto) 0.1 % 04/12/24 13:37 Neut # (Auto) 18.21 10^3/uL (1.8-7.7) H 04/12/24 13:37 Lymph # (Auto) 1.8 10^3/uL (0.8-4.8) 04/12/24 13:37 [place] # (Auto) 1.5 10^3/uL (0.2-0.9) H 04/12/24 13:37 Eos # (Auto) 0.0 10^3/uL (0.0-0.8) 04/12/24 13:37 Baso # (Auto) 0.0 10^3/uL (0.0-0.1) 04/12/24 13:37 Nucleated RBC % (auto) 0.4 % 04/12/24 13:37 Nucleated RBCs # 0.1 /100WBC 04/12/24 13:37 Sodium 130 mmol/L (136-145) L 04/12/24 14:18 Potassium 5.0 mmol/L (3.5-5.1) 04/12/24 14:18 Chloride 95 mmol/L (98-107) L 04/12/24 14:18 Carbon Dioxide 20 mmol/L (22-29) L 04/12/24 14:18 Anion Gap 20.0 (5-19) H 04/12/24 14:18 BUN 57 mg/dL (8-23) H 04/12/24 14:18 Creatinine 2.8 mg/dL (0.5-0.9) H 04/12/24 14:18 GFR Calculation 16.9 mL/min (90-130) L 04/12/24 14:18 Glucose 103 mg/dL (65-115) 04/12/24 14:18 Calculated Osmolality 286 mOsm/kg (285-295) 04/12/24 14:18 Lactic Acid 1.8 mmol/L (0.5-2.2) 04/12/24 14:18 Calcium 6.2 mg/dL (8.5-10.5) L 04/12/24 14:18 Magnesium 2.7 mg/dL (1.7-2.3) H 04/12/24 14:18 Total Bilirubin 0.5 mg/dL (0.15-1.2) 04/12/24 14:18 AST 16 U/L (0-32) 04/12/24 14:18 ALT 12 U/L (0-33) 04/12/24 14:18 Alkaline Phosphatase 140 U/L (35-105) H 04/12/24 14:18 NT-Pro-B Natriuret Pep 537 pg/mL (0-125) H 04/12/24 14:18 Total Protein 6.3 g/dL (6.6-8.7) L 04/12/24 14:18 Albumin 2.9 g/dL (3.5-5.2) L 04/12/24 14:18 Globulin 3.4 g/dL (1.3-4.6) 04/12/24 14:18 Lipase 26 U/L (13-60) 04/12/24 14:18 Blood Type A Positive 04/12/24 15:30 Rho(D) Type Rh positive 04/12/24 15:30 Antibody Screen Negative 04/12/24 15:30 Crossmatch See Detail 04/12/24 15:30 All radiology interpretation(s) finalized by discharge EKG Data EKG 1: I personally reviewed and interpreted this EKG as follows: EKG interpretation date: 04/12/24 EKG interpretation time: 12:42 Interpretation: nsr hr [address] elevation qrs 124 qtc 426 Computer generated interpretation: Abdomen/Pelvis CT 04/12/24 15:07 IMPRESSION: 1. Acute distal enteritis (ileitis) with a mild partial obstruction/reactive focal ileus. I do not see a discrete transition point/mechanical obstruction related to the known abdominal wall hernias. Close follow-up is advised. 2. Reactive mesenteric adenitis. ADDENDUM: 04/12/24 [id number] Comments: THIS REPORT CONTAINS FINDINGS THAT MAY BE CRITICAL TO PATIENT CARE. The findings were verbally communicated via telephone conference with TARYN MANNING at 5:21 PM CDT on 04/12/2024. The findings were acknowledged and understood. Critical Care Time 2 Critical Care Time: Critical Care Time: Yes Total Critical Care Time: 45 Attestation: The high probability of a clinically significant, sudden or life threatening deterioration of the patient's gi system(s) required my full and direct attention, intervention and personal management. The critical care time is as shown. This time is in addition to time spent performing any reported procedures but includes the following: [x] Data and vital sign review and interpretation [x] Patient assessment, examination and intervention [x] Documentation [x] Medication orders and management Discharge Plan Discharge Patient Disposition: Admitted As Inpatient Clinical Impression: Anemia, Acute kidney injury, Enteritis, GI bleed Condition: Stable Coding Level of Care Code ED Information Management Officer for [facility]
[2024-04-12 13:41] LABS: Basophils % 0.1 %; Hematocrit 23.2 % (36-47); Lymphocytes # 1.8 10^3/uL (0.8-4.8); Lymphocytes % 8.1 %; Mean Corpuscular HGB Conc 27.2 g/dL (30-55); Mean Corpuscular Hemoglobin 20.1 pg (27-33); Mean Corpuscular Volume 74.1 fl (85-98); Mean Platelet Volume 8.6 fL (7.4-10.4); Monocytes # 1.5 10^3/uL (0.2-0.9); Monocytes % 6.9 %; Neutrophils # 18.21 10^3/uL (1.8-7.7); Neutrophils % 83.8 %; Nucleated Red Blood Cells # 0.1 /100WBC; Nucleated Red Blood Cells % 0.4 %; Platelet Count 555 10^3/cmm (157-399); Red Blood Count 3.13 10^6/uL (3.85-5.65); Red Cell Distribution Width 19.5 % (12.1-15.1); White Blood Count 21.71 10^3/uL (3.29-11.43)
[2024-04-12] MEDS: ondansetron 2 mg/ML SDV 2 mL 4 MG IVP (14:42)
[2024-04-12 14:54] LABS: Lactic Sepsis W/Reflex 1.8 mmol/L (0.5-2.2)
[2024-04-12 15:02] LABS: Alanine Aminotransferase 12 U/L (0-33); Albumin Level 2.9 g/dL (3.5-5.2); Alkaline Phosphatase 140 U/L (35-105); Aspartate Amino Transferase 16 U/L (0-32); Blood Urea Nitrogen 57 mg/dL (8-23); Calcium 6.2 mg/dL (8.5-10.5); Carbon Dioxide 20 mmol/L (22-29); Chloride 95 mmol/L (98-107); Globulin 3.4 g/dL (1.3-4.6); Glomerular Filtration Rate 16.9 mL/min (90-130); Glucose 103 mg/dL (65-115); Lipase 26 U/L (13-60); Magnesium 2.7 mg/dL (1.7-2.3); NT Pro B Type Natriuretic Pept 537 pg/mL (0-125); Osmolality Calculated 286 mOsm/kg (285-295); Sodium 130 mmol/L (136-145); Total Bilirubin 0.5 mg/dL (0.15-1.2); Total Protein 6.3 g/dL (6.6-8.7)
--- NOTE | 2024-04-12 15:07 | CTR_ITS ---
PROCEDURE INFORMATION: Exam: CT Abdomen And Pelvis Without Contrast Exam date and time: 04/12/2024 4:22 PM Age: 68 years old Clinical indication: Abdominal pain; Acute; Additional info: Abd pain TECHNIQUE: Imaging protocol: Computed tomography of the abdomen and pelvis without contrast. Radiation optimization: All CT scans at this facility use at least one of these dose optimization techniques: automated exposure control; mA and/or kV adjustment per patient size (includes targeted exams where dose is matched to clinical indication); or iterative reconstruction. COMPARISON: CT abdomen pelvis wo con [id number] 03/26/2023 8:48 PM RADIATION DOSE METRICS: Total DLP (mGy-cm): 3099.93 FINDINGS: Lungs: Lung bases are clear. Liver: Scattered subcentimeter hypodense liver lesions which are too small to characterize. Consider follow-up with ultrasound. Gallbladder and biliary ducts: The gallbladder demonstrates layering density consistent with sludge. There is no evidence of biliary ductal dilation. Pancreas: The pancreas is normal. Spleen: The spleen demonstrates punctate calcifications, consistent with remote granulomatous organism exposure. Adrenal glands: The adrenal glands are normal. Kidneys and ureters: The right kidney is normal. There are multiple nonobstructive left renal collecting system stones, as large as 5 mm. The ureters are normal. Stomach and bowel: Thickened long segment of small bowel within the ventral abdomen with surrounding inflammation and upstream small bowel dilation measuring up to 4.5 cm. Stable colonic and small bowel loops herniated into at least 3 ventral abdominal wall hernias without definitive evidence of obstruction. Appendix: No evidence of appendicitis. Intraperitoneal space: There is no evidence of free intraperitoneal or pelvic fluid. No intraperitoneal fluid collections. There is no free intraperitoneal air. Vasculature: The arterial vasculature demonstrates diffuse mild atherosclerotic calcification. No aortic aneurysms. Lymph nodes: Enlarged mesenteric lymph nodes measuring up to 1.4 cm. Urinary bladder: Unremarkable as visualized. Reproductive: There has been a hysterectomy. Bones/joints: There are healed right rib fractures. Moderate multilevel degenerative changes of the spine. No acute skeletal abnormality. Soft tissues: Chronic subcutaneous thickening in the ventral suprapubic fat pad. CT/CT abdomen pelvis wo con [id number] IMPRESSION: 1. Acute distal enteritis (ileitis) with a mild partial obstruction/reactive focal ileus. I do not see a discrete transition point/mechanical obstruction related to the known abdominal wall hernias. Close follow-up is advised. 2. Reactive mesenteric adenitis.
[2024-04-12 17:52] LABS: Charge for UA Resulting for Rev
[2024-04-12 17:55] LABS: Bilirubin Urine Negative (Negative); Blood Urine 2+ (Negative); Glucose Urine UA Negative (Normal); Ketones Urine Negative (Negative); Leukocyte Esterase Urine Negative (Negative); Nitrate Urine Negative (Negative); Protein Urine Negative (Negative); Specific Gravity, Urine 1.013 (1.005-1.030); Urine Appearance Clear (CLEAR); Urine Color Yellow (Yellow); Urobilinogen Urine 0.2 mg/dL (Negative)
[2024-04-12 17:58] LABS: Bacteria Urine None Seen /hpf; Squamous Epithelial Cell Urine 0-5 /hpf (0-5); WBC Urine 0-5 /hpf (0-5)
--- NOTE | 2024-04-12 18:59 | P.HP_ITS ---
Providers/Chief Complaint 2 Admitting Physician: Lamonte Hays Primary Care Provider: Sameer Yang DO Chief Complaint: N/V History of Present Illness 68-year-old lady, retirement resident with past history of congestive heart failure, atrial fibrillation on Eliquis, morbid obesity, restless leg syndrome, ANDRA, MDD, other medical problems presented to ER due to having nausea vomiting and diarrhea complicated by worsening weakness. She had been having some abdominal cramping for which she was provided a heating pad at the retirement with some relief. Her symptoms started on Saturday. In ER she is incidentally found to have severe anemia, hemoglobin 6.3, leukocytosis 21.7, YUSRA, CT abdomen pelvis with finding of acute distal enteritis/ileitis with a mild partial obstruction/reactive focal ileus without a discrete transition point/mechanical obstruction related to known abdominal wall hernias. Reactive mesenteric adenitis. Surgery was consulted in ER. Review of Systems 2 Const: Reports: fatigue; Denies: fever(s), chills, body aches or malaise ENMT: Denies: throat pain Card: Denies: chest pain, edema, pre-syncope or dyspnea on exertion Resp: Denies: dyspnea, productive cough, change in phlegm color or hemoptysis GI: Reports: nausea, vomiting and diarrhea; Denies: abdominal pain, constipation, hematochezia or melena : Denies: flank pain, urinary frequency or hematuria Musc: Denies: back pain, joint swelling or joint redness Skin/Breast: Denies: rash or new lesions Neuro: Denies: headache(s) Endo: Denies: polyuria or polydipsia Medications/Allergies Home Medications Medication Instructions Recorded Confirmed Last Taken Type atorvastatin 40 mg tablet 40 mg PO BEDTIME 11/04/19 03/07/23 07/17/21 History cetirizine 10 mg capsule (All Day 10 mg PO DAILY PRN Allergy Symptoms 11/04/19 03/07/23 Unknown History Allergy (cetirizine)) ropinirole 1 mg tablet 2 mg (2 x 1 mg) PO BID #360 tabs 10/24/20 03/07/23 07/18/21 09:00 Rx ondansetron HCl 4 mg tablet 4 mg PO Q6H PRN Nausea And Vomiting 04/17/21 03/07/23 Unknown History (Zofran) apixaban 5 mg tablet (Eliquis) 5 mg PO BID 04/18/21 03/07/23 07/18/21 09:00 History hydrocodone 7.5 mg-acetaminophen 1 tab PO QID PRN Pain 05/12/21 03/07/23 07/18/21 10:00 History 325 mg tablet magnesium oxide 400 mg PO BID 06/28/21 03/07/23 07/18/21 History cyanocobalamin (vitamin B-12) 1,000 mcg IM Q30D 07/18/21 03/07/23 Unknown History 1,000 mcg/mL injection solution gabapentin 300 mg capsule 300 mg PO BID 07/18/21 03/07/23 07/18/21 09:00 History docusate sodium 100 mg capsule 100 mg PO DAILY PRN 12/04/21 03/07/23 Unknown History diltiazem HCl 180 mg 180 mg PO .breakfast #90 tabs 12/05/21 03/07/23 Unknown Rx tablet,extended release 24 hr potassium chloride 10 mEq 20 meq PO .5X daily 06/12/22 03/07/23 Unknown History capsule,extended release calcium carbonate (Calcium 600) 600 mg PO BID 09/20/22 03/07/23 Unknown History cholecalciferol (vitamin D3) 25 25 mcg PO DAILY 09/20/22 03/07/23 Unknown History mcg (1,000 unit) capsule psyllium husk (aspartame) 3.4 gram 1 packet PO DAILY 09/20/22 03/07/23 Unknown History oral powder packet (Metamucil Fiber Singles) bumetanide 1 mg tablet 2 mg PO BID 11/23/22 03/07/23 Unknown History spironolactone 25 mg tablet 12.5 mg PO DAILY 12/13/22 03/07/23 Unknown History quetiapine 25 mg tablet (Seroquel) 25 mg PO DIRECTED PRN anxiety 03/07/23 03/07/23 Unknown Rx #90 tabs amiodarone 200 mg tablet 200 mg PO DAILY #90 tabs 05/02/23 Unknown Rx Allergies Allergy/AdvReac Type Severity Reaction Status Date / Time spironolactone AdvReac ADV-Weaknes Verified 03/26/23 18:29 s PFSH Acute 2 PFSH: Medical History Bradycardia History of kidney stones Recurrent incisional hernia CHF (congestive heart failure), NYHA class III Cellulitis Atrial fibrillation with RVR BMI over 35 BMI of 61.7 Restless leg syndrome Obstructive sleep apnea Major depressive disorder, recurrent severe without psychotic features Surgical History History of lithotripsy R temporary ureteral stent History of total abdominal hysterectomy and bilateral salpingo-oophorectomy History of section, low vertical X 2 H/O laparoscopy adhesiolysis/repair of incisional hernia with mesh -- 2014 -- Dr. Alicia Family History Other Family history non-contributory Social History Smoking and tobacco/nicotine status: never used tobacco/nicotine Second hand smoke exposure: No Alcohol intake: never Substance/Drug Use: never Adopted: No Lives independently: Yes Marital status: Current gender identity: Female Vitals/I&O/Wt Last Vital Signs Temp 98.9 F 04/12/24 17:10 Pulse 68 04/12/24 17:10 Resp 18 04/12/24 17:10 BP 129/59 04/12/24 17:10 Pulse Ox 99 04/12/24 17:10 O2 Del Method Room Air 04/12/24 15:38 04/12/24 04/12/24 04/12/24 06:59 14:59 22:59 Intake Total 0 / 0 Balance 0 / 0 Weight last 48 hrs Weight 145.15 kg Physical Exam 2 Const: COMMON NORMALS: patient oriented x3 and alert GENERAL APPEARANCE: c ooperative NUTRITIONAL APPEARANCE: obese morbidly obese O RIENTATION/CONSCIOUSNESS: Yes awake OTHER: Pale HENMT: COMMON NORMALS: oropharynx normal Neck/C-Spine: COMMON NORMALS: no JVD Resp: COMMON NORMALS: normal respiratory effort and clear to auscultation bilaterally AUSCULTATION: clear to auscultation bilaterally Cardio: COMMON NORMALS: no JVD, regular rhythm, S1 normal heart sound present, S2 normal heart sound present and No murmurs present (Cardio) RHYTHM: regular rhythm HEART SOUNDS: S1 normal heart sound present and S2 normal heart sound present GI: COMMON NORMALS: Normal to inspection, nondistended, normoactive bowel sounds present, Soft to palpation and non-tender PALPATION: Yes Soft to palpation Extremity: COMMON NORMALS: no joint enlargement NARRATIVE EXTREMITY EXAM: Chronic lymphedema left lower extremity in compression stocking, 1+ edema right lower extremity. Neuro: COMMON NORMALS: patient oriented x3 and moves all extremities S ENSORIUM/ORIENTATION: Yes alert Skin: COMMON NORMALS: no rashes or lesions noted GENERAL SKIN EXAM: no rashes or lesions noted Data 04/12/24 13:37 04/12/24 14:18 A&P Assessment and plan (1) SBO (small bowel obstruction): Enteritis with SBO with major complications with dehydration and acute kidney injury on chronic kidney disease. BUN up to 57, creatinine 2.8. Anion gap 20. Bicarb 20. Potassium 5. Reviewed vitals, CBC, CMP partial SBO. N.p.o., sips, chips, received boluses in ER, hold off continuous infusion for now due to risk of fluid overload. Receiving blood transfusion. Monitor intake and output. NG tube if further vomiting. (2) Enteritis: Enteritis with nausea, vomiting, diarrhea, partial SBO. Stool studies requested Salmonella, Shigella, Campylobacter, ova and parasites, C. difficile. Lactoferrin. N.p.o., sips and chips. Received fluid boluses in ER, hold off additional fluids, currently receiving blood transfusion. Empirically continue ciprofloxacin and Flagyl for now. (3) Symptomatic anemia: Symptomatic anemia with generalized weakness, hemoglobin 6.3, platelets 555, on Eliquis. Denies NSAIDs use. Microcytic, MCV 74.1. Hemoccult positive in ER. Blood loss secondary to GI bleeding. Acuity unknown. Reviewed vitals, CBC, check INR. CT abdomen pelvis. ER provider note, discussed with ER provider. Receiving RBC transfusion. With history of CHF risk of fluid overload, taco with transfusion, reassess volume status. Hold off additional IV fluids at current time. Reassess hemoglobin in the morning. Monitor vitals. Surgery was consulted in ER. PPI IV every 12 hours. Check iron panel. Hold Eliquis. (4) Acute kidney injury: Suspect prerenal YUSRA with poor oral intake, dehydration, enteritis with nausea vomiting and diarrhea. Reviewed CMP, UA. Received fluid challenge in ER, receiving transfusion. Reassess renal function. Monitor for risk of fluid overload. Reviewed CT abdomen pelvis, without signs of obstructive uropathy. (5) Nausea vomiting and diarrhea: As above. Antiemetics as needed. Plan Congestive heart failure, Hold off diuretic for now with nausea vomiting, diarrhea, poor oral intake, dehydration, YUSRA, reassess volume status, renal function. Atrial fibrillation: Hold Eliquis for now with symptomatic anemia, reassess blood counts to exclude acute worsening anemia. morbid obesity, Restless leg syndrome, Continue ropinirole ANDRA, MDD, Other medical problems Requesting to confirm home medications, please review and resume as appropriate. Attestations 2 Medical Necessity Statement*: Admission of over 2 midnights anticipated for assessment and management of symptomatic anemia with GI blood loss anemia, enteritis with SBO complicated by YUSRA. Diagnoses SBO (small bowel obstruction) K56.609 Enteritis K52.9 Symptomatic anemia D64.9 Acute kidney injury N17.9 Nausea vomiting and diarrhea R11.2; R19.7
--- NOTE | 2024-04-12 19:56 | P.CONIM_ITS ---
Providers/Reason For Consult 2 Consulting Physician/Specialty*: Carlos Medrano MD general surgery Reason for Consult*: Evaluate for enteritis Requesting Physician: MD jerica hospitalist Attending Physician: Lamonte Hays Primary Care Provider: Sameer Yang DO History of Present Illness History of Present Illness Sirena Priest is a 68 year old female since developed loose stools multiple with no blood or black stools and nausea but can keep water and sprite down. No F/C/S and crampy abdominal pain. She has had BHAVIN BSO in past open and hernia repairs that have recurred years ago. She has never had EGD or colonoscopy before and found to be anemic with hgb 6 range and on blood thinner apixaban. She lives in [facility] and ambulates with walker. They gave her imodium yesterday and she hasn't had BM since. Normally she has a BM daily. She has not had recent cold like symptoms, no fmhx of inflammatory bowel disease or autoimmune disorder, or history of PVD or SD or CVA. She is diabetic. CT is showing thickened small bowel with dilation of small bowel proximal but is not due to two large ventral hernias. Her WBC is elevated but she may be dehydrated. ER physician states he did rectal exam and encountered solid normal brown colored stool that was hemoccult positive. He states it was solid stool and not diarrhea stool. Patient denies any [facility] patients with food poisoning or C diff colitis and travis ever having c diff colitis herself. No recent antibiotic use. Review of Systems 2 Narrative: Constitutional: denies rigors, singnificant weight gain, increased appetite HEENT: denies chronic cough, blurry vision, excessive tearing, eye pain, flashing lights, odynophagia, painful mastication, change in voice, change in taste, chronic sore throat, hypersalivation Heart: denies racing heart, palpitations, othropnea, PND Lungs: denies hemoptysis, pain with deep inspiration, chronic bronchitis GI: denies hematemesis, hematochezia, dysphagia, tenesmus : denies polyuria, hematuria, painful micturation Musculoskeletal: denies hemarthrosis, Muscle wasting, change in amubation Neuro: denies new onset syncope, dysesthesia, dysequilibrium, ptosis eyelid or face SKin: denies new onset hyperalgia, new rash new cyanosis Endocrine: denies new polyuria, polydipsia, polyphagia, heat intolerance, excessive energy Hem/Onc: denies new petechiae, swollen glands, new excessive epstaxis Psych: denies racing thought Medications/Allergies Home Medications Medication Instructions Recorded Confirmed Last Taken Type atorvastatin 40 mg tablet 40 mg PO BEDTIME 11/04/19 03/07/23 07/17/21 History cetirizine 10 mg capsule (All Day 10 mg PO DAILY PRN Allergy Symptoms 11/04/19 03/07/23 Unknown History Allergy (cetirizine)) ropinirole 1 mg tablet 2 mg (2 x 1 mg) PO BID #360 tabs 10/24/20 03/07/23 07/18/21 09:00 Rx ondansetron HCl 4 mg tablet 4 mg PO Q6H PRN Nausea And Vomiting 04/17/21 03/07/23 Unknown History (Zofran) apixaban 5 mg tablet (Eliquis) 5 mg PO BID 04/18/21 03/07/23 07/18/21 09:00 History hydrocodone 7.5 mg-acetaminophen 1 tab PO QID PRN Pain 05/12/21 03/07/23 07/18/21 10:00 History 325 mg tablet magnesium oxide 400 mg PO BID 06/28/21 03/07/23 07/18/21 History cyanocobalamin (vitamin B-12) 1,000 mcg IM Q30D 07/18/21 03/07/23 Unknown History 1,000 mcg/mL injection solution gabapentin 300 mg capsule 300 mg PO BID 07/18/21 03/07/23 07/18/21 09:00 History docusate sodium 100 mg capsule 100 mg PO DAILY PRN 12/04/21 03/07/23 Unknown History diltiazem HCl 180 mg 180 mg PO .breakfast #90 tabs 12/05/21 03/07/23 Unknown Rx tablet,extended release 24 hr potassium chloride 10 mEq 20 meq PO .5X daily 06/12/22 03/07/23 Unknown History capsule,extended release calcium carbonate (Calcium 600) 600 mg PO BID 09/20/22 03/07/23 Unknown History cholecalciferol (vitamin D3) 25 25 mcg PO DAILY 09/20/22 03/07/23 Unknown History mcg (1,000 unit) capsule psyllium husk (aspartame) 3.4 gram 1 packet PO DAILY 09/20/22 03/07/23 Unknown History oral powder packet (Metamucil Fiber Singles) bumetanide 1 mg tablet 2 mg PO BID 11/23/22 03/07/23 Unknown History spironolactone 25 mg tablet 12.5 mg PO DAILY 12/13/22 03/07/23 Unknown History quetiapine 25 mg tablet (Seroquel) 25 mg PO DIRECTED PRN anxiety 03/07/23 03/07/23 Unknown Rx #90 tabs amiodarone 200 mg tablet 200 mg PO DAILY #90 tabs 05/02/23 Unknown Rx Allergies Allergy/AdvReac Type Severity Reaction Status Date / Time spironolactone AdvReac ADV-Weaknes Verified 03/26/23 18:29 s PFSH Acute 2 PFSH: Medical History Bradycardia History of kidney stones Recurrent incisional hernia CHF (congestive heart failure), NYHA class III Cellulitis Atrial fibrillation with RVR BMI over 35 BMI of 61.7 Restless leg syndrome Obstructive sleep apnea Major depressive disorder, recurrent severe without psychotic features Surgical History History of lithotripsy R temporary ureteral stent History of total abdominal hysterectomy and bilateral salpingo-oophorectomy History of section, low vertical X 2 H/O laparoscopy adhesiolysis/repair of incisional hernia with mesh -- 2014 -- Dr. Alicia Family History Other Family history non-contributory Social History Smoking and tobacco/nicotine status: never used tobacco/nicotine Second hand smoke exposure: No Alcohol intake: never Substance/Drug Use: never Adopted: No Lives independently: Yes Marital status: Current gender identity: Female Vitals/I&O/Wt Last Vital Signs Temp 98.9 F 04/12/24 19:24 Pulse 68 04/12/24 19:24 Resp 18 04/12/24 19:24 BP 129/59 04/12/24 19:24 Pulse Ox 99 04/12/24 19:24 O2 Del Method Room Air 04/12/24 15:38 04/12/24 04/12/24 04/12/24 06:59 14:59 22:59 Intake Total 0 / 0 Balance 0 / 0 Weight last 48 hrs Weight 320 lb Physical Exam 2 Narrative: Patient is a well developed well nourished and in NAD and is afebrile with vitals stable and is answering questions appropriately with a normal affect and is alert and oriented x3 HEENT: normocephalic with normal external ears and nonicteric, oral mucosa moist and dentition normal for age, trachea midline with no large masses visualized Heart: RRR, no gallops murmurs or rubs, normal PMI with no thrills Lungs: normal excursions, no loud audible wheezing, no subcutaneous emphysema Abdomen: nondistended, no gross hepatosplenomegaly, no masses, no rigidity or rebound, no loud borborygmi, large ventral hernia with gas filled bowel in them that are at least partially reducible and soft, LLQ hernia caused some discomfort when decompressed gas filled bowel into abdominal cavity but was transitory. Neuro: nonfocal, SHARP, grossly normal sensation Musculoskeletal: good muscle tone, no fasciculations, normal gait Skin: pink warm and dry with no rashes or ecchymosis Vascular: good radial pulses, no ulceration, less than 2 second capillary refill in hand : deferred Data 04/12/24 13:37 04/12/24 14:18 A&P Assessment and plan (1) SBO (small bowel obstruction): (2) Enteritis: Plan Gastroenteritis on CT with partial SBO. Enteritis can be from infection of bacteria/virus/fungus. It may be due to C diff infection even in small bowel. It may be due to ishemia or autoimmune disease. Stool should be sent for PCR panel for stool pathogens of both common viral and bacterial sources and for C diff. Would keep NPO and stop apixaban in case she needs intervention. The anemia can be worked up as outpatient with endoscopy since she does not have gross blood in stool but only hemoccult positive stool. Patient states she would refuse endoscopy even as outpatient by her preference. She may benefit from colon cleansing enemas and suppositories if solid stool was truly found on rectal by ER provider and to get specimen since patient has not had BM Saturday when imodium was given in [facility]. Her WBC may be elevated from volume contraction/deydration with elevated creatinine over 2. Her hgb may be artificially higher as well which may mean she may need several units of PRBC. SHe has currently received at least one unit PRBC. I will not be here tomorrow Saturday and Dr. Trejo or surgeon automation machine operator should be available. Coding Level of Care Code 83979 Diagnoses SBO (small bowel obstruction) K56.609 Enteritis K52.9
[2024-04-12 20:20] LABS: Ferritin 13 ng/mL (15-150); Iron 12 ug/dL (37-145); Percent Saturation 4.5 % (20-50); Total Iron Binding Capacity 266 mcg/dl; Unsaturated Iron Binding 254 ug/dL (112-347)
[2024-04-12] MEDS: sodium chloride 0.9% 1,000 ML 999 ML IV (20:30)
[2024-04-12 21:28] LABS: INR 1.37 (0.8-1.2)
[2024-04-12] MEDS: pantoprazole 40 mg SDV IVP (22:53)
[2024-04-12] MEDS: ropinirole 2 mg Tablet PO (22:53)
[2024-04-12] MEDS: metroNIDAZOLE IV 500 MG/100 ML PREMIX 100 MG IV (22:56)
[2024-04-13] VITALS (17 sets, daily range): BP systolic 98–146; BP diastolic 51–84; PULSE 61–108; RESP 12–20; TEMP 36.4–37.2; O2SAT 95–98
[2024-04-13] MEDS: ciprofloxacin 400 MG/200 ML PREMIX 200 MG IV (00:09)
[2024-04-13] MEDS: HYDROcodone-acetaminophen 7.5-325 mg Tablet 1 TAB PO ×3 (02:06→20:30)
[2024-04-13] MEDS: quetiapine 25 mg Tablet 12.5 MG PO ×2 (02:06→20:30)
[2024-04-13 04:29] LABS: Basophils % 0.2 %; Hematocrit 24.9 % (36-47); Lymphocytes # 1.2 10^3/uL (0.8-4.8); Lymphocytes % 9.1 %; Mean Corpuscular HGB Conc 26.5 g/dL (30-55); Mean Corpuscular Hemoglobin 21.3 pg (27-33); Mean Corpuscular Volume 80.3 fl (85-98); Mean Platelet Volume 8.7 fL (7.4-10.4); Monocytes % 7.8 %; Neutrophils # 10.49 10^3/uL (1.8-7.7); Neutrophils % 81.4 %; Nucleated Red Blood Cells # 0.1 /100WBC; Nucleated Red Blood Cells % 0.5 %; Platelet Count 423 10^3/cmm (157-399); Red Cell Distribution Width 20.3 % (12.1-15.1); White Blood Count 12.91 10^3/uL (3.29-11.43)
[2024-04-13 04:55] LABS: Alanine Aminotransferase 11 U/L (0-33); Albumin Level 2.6 g/dL (3.5-5.2); Alkaline Phosphatase 123 U/L (35-105); Aspartate Amino Transferase 15 U/L (0-32); Blood Urea Nitrogen 50 mg/dL (8-23); Carbon Dioxide 17 mmol/L (22-29); Chloride 103 mmol/L (98-107); Creatinine Clr Calc Pharmacy 31.6951; Globulin 2.4 g/dL (1.3-4.6); Glomerular Filtration Rate 20.1 mL/min (90-130); Glucose 71 mg/dL (65-115); Magnesium 2.7 mg/dL (1.7-2.3); Osmolality Calculated 294 mOsm/kg (285-295); Sodium 136 mmol/L (136-145); Total Bilirubin 0.6 mg/dL (0.15-1.2)
[2024-04-13 05:12] LABS: Anion Gap 20.4 (5-19); Potassium 4.4 mmol/L (3.5-5.1)
[2024-04-13 05:14] LABS: Calcium 5.8 mg/dL (8.5-10.5)
[2024-04-13] MEDS: pantoprazole 40 mg SDV IVP ×2 (07:49→20:30)
[2024-04-13 08:44] LABS: C.Diff PCR (Lab) NEGATIVE (Negative)
[2024-04-13] MEDS: ropinirole 1 mg Tablet 2 MG PO ×2 (08:59→17:36)
--- NOTE | 2024-04-13 09:16 | USCV_ITS ---
Sirena Priest Age: 68 Gender: F : 1955 Exam Date: 04/13/2024 13:35 Ordering Phys: Pranay Calabrese MD Technologist: Exam Location: [facility] [place] Indication: chf BP: 134 / 73 HR: 65 Rhythm: Sinus Technical Quality: Adequate MEASUREMENTS (Male / Female) Normal Values 2D ECHO LV Diastolic Diameter PLAX 5.2 cm 4.2 - 5.9 / 3.9 - 5.3 cm IVS Diastolic Thickness 1.4 cm 0.6 - 1.0 / 0.6 - 0.9 cm IVS Systolic Thickness 1.7 cm LVPW Diastolic Thickness 1.4 cm 0.6 - 1.0 / 0.6 - 0.9 cm LVPW Systolic Thickness 1.7 cm LVOT Diameter 2.0 cm LV Ejection Fraction 2D Teich 66.2 % LV Ejection Fraction MOD 4C 74.0 % LV Ejection Fraction MOD 2C 68.7 % LV Ejection Fraction 2C AL 69.1 % LA Diameter 3.2 cm RA Systolic Volume 4C AL 44.0 ml RA Systolic Volume 4C MOD 41.0 ml M-MODE LA Ao Ratio MM 1.4 AV Cusp Separation MM 1.8 cm DOPPLER AV Peak Velocity 173.0 cm/s LVOT Peak Velocity 95.0 cm/s AV Area Cont Eq vti 2.3 cm squared AV Area Cont Eq pk 1.8 cm squared MV Peak Velocity 85.0 cm/s MV Area PHT 3.1 cm squared Mitral E to A Ratio 1.0 TV Peak Velocity 147.5 cm/s TR Peak Velocity 175.0 cm/s TR Peak Gradient 12.3 mmHg TV Peak E Velocity 113.0 cm/s Right Atrial Pressure 3.0 mmHg Pulmonary Artery Systolic Pressu 15.3 mmHg PV Peak Velocity 130.0 cm/s FINDINGS Left Ventricle Normal left ventricular size and systolic function, EF 66%no regional wall motion abnormalities. Right Ventricle The right ventricle is normal in size and function. Right Atrium The right atrium is normal in size. Left Atrium The left atrium is normal in size. Mitral Valve No gross abnormalities noted Aortic Valve No gross abnormalities noted Tricuspid Valve No gross abnormalities noted Pulmonic Valve Pulmonic valve not well visualized. Pericardium Normal pericardium without effusion. Aorta Normal ascending aorta dimension. IVC . Inferior vena cava not visualized. CONCLUSIONS Normal left ventricular size and systolic function, EF 66%no regional wall motion abnormalities. Normal cardiac chamber sizes. No significant stenotic or relative lesions No intracardiac masses. Estimated pulmonary artery peak systolic pressure within normal limits Compared to the study from 03/19/2021, there may not be a significant change Dr Azul Garcia MD FACC (Electronically Signed) Final Date: 14 April 2024 18:30 S
--- NOTE | 2024-04-13 09:38 | PC.NURSE ---
Provider undated that patients blood was drawn this morning before her 2nd unit of blood was given. Patient has also had complications with 4 or 5 IV's overnight and does not have IV now. A mid-line is ordered.
[2024-04-13 10:21] LABS: Estmated Average Glucose 126
[2024-04-13 10:27] LABS: Thyroid Stimulating Hormone 3.38 uIU/mL (0.27-4.20); Vitamin B12 1605 pg/mL (232-1245)
--- NOTE | 2024-04-13 11:21 | PICC.NOTE ---
Midline placed to right basilic vein. Referred to vascular access nurse for PICC placement due to poor access. Risks and benefits discussed and informed consent obtained from patient. Right arm assessed with right basilic vein measuring 4.0 mm, straight, and apparent best choice for placement. Using sterile technique and MST, right basilic vein accessed x 1 stick. Mid-arm circumference measured 10 cm from right AC 44 cm. Trimmed cath 11 cm with 0 cm external length noted and tip terminating at axillla. Line secured with stat-lock. Insertion site covered with Biopatch, gauze, and TSM. Report given to bedside nurseHero.
[2024-04-13] MEDS: dilTIAZem ER (24HR) 120 mg Capsule PO (11:24)
[2024-04-13] MEDS: calcium chloride 10% Syr 10 mL 1 GM IVP (11:24)
[2024-04-13] MEDS: amiodarone 200 mg Tablet PO (11:24)
[2024-04-13] MEDS: piperacillin-tazobactam 3.375 GM in sodium chloride 0.9% (plus) 50 ML IV ×2 (11:25→22:09)
--- NOTE | 2024-04-13 12:57 | PC.PT ---
PT eval attempted. Patient receiving blood product.
--- NOTE | 2024-04-13 13:31 | P.PN_ITS ---
Subjective 2 Subjective: Hospital course, labs appreciated. Examination today patient sitting comfortably in bed. Denies any abdominal pain, nausea vomiting, headache. Saturating well on room air. Hemodynamic appreciated. Vitals/I&O/Wt Last Vital Signs Temp 97.5 F L 04/13/24 12:13 Pulse 66 04/13/24 12:13 Resp 14 04/13/24 12:13 BP 146/68 04/13/24 12:00 Pulse Ox 95 04/13/24 12:13 O2 Del Method Room Air 04/13/24 12:00 04/12/24 04/13/24 04/13/24 22:59 06:59 14:59 Intake Total 416.6 / 416.6 1583.400 / 2000.000 240 / 240 Output Total 600 / 600 300 / 900 100 / 100 Balance -183.4 / -183.4 1283.400 / 1100.000 140 / 140 Weight last 48 hrs Weight 141.974 kg Weight 142.065 kg Weight 145.15 kg Physical Exam 2 Const: COMMON NORMALS: patient oriented x3 and alert GENERAL APPEARANCE: c ooperative NUTRITIONAL APPEARANCE: obese morbidly obese O RIENTATION/CONSCIOUSNESS: Yes awake OTHER: Pale HENMT: COMMON NORMALS: oropharynx normal Neck/C-Spine: COMMON NORMALS: no JVD Resp: COMMON NORMALS: normal respiratory effort and clear to auscultation bilaterally AUSCULTATION: clear to auscultation bilaterally Cardio: COMMON NORMALS: no JVD, regular rhythm, S1 normal heart sound present, S2 normal heart sound present and No murmurs present (Cardio) RHYTHM: regular rhythm HEART SOUNDS: S1 normal heart sound present and S2 normal heart sound present GI: COMMON NORMALS: Normal to inspection, nondistended, normoactive bowel sounds present, Soft to palpation and non-tender PALPATION: Yes Soft to palpation Extremity: COMMON NORMALS: no joint enlargement NARRATIVE EXTREMITY EXAM: Chronic lymphedema left lower extremity in compression stocking, 1+ edema right lower extremity. Neuro: COMMON NORMALS: patient oriented x3 and moves all extremities S ENSORIUM/ORIENTATION: Yes alert Skin: COMMON NORMALS: no rashes or lesions noted GENERAL SKIN EXAM: no rashes or lesions noted Data 04/13/24 03:06 04/13/24 03:06 Micro: Microbiology 04/12/24 07:35 Stool Lactoferrin - Final Stool Occult Blood (FIT) - Final A&P Assessment and plan (1) SBO (small bowel obstruction): Seen on CT abdomen/pelvis. No transition point noticed. Patient denies any abdominal pain. Soft bowel movements earlier today morning. Check acute abdominal series. Treatment abdominal examination. Bowel regimen with milk of magnesia, senna Colace twice daily. Start a clear liquid diet. No episode of vomiting. (2) Enteritis: Stool studies awaited. C. difficile negative. Switch from Cipro and Flagyl to Zosyn for now. Start on clear liquid diet as above. Associated with dehydration with anemia and YUSRA on CKD on admission. History of diastolic heart failure in the past. Fluids on hold given the same. Getting blood transfusion. Continue to monitor off fluids for now. (3) Symptomatic anemia: Most likely acute on chronic. CBC differential shows microcytic hypochromic anemia. Stool for occult blood is positive. Appreciate recent hemoglobin check. Target hemoglobin around 8. Received units of blood transfusion. Repeat 1 monitor blood transfusion and check H&H. Check vitamin B12 and folate levels. Start on oral iron supplementation. Protonix twice daily, Carafate ACHS. Discussed in detail with the patient regarding need for endoscopy and colonoscopy given patient being on Eliquis as an outpatient for stroke prevention to rule out active bleeding. Patient declines any endoscopy for now. For now plan would be to discontinue Eliquis for next 2 weeks, start on Protonix and Carafate. Restart Eliquis in 2 weeks and then recheck hemoglobin. If hemoglobin drops further patient will discuss with her PCP regarding continuation of Eliquis with concerns for ongoing anemia versus discontinuation of Eliquis with patient being at risk for stroke. (4) Acute kidney injury: Baseline creatinine 1.4-1.7. Admitted with 2.8. Currently 2.4 with uremia. Getting blood transfusion as above. Medical reconciliation done for nephrotoxic drugs. Patient is on high-dose diuretics as an outpatient. Hold off on diuretics for now. Monitor renal functions daily. Check urine lites, urine creatinine, urine eosinophils. Appreciate normal renal ultrasound from June 2021. Haile catheterization. (5) Nausea vomiting and diarrhea: As above. Antiemetics as needed. Plan Congestive heart failure, Hold off diuretic for now with nausea vomiting, diarrhea, poor oral intake, dehydration, YURSA, reassess volume status, renal function. Echocardiogram ordered. Last echocardiogram from 2020 showed EF of 60% with mild decreased RV systolic function with RV free wall hypokinesia and RV pressure of 21 mmHg. Atrial fibrillation: Hold Eliquis for now with symptomatic anemia, reassess blood counts to exclude acute worsening anemia. Telemetry. Continue with home dose of Cardizem 120 mg oral daily. morbid obesity, Restless leg syndrome, Continue ropinirole ANDRA, MDD, Other medical problems Full code Clear liquid diet Protonix will be sufficient for PUD prophylaxis SCD for DVT prophylaxis Attestations 2 Medical Necessity Statement*: Requires further hospitalization for management of acute anemia, YUSRA and CKD in a patient admitted with possibility of GI bleed, enteritis and small bowel obstruction Diagnoses SBO (small bowel obstruction) K56.609 Enteritis K52.9 Symptomatic anemia D64.9 Acute kidney injury N17.9 Nausea vomiting and diarrhea R11.2; R19.7
--- NOTE | 2024-04-13 13:32 | XRR_ITS ---
PROCEDURE INFORMATION: Exam: XR Abdomen Exam date and time: 04/13/2024 2:02 PM Age: 68 years old Clinical indication: Condition or disease; Intestinal condition; Obstruction; Additional info: Small bowel obstruction TECHNIQUE: Imaging protocol: Radiologic exam of the abdomen. Views: 2 Views. Upright and supine views. COMPARISON: CT abdomen pelvis con [id number] 04/12/2024 4:22 PM FINDINGS: Gastrointestinal tract: Normal. No bowel dilation. Nonspecific bowel gas pattern. Intraperitoneal space: Normal. No free air. Bones/joints: Unremarkable for age. XR/XR acute abdomen series [id number] IMPRESSION: No acute findings.
[2024-04-13 15:17] LABS: Hematocrit 30.9 % (36-47)
--- NOTE | 2024-04-13 15:26 | PC.NURSE ---
Provider is updated on patients H & H and order is given to hold off on the 4th unit of blood.
--- NOTE | 2024-04-13 17:30 | PC.NURSE ---
Patient is refusing to have a salinas catheter at this time. She is currently using the bedside commode.
[2024-04-13] MEDS: magnesium hydroxide 30 mL UDC PO (17:35)
[2024-04-13] MEDS: sennosides-docusate Tablet 1 TAB PO (17:35)
[2024-04-13] MEDS: sucralfate 1 gm/10 mL Oral Liq UDC PO ×2 (17:35→20:53)
--- NOTE | 2024-04-13 17:35 | PC.PT ---
PT eval attempted. Patient was receiving blood product and unavailable from PT. Patient educated on PT evaluation is to determine safety in transfers and gait when asked why PT was coming to see her.
[2024-04-13] MEDS: ferrous gluconate 324 mg Tablet PO (17:36)
[2024-04-13] MEDS: gabapentin 300 mg Capsule PO (17:36)
[2024-04-13] MEDS: sodium chloride 0.9% 100 mL Bag 50 ML IV (19:58)
[2024-04-13] MEDS: atorvastatin 40 mg Tablet PO (20:30)
[2024-04-14] VITALS (9 sets, daily range): BP systolic 114–132; BP diastolic 56–76; PULSE 59–69; RESP 17–18; TEMP 36.6–36.8; O2SAT 93–99
[2024-04-14] MEDS: HYDROcodone-acetaminophen 7.5-325 mg Tablet 1 TAB PO ×3 (02:36→15:56)
[2024-04-14 05:09] LABS: Basophils % 0.3 %; Hematocrit 29.7 % (36-47); Lymphocytes # 1.3 10^3/uL (0.8-4.8); Mean Corpuscular HGB Conc 27.3 g/dL (30-55); Mean Corpuscular Hemoglobin 22.4 pg (27-33); Mean Corpuscular Volume 82.3 fl (85-98); Mean Platelet Volume 8.6 fL (7.4-10.4); Monocytes # 0.7 10^3/uL (0.2-0.9); Monocytes % 6.1 %; Neutrophils % 80.8 %; Nucleated Red Blood Cells % 0.3 %; Platelet Count 404 10^3/cmm (157-399); Red Blood Count 3.61 10^6/uL (3.85-5.65); Red Cell Distribution Width 20.2 % (12.1-15.1); White Blood Count 11.86 10^3/uL (3.29-11.43)
[2024-04-14 05:29] LABS: Alanine Aminotransferase 10 U/L (0-33); Albumin Level 2.4 g/dL (3.5-5.2); Alkaline Phosphatase 111 U/L (35-105); Anion Gap 15.9 (5-19); Aspartate Amino Transferase 11 U/L (0-32); Blood Urea Nitrogen 36 mg/dL (8-23); Calcium 6.3 mg/dL (8.5-10.5); Carbon Dioxide 20 mmol/L (22-29); Chloride 103 mmol/L (98-107); Creatinine Clr Calc Pharmacy 38.2295; Globulin 2.4 g/dL (1.3-4.6); Glomerular Filtration Rate 24.9 mL/min (90-130); Glucose 82 mg/dL (65-115); Osmolality Calculated 287 mOsm/kg (285-295); Potassium 3.9 mmol/L (3.5-5.1); Sodium 135 mmol/L (136-145); Total Bilirubin 0.8 mg/dL (0.15-1.2); Total Protein 4.8 g/dL (6.6-8.7)
[2024-04-14 05:30] LABS: Cholesterol 90 mg/dL (0-200); HDL Cholesterol 41 mg/dL (60-100); LDL Cholesterol Calculated 35 mg/dL (50-129); Magnesium 2.8 mg/dL (1.7-2.3); Triglycerides 68 mg/dL (0-150); VLDL Cholestrol Calculation 14 mg/dL (0-30)
[2024-04-14 05:43] LABS: Folate Level 4.6 ng/mL (4.8-37.3)
[2024-04-14] MEDS: sucralfate 1 gm/10 mL Oral Liq UDC PO ×4 (06:04→21:03)
[2024-04-14] MEDS: piperacillin-tazobactam 3.375 GM in sodium chloride 0.9% (plus) 50 ML IV ×3 (06:05→21:03)
[2024-04-14] MEDS: ropinirole 1 mg Tablet 2 MG PO ×2 (08:45→17:47)
[2024-04-14] MEDS: folic acid 1 mg Tablet PO ×2 (08:45→17:47)
[2024-04-14] MEDS: dilTIAZem ER (24HR) 120 mg Capsule PO (08:45)
[2024-04-14] MEDS: gabapentin 300 mg Capsule PO ×2 (08:45→17:47)
[2024-04-14] MEDS: sennosides-docusate Tablet 1 TAB PO ×2 (08:45→17:47)
[2024-04-14] MEDS: ferrous gluconate 324 mg Tablet PO ×2 (08:45→17:47)
[2024-04-14] MEDS: amiodarone 200 mg Tablet PO (08:45)
[2024-04-14] MEDS: sertraline 50 mg Tablet PO (08:45)
[2024-04-14] MEDS: pantoprazole 40 mg SDV IVP ×2 (08:45→21:02)
[2024-04-14] MEDS: sodium chloride 0.9% 1,000 ML 75 ML IV ×2 (08:46→21:04)
--- NOTE | 2024-04-14 10:31 | P.PN_ITS ---
Subjective 2 Subjective: No acute events overnight. Patient states she is feeling a lot better. Denies any nausea, vomiting. Asking for solid diet. Did have 2-3 bowel movements overnight. Not sure of blood in bowel movements. Vitals/I&O/Wt Last Vital Signs Temp 98.0 F 04/14/24 07:19 Pulse 61 04/14/24 07:19 Resp 18 04/14/24 07:19 BP 132/67 04/14/24 07:19 Pulse Ox 95 04/14/24 07:19 O2 Del Method Room Air 04/14/24 07:19 04/13/24 04/14/24 04/14/24 22:59 06:59 14:59 Intake Total 690 / 1280 530 / 1810 50 / 50 Output Total 550 / 650 Balance 140 / 630 530 / 1160 50 / 50 Weight last 48 hrs Weight 143.199 kg Weight 141.974 kg Weight 142.065 kg Weight 145.15 kg Physical Exam 2 Const: COMMON NORMALS: patient oriented x3 and alert GENERAL APPEARANCE: c ooperative NUTRITIONAL APPEARANCE: obese morbidly obese O RIENTATION/CONSCIOUSNESS: Yes awake OTHER: Pale HENMT: COMMON NORMALS: oropharynx normal Neck/C-Spine: COMMON NORMALS: no JVD Resp: COMMON NORMALS: normal respiratory effort and clear to auscultation bilaterally AUSCULTATION: clear to auscultation bilaterally Cardio: COMMON NORMALS: no JVD, regular rhythm, S1 normal heart sound present, S2 normal heart sound present and No murmurs present (Cardio) RHYTHM: regular rhythm HEART SOUNDS: S1 normal heart sound present and S2 normal heart sound present GI: COMMON NORMALS: Normal to inspection, nondistended, normoactive bowel sounds present, Soft to palpation and non-tender PALPATION: Yes Soft to palpation Extremity: COMMON NORMALS: no joint enlargement NARRATIVE EXTREMITY EXAM: Chronic lymphedema left lower extremity in compression stocking, 1+ edema right lower extremity. Neuro: COMMON NORMALS: patient oriented x3 and moves all extremities S ENSORIUM/ORIENTATION: Yes alert Skin: COMMON NORMALS: no rashes or lesions noted GENERAL SKIN EXAM: no rashes or lesions noted Data 04/14/24 04:45 04/14/24 04:45 Micro: Microbiology 04/12/24 07:35 Stool Lactoferrin - Final Stool Occult Blood (FIT) - Final A&P Assessment and plan (1) SBO (small bowel obstruction): Seen on CT abdomen/pelvis. No transition point noticed. Patient denies any abdominal pain. Soft bowel movements earlier today morning. Check acute abdominal series. Treatment abdominal examination. Bowel regimen with milk of magnesia, senna Colace twice daily. Start a clear liquid diet. No episode of vomiting. (2) Enteritis: Stool studies awaited. C. difficile negative. Switch from Cipro and Flagyl to Zosyn for now. Start on clear liquid diet as above. Associated with dehydration with anemia and YUSRA on CKD on admission. History of diastolic heart failure in the past. Fluids on hold given the same. Getting blood transfusion. Continue to monitor off fluids for now. (3) Symptomatic anemia: Most likely acute on chronic. CBC differential shows microcytic hypochromic anemia. Stool for occult blood is positive. Appreciate recent hemoglobin check. Target hemoglobin around 8. Received units of blood transfusion. Repeat 1 monitor blood transfusion and check H&H. Check vitamin B12 and folate levels. Start on oral iron supplementation. Protonix twice daily, Carafate ACHS. Discussed in detail with the patient regarding need for endoscopy and colonoscopy given patient being on Eliquis as an outpatient for stroke prevention to rule out active bleeding. Patient declines any endoscopy for now. For now plan would be to discontinue Eliquis for next 2 weeks, start on Protonix and Carafate. Restart Eliquis in 2 weeks and then recheck hemoglobin. If hemoglobin drops further patient will discuss with her PCP regarding continuation of Eliquis with concerns for ongoing anemia versus discontinuation of Eliquis with patient being at risk for stroke. (4) Acute kidney injury: Baseline creatinine 1.4-1.7. Admitted with 2.8. Currently 2.4 with uremia. Getting blood transfusion as above. Medical reconciliation done for nephrotoxic drugs. Patient is on high-dose diuretics as an outpatient. Hold off on diuretics for now. Monitor renal functions daily. Check urine lites, urine creatinine, urine eosinophils. Appreciate normal renal ultrasound from June 2021. Haile catheterization. (5) Nausea vomiting and diarrhea: As above. Antiemetics as needed. Plan Congestive heart failure, Hold off diuretic for now with nausea vomiting, diarrhea, poor oral intake, dehydration, YUSRA, reassess volume status, renal function. Echocardiogram ordered. Last echocardiogram from 2020 showed EF of 60% with mild decreased RV systolic function with RV free wall hypokinesia and RV pressure of 21 mmHg. Atrial fibrillation: Hold Eliquis for now with symptomatic anemia, reassess blood counts to exclude acute worsening anemia. Telemetry. Continue with home dose of Cardizem 120 mg oral daily. morbid obesity, Restless leg syndrome, Continue ropinirole ANDRA, MDD, Other medical problems Plan for the day: Repeat hemoglobin later in the day. Target hemoglobin more than 7. Continue to hold off on anticoagulation. Continue with Protonix twice daily and Carafate ACHS. Advance to full liquid diet. Add protein shakes. Continue with senna Colace. Make milk of magnesia as needed. YUSRA resolving. Start on gentle IV hydration with normal saline at 75 cc/h. Echocardiogram done. Results awaited. Watch for fluid overload. Discharge plan: Plan to discharge back to [facility] within next 24 hours if hemoglobin remains stable, no more hematochezia and renal functions continue to improve. Full code Full liquid diet Protonix will be sufficient for PUD prophylaxis SCD for DVT prophylaxis Attestations 2 Medical Necessity Statement*: Requires further hospitalization for management of acute on chronic symptomatic anemia in setting of GI bleed, enteritis, YUSRA requiring blood transfusion Diagnoses SBO (small bowel obstruction) K56.609 Enteritis K52.9 Symptomatic anemia D64.9 Acute kidney injury N17.9 Nausea vomiting and diarrhea R11.2; R19.7
[2024-04-14 17:32] LABS: Hematocrit 31.3 % (36-47)
[2024-04-14] MEDS: atorvastatin 40 mg Tablet PO (21:02)
[2024-04-14] MEDS: quetiapine 25 mg Tablet 12.5 MG PO (21:03)
[2024-04-15] VITALS: BP 116/64; PULSE 63; RESP 17; TEMP 36.5; O2SAT 94
[2024-04-15] MEDS: HYDROcodone-acetaminophen 7.5-325 mg Tablet 1 TAB PO ×2 (01:29→08:42)
[2024-04-15 03:47] VITALS: PULSE 62
[2024-04-15 04:00] VITALS: BP 105/62; PULSE 59; RESP 17; TEMP 36.9; O2SAT 94
[2024-04-15 05:22] LABS: Basophils % 0.3 %; Hematocrit 29.3 % (36-47); Lymphocytes # 1.6 10^3/uL (0.8-4.8); Lymphocytes % 13.5 %; Mean Corpuscular HGB Conc 26.3 g/dL (30-55); Mean Corpuscular Hemoglobin 22.3 pg (27-33); Mean Corpuscular Volume 84.9 fl (85-98); Mean Platelet Volume 8.3 fL (7.4-10.4); Monocytes # 0.9 10^3/uL (0.2-0.9); Monocytes % 7.4 %; Neutrophils # 8.97 10^3/uL (1.8-7.7); Neutrophils % 77.7 %; Nucleated Red Blood Cells % 0 %; Platelet Count 376 10^3/cmm (157-399); Red Blood Count 3.45 10^6/uL (3.85-5.65); Red Cell Distribution Width 21.6 % (12.1-15.1); White Blood Count 11.55 10^3/uL (3.29-11.43)
[2024-04-15 05:53] LABS: Alanine Aminotransferase 12 U/L (0-33); Albumin Level 2.1 g/dL (3.5-5.2); Alkaline Phosphatase 107 U/L (35-105); Aspartate Amino Transferase 16 U/L (0-32); Blood Urea Nitrogen 25 mg/dL (8-23); Calcium 6.1 mg/dL (8.5-10.5); Carbon Dioxide 15 mmol/L (22-29); Chloride 111 mmol/L (98-107); Creatinine Clr Calc Pharmacy 41.8954; Globulin 2.8 g/dL (1.3-4.6); Glucose 84 mg/dL (65-115); Osmolality Calculated 292 mOsm/kg (285-295); Sodium 139 mmol/L (136-145); Total Bilirubin 0.5 mg/dL (0.15-1.2); Total Protein 4.9 g/dL (6.6-8.7)
[2024-04-15 05:56] LABS: Anion Gap 16.8 (5-19); Potassium 3.8 mmol/L (3.5-5.1)
[2024-04-15 06:00] VITALS: BMI 55.9
[2024-04-15 06:01] LABS: Magnesium 2.7 mg/dL (1.7-2.3)
[2024-04-15] MEDS: sucralfate 1 gm/10 mL Oral Liq UDC PO ×2 (06:02→10:49)
[2024-04-15] MEDS: piperacillin-tazobactam 3.375 GM in sodium chloride 0.9% (plus) 50 ML IV (06:02)
[2024-04-15 08:00] VITALS: BP 125/70; PULSE 62; RESP 17; TEMP 36.5; O2SAT 98
[2024-04-15] MEDS: ropinirole 1 mg Tablet 2 MG PO (08:42)
[2024-04-15] MEDS: gabapentin 300 mg Capsule PO (08:43)
[2024-04-15] MEDS: sennosides-docusate Tablet 1 TAB PO (08:43)
[2024-04-15] MEDS: dilTIAZem ER (24HR) 120 mg Capsule PO (08:43)
[2024-04-15] MEDS: ferrous gluconate 324 mg Tablet PO (08:43)
[2024-04-15] MEDS: pantoprazole 40 mg SDV IVP (08:43)
[2024-04-15] MEDS: amiodarone 200 mg Tablet PO (08:43)
[2024-04-15] MEDS: folic acid 1 mg Tablet PO (08:43)
[2024-04-15] MEDS: sertraline 50 mg Tablet PO (08:44)
[2024-04-15] MEDS: sodium chloride 0.9% 1,000 ML 75 ML IV (10:48)
[2024-04-15 11:58] LABS: SARS Covid-2 Antigen Negative (Negative)
[2024-04-15 12:00] VITALS: BP 155/74; PULSE 66; RESP 18; TEMP 36.6; O2SAT 99
--- NOTE | 2024-04-15 13:13 | P.DS_ITS ---
Discharge Providers Date of Admission: 04/12/24 17:37 Date of Discharge: April 15, 2024 Attending Provider at Admission: Lamonte Hays Attending Provider at Discharge: Pranay Calabrese MD Primary Care Provider: Sameer Yang DO Diagnoses at Discharge Discharge Diagnosis (1) SBO (small bowel obstruction): Status: Acute (2) Enteritis: Status: Acute (3) Symptomatic anemia: Status: Acute (4) Acute kidney injury: Status: Acute (5) Nausea vomiting and diarrhea: Status: Acute Reason for Visit Reason for Visit: N/V Brief History: History as per HPI: 68-year-old lady, [facility] resident with past history of congestive heart failure, atrial fibrillation on Eliquis, morbid obesity, restless leg syndrome, ANDRA, MDD, other medical problems presented to ER due to having nausea vomiting and diarrhea complicated by worsening weakness. She had been having some abdominal cramping for which she was provided a heating pad at the [facility] with some relief. Her symptoms started on Saturday. In ER she is incidentally found to have severe anemia, hemoglobin 6.3, leukocytosis 21.7, YUSRA, CT abdomen pelvis with finding of acute distal enteritis/ileitis with a mild partial obstruction/reactive focal ileus without a discrete transition point/mechanical obstruction related to known abdominal wall hernias. Reactive mesenteric adenitis. Surgery was consulted in ER. Hospital Course Hospital Course Patient was admitted to the hospital further evaluation and management of acute blood loss anemia, enteritis and possible small bowel obstruction. Overall she received 3 unit of blood transfusion. Surgery was consulted. She was started on broad-spectrum IV antibiotics. At first patient refused endoscopy/colonoscopy. Patient's hemoglobin remained stable and acute kidney injury also resolved. IV hydration and blood transfusion. Patient was treated with aggressive bowel regimen. She is able to tolerate mechanical soft diet. She has been discharged in hemodynamically stable condition with advised to hold off on Eliquis for next 2 weeks. Recheck hemoglobin next 1 week. To take Protonix twice daily for next 4 weeks followed by once daily, Carafate 4 times a day with meals for next 4 weeks. Patient is agreeable for colonoscopy/endoscopy now. Advised to follow-up with surgical team as an outpatient for possible colonoscopy within next 2 to 3 weeks. She will discharge was discussed in detail with the patient and she verbalized understanding. Physical Exam Const: COMMON NORMALS: patient oriented x3 and alert GENERAL APPEARANCE: cooperative NUTRITIONAL APPEARANCE: obese morbidly obese ORIENTATION/CONSCIOUSNESS: Yes awake OTHER: Pale HENMT: COMMON NORMALS: oropharynx normal Neck/C-Spine: COMMON NORMALS: no JVD Resp: COMMON NORMALS: normal respiratory effort and clear to auscultation bilaterally AUSCULTATION: clear to auscultation bilaterally Cardio: COMMON NORMALS: no JVD, regular rhythm, S1 normal heart sound present, S2 normal heart sound present and No murmurs present (Cardio) RHYTHM: regular rhythm HEART SOUNDS: S1 normal heart sound present and S2 normal heart sound present GI: COMMON NORMALS: Normal to inspection, nondistended, normoactive bowel sounds present, Soft to palpation and non-tender PALPATION: Yes Soft to palpation Extremity: COMMON NORMALS: no joint enlargement NARRATIVE EXTREMITY EXAM: Chronic lymphedema left lower extremity in compression stocking, 1+ edema right lower extremity. Neuro: COMMON NORMALS: patient oriented x3 and moves all extremities SENSORIUM/ORIENTATION: Yes alert Skin: COMMON NORMALS: no rashes or lesions noted GENERAL SKIN EXAM: no rashes or lesions noted Discharge Data Studies Completed and Pending Completed Studies During Hospitalization Category Date Time Status CT abdomen pelvis wo con [id number] Stat Cat Scan 04/12/24 15:07 Completed XR acute abdomen series [id number] Routine Exams 04/13/24 13:32 Completed CV. echo complete* [id number] Routine Ultrasound 04/13/24 09:16 Completed Pending at discharge Category Date Time Status Leukocyte Reduced RBC Stat Lab 04/12/24 15:30 Results MAG [Magnesium] AM LABS Lab 04/16/24 04:00 Ordered OVA and Parasites, Conc and PE Routine Lab 04/12/24 07:35 Received Salmonella / Shigella / Campy Routine Lab 04/12/24 07:35 Received Type and Screen Routine Lab 04/12/24 15:30 Results Urine Creatinine Routine Lab 04/13/24 09:19 Received Urine Eosinophils Routine Lab 04/13/24 09:18 Received Urine Lytes [Urine Random Lytes] Stat Lab 04/13/24 09:19 Received Radiology Impressions Abdomen/Pelvis CT 04/12/24 15:07 IMPRESSION: 1. Acute distal enteritis (ileitis) with a mild partial obstruction/reactive focal ileus. I do not see a discrete transition point/mechanical obstruction related to the known abdominal wall hernias. Close follow-up is advised. 2. Reactive mesenteric adenitis. ADDENDUM: 04/12/24 [id number] Comments: THIS REPORT CONTAINS FINDINGS THAT MAY BE CRITICAL TO PATIENT CARE. The findings were verbally communicated via telephone conference with TARYN MANNING at 5:21 PM CDT on 04/12/2024. The findings were acknowledged and understood. Chest/Abdomen X-ray 04/13/24 13:32 IMPRESSION: No acute findings. Laboratory Results WBC 11.55 10^3/uL (3.29-11.43) H 04/15/24 04:32 RBC 3.45 10^6/uL (3.85-5.65) L 04/15/24 04:32 Hgb 8.80 g/dL (11.27-16.99) L 04/15/24 12:43 Hct 32.0 % (36-47) L 04/15/24 12:43 MCV 84.9 fl (85-98) L 04/15/24 04:32 MCH 22.3 pg (27-33) L 04/15/24 04:32 MCHC 26.3 g/dL (30-55) L 04/15/24 04:32 RDW 21.6 % (12.1-15.1) H 04/15/24 04:32 Plt Count 376 10^3/cmm (157-399) 04/15/24 04:32 MPV 8.3 fL (7.4-10.4) 04/15/24 04:32 Neut % (Auto) 77.7 % 04/15/24 04:32 Lymph % (Auto) 13.5 % 04/15/24 04:32 [place] % (Auto) 7.4 % 04/15/24 04:32 Eos % (Auto) 0.0 % 04/15/24 04:32 Baso % (Auto) 0.3 % 04/15/24 04:32 Neut # (Auto) 8.97 10^3/uL (1.8-7.7) H 04/15/24 04:32 Lymph # (Auto) 1.6 10^3/uL (0.8-4.8) 04/15/24 04:32 [place] # (Auto) 0.9 10^3/uL (0.2-0.9) 04/15/24 04:32 Eos # (Auto) 0.0 10^3/uL (0.0-0.8) 04/15/24 04:32 Baso # (Auto) 0.0 10^3/uL (0.0-0.1) 04/15/24 04:32 Nucleated RBC % (auto) 0 % 04/15/24 04:32 Nucleated RBCs # 0.0 /100WBC 04/15/24 04:32 PT 17.30 SECONDS (12.1-14.9) H 04/12/24 21:10 INR 1.37 (0.8-1.2) H 04/12/24 21:10 Sodium 139 mmol/L (136-145) 04/15/24 04:32 Potassium 3.8 mmol/L (3.5-5.1) 04/15/24 04:32 Chloride 111 mmol/L (98-107) H 04/15/24 04:32 Carbon Dioxide 15 mmol/L (22-29) L 04/15/24 04:32 Anion Gap 16.8 (5-19) 04/15/24 04:32 BUN 25 mg/dL (8-23) H 04/15/24 04:32 Creatinine 1.8 mg/dL (0.5-0.9) H 04/15/24 04:32 GFR Calculation 28.0 mL/min (90-130) L 04/15/24 04:32 Glucose 84 mg/dL (65-115) 04/15/24 04:32 Estimat Average Glucose 126 04/13/24 03:06 Hemoglobin A1c 6.0 % (4.0-6.0) 04/13/24 03:06 Calculated Osmolality 292 mOsm/kg (285-295) 04/15/24 04:32 Lactic Acid 1.8 mmol/L (0.5-2.2) 04/12/24 14:18 Calcium 6.1 mg/dL (8.5-10.5) L 04/15/24 04:32 Magnesium 2.7 mg/dL (1.7-2.3) H 04/15/24 04:32 Iron 12 ug/dL (37-145) L 04/12/24 14:18 TIBC 266 mcg/dl 04/12/24 14:18 % Saturation 4.5 % (20-50) L 04/12/24 14:18 Unsat Iron Binding 254 ug/dL (112-347) 04/12/24 14:18 Ferritin 13 ng/mL (15-150) L 04/12/24 14:18 Total Bilirubin 0.5 mg/dL (0.15-1.2) 04/15/24 04:32 AST 16 U/L (0-32) 04/15/24 04:32 ALT 12 U/L (0-33) 04/15/24 04:32 Alkaline Phosphatase 107 U/L (35-105) H 04/15/24 04:32 NT-Pro-B Natriuret Pep 537 pg/mL (0-125) H 04/12/24 14:18 Total Protein 4.9 g/dL (6.6-8.7) L 04/15/24 04:32 Albumin 2.1 g/dL (3.5-5.2) L 04/15/24 04:32 Globulin 2.8 g/dL (1.3-4.6) 04/15/24 04:32 Triglycerides 68 mg/dL (0-150) 04/14/24 04:45 Cholesterol 90 mg/dL (0-200) 04/14/24 04:45 LDL Cholesterol, Calc 35 mg/dL (50-129) L 04/14/24 04:45 Total VLDL Cholesterol 14 mg/dL (0-30) 04/14/24 04:45 HDL Cholesterol 41 mg/dL (60-100) L 04/14/24 04:45 Cholesterol/HDL Ratio 2.20 mg/dL (0.0-4.40) 04/14/24 04:45 Lipase 26 U/L (13-60) 04/12/24 14:18 Vitamin B12 1605 pg/mL (232-1245) H 04/13/24 03:06 Folate 4.6 ng/mL (4.8-37.3) L 04/14/24 04:45 TSH 3.38 uIU/mL (0.27-4.20) 04/13/24 03:06 Urine Color Yellow (Yellow) 04/12/24 17:47 Urine Appearance Clear (CLEAR) 04/12/24 17:47 Urine pH 5.0 (5-7) 04/12/24 17:47 Ur Specific [place] 1.013 (1.005-1.030) 04/12/24 17:47 Urine Protein Negative (Negative) 04/12/24 17:47 Urine Glucose (UA) Negative (Normal) 04/12/24 17:47 Urine Ketones Negative (Negative) 04/12/24 17:47 Urine Blood 2+ (Negative) A 04/12/24 17:47 Urine Nitrate Negative (Negative) 04/12/24 17:47 Urine Bilirubin Negative (Negative) 04/12/24 17:47 Urine Urobilinogen 0.2 mg/dL (Negative) 04/12/24 17:47 Ur Leukocyte Esterase Negative (Negative) 04/12/24 17:47 Urine RBC 3-5 /hpf (0-2) 04/12/24 17:47 Urine WBC 0-5 /hpf (0-5) 04/12/24 17:47 Ur Squamous Epith Cells 0-5 /hpf (0-5) 04/12/24 17:47 Amorphous Sediment Not Reportable 04/12/24 17:47 Urine Bacteria None seen /hpf (NONE) 04/12/24 17:47 Hyaline Casts 0.40 /lpf 04/12/24 17:47 C. difficile (PCR) Negative (Negative) 04/12/24 07:35 SARS-CoV-2 Ag (Rapid) Negative (Negative) 04/15/24 11:15 Blood Type A Positive 04/12/24 15:30 Rho(D) Type Rh positive 04/12/24 15:30 Antibody Screen Negative 04/12/24 15:30 Crossmatch See Detail 04/12/24 15:30 Vitals Last Vital Signs Temp 97.7 F 04/15/24 08:00 Pulse 62 04/15/24 08:00 Resp 17 04/15/24 08:00 BP 125/70 04/15/24 08:00 Pulse Ox 98 04/15/24 08:00 O2 Del Method Room Air 04/15/24 08:00 O2 Flow Rate 2 04/15/24 04:00 Discharge Plan Discharge Patient Disposition: Home Condition: Stable Prescriptions: New sucralfate 100 mg/mL Suspension 1 g PO AC&BEDTIME Qty: 1000 0RF metronidazole 500 mg tablet 500 mg PO BID 7 Days Qty: 14 0RF ciprofloxacin HCl 500 mg tablet 500 mg PO BID Qty: 10 0RF pantoprazole [Protonix] 40 mg tablet,delayed release (DR/EC) 40 mg PO QAM Qty: 60 0RF Rx Instructions: Bid for 4 weeks and then daily Continued hydrocodone-acetaminophen 7.5-325 mg tablet 1 - 2 tab PO Q4H PRN (Reason: Pain) atorvastatin 40 mg tablet 40 mg PO BEDTIME All Day Allergy (cetirizine) 10 mg capsule 10 mg PO DAILY ondansetron HCl [Zofran] 4 mg tablet 4 mg PO Q4H PRN (Reason: Nausea And Vomiting) magnesium oxide 400 mg magnesium tablet 400 mg PO BID amiodarone 200 mg tablet 200 mg PO DAILY Qty: 90 1RF cyanocobalamin (vitamin B-12) 1,000 mcg/mL solution 1,000 mcg IM Q30D gabapentin 300 mg capsule 300 mg PO BID A and D Ointment 1 applic TOPICAL QID PRN (Reason: redness) loperamide 2 mg Tablet 4 mg PO Q4H PRN (Reason: Diarrhea) Rx Instructions: administer after each loose stool until symptoms controlled; do not exceed 8 mg per 24 hrs diltiazem HCl 120 mg Capsule,Extended Release 24 Hr 120 mg PO DAILY sertraline 50 mg Tablet 50 mg PO DAILY diclofenac sodium 1 % Gel 2 g TOPICAL DAILY Zinc Oxide Diaper Cream 1-10 % Cream 1 applic TOPICAL QID PRN (Reason: redness) Mylanta Coat-Cool 1,200 mg-270 mg -80 mg/10 mL Suspension 30 ml PO Q4H PRN (Reason: Indigestion) Seroquel 25 mg Tablet 12.5 mg PO BEDTIME acetaminophen 325 mg Tablet 350 mg PO QID PRN (Reason: Pain) Biofreeze (menthol) 4 % Gel 1 applic TOPICAL TID PRN (Reason: Pain) Gold Fish Original Strength 0.15 % Powder 1 applic TOPICAL QID PRN (Reason: redness) polyethylene glycol 3350 17 gram Powder In Packet 17 g PO DAILY Milk of Magnesia 400 mg/5 mL Suspension 30 ml PO DAILY PRN (Reason: Constipation) Dulcolax (bisacodyl) 10 mg Suppository 10 mg DE DAILY PRN (Reason: Constipation) ropinirole 2 mg Tablet 2 mg PO BID Fleet Enema 19-7 gram/118 mL Enema 118 ml DE DAILY PRN (Reason: Constipation) Changed bumetanide 1 mg tablet 1 mg PO BID Qty: 10 0RF potassium chloride 10 mEq Capsule, Extended Release 10 meq PO DAILY Qty: 10 0RF Held Eliquis 5 mg tablet 5 mg PO BID Discontinued spironolactone 50 mg Tablet 50 mg PO DAILY Discharge Orders: Discharge Order (Routine); Ordered 04/15/24 Ordered By: Pranay Calabrese Referrals: Richard Shahid MD [Physician] - 2 weeks (Colonoscopy given acute anemia on eliquis. Recent entities ) Sameer Yang DO [Primary Care Provider] - 1 week Discharge Diet: Advance as tolerated and Soft Mechanical Discharge Activity: Resume usual activity Patient Instructions: Opioid Safety, Pain Management Activity Restrictions/Additional Instructions: Recheck hemoglobin in 1 week Hold eliquis for 2 weeks. Take protonix twice daily for 4 weeks and then daily. Take carafate before meals for next 4 weeks Follow up with surgery in 2 weeks for possible colonoscppy Discharge Attestations Time Spent in Discharge Care*: greater than 30 min Specific Discharge Activities: educating patient, discussing with pcp/other providers, discussing with correctional counselor/case manager/social workers/dc planners, documenting /other paperwork and evaluating patient/reviewing data Quality Metrics Clinical Quality Measures [ No reported AMI, CVA or VTE this stay] Coding Level of Care Code 97186 Total time (in minutes) for Discharge: 60 Diagnoses SBO (small bowel obstruction) K56.609 Enteritis K52.9 Symptomatic anemia D64.9 Acute kidney injury N17.9 Nausea vomiting and diarrhea R11.2; R19.7
[2024-04-15 13:24] LABS: Potassium, Radom Urine 24 mmol/L; Urine Creatinine 103 mg/dL (28-217)
[2024-04-15 13:26] LABS: Urine Random Chloride 13 mmol/L
[2024-04-15 13:54] LABS: Eosinophil Urine No Eosinophils Seen
[2024-04-15 13:57] LABS: Urine Random Sodium > 20 mmol/L
--- NOTE | 2024-04-15 14:21 | PC.NURSE ---
This nurse called report to [facility]. Nursing staff unable to talk at this time. This nurse left contact info with Nikki that answered phone. Will attempt to call back.
--- NOTE | 2024-04-15 14:40 | PC.NURSE ---
Report was called to Miryam Reeder LPN, at [facility]. All questions addressed at this time. Awaiting discharge transport via [facility] transportation services
[2024-04-15 15:08] VITALS: BP 155/74; PULSE 66; RESP 18; TEMP 36.6; O2SAT 99
--- NOTE | 2024-04-15 15:30 | PC.SOCIAL ---
IMM Updated IMM initialed and dated. Copy given to patient and copy placed in chart.
== END 2024-04-15 15:06 | disposition skilled nursing facility (03) | DRG 378 ==
LOC: ER 17:36 → MEDSURG 18:17
PROVIDERS: Admitting Provider Internal Medicine; Emergency Provider Emergency Medicine; PCP Internal Medicine; Visit Provider Student in an Organized Health Care Education/Training Program
DX: K92.1 Melena (principal); D62 Acute posthemorrhagic anemia; K56.600 Partial intestinal obstruction, unspecified as to cause; N17.9 Acute kidney failure, unspecified; K56.7 Ileus, unspecified; Z68.43 Body mass index [BMI] 50.0-59.9, adult; E86.0 Dehydration; I48.91 Unspecified atrial fibrillation; K52.9 Noninfective gastroenteritis and colitis, unspecified; G25.81 Restless legs syndrome; G47.33 Obstructive sleep apnea (adult) (pediatric); F32.9 Major depressive disorder, single episode, unspecified; I88.0 Nonspecific mesenteric lymphadenitis; N18.9 Chronic kidney disease, unspecified; E66.01 Morbid (severe) obesity due to excess calories; K43.9 Ventral hernia without obstruction or gangrene; Z11.52 Encounter for screening for COVID-19; Z87.442 Personal history of urinary calculi
CPT/HCPCS: 36415; 36430; 36569; 36573; 74022; 74176; 80053; 80061; 81003; 81015; 82274; 82436; 82570; 82607; 82728; 82746; 83036; 83540; 83550; 83605; 83630; 83690; 83735; 83880; 84133; 84300; 84443; 85014; 85018; 85025; 85610; 85999; 86850; 86900; 86920; 87045; 87177; 87209; 87426; 87427; 87449; 87493; 93306; 96365; 96367; 97116; 97161; 97530; 99285; C1751; J0744; J2405; J2470; J2543; J3490; J7030; P9016

== ENCOUNTER 2024-10-10 11:53 | Inpatient (IN) | payer MEDICARE, MEDICAID, SELFPAY ==
[2024-10-10] VITALS (42 sets, daily range): BP systolic 106–141; BP diastolic 46–93; PULSE 72–108; RESP 13–31; TEMP 36.6–37.1; O2SAT 85–97; BMI 49.2; BMI 49.4
--- NOTE | 2024-10-10 12:01 | W.ED.SOB ---
HPI - SOB/Dyspnea General: Chief Complaint: Shortness of Breath/Dyspnea Stated Complaint: sob Time Seen by Provider: 10/10/24 11:56 History of Present Illness: HPI Narrative: 61-year-old female [facility] emergency [facility] with reports of hypoxia. She was diagnosed 4 days ago with pneumonia today had oxygen saturations in the 80s on room air usually is not on oxygen now requiring 5 L in the ER. She has had a semiproductive cough. She is on apixaban for atrial fibrillation has not changed or missed any doses recently. Denies abdominal pain or chest pain she does state the tip shortness of breath began suddenly when she was walking back from the restroom. Patient is super morbidly obese large pannus. Associated symptoms: Deny abdominal pain, chest pain or fever(s) Related Data Home Medications ?Medication ?Instructions ?Recorded ?Confirmed atorvastatin 40 mg tablet 40 mg PO BEDTIME 11/04/19 10/10/24 cetirizine 10 mg capsule (All Day 10 mg PO DAILY 11/04/19 10/10/24 Allergy (cetirizine)) apixaban 5 mg tablet (Eliquis) 5 mg PO BID 04/18/21 10/10/24 hydrocodone 7.5 mg-acetaminophen 1 - 2 tab PO Q4H PRN Pain 05/12/21 10/10/24 325 mg tablet magnesium oxide 400 mg PO BID 06/28/21 10/10/24 cyanocobalamin (vitamin B-12) 1,000 mcg IM Q30D 07/18/21 10/10/24 1,000 mcg/mL injection solution gabapentin 300 mg capsule 300 mg PO BID 07/18/21 10/10/24 acetaminophen 325 mg tablet 350 mg PO QID PRN Pain 04/13/24 10/10/24 bisacodyl 10 mg rectal suppository 10 mg WV DAILY PRN Constipation 04/13/24 10/10/24 (Dulcolax (bisacodyl)) calcium carb 1,200 mg-mag hydrox 30 ml PO Q4H PRN Indigestion 04/13/24 10/10/24 270 mg-simeth 80 mg/10 mL oral susp (Mylanta Coat-Cool) diclofenac sodium 1 % topical gel 2 g topical DAILY 04/13/24 10/10/24 diltiazem HCl 120 mg capsule,24 120 mg PO DAILY 04/13/24 10/10/24 hr,extended release loperamide 2 mg tablet 4 mg PO Q4H PRN Diarrhea 04/13/24 10/10/24 magnesium hydroxide 400 mg/5 mL 30 ml PO DAILY PRN Constipation 04/13/24 10/10/24 oral suspension (Milk of Magnesia) menthol 0.15 % topical powder 1 applic topical QID PRN redness 04/13/24 10/10/24 (Gold Fish Original Strength) menthol 4 % topical gel (Biofreeze 1 applic topical TID PRN Pain 04/13/24 10/10/24 (menthol)) polyethylene glycol 3350 17 gram 17 g PO DAILY PRN Constipation 04/13/24 10/10/24 oral powder packet quetiapine 25 mg tablet (Seroquel) 12.5 mg PO BEDTIME 04/13/24 10/10/24 ropinirole 2 mg tablet 2 mg PO BID 04/13/24 10/10/24 sertraline 50 mg tablet 50 mg PO BEDTIME 04/13/24 10/10/24 sodium phosphates 19 gram-7 118 ml WV DAILY PRN Constipation 04/13/24 10/10/24 gram/118 mL enema (Fleet Enema) Lactobacillus rhamnosus GG 10 1 cap PO DAILY 10/10/24 10/10/24 billion cell capsule (Culturelle) albuterol sulfate 2.5 mg/3 mL 2.5 mg inhalation Q4H PRN 10/10/24 10/10/24 (0.083 %) solution for nebulization wheezing/congestion bisacodyl 10 mg rectal suppository 10 mg WV DAILY PRN Constipation 10/10/24 10/10/24 (Dulcolax (bisacodyl)) bumetanide 2 mg tablet 2 mg PO BID 10/10/24 10/10/24 calcium carbonate (Tums) 200 mg PO DAILY 10/10/24 10/10/24 cholecalciferol (vitamin D3) 50 100 mcg PO DAILY 10/10/24 10/10/24 mcg (2,000 unit) capsule (Vitamin D3) doxycycline monohydrate 100 mg 100 mg PO BID 10/10/24 10/10/24 tablet guaifenesin 100 mg/5 mL oral 200 mg PO Q4H PRN cough/congestion 10/10/24 10/10/24 liquid (Robafen) nystatin 100,000 unit/gram topical 1 applic topical BID PRN Skin 10/10/24 10/10/24 powder Irritation ondansetron HCl 4 mg tablet 4 mg PO Q4H PRN Nausea 10/10/24 10/10/24 potassium chloride 10 mEq 20 meq PO DAILY 10/10/24 10/10/24 capsule,extended release Previous Rx's ?Medication ?Instructions ?Recorded amiodarone 200 mg tablet 200 mg PO DAILY #90 tabs 05/02/23 pantoprazole 40 mg tablet,delayed 40 mg PO QAM #60 tabs 04/15/24 release (Protonix) Allergies Allergy/AdvReac Type Severity Reaction Status Date / Time spironolactone AdvReac ADV-Weaknes Verified 03/26/23 18:29 s Review of Systems Const: Denies: fever(s) or chills Card: Denies: chest pain Resp: Denies: dyspnea GI: Denies: abdominal pain : Denies: dysuria, urinary frequency or urinary urgency Musc: Denies: neck pain or back pain Skin/Breast: Denies: rash PFSH ED PFSH: Medical History (Updated 10/10/24 @ 17:39 by Nate Sainz DO) CKD (chronic kidney disease) stage 4, GFR 15-29 ml/min Atrial fibrillation with controlled ventricular response Iron deficiency anemia Bradycardia History of kidney stones Recurrent incisional hernia CHF (congestive heart failure), NYHA class III Cellulitis Atrial fibrillation with RVR BMI over 35 BMI of 61.7 Restless leg syndrome Obstructive sleep apnea Major depressive disorder, recurrent severe without psychotic features Surgical History History of lithotripsy R temporary ureteral stent History of total abdominal hysterectomy and bilateral salpingo-oophorectomy History of section, low vertical X 2 H/O laparoscopy adhesiolysis/repair of incisional hernia with mesh -- 2014 -- Dr. Alicia Family History Other Family history non-contributory Social History Smoking and tobacco/nicotine status: never used tobacco/nicotine Second hand smoke exposure: No Alcohol intake: never Substance/Drug Use: never Adopted: No Lives independently: Yes Marital status: Current gender identity: Female Physical Exam Const: COMMON NORMALS: no acute distress GENERAL APPEARANCE: cooperative and comfortable ORIENTATION/CONSCIOUSNESS: Yes awake, Yes oriented to person, Yes oriented to place and Yes oriented to time HENMT: COMMON NORMALS: normocephalic, atraumatic and hearing grossly normal bilaterally HEAD & SCALP: normocephalic and atraumatic Resp: AUSCULTATION: wheezes Cardio: COMMON NORMALS: regular rate, regular rhythm and No murmurs present (Cardio) RATE: regular rate RHYTHM: regular rhythm GI: COMMON NORMALS: Soft to palpation and No hepatosplenomegaly present AUSCULTATION: Yes normoactive bowel sounds PALPATION: Yes Soft to palpation, No Tenderness to palpation present (GI), No Guarding due to palpation present (GI) and Yes No hepatosplenomegaly present OTHER: To abdominal wall hernias no strangulation Extremity: COMMON NORMALS: normal to inspection, capillary refill normal, no clubbing, cyanosis or edema, no calf tenderness and no pedal edema Neuro: SENSORIUM/ORIENTATION: Yes oriented to person, Yes oriented to place and Yes oriented to time Skin: COMMON NORMALS: no rashes or lesions noted GENERAL SKIN EXAM: no rashes or lesions noted Course Vital Signs: Vital signs: Vital Signs Temperature 98.3 F 10/10/24 17:18 Pulse Rate 85 10/10/24 17:18 Respiratory Rate 18 10/10/24 17:18 Blood Pressure 119/93 10/10/24 17:18 Pulse Oximetry 92 10/10/24 17:18 Oxygen Delivery Me thod Nasal Cannula 10/10/24 16:58 Oxygen Flow Rate 4 10/10/24 11:54 Fraction of Inspir ed Oxygen 40 10/10/24 15:29 MDM - SOB/Dyspnea Medical Decision Making Significant anemia patient has had this in the past chosen not to pursue evaluation of his suspect that is GI in nature she is significantly down from previous. She is not tachycardic she is not particular significantly hypoxic she is on Eliquis and seems the likelihood of a PE is low she is not having any chest pain now. Concerning that she had this rather sudden onset that she describes it happened at very identifiable point in time while she was walking. She also has a mild acute kidney injury and there is significant pneumonia on her chest x-ray. Midline is placed in the emergency room for IV access. 1 unit of blood has been ordered. Discussed with hospitalist we initiated Vanco and Zosyn for antibiotic coverage. Lactic acid is 1.4 she is otherwise stable and shows no signs of sepsis. Orders written for admission. Medical Records I reviewed the patient's medical records. Lab Data I reviewed the patient's lab results. 10/10/24 13:09 10/10/24 12:31 Labs/Radiology: Radiology Impressions Chest X-Ray 10/10/24 12:28 IMPRESSION: Interval appearance of bibasilar airspace opacities. Abdomen/Pelvis CT 10/10/24 13:07 IMPRESSION: 1. Bilateral lower lobe airspace consolidation, new compared with the prior study. 2. Multiple complex ventral hernias containing multiple bowel loops but without evidence of acute complication or bowel obstruction. 3. Interval appearance of skin thickening and subcutaneous fat infiltration of the lower anterior abdominal wall suggesting possible cellulitis; clinical correlation recommended. 4. Distended gallbladder containing calculi; if there is clinical concern for cholecystitis ultrasound recommended further assessment. 5. Minor findings noted above. Laboratory Results WBC 5.24 10^3/uL (3.29-11.43) 10/10/24 12: RBC 2.93 10^6/uL (3.85-5.65) L 10/10/24 12:31 Hgb 5.70 g/dL (11.27-16.99) L* 10/10/24 13:09 Hct 21.7 % (36-47) L 10/10/24 12: MCV 74.1 fl (85-98) L 10/10/24 12:31 MCH 19.5 pg (27-33) L 10/10/24 12: MCHC 26.3 g/dL (30-55) L 10/10/24 12: RDW 22.3 % (12.1-15.1) H 10/10/24 12: Plt Count 362 10^3/cmm (157-399) 10/10/24 12: MPV 9.4 fL (7.4-10.4) 10/10/24 12: Neut % (Auto) 86.4 % 10/10/24 12:31 Lymph % (Auto) 8.4 % 10/10/24 12: [place] % (Auto) 3.8 % 10/10/24 12: Eos % (Auto) 0.2 % 10/10/24 12: Baso % (Auto) 0.2 % 10/10/24 12: Neut # (Auto) 4.53 10^3/uL (1.8-7.7) 10/10/24 12: Lymph # (Auto) 0.4 10^3/uL (0.8-4.8) L 10/10/24 12: [place] # (Auto) 0.2 10^3/uL (0.2-0.9) 10/10/24: Eos # (Auto) 0.0 10^3/uL (0.0-0.8) 10/10/24 12: Baso # (Auto) 0.0 10^3/uL (0.0-0.1) 10/10/24: Nucleated RBC % (auto) 0.4 % 10/10/24: Nucleated RBCs # 0.0 /100WBC 10/10/24 12: D-Dimer 1.20 ug/mLFEU (0-0.59) H 10/10/24 12:31 Specimen Type Arterial 10/10/24 12:09 Sample Site Radial, left 10/10/24 12:09 ABG pH 7.41 (7.35-7.45) 10/10/24 12:09 ABG pCO2 58.2 mmHg (35-45) H 10/10/24 12:09 ABG pO2 70.5 mmHg (80.0-100.0) L 10/10/24 12:09 ABG HCO3 36.7 mmol/L (22-26) H 10/10/24 12:09 ABG O2 Saturation 94.1 10/10/24 12:09 ABG Base Excess 11.0 mmol/L (-2.0-2.0) H 10/10/24 12:09 James Test Pos 10/10/24 12:09 A-a O2 Gradient 0.9 mmHg (5-10) L 10/10/24 12:09 Hematocrit 18.0 % (37-47) L 10/10/24 12:09 Hgb O2 Saturation 91.8 % (95-100) L 10/10/24 12:09 Carboxyhemoglobin 1.7 %THgb (0.4-20.1) 10/10/24 12:09 Methemoglobin 0.7 % (0.4-1.5) 10/10/24 12:09 Total Hemoglobin 5.9 g/dL (12-16) L 10/10/24 12:09 Sodium 145.0 mmol/L (131-143) H 10/10/24 12:09 Potassium 2.2 mmol/L (3.5-5.0) L 10/10/24 12:09 Glucose 109.0 mg/dL (70-115) 10/10/24 12:09 Ionized Calcium 1.0 mmol/L (1.1-1.4) L 10/10/24 12:09 O2 Delivery Device Nc 10/10/24 12:09 O2 Liters/Min 5.0 % 10/10/24 12:09 Facialist ID [place] 10/10/24 12:09 Sodium 143 mmol/L (136-145) 10/10/24 12:31 Potassium 2.3 mmol/L (3.5-5.1) L* 10/10/24 12:31 Chloride 98 mmol/L (98-107) 10/10/24 12:31 Carbon Dioxide 33 mmol/L (22-29) H 10/10/24 12:31 Anion Gap 14.3 (5-19) 10/10/24 12:31 BUN 21 mg/dL (8-23) 10/10/24 12:31 Creatinine 1.9 mg/dL (0.5-0.9) H 10/10/24 12:31 GFR Calculation 26.3 mL/min (90-130) L 10/10/24 12:31 Glucose 116 mg/dL (65-115) H 10/10/24 12:31 Calculated Osmolality 300 mOsm/kg (285-295) H 10/10/24 12:31 Lactic Acid 1.4 mmol/L (0.5-2.2) 10/10/24 12:31 Calcium 7.0 mg/dL (8.5-10.5) L 10/10/24 12:31 Phosphorus 3.0 mg/dL (2.5-4.5) 10/10/24 12:31 Magnesium 2.0 mg/dL (1.7-2.3) 10/10/24 12: Iron 11 ug/dL (37-145) L 10/10/24 12: TIBC 206 mcg/dl 10/10/24 12: % Saturation 5.3 % (20-50) L 10/10/24 12: Unsat Iron Binding 195 ug/dL (112-347) 10/10/24 12: Total Bilirubin 0.8 mg/dL (0.15-1.2) 10/10/24 12: AST 73 U/L (0-32) H 10/10/24 12: ALT 27 U/L (0-33) 10/10/24 12: Alkaline Phosphatase 101 U/L (35-105) 10/10/24 12: Total Protein 6.1 g/dL (6.6-8.7) L 10/10/24 12: Albumin 2.7 g/dL (3.5-5.2) L 10/10/24 12: Globulin 3.4 g/dL (1.3-4.6) 10/10/24 12:31 Urine Color Yellow (Yellow) 10/10/24 12:55 Urine Appearance Clear (CLEAR) 10/10/24 12:55 Urine pH 5.5 (5-7) 10/10/24 12:55 Ur Specific [place] 1.010 (1.005-1.030) 10/10/24 12:55 Urine Protein 1+ (Negative) A 10/10/24 12:55 Urine Glucose (UA) Negative (Normal) 10/10/24 12:55 Urine Ketones Negative (Negative) 10/10/24 12:55 Urine Blood 2+ (Negative) A 10/10/24 12:55 Urine Nitrate Negative (Negative) 10/10/24 12:55 Urine Bilirubin Negative (Negative) 10/10/24 12:55 Urine Urobilinogen 0.2 mg/dL (Negative) 10/10/24 12:55 Ur Leukocyte Esterase Negative (Negative) 10/10/24 12:55 Urine RBC 11-20 /hpf (0-2) H 10/10/24 12:55 Urine WBC 0-5 /hpf (0-5) 10/10/24 12:55 Ur Squamous Epith Cells 0-5 /hpf (0-5) 10/10/24 12:55 Amorphous Sediment Not Reportable 10/10/24 12:55 Urine Bacteria None seen /hpf (NONE) 10/10/24 12:55 Hyaline Casts 5.36 /lpf 10/10/24 12:55 Coronavirus (PCR) Negative (Negative) 10/10/24 12:45 Influenza A (PCR) Positive (Negative) 10/10/24 12:45 Influenza Type B (PCR) Negative (Negative) 10/10/24 12:45 RSV (PCR) Negative (Negative) 10/10/24 12:45 Blood Type A Positive 10/10/24 13:09 Rho(D) Type Rh positive 10/10/24 13:09 Antibody Screen Negative 10/10/24 13:09 Crossmatch See Detail 10/10/24 13:09 All radiology interpretation(s) finalized by discharge Discharge Plan Discharge Patient Disposition: Admitted As Inpatient Admit Provider: Janak Kim Clinical Impression: Acute on chronic respiratory failure with hypoxia and hypercapnia, CHF (congestive heart failure), NYHA class III, Obstructive sleep apnea, Acute kidney injury, GI bleed, Symptomatic anemia, Influenza A, Pneumonia Condition: Stable 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
[2024-10-10 12:20] LABS: ABG PCO2 58.2 mmHg (35-45); ABG PH Result 7.41 (7.35-7.45); Alveolar-Arterial Oxygen Gradi 0.9 mmHg (5-10); Blood Gas Allen Test Pos; Blood Gas Operator Identificat WALCI; Blood Gas Sample Site Radial, left; Blood Gas Sample Type Arterial; Carboxyhemoglobin 1.7 %THgb (0.4-20.1); HCO3 ABG 36.7 mmol/L (22-26); HGB O2 Sat 91.8 % (95-100); Methemoglobin 0.7 % (0.4-1.5); Oxygen Device NC; Oxygen Saturation ABG 94.1; PO2 ABG 70.5 mmHg (80.0-100.0); Potassium Level - ABG 2.2 mmol/L (3.5-5.0); Total Hemoglobin 5.9 g/dL (12-16)
--- NOTE | 2024-10-10 12:28 | XRR_ITS ---
PROCEDURE INFORMATION: Exam: XR Chest Exam date and time: 10/10/2024 1:07 PM Age: 69 years old Clinical indication: Shortness of breath; Additional info: Dyspnea/cough TECHNIQUE: Imaging protocol: Radiologic exam of the chest. Views: 1 view. COMPARISON: CR XR chest 1V portable [id number] 07/18/2021 3:54 PM FINDINGS: Lungs: Suboptimal pulmonary expansion with associated accentuation of bronchovascular markings. Interval appearance of the bibasilar airspace opacities and right mid lung zone atelectasis and/or airspace disease. Pleural spaces: No pleural effusion. Heart/Mediastinum: Cardiomediastinal contours accentuated by low lung volumes and AP technique. Bones/joints: No significant pathology. XR/XR chest 1V portable [id number] IMPRESSION: Interval appearance of bibasilar airspace opacities.
--- NOTE | 2024-10-10 12:37 | ECG_ITS ---
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[id number] Requested By: Nate Britt Order Number: [id number] Juan R MD: ANI REDD Measurements Intervals [place] Rate: 88 P: 0 GA: 0 QRS: 48 QRSD: 104 T: 231 QT: 438 QTc: 533 Interpretive Statements ATRIAL FIBRILLATION WITH ABERRANT CONDUCTION OR VENTRICULAR PREMATURE COMPLEXES ST DEVIATION AND MODERATE T-WAVE ABNORMALITY, CONSIDER ANTEROLATERAL ISCHEMIA [-0.1+ mV T-WAVE IN V3-V6] ST DEVIATION AND MODERATE T-WAVE ABNORMALITY, CONSIDER INFERIOR ISCHEMIA [-0.1+ mV T-WAVE IN II/aVF] Compared to ECG 06/17/2022 14:51:03 Ventricular premature complex(es) now present Aberrant conduction of supraventricular beat(s) now present T-wave abnormality now present Possible ischemia now present Sinus bradycardia no longer present Electronically Signed On 10-10-2024 19:14:49 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
[2024-10-10 12:58] LABS: Basophils % 0.2 %; Eosinophils % 0.2 %; Hematocrit 21.7 % (36-47); Lymphocytes # 0.4 10^3/uL (0.8-4.8); Lymphocytes % 8.4 %; Mean Corpuscular HGB Conc 26.3 g/dL (30-55); Mean Corpuscular Hemoglobin 19.5 pg (27-33); Mean Corpuscular Volume 74.1 fl (85-98); Mean Platelet Volume 9.4 fL (7.4-10.4); Monocytes # 0.2 10^3/uL (0.2-0.9); Monocytes % 3.8 %; Neutrophils # 4.53 10^3/uL (1.8-7.7); Neutrophils % 86.4 %; Nucleated Red Blood Cells % 0.4 %; Platelet Count 362 10^3/cmm (157-399); Red Blood Count 2.93 10^6/uL (3.85-5.65); Red Cell Distribution Width 22.3 % (12.1-15.1); White Blood Count 5.24 10^3/uL (3.29-11.43)
--- NOTE | 2024-10-10 13:07 | CTR_ITS ---
PROCEDURE INFORMATION: Exam: CT Abdomen And Pelvis Without Contrast Exam date and time: 10/10/2024 1:28 PM Age: 69 years old Clinical indication: Abdominal pain TECHNIQUE: Imaging protocol: Computed tomography of the abdomen and pelvis without contrast. Radiation optimization: All CT scans at this facility use at least one of these dose optimization techniques: automated exposure control; mA and/or kV adjustment per patient size (includes targeted exams where dose is matched to clinical indication); or iterative reconstruction. COMPARISON: CT abdomen pelvis con [id number] 04/12/2024 4:22 PM RADIATION DOSE METRICS: Total DLP (mGy-cm): 1545.03 FINDINGS: Lungs: Bilateral lower lobe airspace consolidation new compared with the prior exam. Liver: Indeterminate subcentimeter hepatic hypodensities are present. Gallbladder and biliary ducts: Gallbladder is distended and contains calculus. No biliary dilatation. Pancreas: No significant pancreatic pathology. Spleen: No significant splenic pathology. Adrenal glands: No significant adrenal pathology. Kidneys and ureters: Nonobstructive left lower pole renal calculus measuring 3 mm. Right kidney unremarkable. Stomach and bowel: See Soft tissues finding. Appendix: No appendiceal pathology evident. Intraperitoneal space: No ascites. Vasculature: No abdominal aortic aneurysm. Lymph nodes: No evidence of lymphadenopathy. Urinary bladder: No significant pathology. Reproductive: No significant pathology. Bones/joints: Dextrocurvature of the lower lumbar spine with marked degenerative change. Soft tissues: Multiple large lower anterior abdominal wall ventral hernias are present superimposed on eventration of the abdominal wall. There are bowel loops within the hernias but no acute obstruction is seen. There is skin thickening and infiltration of the subcutaneous fat of the lower anterior abdominal wall. CT/CT abdomen pelvis con [id number] IMPRESSION: 1. Bilateral lower lobe airspace consolidation, new compared with the prior study. 2. Multiple complex ventral hernias containing multiple bowel loops but without evidence of acute complication or bowel obstruction. 3. Interval appearance of skin thickening and subcutaneous fat infiltration of the lower anterior abdominal wall suggesting possible cellulitis; clinical correlation recommended. 4. Distended gallbladder containing calculi; if there is clinical concern for cholecystitis ultrasound recommended further assessment. 5. Minor findings noted above.
[2024-10-10 13:08] LABS: Bilirubin Urine Negative (Negative); Blood Urine 2+ (Negative); Glucose Urine UA Negative (Normal); Ketones Urine Negative (Negative); Leukocyte Esterase Urine Negative (Negative); Nitrate Urine Negative (Negative); Protein Urine 1+ (Negative); Urine Appearance Clear (CLEAR); Urine Color Yellow (Yellow); Urobilinogen Urine 0.2 mg/dL (Negative); pH Urine 5.5 (5-7)
[2024-10-10 13:11] LABS: Add Urine Microscopic? YES; Bacteria Urine None Seen /hpf; Hyaline Casts Urine 5.36 /lpf; Squamous Epithelial Cell Urine 0-5 /hpf (0-5); WBC Urine 0-5 /hpf (0-5)
[2024-10-10 13:18] LABS: Alanine Aminotransferase 27 U/L (0-33); Albumin Level 2.7 g/dL (3.5-5.2); Alkaline Phosphatase 101 U/L (35-105); Anion Gap 14.3 (5-19); Aspartate Amino Transferase 73 U/L (0-32); Blood Urea Nitrogen 21 mg/dL (8-23); Carbon Dioxide 33 mmol/L (22-29); Chloride 98 mmol/L (98-107); Globulin 3.4 g/dL (1.3-4.6); Glomerular Filtration Rate 26.3 mL/min (90-130); Glucose 116 mg/dL (65-115); Osmolality Calculated 300 mOsm/kg (285-295); Sodium 143 mmol/L (136-145); Total Bilirubin 0.8 mg/dL (0.15-1.2); Total Protein 6.1 g/dL (6.6-8.7)
[2024-10-10 13:19] LABS: Lactic Sepsis W/Reflex 1.4 mmol/L (0.5-2.2)
[2024-10-10 13:23] LABS: Potassium 2.3 mmol/L (3.5-5.1)
[2024-10-10 13:31] LABS: Influenza A POSITIVE (Negative); Influenza B NEGATIVE (Negative); Respiratory Syncytial Virus Ce NEGATIVE (Negative); SARS-CoV-2 PCR NEGATIVE (Negative)
--- NOTE | 2024-10-10 13:49 | PC.PHAR ---
Pt is from [facility]
[2024-10-10] MEDS: piperacillin-tazobactam 3.375 GM in sodium chloride 0.9% (plus) 50 ML IV (13:54)
--- NOTE | 2024-10-10 14:11 | PC.NURSE ---
DR. MCCABE NOTIFIED OF NEED FOR ADDITIONAL IV ACCESS. HOSPICE ENTRANCE ATTENDANT CONTACTED FOR PICC LINE PLACEMENT. HOSPICE ENTRANCE ATTENDANT TO CALL FOR PICC TEAM.
[2024-10-10] MEDS: VANCOMYCIN ADD-Vantage 1,000 MG in 0.9% NaCl ADD-Vantage 250 ML 250 MG IV (14:25)
--- NOTE | 2024-10-10 14:59 | PC.NURSE ---
POTASSIUM AND BLOOD ADMINISTRATION DELAYED DUE TO MID LINE BEING INSERTED.
[2024-10-10] MEDS: potassium chloride premix 100 ML 25 MEQ IV ×2 (15:16→20:21)
[2024-10-10 15:33] LABS: Iron 11 ug/dL (37-145); Percent Saturation 5.3 % (20-50); Total Iron Binding Capacity 206 mcg/dl; Unsaturated Iron Binding 195 ug/dL (112-347)
--- NOTE | 2024-10-10 16:03 | PM.HP ---
Providers/Chief Complaint Admitting Physician: Janak Kim MD Primary Care Provider: Sameer Yang DO Chief Complaint: sob History of Present Illness Sirena Priest is a 69 year old female, custodial resident with past history of congestive heart failure, atrial fibrillation on Eliquis, morbid obesity, restless leg syndrome, ANDRA, MDD, other medical problems presented to ER due to acute weakness and shortness of breath while getting back to her bed from the bathroom. Patient reports that she has been feeling sick since Saturday with shortness of breath cough and congestion. She has not had nausea vomiting or blood in her stool. Patient found to have influenza, pneumonia, severe anemia and hypokalemia in addition to CKD with creatinine running 2. Dr. Sainz obtained midline IV access and ordered 1 unit blood transfusion as well as K riders. Patient was treated with vancomycin and Zosyn for pneumonia and referred for admission. Patient has had similar admission 04/12/2024 for anemia and declined EGD and colonoscopy. She again declines at this time and also declines intubation or CPR if needed. We discussed that she is on anticoagulation for atrial fibrillation. She has never had a stroke. Patient has been morbidly obese though not eating well this past several days. She is agreeable to weight loss diet Review of Systems Narrative: General positive for subjective fevers chills fatigue malaise Respiratory positive for cough Cardiovascular positive for dizziness and lightheadedness but she denies heart racing Medications/Allergies Home Medications ?Medication ?Instructions ?Recorded ?Confirmed ?Last Taken ?Type atorvastatin 40 mg tablet 40 mg PO BEDTIME 11/04/19 10/10/24 10/09/24 History cetirizine 10 mg capsule (All Day 10 mg PO DAILY 11/04/19 10/10/24 10/10/24 History Allergy (cetirizine)) apixaban 5 mg tablet (Eliquis) 5 mg PO BID 04/18/21 10/10/24 10/10/24 History hydrocodone 7.5 mg-acetaminophen 1 - 2 tab PO Q4H PRN Pain 05/12/21 10/10/24 10/09/24 History 325 mg tablet magnesium oxide 400 mg PO BID 06/28/21 10/10/24 10/10/24 History cyanocobalamin (vitamin B-12) 1,000 mcg IM Q30D 1110/10/24 10/05/24 History 1,000 mcg/mL injection solution gabapentin 300 mg capsule 300 mg PO BID 07/18/21 10/10/24 10/10/24 History amiodarone 200 mg tablet 200 mg PO DAILY #90 tabs 05/02/23 10/10/24 10/10/24 Rx acetaminophen 325 mg tablet 350 mg PO QID PRN Pain 04/13/24 10/10/24 10/06/24 History bisacodyl 10 mg rectal suppository 10 mg HI DAILY PRN Constipation 04/13/24 10/10/24 Unknown History (Dulcolax (bisacodyl)) calcium carb 1,200 mg-mag hydrox 30 ml PO Q4H PRN Indigestion 04/13/24 10/10/24 04/10/24 History 270 mg-simeth 80 mg/10 mL oral susp (Mylanta Coat-Cool) diclofenac sodium 1 % topical gel 2 g topical DAILY 04/13/24 10/10/24 10/10/24 History diltiazem HCl 120 mg capsule,24 120 mg PO DAILY 04/13/24 10/10/24 10/10/24 History hr,extended release loperamide 2 mg tablet 4 mg PO Q4H PRN Diarrhea 04/13/24 10/10/24 Unknown History magnesium hydroxide 400 mg/5 mL 30 ml PO DAILY PRN Constipation 04/13/24 10/10/24 Unknown History oral suspension (Milk of Magnesia) menthol 0.15 % topical powder 1 applic topical QID PRN redness 04/13/24 10/10/24 09/07/23 History (Gold Fish Original Strength) menthol 4 % topical gel (Biofreeze 1 applic topical TID PRN Pain 04/13/24 10/10/24 10/07/23 History (menthol)) polyethylene glycol 3350 17 gram 17 g PO DAILY PRN Constipation 04/13/24 10/10/24 04/11/24 History oral powder packet quetiapine 25 mg tablet (Seroquel) 12.5 mg PO BEDTIME 04/13/24 10/10/24 10/09/24 History ropinirole 2 mg tablet 2 mg PO BID 04/13/24 10/10/24 10/10/24 History sertraline 50 mg tablet 50 mg PO BEDTIME 04/13/24 10/10/24 10/09/24 History sodium phosphates 19 gram-7 118 ml HI DAILY PRN Constipation 04/13/24 10/10/24 Unknown History gram/118 mL enema (Fleet Enema) pantoprazole 40 mg tablet,delayed 40 mg PO QAM #60 tabs 04/15/24 10/10/24 10/10/24 Rx release (Protonix) Lactobacillus rhamnosus GG 10 1 cap PO DAILY 10/10/24 10/10/24 10/10/24 History billion cell capsule (Culturelle) albuterol sulfate 2.5 mg/3 mL 2.5 mg inhalation Q4H PRN 10/10/24 10/10/24 10/09/24 History (0.083 %) solution for nebulization wheezing/congestion bisacodyl 10 mg rectal suppository 10 mg HI DAILY PRN Constipation 10/10/24 10/10/24 Unknown History (Dulcolax (bisacodyl)) bumetanide 2 mg tablet 2 mg PO BID 10/10/24 10/10/24 10/10/24 History calcium carbonate (Tums) 200 mg PO DAILY 10/10/24 10/10/24 10/10/24 History cholecalciferol (vitamin D3) 50 100 mcg PO DAILY 10/10/24 10/10/24 10/10/24 History mcg (2,000 unit) capsule (Vitamin D3) doxycycline monohydrate 100 mg 100 mg PO BID 10/10/24 10/10/24 10/10/24 History tablet guaifenesin 100 mg/5 mL oral 200 mg PO Q4H PRN cough/congestion 10/10/24 10/10/24 10/09/24 History liquid (Robafen) nystatin 100,000 unit/gram topical 1 applic topical BID PRN Skin 10/10/24 10/10/24 10/08/24 History powder Irritation ondansetron HCl 4 mg tablet 4 mg PO Q4H PRN Nausea 10/10/24 10/10/24 10/04/24 History potassium chloride 10 mEq 20 meq PO DAILY 10/10/24 10/10/24 10/10/24 History capsule,extended release Allergies Allergy/AdvReac Type Severity Reaction Status Date / Time spironolactone AdvReac ADV-Weaknes Verified 03/26/23 18:29 s PFSH Acute PFSH: Medical History (Updated 10/10/24 @ 16:15 by Janak Kim MD) CKD (chronic kidney disease) stage 4, GFR 15-29 ml/min Atrial fibrillation with controlled ventricular response Iron deficiency anemia Bradycardia History of kidney stones Recurrent incisional hernia CHF (congestive heart failure), NYHA class III Cellulitis Atrial fibrillation with RVR BMI over 35 BMI of 61.7 Restless leg syndrome Obstructive sleep apnea Major depressive disorder, recurrent severe without psychotic features Surgical History History of lithotripsy R temporary ureteral stent History of total abdominal hysterectomy and bilateral salpingo-oophorectomy History of section, low vertical X 2 H/O laparoscopy adhesiolysis/repair of incisional hernia with mesh -- 2014 -- Dr. Alicia Family History Other Family history non-contributory Social History Smoking and tobacco/nicotine status: never used tobacco/nicotine Second hand smoke exposure: No Alcohol intake: never Substance/Drug Use: never Adopted: No Lives independently: Yes Marital status: Current gender identity: Female Vitals/I&O/Wt Last Vital Signs Temp 98.3 F 10/10/24 11:54 Pulse 85 10/10/24 15:29 Resp 18 10/10/24 11:54 BP 135/54 10/10/24 15:01 Pulse Ox 95 10/10/24 15:29 O2 Del Method BiPAP 10/10/24 14:14 O2 Flow Rate 4 10/10/24 11:54 FiO2 40 10/10/24 15:29 10/10/24 10/10/24 10/10/24 06:59 14:59 22:59 Intake Total 50 / 50 250 / 300 Balance 50 / 50 250 / 300 Weight last 48 hrs Weight 134.263 kg Physical Exam Narrative: General Well-developed well-nourished morbidly obese female in no acute cardiac distress she is on BiPAP but able to speak with some difficulty through the BiPAP mask. CV irregular but rate is controlled Lungs mild basilar crackles no wheezes air movement moderate Abdomen morbidly obese irregular contour positive bowel tones with shifting air on exam Calves chronic venous stasis changes and trace edema Skin dry Mentation alert and oriented to person place date hospital Data 10/10/24 13:09 10/10/24 12:31 Micro: Microbiology 10/10/24 12:31 Blood Culture - Preliminary Blood SPECIMEN COLLECTED 10/10/24 12:48 Blood Culture - Preliminary Blood SPECIMEN COLLECTED CXR: My impression: Bibasilar infiltrates and right middle lobe infiltrate CT Abd/Pel: Radiologist's impression: Complex hernias with gallstones noted EKG 1: My Interpretation: A-fib with controlled ventricular response A&P Assessment and plan (1) Symptomatic anemia: Patient was acutely short of breath when trying to move today. She was brought to the emergency department found to be markedly anemic with hemoglobin 5.9. Blood transfusion has been started. Patient has had iron deficiency in the past and declined investigation. She is on chronic anticoagulation for atrial fibrillation. GI blood loss suspected (2) Iron deficiency anemia: As above iron level 11 And percent sat 5.3% Patient will receive 2 units packed red cells and 300 mg iron sucrose (3) Atrial fibrillation with controlled ventricular response: No history of stroke we discussed 6% risk of stroke yearly with A-fib and anticoagulated. Patient does not want to pursue GI workup. She wants DNR status. Will stop apixaban for now consider chronic iron replacement and apixaban if that can be managed successfully but will require a physician to follow that (4) Influenza A: Start oseltamavir 75 mg once then 30 mg daily for 5 days (5) Hypokalemia due to loss of potassium: Will replace with IV and oral replacement (6) CKD (chronic kidney disease) stage 4, GFR 15-29 ml/min: Follow renal function Plan Admitted to the hospital PDMP PDMP Reviewed: Not Reviewed Attestations Medical Necessity Statement*: Patient will require for greater than 3 midnights to treat her respiratory failure, influenza hypokalemia Time Spent in Patient Care: 75 minutes spent in evaluation coronation care for this patient today Coding Level of Care Code 49540 Diagnoses Symptomatic anemia D64.9 Iron deficiency anemia D50.9 Atrial fibrillation with controlled ventricular response I48.91 Influenza A J10.1 Hypokalemia due to loss of potassium E87.6 CKD (chronic kidney disease) stage 4, GFR 15-29 ml/min N18.4 Time Spent (min) 75
--- NOTE | 2024-10-10 16:30 | PC.NURSE ---
Addendum entered by VIDHI Donald 10/10/24 18:29: Patient also has chronic wound on her left lower leg, photo sent to Dr. Kim via [employer], redressed with optifoam. Original Note: Wounds: Photos of wounds sent to Dr. Kim. Patient has three approximate 2.5CM [place] pressure injuries, on on bottom of pannus and bilateral buttock.
[2024-10-10] MEDS: oseltamivir phosphate 75 mg Capsule PO (16:39)
[2024-10-10] MEDS: potassium chloride ER 20 mEq Tablet 40 MEQ PO ×2 (16:39→20:12)
[2024-10-10] MEDS: ropinirole 2 mg Tablet PO (17:49)
[2024-10-10] MEDS: doxycycline 100 mg Tablet PO (17:49)
[2024-10-10] MEDS: gabapentin 300 mg Capsule PO (17:50)
[2024-10-10] MEDS: bumetanide 1 mg Tablet 2 MG PO (17:50)
[2024-10-10] MEDS: atorvastatin 40 mg Tablet PO (20:12)
[2024-10-10] MEDS: quetiapine 25 mg Tablet 12.5 MG PO (20:13)
[2024-10-10] MEDS: sertraline 50 mg Tablet PO (20:13)
[2024-10-10] MEDS: sodium chloride 0.9% 100 mL Bag 50 ML IV (20:36)
[2024-10-10] MEDS: HYDROcodone-acetaminophen 10-325 mg Tablet PO (21:26)
[2024-10-11] VITALS (34 sets, daily range): BP systolic 112–166; BP diastolic 50–93; PULSE 74–99; RESP 16–35; TEMP 36.4–36.9; O2SAT 90–97
[2024-10-11] MEDS: sodium chloride 0.9% 100 mL Bag 50 ML IV (00:57)
[2024-10-11 03:39] LABS: Hematocrit 26.3 % (36-47)
[2024-10-11 03:56] LABS: Blood Urea Nitrogen 20 mg/dL (8-23); Calcium 6.8 mg/dL (8.5-10.5); Carbon Dioxide 31 mmol/L (22-29); Chloride 104 mmol/L (98-107); Creatinine Clr Calc Pharmacy 44.0604; Glomerular Filtration Rate 29.9 mL/min (90-130); Glucose 89 mg/dL (65-115); Osmolality Calculated 302 mOsm/kg (285-295); Sodium 145 mmol/L (136-145)
[2024-10-11] MEDS: potassium chloride ER 20 mEq Tablet 40 MEQ PO ×2 (04:09→11:38)
[2024-10-11] MEDS: HYDROcodone-acetaminophen 10-325 mg Tablet PO ×4 (05:12→21:18)
[2024-10-11] MEDS: pantoprazole DR 40 mg Tablet PO (05:13)
[2024-10-11 05:42] LABS: Basophils % 0.2 %; Eosinophils % 0.2 %; Hematocrit 26.8 % (36-47); Lymphocytes # 0.7 10^3/uL (0.8-4.8); Lymphocytes % 11.8 %; Mean Corpuscular HGB Conc 27.6 g/dL (30-55); Mean Corpuscular Hemoglobin 21.1 pg (27-33); Mean Corpuscular Volume 76.6 fl (85-98); Mean Platelet Volume 9.5 fL (7.4-10.4); Monocytes # 0.3 10^3/uL (0.2-0.9); Monocytes % 4.9 %; Neutrophils # 4.64 10^3/uL (1.8-7.7); Neutrophils % 81.8 %; Nucleated Red Blood Cells % 0.5 %; Platelet Count 328 10^3/cmm (157-399); Red Cell Distribution Width 21.2 % (12.1-15.1); White Blood Count 5.67 10^3/uL (3.29-11.43)
[2024-10-11 05:53] LABS: Anion Gap 13.3 (5-19); Blood Urea Nitrogen 20 mg/dL (8-23); Calcium 6.9 mg/dL (8.5-10.5); Carbon Dioxide 32 mmol/L (22-29); Chloride 105 mmol/L (98-107); Creatinine Clr Calc Pharmacy 49.3408; Glomerular Filtration Rate 32.1 mL/min (90-130); Glucose 113 mg/dL (65-115); Osmolality Calculated 307 mOsm/kg (285-295); Potassium 3.3 mmol/L (3.5-5.1); Sodium 147 mmol/L (136-145)
[2024-10-11] MEDS: calcium carbonate 500 mg Chew Tablet 200 MG PO (08:29)
[2024-10-11] MEDS: ropinirole 2 mg Tablet PO ×2 (08:29→17:56)
[2024-10-11] MEDS: amiodarone 200 mg Tablet PO (08:29)
[2024-10-11] MEDS: doxycycline 100 mg Tablet PO ×2 (08:29→17:56)
[2024-10-11] MEDS: gabapentin 300 mg Capsule PO ×2 (08:29→17:56)
[2024-10-11] MEDS: bumetanide 1 mg Tablet 2 MG PO ×2 (08:30→17:56)
[2024-10-11] MEDS: diclofenac 1% Topical Gel 100 gm 1 APPLIC TOPICAL (08:30)
--- NOTE | 2024-10-11 10:37 | P.PN_ITS ---
Subjective 2 Subjective: 69-year-old female [facility] with shortness of breath and dizziness attributable to severe anemia from chronic GI blood loss and iron deficiency. She also was found to have influenza pneumonia and treated with renal adjusted oseltamavir plus steroids Patient treated with 2 units packed red cells and one 300 mg iron sucrose infusion. Patient did not have trouble with iron sucrose infusion but she is not sure if she is ever had them before. oral iron is not listed as one of her medications This morning the patient was off BiPAP and was on nasal cannula O2 until she had thick phlegm which she is having trouble bringing up Vitals/I&O/Wt Last Vital Signs Temp 97.7 F 10/11/24 08:00 Pulse 78 10/11/24 08:23 Resp 16 10/11/24 08:23 BP 124/69 10/11/24 08:00 Pulse Ox 94 10/11/24 08:23 O2 Del Method BiPAP 10/11/24 08:23 O2 Flow Rate 4 10/10/24 20:00 FiO2 40 10/11/24 08:23 10/10/24 10/11/24 10/11/24 22:59 06:59 14:59 Intake Total 1390.0 / 1440.0 700 / 2140.0 150 / 150 Output Total 1000 / 1000 1300 / 2300 Balance 390.0 / 440.0 -600 / -160.0 150 / 150 Weight last 48 hrs Weight 146.692 kg Weight 134.802 kg Weight 134.263 kg Physical Exam 2 Narrative: General Well-developed well-nourished morbidly obese female in no acute cardiac distress she is on BiPAP but able to speak with some difficulty through the BiPAP mask. Intermittently off BiPAP for coughing up phlegm she is not in respiratory distress CV irregular but rate is controlled Lungs mild basilar crackles no wheezes air movement moderate Abdomen morbidly obese irregular contour positive bowel tones with shifting air on exam Calves chronic venous stasis changes and trace edema Skin dry Mentation alert and oriented to person place date hospital Urinary Catheter Management: Haile: Cath Placed During This Visit: yes Reason for Continuing Indwelling Catheter: Accurate Measurement of Urinary Output in Critically Ill Patients Urinary Catheter Date of Insertion: 10/10/24 Data 10/11/24 05:07 10/11/24 05:07 Micro: Microbiology 10/10/24 12:31 Blood Culture - Preliminary Blood SPECIMEN COLLECTED 10/10/24 12:48 Blood Culture - Preliminary Blood SPECIMEN COLLECTED A&P Assessment and plan (1) Symptomatic anemia: Patient was acutely dyspneic on admission. She received 2 units packed red cells and 300 mg iron sucrose. Hematocrit came up from 21-26. No sign of active bleeding patient has had iron deficiency in the past and declined investigation. She is on chronic anticoagulation for atrial fibrillation. GI blood loss suspected (2) Iron deficiency anemia: As above iron level 11 And percent sat 5.3% (3) Atrial fibrillation with controlled ventricular response: No history of stroke we discussed 6% risk of stroke yearly with A-fib and anticoagulated. Patient does not want to pursue GI workup. She wants DNR status. Will stop apixaban for now consider chronic iron replacement and apixaban if that can be managed successfully but will require a physician to follow that (4) Influenza A: Oseltamavir 30 mg twice a day for 5 days based on renal function (5) Hypokalemia due to loss of potassium: Patient is on Bumex 2 mg twice a day and potassium chloride 20 mEq daily. Increase that to twice a day (6) CKD (chronic kidney disease) stage 4, GFR 15-29 ml/min: Follow renal function Plan Admitted to the hospital PDMP PDMP Reviewed: Not Reviewed Attestations 2 Medical Necessity Statement*: Patient remains in the hospital on BiPAP with treatment for influenza Coding Level of Care Code 06734 Diagnoses Symptomatic anemia D64.9 Iron deficiency anemia D50.9 Atrial fibrillation with controlled ventricular response I48.91 Influenza A J10.1 Hypokalemia due to loss of potassium E87.6 CKD (chronic kidney disease) stage 4, GFR 15-29 ml/min N18.4 Time Spent (min) 55
[2024-10-11] MEDS: dexamethasone 4 mg Tablet PO ×2 (11:38→17:56)
[2024-10-11] MEDS: guaiFENesin 100 mg/5 mL UDC 10 mL 200 MG PO ×3 (12:41→21:16)
[2024-10-11] MEDS: potassium chloride ER 20 mEq Tablet PO (17:56)
[2024-10-11] MEDS: oseltamivir phosphate 30 mg Capsule PO (17:56)
[2024-10-11] MEDS: ondansetron 2 mg/ML SDV 2 mL 4 MG IVP (18:35)
--- NOTE | 2024-10-11 18:43 | PC.NURSE ---
Shift Summary: Patient rested in bed throughout shift, Q2HR turning, wounds as otherwise documented. See documented vitals. Patient on 5L NC for meals and medication, but requests to be placed back on bipap after completion of both. tolerates being off bipap with cough management PRN medication, patient has become nauseous during shift PRN zofran first refused, but later in shift accepted, nausea relieved. Patient had one small smear bowel movement, otherwise no BM today. Patient requests several popsicle, refusing meals. Productive cough with thick sputum. Pain managed with PRN meds and turning, to a 4 on pain scale.
[2024-10-11] MEDS: quetiapine 25 mg Tablet 12.5 MG PO (21:17)
[2024-10-11] MEDS: atorvastatin 40 mg Tablet PO (21:17)
[2024-10-11] MEDS: sertraline 50 mg Tablet PO (21:17)
[2024-10-11] MEDS: nystatin powder 15 gm Btl 1 APPLIC TOPICAL (23:54)
[2024-10-12] VITALS (15 sets, daily range): BP systolic 124–141; BP diastolic 60–95; PULSE 77–101; RESP 14–28; TEMP 36.7–36.8; O2SAT 94–97
[2024-10-12] MEDS: ondansetron 2 mg/ML SDV 2 mL 4 MG IVP ×3 (03:32→20:02)
[2024-10-12] MEDS: pantoprazole DR 40 mg Tablet PO ×2 (05:41→17:31)
[2024-10-12 05:44] LABS: Hematocrit 28.7 % (36-47); Lymphocytes # 0.5 10^3/uL (0.8-4.8); Lymphocytes % 13.9 %; Mean Corpuscular HGB Conc 27.5 g/dL (30-55); Mean Corpuscular Hemoglobin 21.6 pg (27-33); Mean Corpuscular Volume 78.4 fl (85-98); Mean Platelet Volume 9.6 fL (7.4-10.4); Monocytes # 0.2 10^3/uL (0.2-0.9); Monocytes % 5.4 %; Neutrophils # 2.94 10^3/uL (1.8-7.7); Neutrophils % 78.8 %; Nucleated Red Blood Cells % 0.5 %; Platelet Count 329 10^3/cmm (157-399); Red Blood Count 3.66 10^6/uL (3.85-5.65); Red Cell Distribution Width 21.8 % (12.1-15.1); White Blood Count 3.73 10^3/uL (3.29-11.43)
[2024-10-12 06:02] LABS: Anion Gap 12.7 (5-19); Blood Urea Nitrogen 18 mg/dL (8-23); Calcium 6.8 mg/dL (8.5-10.5); Carbon Dioxide 35 mmol/L (22-29); Chloride 104 mmol/L (98-107); Creatinine Clr Calc Pharmacy 59.2916; Glomerular Filtration Rate 40.7 mL/min (90-130); Glucose 110 mg/dL (65-115); Osmolality Calculated 311 mOsm/kg (285-295); Sodium 149 mmol/L (136-145)
[2024-10-12 06:21] LABS: Potassium 2.7 mmol/L (3.5-5.1)
[2024-10-12] MEDS: potassium chloride ER 20 mEq Tablet 40 MEQ PO ×2 (06:31→14:43)
[2024-10-12] MEDS: lidocaine 1% 5 ML in potassium chloride premix 100 ML 50 ML IV (07:05)
[2024-10-12] MEDS: potassium chloride ER 20 mEq Tablet PO ×2 (08:05→17:31)
[2024-10-12] MEDS: calcium carbonate 500 mg Chew Tablet 200 MG PO (08:05)
[2024-10-12] MEDS: doxycycline 100 mg Tablet PO ×2 (08:06→17:31)
[2024-10-12] MEDS: oseltamivir phosphate 30 mg Capsule PO ×2 (08:06→17:31)
[2024-10-12] MEDS: gabapentin 300 mg Capsule PO ×2 (08:06→17:31)
[2024-10-12] MEDS: bumetanide 1 mg Tablet 2 MG PO (08:06)
[2024-10-12] MEDS: amiodarone 200 mg Tablet PO (08:06)
[2024-10-12] MEDS: ropinirole 2 mg Tablet PO ×2 (08:06→17:31)
[2024-10-12] MEDS: dexamethasone 4 mg Tablet PO (08:06)
[2024-10-12] MEDS: ferrous sulfate EC 325 mg Tablet PO (08:06)
[2024-10-12] MEDS: diclofenac 1% Topical Gel 100 gm 1 APPLIC TOPICAL (08:07)
[2024-10-12] MEDS: iron sucrose 300 MG in sodium chloride 0.9% (100 ml) 100 ML 200 MG IV (09:00)
[2024-10-12] MEDS: HYDROcodone-acetaminophen 10-325 mg Tablet PO ×2 (09:14→17:31)
--- NOTE | 2024-10-12 13:26 | PC.SOCIAL ---
IMM Updated Updated pt's family on IMM. No questions voiced. Provided pt a copy. Initialed, dated, & timed a copy & placed in chart.
[2024-10-12 14:08] LABS: Eosinophils % 0.2 %; Lymphocytes # 0.5 10^3/uL (0.8-4.8); Mean Corpuscular HGB Conc 27.3 g/dL (30-55); Mean Corpuscular Hemoglobin 21.5 pg (27-33); Mean Corpuscular Volume 78.5 fl (85-98); Mean Platelet Volume 9.2 fL (7.4-10.4); Monocytes # 0.3 10^3/uL (0.2-0.9); Monocytes % 5.6 %; Neutrophils # 3.68 10^3/uL (1.8-7.7); Neutrophils % 82.5 %; Nucleated Red Blood Cells % 0.7 %; Platelet Count 335 10^3/cmm (157-399); Red Blood Count 3.82 10^6/uL (3.85-5.65); Red Cell Distribution Width 22.5 % (12.1-15.1); White Blood Count 4.46 10^3/uL (3.29-11.43)
[2024-10-12 14:31] LABS: Anion Gap 14.8 (5-19); Blood Urea Nitrogen 18 mg/dL (8-23); Calcium 7.1 mg/dL (8.5-10.5); Carbon Dioxide 35 mmol/L (22-29); Chloride 102 mmol/L (98-107); Creatinine Clr Calc Pharmacy 59.2916; Glomerular Filtration Rate 40.7 mL/min (90-130); Glucose 133 mg/dL (65-115); Osmolality Calculated 312 mOsm/kg (285-295); Sodium 149 mmol/L (136-145)
[2024-10-12 14:32] LABS: Potassium 2.8 mmol/L (3.5-5.1)
[2024-10-12] MEDS: sucralfate 1 gm/10 mL Oral Liq UDC PO (17:31)
[2024-10-12] MEDS: sertraline 50 mg Tablet PO (19:58)
[2024-10-12] MEDS: quetiapine 25 mg Tablet 12.5 MG PO (19:58)
[2024-10-12] MEDS: atorvastatin 40 mg Tablet PO (19:59)
[2024-10-13] VITALS (17 sets, daily range): BP systolic 110–129; BP diastolic 58–80; PULSE 79–101; RESP 16–20; TEMP 36.5–37.4; O2SAT 93–98
[2024-10-13 03:54] LABS: C.Diff PCR (Lab) NEGATIVE (Negative)
[2024-10-13 05:00] LABS: Eosinophils % 0.3 %; Hematocrit 28.4 % (36-47); Lymphocytes # 0.9 10^3/uL (0.8-4.8); Lymphocytes % 11.8 %; Mean Corpuscular HGB Conc 27.1 g/dL (30-55); Mean Corpuscular Hemoglobin 21.4 pg (27-33); Mean Corpuscular Volume 78.9 fl (85-98); Mean Platelet Volume 9.2 fL (7.4-10.4); Monocytes # 0.5 10^3/uL (0.2-0.9); Monocytes % 7.4 %; Neutrophils # 5.75 10^3/uL (1.8-7.7); Neutrophils % 79.8 %; Nucleated Red Blood Cells % 0.4 %; Platelet Count 294 10^3/cmm (157-399); Red Cell Distribution Width 22.8 % (12.1-15.1)
[2024-10-13 05:19] LABS: Blood Urea Nitrogen 20 mg/dL (8-23); Calcium 7.1 mg/dL (8.5-10.5); Carbon Dioxide 36 mmol/L (22-29); Chloride 103 mmol/L (98-107); Creatinine Clr Calc Pharmacy 54.5717; Glomerular Filtration Rate 37.4 mL/min (90-130); Glucose 107 mg/dL (65-115); Osmolality Calculated 307 mOsm/kg (285-295); Sodium 147 mmol/L (136-145)
[2024-10-13] MEDS: sucralfate 1 gm/10 mL Oral Liq UDC PO ×2 (05:19→17:34)
[2024-10-13] MEDS: pantoprazole DR 40 mg Tablet PO ×2 (05:19→17:33)
[2024-10-13 05:20] LABS: Anion Gap 10.9 (5-19)
[2024-10-13 05:23] LABS: Potassium 2.9 mmol/L (3.5-5.1)
[2024-10-13] MEDS: potassium chloride ER 20 mEq Tablet 40 MEQ PO (06:18)
[2024-10-13] MEDS: oseltamivir phosphate 30 mg Capsule PO ×2 (08:45→17:33)
[2024-10-13] MEDS: amiodarone 200 mg Tablet PO (08:45)
[2024-10-13] MEDS: potassium chloride ER 20 mEq Tablet PO ×2 (08:45→17:33)
[2024-10-13] MEDS: gabapentin 300 mg Capsule PO ×2 (08:45→17:33)
[2024-10-13] MEDS: ferrous sulfate EC 325 mg Tablet PO (08:45)
[2024-10-13] MEDS: doxycycline 100 mg Tablet PO ×2 (08:45→17:34)
[2024-10-13] MEDS: dexamethasone 4 mg Tablet PO (08:46)
[2024-10-13] MEDS: ropinirole 2 mg Tablet PO ×2 (08:46→17:33)
[2024-10-13] MEDS: calcium carbonate 500 mg Chew Tablet 200 MG PO (08:46)
[2024-10-13] MEDS: ondansetron 2 mg/ML SDV 2 mL 4 MG IVP (10:04)
[2024-10-13] MEDS: HYDROcodone-acetaminophen 10-325 mg Tablet PO ×2 (12:31→17:34)
[2024-10-13 13:51] LABS: NT Pro B Type Natriuretic Pept 9120 pg/mL (0-125)
--- NOTE | 2024-10-13 15:32 | P.PN_ITS ---
Subjective 2 Subjective: Patient was seen this morning, she reports fatigue, malaise, no fevers, no chills does have a cough, does complain of shortness of breath, no bloody black stools reported does report diarrhea, her C. difficile was negative Vitals/I&O/Wt Last Vital Signs Temp 99.0 F 10/13/24 12:46 Pulse 95 10/13/24 15:01 Resp 16 10/13/24 15:01 BP 119/80 10/13/24 15:01 Pulse Ox 96 10/13/24 15:01 O2 Del Method Nasal Cannula 10/13/24 11:21 O2 Flow Rate 4 10/13/24 08:00 FiO2 40 10/11/24 23:44 10/13/24 10/13/24 10/13/24 06:59 14:59 22:59 Intake Total 260 / 958 240 / 240 Output Total 250 / 3300 Balance 2342 240 / 240 Weight last 48 hrs Weight 139.207 kg Weight 141.203 kg Physical Exam 2 Const: COMMON NORMALS: no acute distress and patient oriented x3 Resp: COMMON NORMALS: normal respiratory effort, No retractions, No use of accessory muscles and clear to auscultation bilaterally AUSCULTATION: clear to auscultation bilaterally Cardio: COMMON NORMALS: regular rate, regular rhythm, S1 normal heart sound present and S2 normal heart sound present RATE: regular rate RHYTHM: r egular rhythm HEART SOUNDS: S1 normal heart sound present and S2 normal heart sound present GI: COMMON NORMALS: Normal to inspection, nondistended, normoactive bowel sounds present and non-tender Extremity: COMMON NORMALS: no pedal edema Neuro: COMMON NORMALS: patient oriented x3 Psych: COMMON NORMALS: mental status grossly normal Urinary Catheter Management: Haile: Cath Placed During This Visit: yes Reason for Continuing Indwelling Catheter: Acute Urinary Retention or Obstruction Urinary Catheter Date of Insertion: 10/10/24 Data 10/13/24 04:48 10/13/24 04:48 A&P Assessment and plan (1) Symptomatic anemia: - Has a history of symptomatic anemia, Hemoccult positive stools in the past -Has declined interventions, has declined EGDs and colonoscopies -She has a history of atrial fibrillation is on Eliquis, has a history of DVTs -Currently Eliquis is on hold -She is status post 2 units PRBC, currently receiving third unit -Monitor hemoglobin -Monitor hemodynamics -Appears to be fluid overloaded 1 dose Bumex 2 mg IV push (2) Iron deficiency anemia: As above iron level 11 And percent sat 5.3% (3) Atrial fibrillation with controlled ventricular response: - Eliquis is on hold (4) Influenza A: Oseltamavir 30 mg twice a day for 5 days based on renal function (5) Hypokalemia due to loss of potassium: Replace potassium (6) CKD (chronic kidney disease) stage 4, GFR 15-29 ml/min: Follow renal function (7) CHF (congestive heart failure), NYHA class III: Qualifiers: Congestive heart failure type: diastolic Congestive heart failure chronicity: chronic Qualified Code(s): I50.32 - Chronic diastolic (congestive) heart failure (8) CHF exacerbation: - 1 dialysis IV Bumex 2 mg IV push -Further doses based on clinical progress -Monitor urine output, monitor creatinine Plan Hypernatremia likely secondary to fluid overload, 1 dose IV Bumex PDMP PDMP Reviewed: Not Reviewed Attestations 2 Medical Necessity Statement*: Patient requires hospitalization for CHF exacerbation, influenza A, symptomatic anemia Diagnoses Symptomatic anemia D64.9 Iron deficiency anemia D50.9 Atrial fibrillation with controlled ventricular response I48.91 Influenza A J10.1 Hypokalemia due to loss of potassium E87.6 CKD (chronic kidney disease) stage 4, GFR 15-29 ml/min N18.4 Chronic diastolic congestive heart failure, NYHA class 3 I50.32 Congestive heart failure type: diastolic Congestive heart failure chronicity: chronic CHF exacerbation I50.9
[2024-10-13] MEDS: loperamide 2 mg Capsule 4 MG PO ×2 (15:42→21:51)
[2024-10-13] MEDS: bumetanide 0.25 mg/mL SDV 10 mL 2 MG IVP (17:34)
[2024-10-13 19:13] LABS: Eosinophils % 0.3 %; Hematocrit 32.2 % (36-47); Lymphocytes # 0.7 10^3/uL (0.8-4.8); Lymphocytes % 7.3 %; Mean Corpuscular Hemoglobin 22.4 pg (27-33); Mean Corpuscular Volume 80.1 fl (85-98); Mean Platelet Volume 9.2 fL (7.4-10.4); Monocytes # 0.5 10^3/uL (0.2-0.9); Monocytes % 5.6 %; Neutrophils # 7.62 10^3/uL (1.8-7.7); Neutrophils % 86.1 %; Nucleated Red Blood Cells % 0.3 %; Platelet Count 327 10^3/cmm (157-399); Red Blood Count 4.02 10^6/uL (3.85-5.65); Red Cell Distribution Width 22.7 % (12.1-15.1); White Blood Count 8.86 10^3/uL (3.29-11.43)
[2024-10-13] MEDS: sertraline 50 mg Tablet PO (21:51)
[2024-10-13] MEDS: quetiapine 25 mg Tablet 12.5 MG PO (21:51)
[2024-10-13] MEDS: atorvastatin 40 mg Tablet PO (21:51)
[2024-10-14] VITALS (9 sets, daily range): BP systolic 92–137; BP diastolic 61–77; PULSE 76–96; RESP 16–24; TEMP 36.6–36.9; O2SAT 94–98
[2024-10-14 05:23] LABS: Eosinophils % 0.1 %; Hematocrit 32.4 % (36-47); Lymphocytes % 11.3 %; Mean Corpuscular HGB Conc 28.1 g/dL (30-55); Mean Corpuscular Hemoglobin 22.5 pg (27-33); Mean Platelet Volume 9.7 fL (7.4-10.4); Monocytes # 0.7 10^3/uL (0.2-0.9); Monocytes % 7.4 %; Neutrophils % 80.4 %; Nucleated Red Blood Cells % 0.2 %; Platelet Count 312 10^3/cmm (157-399); Red Blood Count 4.05 10^6/uL (3.85-5.65); White Blood Count 8.83 10^3/uL (3.29-11.43)
[2024-10-14 05:47] LABS: Alanine Aminotransferase 19 U/L (0-33); Albumin Level 2.6 g/dL (3.5-5.2); Alkaline Phosphatase 77 U/L (35-105); Anion Gap 11.6 (5-19); Aspartate Amino Transferase 21 U/L (0-32); Blood Urea Nitrogen 20 mg/dL (8-23); Calcium 7.3 mg/dL (8.5-10.5); Carbon Dioxide 37 mmol/L (22-29); Chloride 102 mmol/L (98-107); Creatinine Clr Calc Pharmacy 58.7695; Glomerular Filtration Rate 40.7 mL/min (90-130); Glucose 94 mg/dL (65-115); Osmolality Calculated 308 mOsm/kg (285-295); Sodium 148 mmol/L (136-145); Total Protein 5.6 g/dL (6.6-8.7)
[2024-10-14 05:59] LABS: Potassium 2.6 mmol/L (3.5-5.1)
[2024-10-14] MEDS: pantoprazole DR 40 mg Tablet PO ×2 (06:08→18:01)
[2024-10-14] MEDS: sucralfate 1 gm/10 mL Oral Liq UDC PO ×2 (06:08→18:00)
[2024-10-14 06:50] LABS: NT Pro B Type Natriuretic Pept 8861 pg/mL (0-125)
[2024-10-14 07:23] LABS: Bacillus cereus group Not Detected (NOT DETECT); Bacillus subtillis group Not Detected (NOT DETECT); Corynebacterium Not Detected (NOT DETECT); Cutibacterium acnes (P.acnes) Not Detected (NOT DETECT); Enterococcus Not Detected (NOT DETECT); Enterococcus faecalis Not Detected (NOT DETECT); Enterococcus faecium Not Detected (NOT DETECT); Lactobacillus species Not Detected (NOT DETECT); Listeria Not Detected (NOT DETECT); Listeria monocytogenes Not Detected (NOT DETECT); Micrococcus Not Detected (NOT DETECT); Pan Candida Not Detected (NOT DETECT); Pan Gram-Negative Not Detected (NOT DETECT); Staphylococcus lugdunensis Not Detected (NOT DETECT); Staphylococcus species Detected (NOT DETECT); Streptococcus agalactiae Not Detected (NOT DETECT); Streptococcus anginosus group Not Detected (NOT DETECT); Streptococcus pneumoniae Not Detected (NOT DETECT); Streptococcus pyogenes Not Detected (NOT DETECT); Streptococcus species Not Detected (NOT DETECT); mecA Not Detected (NOT DETECT); mecC Not Detected (NOT DETECT)
[2024-10-14 08:19] LABS: Staphylococcus epidermidis Detected (NOT DETECT)
[2024-10-14] MEDS: oseltamivir phosphate 30 mg Capsule PO ×2 (08:58→18:01)
[2024-10-14] MEDS: ferrous sulfate EC 325 mg Tablet PO (08:58)
[2024-10-14] MEDS: loperamide 2 mg Capsule 4 MG PO ×2 (08:59→21:07)
[2024-10-14] MEDS: calcium carbonate 500 mg Chew Tablet 200 MG PO (08:59)
[2024-10-14] MEDS: amiodarone 200 mg Tablet PO (08:59)
[2024-10-14] MEDS: doxycycline 100 mg Tablet PO ×2 (09:01→18:01)
[2024-10-14] MEDS: gabapentin 300 mg Capsule PO ×2 (09:01→18:01)
[2024-10-14] MEDS: dexamethasone 4 mg Tablet PO (09:01)
[2024-10-14] MEDS: ropinirole 2 mg Tablet PO ×2 (09:01→18:00)
[2024-10-14] MEDS: potassium chloride ER 20 mEq Tablet PO ×2 (09:02→18:01)
[2024-10-14] MEDS: albuterol 2.5 mg/3 mL Neb INHALATION (09:44)
[2024-10-14] MEDS: potassium chloride ER 20 mEq Tablet 40 MEQ PO (10:07)
--- NOTE | 2024-10-14 10:11 | PC.SOCIAL ---
IMM Updated Updated pt on IMM. No questions voiced. Provided pt a copy. Initialed, dated, & timed copy in chart.
--- NOTE | 2024-10-14 16:53 | P.PN_ITS ---
Vitals/I&O/Wt Last Vital Signs Temp 98.5 F 10/14/24 12:00 Pulse 76 10/14/24 12:00 Resp 20 H 10/14/24 12:00 BP 118/74 10/14/24 12:00 Pulse Ox 96 10/14/24 12:00 O2 Del Method Nasal Cannula 10/14/24 12:00 O2 Flow Rate 3 10/14/24 12:00 FiO2 40 10/11/24 23:44 10/14/24 10/14/24 10/14/24 06:59 14:59 22:59 Intake Total 100 / 1250 240 / 240 Output Total 200 / 1900 Balance -100 / -650 240 / 240 Weight last 48 hrs Weight 139.207 kg Weight 139.207 kg Physical Exam 2 Const: COMMON NORMALS: no acute distress and patient oriented x3 Resp: COMMON NORMALS: normal respiratory effort, No retractions, No use of accessory muscles and clear to auscultation bilaterally AUSCULTATION: clear to auscultation bilaterally Cardio: COMMON NORMALS: regular rate, regular rhythm, S1 normal heart sound present and S2 normal heart sound present RATE: regular rate RHYTHM: r egular rhythm HEART SOUNDS: S1 normal heart sound present and S2 normal heart sound present GI: COMMON NORMALS: Normal to inspection, nondistended, normoactive bowel sounds present and non-tender Neuro: COMMON NORMALS: patient oriented x3 Psych: COMMON NORMALS: mental status grossly normal Urinary Catheter Management: Haile: Cath Placed During This Visit: yes Reason for Continuing Indwelling Catheter: Accurate Measurement of Urinary Output in Critically Ill Patients Urinary Catheter Date of Insertion: 10/10/24 Data 10/14/24 04:39 10/14/24 04:39 Micro: Microbiology 10/10/24 12:31 Blood Culture - Preliminary Blood Staphylococcus epidermidis A&P Assessment and plan (1) Symptomatic anemia: - Has a history of symptomatic anemia, Hemoccult positive stools in the past -Has declined interventions, has declined EGDs and colonoscopies -She has a history of atrial fibrillation is on Eliquis, has a history of DVTs -Currently Eliquis is on hold -She is status post 3 units PRBC, hemoglobin 9.1 -Monitor hemoglobin -Monitor hemodynamics -Bumex 1 mg twice daily (2) Iron deficiency anemia: As above iron level 11 And percent sat 5.3% (3) Atrial fibrillation with controlled ventricular response: - Eliquis is on hold (4) Influenza A: Oseltamavir 30 mg twice a day for 5 days based on renal function (5) Hypokalemia due to loss of potassium: Replace potassium (6) CKD (chronic kidney disease) stage 4, GFR 15-29 ml/min: Follow renal function (7) CHF (congestive heart failure), NYHA class III: Qualifiers: Congestive heart failure type: diastolic Congestive heart failure chronicity: chronic Qualified Code(s): I50.32 - Chronic diastolic (congestive) heart failure (8) CHF exacerbation: -Bumex 1 mg twice daily -Further doses based on clinical progress -Monitor urine output, monitor creatinine Plan Hypernatremia likely secondary to fluid overload, continue Bumex monitor creatinine monitor potassium replace potassium PDMP PDMP Reviewed: Not Reviewed Attestations 2 Medical Necessity Statement*: Patient requires hospitalization for CHF exacerbation requiring IV diuresis, acute anemia Diagnoses Symptomatic anemia D64.9 Iron deficiency anemia D50.9 Atrial fibrillation with controlled ventricular response I48.91 Influenza A J10.1 Hypokalemia due to loss of potassium E87.6 CKD (chronic kidney disease) stage 4, GFR 15-29 ml/min N18.4 Chronic diastolic congestive heart failure, NYHA class 3 I50.32 Congestive heart failure type: diastolic Congestive heart failure chronicity: chronic CHF exacerbation I50.9
[2024-10-14] MEDS: bumetanide 1 mg Tablet PO (18:00)
[2024-10-14] MEDS: guaiFENesin 100 mg/5 mL UDC 10 mL 200 MG PO (18:00)
[2024-10-14 19:12] LABS: Anion Gap 11.9 (5-19); Blood Urea Nitrogen 22 mg/dL (8-23); Calcium 7.4 mg/dL (8.5-10.5); Carbon Dioxide 36 mmol/L (22-29); Chloride 104 mmol/L (98-107); Creatinine Clr Calc Pharmacy 58.7695; Glomerular Filtration Rate 40.7 mL/min (90-130); Glucose 119 mg/dL (65-115); Osmolality Calculated 312 mOsm/kg (285-295); Sodium 149 mmol/L (136-145)
[2024-10-14 19:14] LABS: Potassium 2.9 mmol/L (3.5-5.1)
[2024-10-14] MEDS: atorvastatin 40 mg Tablet PO (21:07)
[2024-10-14] MEDS: sertraline 50 mg Tablet PO (21:07)
[2024-10-14] MEDS: quetiapine 25 mg Tablet 12.5 MG PO (21:07)
[2024-10-14] MEDS: lidocaine 1% 5 ML in potassium chloride premix 100 ML 25 ML IV (23:55)
[2024-10-15] VITALS (7 sets, daily range): BP systolic 101–136; BP diastolic 56–74; PULSE 41–97; RESP 15–18; TEMP 36.2–36.8; O2SAT 91–98
[2024-10-15] MEDS: guaiFENesin 100 mg/5 mL UDC 10 mL 200 MG PO (02:56)
[2024-10-15] MEDS: HYDROcodone-acetaminophen 10-325 mg Tablet PO (02:56)
[2024-10-15] MEDS: lidocaine 1% 5 ML in potassium chloride premix 100 ML 25 ML IV (03:58)
[2024-10-15 05:34] LABS: Basophils % 0.1 %; Hematocrit 34.1 % (36-47); Lymphocytes # 1.1 10^3/uL (0.8-4.8); Lymphocytes % 8.5 %; Mean Corpuscular HGB Conc 27.9 g/dL (30-55); Mean Corpuscular Hemoglobin 22.3 pg (27-33); Mean Platelet Volume 9.3 fL (7.4-10.4); Monocytes # 0.9 10^3/uL (0.2-0.9); Monocytes % 6.9 %; Neutrophils # 10.63 10^3/uL (1.8-7.7); Nucleated Red Blood Cells % 0.2 %; Platelet Count 274 10^3/cmm (157-399); Red Blood Count 4.26 10^6/uL (3.85-5.65); White Blood Count 12.65 10^3/uL (3.29-11.43)
[2024-10-15] MEDS: loperamide 2 mg Capsule 4 MG PO (05:46)
[2024-10-15] MEDS: sucralfate 1 gm/10 mL Oral Liq UDC PO (05:46)
[2024-10-15] MEDS: pantoprazole DR 40 mg Tablet PO (05:46)
[2024-10-15 05:58] LABS: Alanine Aminotransferase 17 U/L (0-33); Albumin Level 2.6 g/dL (3.5-5.2); Alkaline Phosphatase 72 U/L (35-105); Anion Gap 12.9 (5-19); Aspartate Amino Transferase 17 U/L (0-32); Blood Urea Nitrogen 21 mg/dL (8-23); Calcium 7.4 mg/dL (8.5-10.5); Carbon Dioxide 33 mmol/L (22-29); Chloride 103 mmol/L (98-107); Creatinine Clr Calc Pharmacy 54.2084; Glomerular Filtration Rate 37.4 mL/min (90-130); Glucose 113 mg/dL (65-115); Osmolality Calculated 306 mOsm/kg (285-295); Sodium 146 mmol/L (136-145); Total Bilirubin 1.1 mg/dL (0.15-1.2); Total Protein 5.6 g/dL (6.6-8.7)
[2024-10-15 06:02] LABS: NT Pro B Type Natriuretic Pept 7574 pg/mL (0-125); Potassium 2.9 mmol/L (3.5-5.1)
[2024-10-15] MEDS: bumetanide 1 mg Tablet PO (09:10)
[2024-10-15] MEDS: amiodarone 200 mg Tablet PO (09:10)
[2024-10-15] MEDS: ferrous sulfate EC 325 mg Tablet PO (09:10)
[2024-10-15] MEDS: doxycycline 100 mg Tablet PO (09:10)
[2024-10-15] MEDS: gabapentin 300 mg Capsule PO (09:10)
[2024-10-15] MEDS: ropinirole 2 mg Tablet PO (09:10)
[2024-10-15] MEDS: potassium chloride ER 20 mEq Tablet PO ×2 (09:10)
[2024-10-15] MEDS: oseltamivir phosphate 30 mg Capsule PO (09:10)
[2024-10-15] MEDS: dexamethasone 4 mg Tablet 2 MG PO (09:11)
[2024-10-15] MEDS: calcium carbonate 500 mg Chew Tablet 200 MG PO (09:12)
[2024-10-15 11:03] LABS: Glucose Point of Care 82 mg/dL (70-110)
[2024-10-15] MEDS: albuterol 2.5 mg/3 mL Neb INHALATION (11:21)
[2024-10-15] MEDS: amoxicillin-clav 875-125 mg Tablet 1 TAB PO (11:43)
[2024-10-15 12:02] LABS: Ferritin 252 ng/mL (15-150)
--- NOTE | 2024-10-15 12:04 | PM.DCS ---
Discharge Providers Date of Admission: 10/10/24 14:28 Date of Discharge: October 15, 2024 Attending Provider at Admission: Janak Kim MD Attending Provider at Discharge: Joaquín Manzanares MD Primary Care Provider: Sameer Yang DO Diagnoses at Discharge Discharge Diagnosis (1) Symptomatic anemia: Status: Acute (2) Iron deficiency anemia: Status: Acute (3) Atrial fibrillation with controlled ventricular response: Status: Acute (4) Influenza A: Status: Acute (5) Hypokalemia due to loss of potassium: Status: Acute (6) CKD (chronic kidney disease) stage 4, GFR 15-29 ml/min: Status: Acute (7) CHF (congestive heart failure), NYHA class III: Status: Acute Qualifiers: Congestive heart failure chronicity: chronic Congestive heart failure type: diastolic Qualified Code(s): I50.32 - Chronic diastolic (congestive) heart failure (8) CHF exacerbation: Status: Acute Reason for Visit Reason for Visit: sob Hospital Course Hospital Course This is a 69-year-old female with a past medical history of CHF, atrial fibrillation on Eliquis, morbid obesity, restless leg syndrome, struct of sleep apnea, major depressive disorder who presents [facility] due to shortness of breath, weakness Patient was admitted to [facility] For symptomatic anemia, hemoglobin down to 5.9, with evidence of iron deficiency anemia, patient has declined EGD and colonoscopy. Patient was managed as inpatient, received 3 units PRBC, IV Venofer, overall clinically improved For her atrial fibrillation, her anticoagulant therapy was held throughout the hospitalization, discussed risk and benefits, risks including but not limited to risk of CVA. But given her acute anemia requiring 3 units PRBC and her not wishing to pursue any further workup for her acute anemia such as EGD and colonoscopy, placing her back on Eliquis would carry significant morbidity mortality including but limited to worsening anemia, GI bleed, hemorrhagic shock. After discussing risk benefits, she was understanding, all questions answered, agreed to hold Eliquis until she follows up with hematology oncology She also was found to have influenza A during hospitalization, managed with Tamiflu There was also concern for pneumonia during hospitalization, received antibiotic therapy For her hypokalemia, received p.o. and IV replacement of potassium There was also concerns for acute fluid overload, systolic CHF exacerbation requiring IV diuresis, will be discharged on Bumex 1 mg twice daily with potassium replacement therapy For her hypernatremia likely secondary to fluid overload, monitored as inpatient improved with IV diuresis. Continue Bumex 1 mg twice daily For atrial fibrillation, not in exacerbation, please follow-up with cardiology as outpatient Physical Exam Const: COMMON NORMALS: no acute distress and patient oriented x3 Resp: COMMON NORMALS: normal respiratory effort, No retractions, No use of accessory muscles and clear to auscultation bilaterally AUSCULTATION: clear to auscultation bilaterally Cardio: COMMON NORMALS: regular rate, regular rhythm, S1 normal heart sound present and S2 normal heart sound present RATE: regular rate RHYTHM: regular rhythm HEART SOUNDS: S1 normal heart sound present and S2 normal heart sound present GI: COMMON NORMALS: Normal to inspection, nondistended, normoactive bowel sounds present and non-tender Extremity: COMMON NORMALS: no pedal edema Neuro: COMMON NORMALS: patient oriented x3 Psych: COMMON NORMALS: mental status grossly normal Skin: NARRATIVE SKIN EXAM: DTI present, inner thigh Urinary Catheter Management: Haile: Cath Placed During This Visit: yes Reason for Continuing Indwelling Catheter: Assist Healing of Perineal & Sacral Wounds- Incontinent Patients Urinary Catheter Date of Insertion: 10/10/24 Discharge Data Studies Completed and Pending Completed Studies During Hospitalization Category Date Time Status CT abdomen pelvis wo con [id number] Stat Cat Scan 10/10/24 13:07 Completed XR chest 1V portable [id number] Stat Exams 10/10/24 12:28 Completed Pending at discharge Category Date Time Status Blood Culture Stat Lab 10/10/24 12:48 Results Blood Culture Stat Lab 10/14/24 18:35 Results Complete Blood Count w/Auto AM LABS Lab 10/16/24 04:00 Ordered Comprehensive Metabolic Panel AM LABS Lab 10/16/24 04:00 Ordered Ferritin Routine Lab 10/15/24 05:20 Received NT Pro B Type Natriuretic Pept QAM Lab 10/16/24 06:00 Ordered SARS Covid-2 Antigen Stat Lab 10/15/24 11:10 Uncollected Radiology Impressions Chest X-Ray 10/10/24 12:28 IMPRESSION: Interval appearance of bibasilar airspace opacities. Abdomen/Pelvis CT 10/10/24 13:07 IMPRESSION: 1. Bilateral lower lobe airspace consolidation, new compared with the prior study. 2. Multiple complex ventral hernias containing multiple bowel loops but without evidence of acute complication or bowel obstruction. 3. Interval appearance of skin thickening and subcutaneous fat infiltration of the lower anterior abdominal wall suggesting possible cellulitis; clinical correlation recommended. 4. Distended gallbladder containing calculi; if there is clinical concern for cholecystitis ultrasound recommended further assessment. 5. Minor findings noted above. Laboratory Results WBC 12.65 10^3/uL (3.29-11.43) H 10/15/24 05:20 RBC 4.26 10^6/uL (3.85-5.65) 10/15/24 05:20 Hgb 9.50 g/dL (11.27-16.99) L 10/15/24 05:20 Hct 34.1 % (36-47) L 10/15/24 05:20 MCV 80.0 fl (85-98) L 10/15/24 05:20 MCH 22.3 pg (27-33) L 10/15/24 05:20 MCHC 27.9 g/dL (30-55) L 10/15/24 05:20 RDW 24.0 % (12.1-15.1) H 10/15/24 05:20 Plt Count 274 10^3/cmm (157-399) 10/15/24 05:20 MPV 9.3 fL (7.4-10.4) 10/15/24 05:20 Neut % (Auto) 84.0 % 10/15/24 05:20 Lymph % (Auto) 8.5 % 10/15/24 05:20 Meade % (Auto) 6.9 % 10/15/24 05:20 Eos % (Auto) 0.0 % 10/15/24 05:20 Baso % (Auto) 0.1 % 10/15/24 05:20 Neut # (Auto) 10.63 10^3/uL (1.8-7.7) H 10/15/24 05:20 Lymph # (Auto) 1.1 10^3/uL (0.8-4.8) 10/15/24 05:20 [place]ade # (Auto) 0.9 10^3/uL (0.2-0.9) 10/15/24 05:20 Eos # (Auto) 0.0 10^3/uL (0.0-0.8) 10/15/24 05:20 Baso # (Auto) 0.0 10^3/uL (0.0-0.1) 10/15/24 05:20 Nucleated RBC % (auto) 0.2 % 10/15/24 05:20 Nucleated RBCs # 0.0 /100WBC 10/15/24 05:20 D-Dimer 1.20 ug/mLFEU (0-0.59) H 10/10/24 12:31 Specimen Type Arterial 10/10/24 12:09 Sample Site Radial, left 10/10/24 12:09 ABG pH 7.41 (7.35-7.45) 10/10/24 12:09 ABG pCO2 58.2 mmHg (35-45) H 10/10/24 12:09 ABG pO2 70.5 mmHg (80.0-100.0) L 10/10/24 12:09 ABG HCO3 36.7 mmol/L (22-26) H 10/10/24 12:09 ABG O2 Saturation 94.1 10/10/24 12:09 ABG Base Excess 11.0 mmol/L (-2.0-2.0) H 10/10/24 12:09 James Test Pos 10/10/24 12:09 A-a O2 Gradient 0.9 mmHg (5-10) L 10/10/24 12:09 Hematocrit 18.0 % (37-47) L 10/10/24 12:09 Hgb O2 Saturation 91.8 % (95-100) L 10/10/24 12:09 Carboxyhemoglobin 1.7 %THgb (0.4-20.1) 10/10/24 12:09 Methemoglobin 0.7 % (0.4-1.5) 10/10/24 12:09 Total Hemoglobin 5.9 g/dL (12-16) L 10/10/24 12:09 Sodium 145.0 mmol/L (131-143) H 10/10/24 12:09 Potassium 2.2 mmol/L (3.5-5.0) L 10/10/24 12:09 Glucose 109.0 mg/dL (70-115) 10/10/24 12:09 Ionized Calcium 1.0 mmol/L (1.1-1.4) L 10/10/24 12:09 O2 Delivery Device Nc 10/10/24 12:09 O2 Liters/Min 5.0 % 10/10/24 12:09 Lvn ID Walci 10/10/24 12:09 Sodium 146 mmol/L (136-145) H 10/15/24 05:20 Potassium 2.9 mmol/L (3.5-5.1) L 10/15/24 05:20 Chloride 103 mmol/L (98-107) 10/15/24 05:20 Carbon Dioxide 33 mmol/L (22-29) H 10/15/24 05:20 Anion Gap 12.9 (5-19) 10/15/24 05:20 BUN 21 mg/dL (8-23) 10/15/24 05:20 Creatinine 1.4 mg/dL (0.5-0.9) H 10/15/24 05:20 GFR Calculation 37.4 mL/min (90-130) L 10/15/24 05:20 Glucose 113 mg/dL (65-115) 10/15/24 05:20 POC Glucose 82 mg/dL (70-110) 10/15/24 10:42 Calculated Osmolality 306 mOsm/kg (285-295) H 10/15/24 05:20 Lactic Acid 1.4 mmol/L (0.5-2.2) 10/10/24 12:31 Calcium 7.4 mg/dL (8.5-10.5) L 10/15/24 05:20 Phosphorus 3.0 mg/dL (2.5-4.5) 10/10/24 12:31 Magnesium 2.0 mg/dL (1.7-2.3) 10/10/24 12:31 Iron 11 ug/dL (37-145) L 10/10/24 12:31 TIBC 206 mcg/dl 10/10/24 12:31 % Saturation 5.3 % (20-50) L 10/10/24 12:31 Unsat Iron Binding 195 ug/dL (112-347) 10/10/24 12:31 Total Bilirubin 1.1 mg/dL (0.15-1.2) 10/15/24 05:20 AST 17 U/L (0-32) 10/15/24 05:20 ALT 17 U/L (0-33) 10/15/24 05:20 Alkaline Phosphatase 72 U/L (35-105) 10/15/24 05:20 NT-Pro-B Natriuret Pep 7574 pg/mL (0-125) H 10/15/24 05:20 Total Protein 5.6 g/dL (6.6-8.7) L 10/15/24 05:20 Albumin 2.6 g/dL (3.5-5.2) L 10/15/24 05:20 Globulin 3.0 g/dL (1.3-4.6) 10/15/24 05:20 Urine Color Yellow (Yellow) 10/10/24 12:55 Urine Appearance Clear (CLEAR) 10/10/24 12:55 Urine pH 5.5 (5-7) 10/10/24 12:55 Ur Specific [place] 1.010 (1.005-1.030) 10/10/24 12:55 Urine Protein 1+ (Negative) A 10/10/24 12:55 Urine Glucose (UA) Negative (Normal) 10/10/24 12:55 Urine Ketones Negative (Negative) 10/10/24 12:55 Urine Blood 2+ (Negative) A 10/10/24 12:55 Urine Nitrate Negative (Negative) 10/10/24 12:55 Urine Bilirubin Negative (Negative) 10/10/24 12:55 Urine Urobilinogen 0.2 mg/dL (Negative) 10/10/24 12:55 Ur Leukocyte Esterase Negative (Negative) 10/10/24 12:55 Urine RBC 11-20 /hpf (0-2) H 10/10/24 12:55 Urine WBC 0-5 /hpf (0-5) 10/10/24 12:55 Ur Squamous Epith Cells 0-5 /hpf (0-5) 10/10/24 12:55 Amorphous Sediment Not Reportable 10/10/24 12:55 Urine Bacteria None seen /hpf (NONE) 10/10/24 12:55 Hyaline Casts 5.36 /lpf 10/10/24 12:55 C. difficile (PCR) Negative (Negative) 10/13/24 03:00 Coronavirus (PCR) Negative (Negative) 10/10/24 12:45 Influenza A (PCR) Positive (Negative) 10/10/24 12:45 Influenza Type B (PCR) Negative (Negative) 10/10/24 12:45 RSV (PCR) Negative (Negative) 10/10/24 12:45 Blood Type A Positive 10/10/24 13:09 Rho(D) Type Rh positive 10/10/24 13:09 Antibody Screen Negative 10/10/24 13:09 Crossmatch See Detail 10/10/24 13:09 Vitals Last Vital Signs Temp 97.2 F L 10/15/24 11:10 Pulse 87 10/15/24 11:34 Resp 18 10/15/24 11:10 BP 107/74 10/15/24 11:10 Pulse Ox 97 10/15/24 11:10 O2 Del Method Nasal Cannula 10/15/24 11:10 O2 Flow Rate 3 10/15/24 11:10 FiO2 40 10/11/24 23:44 Discharge Plan Discharge Patient Disposition: Xfer SNF Condition: Stable Prescriptions: New sucralfate 100 mg/mL Suspension 1 g PO Q12H 30 Days Qty: 600 0RF potassium chloride [Klor-Con M20] 20 mEq Tablet,Er Particles/Crystals 20 meq PO BID 30 Days Qty: 60 0RF dexamethasone 4 mg Tablet 2 mg PO DAILY 5 Days Qty: 3 0RF ferrous sulfate 325 mg (65 mg iron) Tablet,Delayed Release (Dr/Ec) 325 mg PO BREAKFAST 30 Days Qty: 30 0RF amoxicillin-pot clavulanate 875-125 mg Tablet 1 tab PO BID 7 Days Qty: 14 0RF oseltamivir [Tamiflu] 30 mg Capsule 30 mg PO BID 1 Days Qty: 2 0RF Continued hydrocodone-acetaminophen 7.5-325 mg tablet 1 - 2 tab PO Q4H PRN (Reason: Pain) atorvastatin 40 mg tablet 40 mg PO BEDTIME All Day Allergy (cetirizine) 10 mg capsule 10 mg PO DAILY magnesium oxide 400 mg magnesium tablet 400 mg PO BID amiodarone 200 mg tablet 200 mg PO DAILY Qty: 90 1RF cyanocobalamin (vitamin B-12) 1,000 mcg/mL solution 1,000 mcg IM Q30D gabapentin 300 mg capsule 300 mg PO BID loperamide 2 mg Tablet 4 mg PO Q4H PRN (Reason: Diarrhea) Rx Instructions: administer after each loose stool until symptoms controlled; do not exceed 8 mg per 24 hrs sertraline 50 mg Tablet 50 mg PO BEDTIME Mylanta Coat-Cool 1,200 mg-270 mg -80 mg/10 mL Suspension 30 ml PO Q4H PRN (Reason: Indigestion) quetiapine [Seroquel] 25 mg Tablet 12.5 mg PO BEDTIME acetaminophen 325 mg Tablet 350 mg PO QID PRN (Reason: Pain) Biofreeze (menthol) 4 % Gel 1 applic TOPICAL TID PRN (Reason: Pain) Gold Fish Original Strength 0.15 % Powder 1 applic TOPICAL QID PRN (Reason: redness) polyethylene glycol 3350 17 gram Powder In Packet 17 g PO DAILY PRN (Reason: Constipation) magnesium hydroxide [Milk of Magnesia] 400 mg/5 mL Suspension 30 ml PO DAILY PRN (Reason: Constipation) bisacodyl [Dulcolax (bisacodyl)] 10 mg Suppository 10 mg OR DAILY PRN (Reason: Constipation) ropinirole 2 mg Tablet 2 mg PO BID Fleet Enema 19-7 gram/118 mL Enema 118 ml OR DAILY PRN (Reason: Constipation) albuterol sulfate 2.5 mg /3 mL (0.083 %) solution for nebulization 2.5 mg inhalation Q4H PRN (Reason: wheezing/congestion) ondansetron HCl 4 mg tablet 4 mg PO Q4H PRN (Reason: Nausea) guaifenesin [Robafen] 100 mg/5 mL Liquid 200 mg PO Q4H PRN (Reason: cough/congestion) bisacodyl [Dulcolax (bisacodyl)] 10 mg Suppository 10 mg OR DAILY PRN (Reason: Constipation) calcium carbonate [Tums] 200 mg calcium (500 mg) Tablet,Chewable 200 mg PO DAILY nystatin 100,000 unit/gram Powder 1 applic TOPICAL BID PRN (Reason: Skin Irritation) Culturelle 10 billion cell Capsule 1 cap PO DAILY cholecalciferol (vitamin D3) [Vitamin D3] 50 mcg (2,000 unit) Capsule 100 mcg PO DAILY Changed bumetanide 2 mg tablet 1 mg PO BID 30 Days Qty: 30 0RF pantoprazole [Protonix] 40 mg tablet,delayed release (DR/EC) 40 mg PO BID Qty: 60 0RF Held Eliquis 5 mg tablet 5 mg PO BID Hold Instructions: Resume on 12/07/24. hold unitl you see primary care and general srugery Discontinued diltiazem HCl 120 mg Capsule,Extended Release 24 Hr 120 mg PO DAILY diclofenac sodium 1 % Gel 2 g TOPICAL DAILY doxycycline monohydrate 100 mg tablet 100 mg PO BID potassium chloride 10 mEq capsule, extended release 20 meq PO DAILY Discharge Orders: Discharge Order (Routine); Ordered 10/15/24 Ordered By: Joaquín Manzanares Referrals: [facility] [Outside] Richard Shahid MD [Physician] - 11/10/24 9:00 am Alexis Hill M.D [Physician] - 11/04/24 2:00 pm Sameer Yang DO [Primary Care Provider] - Matthew Mcneil MD [Hospitalist] - 2 weeks (We have notified your physician's clinic of the need for a follow-up appointment to be scheduled. If you have not heard from them within the next 2 business days, please call them directly. ) Discharge Diet: Cardiac Discharge Activity: Resume usual activity Patient Instructions: Opioid Safety Activity Restrictions/Additional Instructions: - Please recheck CBC in 48 hours Continue to hold Eliquis until patient sees hematology oncology- -please follow-up with hematology oncology for iron deficiency, transfusion dependent anemia -If you develop any calf pain, calf swelling, hemoptysis, shortness of breath go to emergency room -Please take antibiotics and steroids as prescribed Discharge Attestations Time Spent in Discharge Care*: greater than 30 min Quality Metrics Clinical Quality Measures [ No reported AMI, CVA or VTE this stay] Coding Level of Care Code 19627 Total time (in minutes) for Discharge: 45 Diagnoses Symptomatic anemia D64.9 Iron deficiency anemia D50.9 Atrial fibrillation with controlled ventricular response I48.91 Influenza A J10.1 Hypokalemia due to loss of potassium E87.6 CKD (chronic kidney disease) stage 4, GFR 15-29 ml/min N18.4 Chronic diastolic congestive heart failure, NYHA class 3 I50.32 Congestive heart failure chronicity: chronic Congestive heart failure type: diastolic CHF exacerbation I50.9
[2024-10-15 12:57] LABS: SARS Covid-2 Antigen Negative (Negative)
== END 2024-10-15 16:30 | disposition skilled nursing facility (03) | DRG 811 ==
LOC: ER 15:03 → ICU 15:30 → MEDSURG 10-12 08:17
PROVIDERS: Internal Medicine; Admitting Provider Internal Medicine; Emergency Provider Family Medicine; PCP Internal Medicine; Visit Provider Family Medicine
DX: D50.9 Iron deficiency anemia, unspecified (principal); I50.33 Acute on chronic diastolic (congestive) heart failure; J96.22 Acute and chronic respiratory failure with hypercapnia; J96.21 Acute and chronic respiratory failure with hypoxia; J18.9 Pneumonia, unspecified organism; N18.4 Chronic kidney disease, stage 4 (severe); Z68.43 Body mass index [BMI] 50.0-59.9, adult; F33.2 Major depressive disorder, recurrent severe without psychotic features; E87.0 Hyperosmolality and hypernatremia; J10.1 Influenza due to other identified influenza virus with other respiratory manifestations; I48.91 Unspecified atrial fibrillation; E87.6 Hypokalemia; E66.01 Morbid (severe) obesity due to excess calories; G25.81 Restless legs syndrome; G47.33 Obstructive sleep apnea (adult) (pediatric); Z79.891 Long term (current) use of opiate analgesic; Z66 Do not resuscitate; D63.1 Anemia in chronic kidney disease
CPT/HCPCS: 36415; 36416; 36430; 36569; 36592; 36600; 71045; 74176; 80048; 80051; 80053; 81001; 82330; 82728; 82805; 82962; 83540; 83550; 83605; 83735; 83880; 84100; 85014; 85018; 85025; 85378; 86850; 86900; 86920; 87040; 87077; 87150; 87186; 87205; 87426; 87493; 87637; 93005; 94640; 94660; 94664; 96365; 96366; 96367; 96374; 96376; 97110; 97161; 97165; 97530; 97535; 99291; J1756; J2405; J2543; J3370; J3480; J3490; J7050; J7613; J8540; P9016

== ENCOUNTER → 2025-03-09 14:47 | Outpatient (BNVA) | payer MEDICARE, MEDICAID, SELFPAY | PROVIDERS: PCP Internal Medicine; Visit Provider Internal Medicine | DX: I48.91 Unspecified atrial fibrillation (principal); R00.1 Bradycardia, unspecified; G47.33 Obstructive sleep apnea (adult) (pediatric); K43.2 Incisional hernia without obstruction or gangrene; F33.2 Major depressive disorder, recurrent severe without psychotic features | CPT/HCPCS: 99214 ==

== ENCOUNTER 2025-04-14 19:51 | Emergency (ER) | payer MEDICARE, MEDICAID, SELFPAY ==
[2025-04-14 19:54] VITALS: BP 125/64; PULSE 76; RESP 22; TEMP 37.3; O2SAT 94; BMI 53.2
--- OUTSIDE RECORDS SUMMARY | 2025-04-14 19:57 | XMS_ITS | Encounter Summary ---
Author Organization [facility] Address [address] [place] [address] Phone Care Team Providers Care Theology Teacher Name Role Phone Trey Sameer APONTE Primary Care Provider [phone] Encounter Details Date Type Department Care Team (Late st Contact Info) Description 07/28/2021 Orders Only [facility] [address] [place] [address] Hyperkalemia; Acute kidney failure, not otherwise specified (HCC) Social History Tobacco Use Types Packs/Day Years Used Date Smoking Tobacco: Never Assessed Comments Unknown Sex and Gender Information Value Date Recorded Sex Assigned at Not on file Legal Sex Female 12:26 PM EST Gender Identity Not on file Sexual Orientation Not on file documented as of this encounter Plan of Treatment Not on file documented as of this encounter Visit Diagnoses Diagnosis Hyperkalemia Acute kidney failure, not otherwise specified (HCC) documented in this encounter Care Teams Theology Teacher Relationship Specialty Start Date End Date Sameer Yang DO [address] [place] [address] PCP - General Internal Medicine 08/17/21 documented as of this encounter
--- NOTE | 2025-04-14 19:58 | ECG_ITS ---
[facility] Test Date: 2025-04-14 Pat Name: Sirena Priest Department: Room: Gender: Female Clamshell Engineer: : 1955 Requested By: Dot Lemon Order Number: [id number] Juan R MD: Alexis Hill M.D. Measurements Intervals [place] Rate: 73 P: 0 NV: 0 QRS: 57 QRSD: 98 T: 51 QT: 402 QTc: 444 Interpretive Statements ATRIAL FIBRILLATION LOW QRS VOLTAGE IN PRECORDIAL LEADS [QRS DEFLECTION < 1.0 mV IN CHEST LEADS] NONSPECIFIC T-WAVE ABNORMALITY Compared to ECG 10/10/2024 12:37:07 Low QRS voltage now present Ventricular premature complex(es) no longer present Aberrant conduction of supraventricular beat(s) no longer present Possible ischemia no longer present T-wave abnormality still present Electronically Signed On 04-17-2025 08:49:50 CDT by Alexis Hill M.D. [email or web address] [id number]
--- OUTSIDE RECORDS SUMMARY | 2025-04-14 19:58 | XMS_ITS | Patient Health Record ---
Author Organization [facility] Address [address] [place], [place] [id number] Care Team Providers Care Boat Cleaning Supervisor Name Role Phone Sameer Yang DO Primary Care Provider Virgil Gauthier MD, Sundar Unavailable [phone] Nate Sainz DO Unavailable [phone] Allergies Allergen (clinical drug ingredient) Drug/Non Drug Allergy documented on EMR Reaction Allergy Type Onset Date Status hydrochlorothiazide hydrochlorothiazide severe nausea Drug Allergy Active aripiprazole Abilify irritability Drug Allergy Active Reason For Referral No Information Medications Medication SIG (Take, Route, Frequency, Duration) Notes Start Date End Date Status Neurontin 300 mg 1 cap orally 2 times a day Active potassium citrate 10 mEq 1 tab orally five times a day Active QUEtiapine 25 mg 1 tab orally 2 times a day Active DilTIAZem (Eqv-Cardizem CD) 180 mg/24 hours 1 cap orally once a day Acti ve Eliquis 5 mg as directed orally 2 times a day; Duration: 30 day(s) Active magnesium oxide 400 mg 1 tab orally twic e a day Active Metamucil 3.4 g/5.2 g as directed orally once a day; Duration: 7 day(s) Active bumetanide 2 mg 1 tab orally three a day Active rOPINIRole 1 mg 1 tab orally three times a day Active Calcium 600+D 600 mg-5 mcg 1 tab(s) orally 3 times a day; Duration: 30 day(s) Active spironolactone 25 mg 1 tab(s) orally onc e a day; Duration: 30 day(s) Active cetirizine 10 mg 1 tab orally once a day Active Stool Softener + Stimulant Laxative 50 mg-8.6 mg 2 tab(s) orally once a day (at bedtime) Active cyanocobalamin 1000 mcg/mL as directed intramuscularly once a month; Duration: 30 day(s) Active Zofran 4 mg 1 tab orally every 8 hours Active acetaminophen-hydrocod one 325 mg-7.5 mg 1-2 tabs po orally Q4-6H prn pain (max 4 1/2 per day; hold within 4H of planned sleep); Duration: 30 day(s) ICD-10: G89.29 02/13/2023 Active acetaminophen-hydrocod one 325 mg-7.5 mg 1-2 tabs po orally Q4-6H prn pain (max 4 1/2 per day; hold within 4H of planned sleep); Duration: 30 day(s) Do not fill prior to 03/15/23. ICD-10: G89.29 02/13/2023 Active acetaminophen-hydrocod one 325 mg-7.5 mg 1-2 tabs po orally Q4-6H prn pain (max 4 1/2 per day; hold within 4H of planned sleep); Duration: 30 day(s) Do not fill prior to 04/14/23. ICD-10: G89.29 02/13/2023 Active amiodarone 200 mg 1 tab orally once a day Active atorvastatin 40 mg 1 tab orally once a day 018 Active Social History Tobacco Use: Social History Observation Description Date Details (start date - stop date) Never Smoker NA - NA alcohol Question Answer Notes Did you have a drink containing alcohol in the p ast year? No Points 0 Interpretation Negative Tobacco use: Question Answer Notes : nonsmoker Problems Problem Type SNOMED Code ICD Code Onset Dates Problem Status W/U Status Risk Notes Problem Spasm (25035278) Muscle spasm (728.85) Active confirmed Problem Sleep dysfunction with sleep stage disturbance (173946499) Dysfunctions associated with sleep stages or arousal from sleep (780.56) Active confirmed Problem Knee pain (4782353633) Knee pain (719.46) Active confirmed Problem Limb pain (63810072) Limb pain (729.5) Active confirmed Problem Displacement of lumbar intervertebral disc without myelopathy (14949470) Lumbar (w/out myelopathy) intervertebral disc disorder (722.10) Active confirmed Problem Lumbosacral spondylosis without myelopathy (38911810) Lumbosacral spondylosis without myelopathy (721.3) Active confirmed Problem Long-term drug therapy (965104792) LONG-TERM USE MEDS NEC (V58.69) Active confirmed R/O substance abuse Problem Sacroiliitis (57812337) Sacroiliitis (720.2) Active confirmed Problem Obstructive sleep apnea syndrome (49642163) Sleep apnea, obstructive (327.23) Active confirmed Problem Low back pain (625764654) Low back pain (724.2) Active confirmed Problem Solitary sacroiliitis (805945561) Sacroiliitis, not elsewhere classified (M46.1) Active confirmed Problem Low back pain (828622714) Low back pain (M54.5) Active confirmed Problem Lumbosacral spondylosis without myelopathy (30505764) Spondylosis without myelopathy or radiculopathy, lumbar region (M47.816) Active confirmed Problem High risk drug monitoring status (932906380) penitentiary (current) use of opiate analgesic (Z79.891) Active confirmed Problem Pain of right knee region (finding) (423242449161989 ) Pain in right knee (M25.561) Active confirmed Problem Pain of left knee joint (finding) (532038842182868 ) Pain in left knee (M25.562) Active confirmed Problem Obstructive sleep apnea syndrome (72522732) Obstructive sleep apnea (adult) (pediatric) (G47.33) Active confirmed Problem Chronic pain (00205028) Other chronic pain (G89.29) Active confirmed Problem Radiculopathy due to lumbar intervertebral disc disorder (138884072256290 ) Intervertebral disc disorders with radiculopathy, lumbar region (M51.16) Active confirmed Problem Myalgia (82186946) Myalgia (M79.1) Active confirmed Problem Pain in limb (10286757) Pain in leg, unspecified (M79.606) Active confirmed Problem Pain in lumbar spine (301198403) Vertebrogenic low back pain (M54.51) Active confirmed Plan Of Treatment No Information Insurance Providers Payer Name Payer Address Payer Phone Subscriber Number Group Number Insured Name Patient Relationship to Insured Coverage Start Date Coverage End Date S Medicare Part B Claims Department [address] [address] [place] [address] [id number] Sirena Priest Self - patient is the insured [place] [employer] [address] [place] [address] [id number] Sirena Priest Self - patient is the insured Medical (General) History Medical History History ICD Code Chronic pain Low back pain Knee pain, bilateral Cellulitis LLE Diabetes mellitus Asthma Hypertension Renal failure Congestive heart failure Depressive disorder Hyperkalemia Insomnia Abdominal hernia Sleep apnea, untreated Obesity, morbid Surgical History Surgery Date(Month/Year) section x 2 Tonsillectomy Hysterectomy, total Kidney stones Hernia repair, 07/2015 Hospitalization History Reason Date(Month/Year) [facility] admissions x 2 Renal failure and hernia, 07/2015 Congestive heart failure and dehydration, cellulitis, treated at [facility], 03/16/21 - 03/22/21 Hyperkalemia, treated at [facility], 07/20/21
--- OUTSIDE RECORDS SUMMARY | 2025-04-14 19:58 | XMS_ITS | Clinical Summary ---
Author Organization [facility] Facility Address [address] [place] [id number] Care Team Providers Care Laborer Shaft Sinking Name Role Phone Sameer Yang DO Primary Care Provider [phone] Allergies No known active allergies Medications bumetanide (BUMEX) 2 MG tablet 2 mg Take 1-2 tablets by mouth daily Active potassium chloride (K-TAB) 20 MEQ CR tablet Take 20 mEq by mouth 1 (one) time each day Do not crush, chew, or split. Active dilTIAZem LA (CARDIZEM LA) 180 MG 24 hr tablet Take 180 mg by mouth 1 (one) time each day Active metoprolol succinate XL (TOPROL XL) 25 MG 24 hr tablet Take 25 mg by mouth 1 (one) time each day Do not crush or chew. Active QUEtiapine (SEROquel) 50 MG tablet Take 25 mg by mouth every night Active HYDROcodone-jeaneth taminophen (NORCO) 7.5-325 MG per tablet Take 1 tablet by mouth 4 (four) times a day if needed for moderate pain Active atorvastatin (LIPITOR) 40 MG tablet Take 40 mg by mouth 1 (one) time each day Active cetirizine (ZyrTEC) 10 MG tablet Take 10 mg by mouth 1 (one) time each day Active rOPINIRole (REQUIP) 2 MG tablet Take 2 mg by mouth in the morning and 2 mg in the evening. Active loperamide (IMODIUM A-D) 2 MG tablet Take 2 mg by mouth 3 (three) times a day if needed for diarrhea Active ondansetron (ZOFRAN) 4 MG tablet Take 4 mg by mouth every 6 (six) hours if needed for nausea or vomiting Active apixaban (ELIQUIS) 5 MG tablet Take 5 mg by mouth in the morning and 5 mg in the evening. Active Magnesium 400 MG tablet Take by mouth 2 (two) times a day Active cyanocobalamin (VITAMIN B-12) 1000 MCG/ML injection Inject 1,000 mcg into the shoulder, thigh, or buttocks every 30 (thirty) days Active gabapentin (NEURONTIN) 300 MG capsule Take 300 mg by mouth in the morning and 300 mg in the evening. Active amiodarone (PACERONE) 200 MG tablet Take 200 mg by mouth 1 (one) time each day Active docusate sodium (COLACE) 100 MG capsule Take 100 mg by mouth in the morning and 100 mg in the evening. Active Active Problems Problem Noted Date Diagnosed Date Stage 3a chronic kidney disease 11/28/2021 Essential (primary) hypertension 11/28/2021 Type 2 diabetes mellitus wit h other diabetic kidney complication 11/28/2021 Family History Medical History Relation Comments Hypertension Mother Stroke Mother Cancer Sister Gout Sister Relation Status Comments Father Mother Sister Social History Tobacco Use Types Packs/Day Years Used Date Smoking Tobacco: Never Smokeless Tobacco: Never Alcohol Use Standard Drinks/Week Comments Never 0 (1 standard drink = 0.6 oz pur e alcohol) Comments Unknown Sex and Gender Information Value Date Recorded Sex Assigned at Not on file Legal Sex Female 12:26 PM EST Gender Identity Not on file Sexual Orientation Not on file Last Filed Vital Signs Vital Sign Reading Time Taken Comments Blood Pressure 124/72 11/28/2021 10:45 AM CDT Pulse 68 11/28/2021 10:45 AM CDT Temperature - - Respiratory Rate - - Oxygen Saturation - - Inhaled Oxygen Concentration - - Weight 141 kg (310 lb) 11/28/2021 10:45 AM CDT Height 160 cm (5' 3 ) 11/28/2021 10:45 AM CDT Body Mass Index 54.91 11/28/2021 10:45 AM CDT Plan of Treatment Health Maintenance Due Date Last Done Comments Breast Cancer Screening 1955 Pneumococcal Vaccine: 50+ Ye ars (1 of 2 - PCV) 1975 Colorectal Cancer Screening: Annual FOBT 2005 Colorectal Cancer Screening: Colonoscopy 2005 Colorectal Cancer Screening: Sigmoidoscopy 2005 Diabetes: Hemoglobin A1C 11/28/2021 Diabetes: Ophthalmology Exam 11/28/2021 Diabetes: Pedal Pulse Checked 11/28/2021 Diabetes: Sensory Foot Exam 11/28/2021 Diabetes: Visual Foot Exam 11/28/2021 Influenza Vaccine (#1) 2025 Hepatitis B Vaccine Aged Out No longe r eligible based on patient's age to complete this topic Insurance Medicare Medicaid [place] ([id number]) Care Teams Laborer Shaft Sinking Relationship Specialty Start Date End Date Sameer Yang DO [address] [place] [address] PCP - General Internal Medicine 08/17/21
--- NOTE | 2025-04-14 19:59 | XRR_ITS ---
PROCEDURE INFORMATION: Exam: XR Chest Exam date and time: 04/14/2025 8:28 PM Age: 69 years old Clinical indication: Shortness of breath; Additional info: SOB TECHNIQUE: Imaging protocol: Radiologic exam of the chest. Views: 1 view. COMPARISON: CT abdomen pelvis wo con [id number] 10/10/2024 1:28 PM FINDINGS: Lungs: Pulmonary vascular congestion. No consolidation. Pleural spaces: Unremarkable. No pleural effusion. No pneumothorax. Heart/Mediastinum: The heart is enlarged. Bones/joints: Old bilateral rib fractures. Degenerative changes. No acute bony abnormality. XR/XR chest 1V portable [id number] IMPRESSION: Cardiomegaly associated with pulmonary vascular congestion
--- NOTE | 2025-04-14 20:11 | XRR_ITS ---
PROCEDURE INFORMATION: Exam: XR Left Foot Exam date and time: 04/14/2025 8:31 PM Age: 69 years old Clinical indication: Injury or trauma; Fall; Blunt trauma; Foot; Left TECHNIQUE: Imaging protocol: Radiologic exam of the left foot. Views: 3 or more views. COMPARISON: [place] [id number] 03/18/2021 2:08 PM FINDINGS: Bones/joints: Bone density is decreased. Acute nondisplaced fracture involving the base of the 5th metatarsal. No definitive additional acute fractures. Hammertoe deformity noted. Soft tissues: Lateral foot soft tissue swelling. Calcification involves the Achilles tendon and plantar fascia. XR/XR foot LT min 3V* [id number] IMPRESSION: Acute nondisplaced fracture involving the base of the 5th metatarsal.
--- NOTE | 2025-04-14 20:11 | W.ED.SOB ---
HPI - SOB/Dyspnea General: Chief Complaint: Shortness of Breath/Dyspnea Stated Complaint: sob, left foot pain Time Seen by Provider: 04/14/25 19:52 Source: patient and EMS Mode of arrival: EMS Limitations: no limitations History of Present Illness: HPI Narrative: 69-year-old female states she has had slight cough and congestion throughout the day. Patient does have a history of CHF. She is here from half-way she states the nurse and heard some crackles in her lower lungs will be checked for pneumonia she denies any severe pain she is not requiring oxygen she states she did hit her foot as well 2 days and was having some pain in her left foot Associated symptoms: Reports fever(s); Deny abdominal pain, chest pain, nausea or vomiting Related Data Home Medications ?Medication ?Instructions ?Recorded ?Confirmed atorvastatin 40 mg tablet 40 mg PO BEDTIME 11/04/19 03/09/25 cetirizine 10 mg capsule (All Day 10 mg PO DAILY 11/04/19 03/09/25 Allergy (cetirizine)) hydrocodone 7.5 mg-acetaminophen 1 - 2 tab PO Q4H PRN Pain 05/12/21 03/09/25 325 mg tablet magnesium oxide 400 mg PO BID 06/28/21 03/09/25 cyanocobalamin (vitamin B-12) 1,000 mcg IM Q30D 07/18/21 03/09/25 1,000 mcg/mL injection solution gabapentin 300 mg capsule 300 mg PO BID 07/18/21 03/09/25 acetaminophen 325 mg tablet 350 mg PO QID PRN Pain 04/13/24 03/09/25 bisacodyl 10 mg rectal suppository 10 mg MI DAILY PRN Constipation 04/13/24 03/09/25 (Dulcolax (bisacodyl)) calcium carb 1,200 mg-mag hydrox 30 ml PO Q4H PRN Indigestion 04/13/24 03/09/25 270 mg-simeth 80 mg/10 mL oral susp (Mylanta Coat-Cool) loperamide 2 mg tablet 4 mg PO Q4H PRN Diarrhea 04/13/24 03/09/25 magnesium hydroxide 400 mg/5 mL 30 ml PO DAILY PRN Constipation 04/13/24 03/09/25 oral suspension (Milk of Magnesia) menthol 0.15 % topical powder 1 applic topical QID PRN redness 04/13/24 03/09/25 (Gold Fish Original Strength) menthol 4 % topical gel (Biofreeze 1 applic topical TID PRN Pain 04/13/24 03/09/25 (menthol)) polyethylene glycol 3350 17 gram 17 g PO DAILY PRN Constipation 04/13/24 03/09/25 oral powder packet quetiapine 25 mg tablet (Seroquel) 12.5 mg PO BEDTIME 04/13/24 03/09/25 ropinirole 2 mg tablet 2 mg PO BID 04/13/24 03/09/25 sertraline 50 mg tablet 50 mg PO BEDTIME 04/13/24 03/09/25 sodium phosphates 19 gram-7 118 ml MI DAILY PRN Constipation 04/13/24 03/09/25 gram/118 mL enema (Fleet Enema) Lactobacillus rhamnosus GG 10 1 cap PO DAILY 10/10/24 03/09/25 billion cell capsule (Culturelle) albuterol sulfate 2.5 mg/3 mL 2.5 mg inhalation Q4H PRN 10/10/24 03/09/25 (0.083 %) solution for nebulization wheezing/congestion bisacodyl 10 mg rectal suppository 10 mg MI DAILY PRN Constipation 10/10/24 03/09/25 (Dulcolax (bisacodyl)) calcium carbonate (Tums) 200 mg PO DAILY 10/10/24 03/09/25 cholecalciferol (vitamin D3) 50 100 mcg PO DAILY 10/10/24 03/09/25 mcg (2,000 unit) capsule (Vitamin D3) guaifenesin 100 mg/5 mL oral 200 mg PO Q4H PRN cough/congestion 10/10/24 03/09/25 liquid (Robafen) nystatin 100,000 unit/gram topical 1 applic topical BID PRN Skin 10/10/24 03/09/25 powder Irritation ondansetron HCl 4 mg tablet 4 mg PO Q4H PRN Nausea 10/10/24 03/09/25 diltiazem HCl 120 mg 120 mg PO DAILY 03/09/25 03/09/25 capsule,extended release 24 hr, controlled (DILT-XR) ferrous sulfate 325 mg (65 mg 325 mg PO DAILY 03/09/25 03/09/25 iron) tablet sucralfate 100 mg/mL oral 10 ml PO BID 03/09/25 03/09/25 suspension Previous Rx's ?Medication ?Instructions ?Recorded amiodarone 200 mg tablet 200 mg PO DAILY #90 tabs 05/02/23 bumetanide 2 mg tablet 1 mg (1/2 x 2 mg) PO BID 30 days 10/15/24 #30 tabs pantoprazole 40 mg tablet,delayed 40 mg PO BID #60 tabs 10/15/24 release (Protonix) Allergies Allergy/AdvReac Type Severity Reaction Status Date / Time spironolactone AdvReac ADV-Weaknes Verified 04/14/25 20:04 s Review of Systems Const: Reports: fever(s); Denies: chills, body aches or change in appetite ENMT: Denies: throat pain or dental pain Card: Denies: chest pain Resp: Reports: dyspnea and productive cough GI: Denies: abdominal pain, nausea, vomiting or diarrhea Musc: Denies: neck pain or back pain Skin/Breast: Denies: rash Neuro: Denies: headache(s) PFSH ED PFSH: Medical History CKD (chronic kidney disease) stage 4, GFR 15-29 ml/min Atrial fibrillation with controlled ventricular response Iron deficiency anemia Bradycardia History of kidney stones Recurrent incisional hernia CHF (congestive heart failure), NYHA class III Cellulitis Atrial fibrillation with RVR BMI over 35 BMI of 61.7 Restless leg syndrome Obstructive sleep apnea Major depressive disorder, recurrent severe without psychotic features Surgical History History of lithotripsy R temporary ureteral stent History of total abdominal hysterectomy and bilateral salpingo-oophorectomy History of section, low vertical X 2 H/O laparoscopy adhesiolysis/repair of incisional hernia with mesh -- 2014 -- Dr. Alicia Family History Other Family history non-contributory Social History Smoking and tobacco/nicotine status: never used tobacco/nicotine Second hand smoke exposure: No Alcohol intake: never Substance/Drug Use: never Adopted: No Lives independently: Yes Marital status: Current gender identity: Female Physical Exam Const: COMMON NORMALS: no acute distress, patient oriented x3 and healthy appearing HENMT: COMMON NORMALS: normocephalic and atraumatic HEAD & SCALP: normocephalic and atraumatic Neck/C-Spine: COMMON NORMALS: full ROM and supple Chest: COMMONS NORMALS: normal inspection of the chest Resp: COMMON NORMALS: normal respiratory effort, No retractions, No use of accessory muscles and clear to auscultation bilaterally AUSCULTATION: clear to auscultation bilaterally Cardio: COMMON NORMALS: regular rate, regular rhythm and No murmurs present (Cardio) RATE: regular rate RHYTHM: regular rhythm GI: COMMON NORMALS: Normal to inspection, nondistended, normoactive bowel sounds present, Soft to palpation, non-tender and no masses PALPATION: Yes Soft to palpation Extremity: NARRATIVE EXTREMITY EXAM: Tenderness noted left foot Neuro: COMMON NORMALS: patient oriented x3, moves all extremities and no focal motor deficits Psych: COMMON NORMALS: mental status grossly normal, Normal thought process present and cooperative THOUGHT PROCESS: Normal thought process present Skin: COMMON NORMALS: no rashes or lesions noted and no wounds GENERAL SKIN EXAM: no rashes or lesions noted Course Vital Signs: Vital signs: Vital Signs Temperature 99.2 F 04/14/25 19:54 Pulse Rate 78 04/14/25 21:03 Respiratory Rate 22 H 04/14/25 19:54 Blood Pressure 126/61 04/14/25 21:03 Pulse Oximetry 94 04/14/25 21:03 Oxygen Delivery Me thod Room Air 04/14/25 21:03 MDM - SOB/Dyspnea Medical Decision Making Patient presents here with a foot fracture patient complained of dyspnea earlier she does not have any shortness of breath currently x-ray showed no pneumonia we will discharge back to half-way she is stable for discharge return if worsening Medical Records I reviewed the patient's medical records. Lab Data I reviewed the patient's lab results. 04/14/25 21:00 04/14/25 21:00 Labs/Radiology: Radiology Impressions Chest X-Ray 04/14/25 19:59 IMPRESSION: Cardiomegaly associated with pulmonary vascular congestion Foot X-Ray 04/14/25 20:11 IMPRESSION: Acute nondisplaced fracture involving the base of the 5th metatarsal. Laboratory Results WBC 8.79 10^3/uL (3.29-11.43) 04/14/25 21:00 RBC 3.83 10^6/uL (3.85-5.65) L 04/14/25 21:00 Hgb 11.40 g/dL (11.27-16.99) 04/14/25 21:00 Hct 36.6 % (36-47) 04/14/25 21:00 MCV 95.6 fl (85-98) 04/14/25 21:00 MCH 29.8 pg (27-33) 04/14/25 21:00 MCHC 31.1 g/dL (30-55) 04/14/25 21:00 RDW 17.3 % (12.1-15.1) H 04/14/25 21:00 Plt Count 272 10^3/cmm (157-399) 04/14/25 21:00 MPV 9.5 fL (7.4-10.4) 04/14/25 21:00 Neut % (Auto) 81.1 % 04/14/25 21:00 Lymph % (Auto) 12.4 % 04/14/25 21:00 Sauk % (Auto) 6.0 % 04/14/25 21:00 Eos % (Auto) 0.0 % 04/14/25 21:00 Baso % (Auto) 0.3 % 04/14/25 21:00 Neut # (Auto) 7.12 10^3/uL (1.8-7.7) 04/14/25 21:00 Lymph # (Auto) 1.1 10^3/uL (0.8-4.8) 04/14/25 21:00 Sauk # (Auto) 0.5 10^3/uL (0.2-0.9) 04/14/25 21:00 Eos # (Auto) 0.0 10^3/uL (0.0-0.8) 04/14/25 21:00 Baso # (Auto) 0.0 10^3/uL (0.0-0.1) 04/14/25 21:00 Nucleated RBC % (auto) 0 % 04/14/25 21:00 Nucleated RBCs # 0.0 /100WBC 04/14/25 21:00 Sodium 146 mmol/L (136-145) H 04/14/25 21:00 Potassium 3.6 mmol/L (3.5-5.1) 04/14/25 21:00 Chloride 103 mmol/L (98-107) 04/14/25 21:00 Carbon Dioxide 32 mmol/L (22-29) H 04/14/25 21:00 Anion Gap 14.6 (5-19) 04/14/25 21:00 BUN 16 mg/dL (8-23) 04/14/25 21:00 Creatinine 1.6 mg/dL (0.5-0.9) H 04/14/25 21:00 GFR Calculation 32.1 mL/min (90-130) L 04/14/25 21:00 Glucose 107 mg/dL (65-115) 04/14/25 21:00 Calculated Osmolality 304 mOsm/kg (285-295) H 04/14/25 21:00 Calcium 8.3 mg/dL (8.5-10.5) L 04/14/25 21:00 Total Bilirubin 0.7 mg/dL (0.15-1.2) 04/14/25 21:00 AST 12 U/L (0-32) 04/14/25 21:00 ALT 9 U/L (0-33) 04/14/25 21:00 Alkaline Phosphatase 116 U/L (35-105) H 04/14/25 21:00 Total Protein 6.4 g/dL (6.6-8.7) L 04/14/25 21:00 Albumin 3.3 g/dL (3.5-5.2) L 04/14/25 21:00 Globulin 3.1 g/dL (1.3-4.6) 04/14/25 21:00 All radiology interpretation(s) finalized by discharge Discharge Plan Discharge Patient Disposition: Home Clinical Impression: Dyspnea Fracture of left foot Qualifiers: Encounter type: initial encounter Fracture type: closed Qualified Code(s): S92.902A - Unspecified fracture of left foot, initial encounter for closed fracture Condition: Stable Prescriptions: No Action hydrocodone-acetaminophen 7.5-325 mg tablet 1 - 2 tab PO Q4H PRN (Reason: Pain) atorvastatin 40 mg tablet 40 mg PO BEDTIME All Day Allergy (cetirizine) 10 mg capsule 10 mg PO DAILY sucralfate 100 mg/mL suspension 10 ml PO BID ferrous sulfate 325 mg (65 mg iron) tablet 325 mg PO DAILY diltiazem HCl [DILT-XR] 120 mg capsule,ext.rel 24h degradable 120 mg PO DAILY magnesium oxide 400 mg magnesium tablet 400 mg PO BID amiodarone 200 mg tablet 200 mg PO DAILY Qty: 90 1RF cyanocobalamin (vitamin B-12) 1,000 mcg/mL solution 1,000 mcg IM Q30D gabapentin 300 mg capsule 300 mg PO BID loperamide 2 mg Tablet 4 mg PO Q4H PRN (Reason: Diarrhea) Rx Instructions: administer after each loose stool until symptoms controlled; do not exceed 8 mg per 24 hrs sertraline 50 mg Tablet 50 mg PO BEDTIME Mylanta Coat-Cool 1,200 mg-270 mg -80 mg/10 mL Suspension 30 ml PO Q4H PRN (Reason: Indigestion) quetiapine [Seroquel] 25 mg Tablet 12.5 mg PO BEDTIME acetaminophen 325 mg Tablet 350 mg PO QID PRN (Reason: Pain) Biofreeze (menthol) 4 % Gel 1 applic TOPICAL TID PRN (Reason: Pain) Gold Fish Original Strength 0.15 % Powder 1 applic TOPICAL QID PRN (Reason: redness) polyethylene glycol 3350 17 gram Powder In Packet 17 g PO DAILY PRN (Reason: Constipation) magnesium hydroxide [Milk of Magnesia] 400 mg/5 mL Suspension 30 ml PO DAILY PRN (Reason: Constipation) bisacodyl [Dulcolax (bisacodyl)] 10 mg Suppository 10 mg MI DAILY PRN (Reason: Constipation) ropinirole 2 mg Tablet 2 mg PO BID Fleet Enema 19-7 gram/118 mL Enema 118 ml MI DAILY PRN (Reason: Constipation) albuterol sulfate 2.5 mg /3 mL (0.083 %) solution for nebulization 2.5 mg inhalation Q4H PRN (Reason: wheezing/congestion) ondansetron HCl 4 mg tablet 4 mg PO Q4H PRN (Reason: Nausea) guaifenesin [Robafen] 100 mg/5 mL Liquid 200 mg PO Q4H PRN (Reason: cough/congestion) bisacodyl [Dulcolax (bisacodyl)] 10 mg Suppository 10 mg MI DAILY PRN (Reason: Constipation) calcium carbonate [Tums] 200 mg calcium (500 mg) Tablet,Chewable 200 mg PO DAILY nystatin 100,000 unit/gram Powder 1 applic TOPICAL BID PRN (Reason: Skin Irritation) Culturelle 10 billion cell Capsule 1 cap PO DAILY cholecalciferol (vitamin D3) [Vitamin D3] 50 mcg (2,000 unit) Capsule 100 mcg PO DAILY bumetanide 2 mg tablet 1 mg PO BID 30 Days Qty: 30 0RF pantoprazole [Protonix] 40 mg tablet,delayed release (DR/EC) 40 mg PO BID Qty: 60 0RF Discharge Orders: Discharge ED (Routine); Ordered 04/14/25 Ordered By: Dot Lemon Referrals: Isauro Crews DPM [Physician, Podiatry] - 4-7 days Sameer Yang DO [Primary Care Provider, Internal Medicine] - 4-7 days Discharge Diet: Advance as tolerated Discharge Activity: Resume usual activity Patient Instructions: Foot Fracture in Adults (ED), Dyspnea (ED) Print Language: Lithuanian Coding Level of Care Code ED Hardware Design Engineer for Adore Che
[2025-04-14 21:03] VITALS: BP 126/61; PULSE 78; O2SAT 94
[2025-04-14 21:10] LABS: Hematocrit 36.6 % (36-47); Hemoglobin 11.40 g/dL (11.27-16.99); Mean Corpuscular HGB Conc 31.1 g/dL (30-55); Mean Corpuscular Hemoglobin 29.8 pg (27-33); Mean Corpuscular Volume 95.6 fl (85-98); Nucleated Red Blood Cells % 0 %; Platelet Count 272 10^3/cmm (157-399); Red Blood Count 3.83 10^6/uL (3.85-5.65); White Blood Count 8.79 10^3/uL (3.29-11.43)
[2025-04-14 21:45] LABS: Alanine Aminotransferase 9 U/L (0-33); Albumin Level 3.3 g/dL (3.5-5.2); Alkaline Phosphatase 116 U/L (35-105); Anion Gap 14.6 (5-19); Aspartate Amino Transferase 12 U/L (0-32); Blood Urea Nitrogen 16 mg/dL (8-23); Calcium 8.3 mg/dL (8.5-10.5); Carbon Dioxide 32 mmol/L (22-29); Chloride 103 mmol/L (98-107); Creatinine Clr Calc Pharmacy 49.0131; Globulin 3.1 g/dL (1.3-4.6); Glucose 107 mg/dL (65-115); Osmolality Calculated 304 mOsm/kg (285-295); Potassium 3.6 mmol/L (3.5-5.1); Sodium 146 mmol/L (136-145); Total Protein 6.4 g/dL (6.6-8.7)
[2025-04-14 21:54] LABS: NT Pro B Type Natriuretic Pept 3361 pg/mL (0-125)
[2025-04-14 22:20] VITALS: BP 110/90; PULSE 94; O2SAT 94
--- NOTE | 2025-04-15 09:57 | DCPLANNER ---
messaged podiatry for er f/u
== END 2025-04-14 23:22 | disposition home or self-care (01) ==
PROVIDERS: Emergency Provider Emergency Medicine; PCP Internal Medicine
DX: S92.902A Unspecified fracture of left foot, initial encounter for closed fracture (principal); R06.00 Dyspnea, unspecified; N18.4 Chronic kidney disease, stage 4 (severe); I50.9 Heart failure, unspecified; X58.XXXA Exposure to other specified factors, initial encounter
CPT/HCPCS: 29515; 36415; 71045; 73630; 80053; 83880; 85025; 93005; 99285

== ENCOUNTER 2025-04-20 15:36 | Outpatient (CLI) | payer MEDICARE, MEDICAID, SELFPAY | END 2025-04-20 15:37 | disposition home or self-care (01) | LOC: SPT 15:36 | PROVIDERS: PCP Internal Medicine; Visit Provider Podiatrist Foot & Ankle Surgery | DX: Z46.89 Encounter for fitting and adjustment of other specified devices (principal); S92.352D Displaced fracture of fifth metatarsal bone, left foot, subsequent encounter for fracture with routine healing; X58.XXXD Exposure to other specified factors, subsequent encounter | CPT/HCPCS: 99204; L4361 ==

== ENCOUNTER 2025-04-26 19:59 | Emergency (ER) | payer MEDICARE, MEDICAID, SELFPAY ==
[2025-04-26 20:06] VITALS: BP 126/87; PULSE 91; RESP 17; TEMP 36.7; O2SAT 93; BMI 53.7
--- OUTSIDE RECORDS SUMMARY | 2025-04-26 20:06 | XMS_ITS | Encounter Summary ---
Author Organization [facility] Address [address] [place] [address] Phone Care Team Providers Care Syrup Shed Supervisor Name Role Phone Sameer Yang DO Primary Care Provider [phone] Encounter Details Date Type Department Care Team (Late st Contact Info) Description 07/28/2021 Orders Only [facility] [address] [place] [address] Hyperkalemia; Acute kidney failure, not [...] (HCC) documented in this encounter Care Teams Syrup Shed Supervisor Relationship Specialty Start Date End Date Sameer Yang DO [address] [place] [address] PCP - General Internal Medicine 08/17/21 documented as of this encounter
--- NOTE | 2025-04-26 20:07 | XRR_ITS ---
PROCEDURE INFORMATION: Exam: XR Right Knee Exam date and time: 04/26/2025 8:12 PM Age: 70 years old Clinical indication: Injury or trauma; Fall; Blunt trauma; Knee; Right; Additional info: Injury, pain TECHNIQUE: Imaging protocol: Radiologic exam of the right knee. Views: 1 or 2 views. COMPARISON: CR XR knee RT 3V* [id number] 07/10/2019 9:41 AM FINDINGS: Bones/joints: Comminuted fracture of proximal tibial shaft, with probable buckle fracture of fibula at same craniocaudal level. Mild anterior lateral apex angulation. Severe tricompartmental bony degenerative changes of the knee. Soft tissues: Normal. XR/XR knee RT 1-2V [id number] IMPRESSION: Comminuted fracture of proximal tibial shaft, with probable buckle fracture of fibula at same craniocaudal level. Mild anterior lateral apex angulation.
--- OUTSIDE RECORDS SUMMARY | 2025-04-26 20:07 | XMS_ITS | Patient Health Record ---
Author Organization [facility] Address [address] [place], [place] [address] Care Team Providers Care Case Management Assistant Name Role Phone Sameer Yang DO Primary Care Provider Virgil Gauthier MD, Sundar Unavailable [phone] Nate Sainz DO Unavailable [phone] Allergies Allergen (clinical drug ingredient) Drug/Non Drug [...] Status W/U Status Risk Notes Problem Spasm (64506010) Muscle spasm (728.85) Active confirmed Problem Sleep dysfunction with sleep stage disturbance (986994423) Dysfunctions associated with sleep stages or arousal from sleep (780.56) Active confirmed Problem Knee pain (3042426708) Knee pain (719.46) Active confirmed Problem Limb pain (22954583) Limb pain (729.5) Active confirmed Problem Displacement of lumbar intervertebral disc without myelopathy (10946330) Lumbar (w/out myelopathy) intervertebral disc disorder (722.10) Active confirmed Problem Lumbosacral spondylosis without myelopathy (09042878) Lumbosacral spondylosis without myelopathy (721.3) Active confirmed Problem Long-term drug therapy (274221468) LONG-TERM USE MEDS NEC (V58.69) Active confirmed R/O substance abuse Problem Sacroiliitis (35287429) Sacroiliitis (720.2) Active confirmed Problem Obstructive sleep apnea syndrome (36520327) Sleep apnea, obstructive (327.23) Active confirmed Problem Low back pain (767593364) Low back pain (724.2) Active confirmed Problem Solitary sacroiliitis (508604205) Sacroiliitis, not elsewhere classified (M46.1) Active confirmed Problem Low back pain (608769244) Low back pain (M54.5) Active confirmed Problem Lumbosacral spondylosis without myelopathy (78637861) Spondylosis without myelopathy or radiculopathy, lumbar region (M47.816) Active confirmed Problem High risk drug monitoring status (630965964) FDC (current) use of opiate analgesic (Z79.891) Active confirmed Problem Pain of right knee region (finding) (748558020608771 ) Pain in right knee (M25.561) Active confirmed Problem Pain of left knee joint (finding) (749274348860691 ) Pain in left knee (M25.562) Active confirmed Problem Obstructive sleep apnea syndrome (57435415) Obstructive sleep apnea (adult) (pediatric) (G47.33) Active confirmed Problem Chronic pain (05933929) Other chronic pain (G89.29) Active confirmed Problem Radiculopathy due to lumbar intervertebral disc disorder (461662619210975 ) Intervertebral disc disorders with radiculopathy, lumbar region (M51.16) Active confirmed Problem Myalgia (90801733) Myalgia (M79.1) Active confirmed Problem Pain in limb (66329295) Pain in leg, unspecified (M79.606) Active confirmed Problem Pain in lumbar spine (971387856) Vertebrogenic low back pain (M54.51) Active confirmed Plan Of Treatment No Information Insurance Providers Payer Name Payer Address Payer Phone Subscriber Number Group Number Insured Name Patient Relationship to Insured Coverage Start Date Coverage End Date S Medicare Part B Claims Department [address] [address] [place] [address] [id number] Sirena Priest Self - patient is the insured [place] [address] [place] [address] [id number] Sirena Priest Self - patient is the [...] heart failure and dehydration, cellulitis, treated at [facility], 03/16/21 - 03/22/21 Hyperkalemia, treated at [facility], 07/20/21
--- OUTSIDE RECORDS SUMMARY | 2025-04-26 20:07 | XMS_ITS | Clinical Summary ---
Author Organization [facility] Address [address] [place] [address] Care Team Providers Care Magneto Specialist Name Role Phone Sameer Yang DO Primary Care Provider [phone] Allergies No known active allergies Medications bumetanide [...] complete this topic Insurance Medicare Medicaid [place] ([id number]) Care Teams Magneto Specialist Relationship Specialty Start Date End Date Sameer Yang DO [address] [place] [address] PCP - General Internal Medicine 08/17/21
--- NOTE | 2025-04-26 20:08 | W.ED.EXTPRO ---
HPI - Extremity Problem General: Chief complaint: Extremity Injury, Lower Stated complaint: right leg injury Time Seen by Provider: 04/26/25 20:03 History of Present Illness: Patient is 70-year-old female with history of A-fib, CKD 4, presents to the emergency room with right knee pain. Patient stated she took a step, had severe pain, and could no longer walk on her right knee. She does have a right knee deformity. She did not trip. Patient stated she had pain after her knee gave out. This happened just prior to arrival. She cannot walk on her knee. No other symptoms. Associated symptoms: Deny chest pain, fever(s) or rash Related Data Home Medications ?Medication ?Instructions ?Recorded ?Confirmed atorvastatin 40 mg tablet 40 mg PO BEDTIME 11/04/19 04/20/25 cetirizine 10 mg capsule (All Day 10 mg PO DAILY 11/04/19 04/20/25 Allergy (cetirizine)) hydrocodone 7.5 mg-acetaminophen 1 - 2 tab PO Q4H PRN Pain 05/12/21 04/20/25 325 mg tablet magnesium oxide 400 mg PO BID 06/28/21 04/20/25 cyanocobalamin (vitamin B-12) 1,000 mcg IM Q30D 07/18/21 04/20/25 1,000 mcg/mL injection solution gabapentin 300 mg capsule 300 mg PO BID 07/18/21 04/20/25 acetaminophen 325 mg tablet 350 mg PO QID PRN Pain 04/13/24 04/20/25 bisacodyl 10 mg rectal suppository 10 mg UT DAILY PRN Constipation 04/13/24 04/20/25 (Dulcolax (bisacodyl)) calcium carb 1,200 mg-mag hydrox 30 ml PO Q4H PRN Indigestion 04/13/24 04/20/25 270 mg-simeth 80 mg/10 mL oral susp (Mylanta Coat-Cool) loperamide 2 mg tablet 4 mg PO Q4H PRN Diarrhea 04/13/24 04/20/25 magnesium hydroxide 400 mg/5 mL 30 ml PO DAILY PRN Constipation 04/13/24 04/20/25 oral suspension (Milk of Magnesia) menthol 0.15 % topical powder 1 applic topical QID PRN redness 04/13/24 04/20/25 (Gold Fish Original Strength) menthol 4 % topical gel (Biofreeze 1 applic topical TID PRN Pain 04/13/24 04/20/25 (menthol)) polyethylene glycol 3350 17 gram 17 g PO DAILY PRN Constipation 04/13/24 04/20/25 oral powder packet quetiapine 25 mg tablet (Seroquel) 12.5 mg PO BEDTIME 04/13/24 04/20/25 ropinirole 2 mg tablet 2 mg PO BID 04/13/24 04/20/25 sertraline 50 mg tablet 50 mg PO BEDTIME 04/13/24 04/20/25 sodium phosphates 19 gram-7 118 ml UT DAILY PRN Constipation 04/13/24 04/20/25 gram/118 mL enema (Fleet Enema) Lactobacillus rhamnosus GG 10 1 cap PO DAILY 10/10/24 04/20/25 billion cell capsule (Culturelle) albuterol sulfate 2.5 mg/3 mL 2.5 mg inhalation Q4H PRN 10/10/24 04/20/25 (0.083 %) solution for nebulization wheezing/congestion bisacodyl 10 mg rectal suppository 10 mg UT DAILY PRN Constipation 10/10/24 04/20/25 (Dulcolax (bisacodyl)) calcium carbonate (Tums) 200 mg PO DAILY 10/10/24 04/20/25 cholecalciferol (vitamin D3) 50 100 mcg PO DAILY 10/10/24 04/20/25 mcg (2,000 unit) capsule (Vitamin D3) guaifenesin 100 mg/5 mL oral 200 mg PO Q4H PRN cough/congestion 10/10/24 04/20/25 liquid (Robafen) nystatin 100,000 unit/gram topical 1 applic topical BID PRN Skin 10/10/24 04/20/25 powder Irritation ondansetron HCl 4 mg tablet 4 mg PO Q4H PRN Nausea 10/10/24 04/20/25 diltiazem HCl 120 mg 120 mg PO DAILY 03/09/25 04/20/25 capsule,extended release 24 hr, controlled (DILT-XR) ferrous sulfate 325 mg (65 mg 325 mg PO DAILY 03/09/25 04/20/25 iron) tablet sucralfate 100 mg/mL oral 10 ml PO BID 03/09/25 04/20/25 suspension Previous Rx's ?Medication ?Instructions ?Recorded amiodarone 200 mg tablet 200 mg PO DAILY #90 tabs 05/02/23 bumetanide 2 mg tablet 1 mg (1/2 x 2 mg) PO BID 30 days 10/15/24 #30 tabs pantoprazole 40 mg tablet,delayed 40 mg PO BID #60 tabs 10/15/24 release (Protonix) Cam boot to left #1 ea 04/20/25 Allergies Allergy/AdvReac Type Severity Reaction Status Date / Time spironolactone AdvReac ADV-Weaknes Verified 04/20/25 15:47 s Review of Systems Const: Denies: fever(s) or chills ENMT: Denies: throat pain or dry mouth Card: Denies: chest pain or palpitations Resp: Denies: dyspnea or non-productive cough GI: Denies: abdominal pain, nausea or vomiting Musc: Reports: extremity pain, extremity swelling, joint pain, joint swelling, joint stiffness, limited range of motion, muscle cramps, muscle weakness and deformity; Denies: neck pain, back pain, joint redness, joint warmth, decrease in muscle mass or loss of height Skin/Breast: Denies: rash or pruritus Neuro: Reports: weakness in extremities, lack of coordination and difficulty walking; Denies: headache(s), numbness in extremities, sensory changes, frequent falls, dizziness or vertigo Psych: Denies: anxiety or depression Endo: Denies: polyuria PFSH ED PFSH: Medical History (Updated 04/26/25 @ 21:05 by SHADIA Rosenbaum) CKD (chronic kidney disease) stage 4, GFR 15-29 ml/min Atrial fibrillation with controlled ventricular response Iron deficiency anemia Bradycardia History of kidney stones Recurrent incisional hernia CHF (congestive heart failure), NYHA class III Cellulitis Atrial fibrillation with RVR BMI over 35 BMI of 61.7 Restless leg syndrome Obstructive sleep apnea Major depressive disorder, recurrent severe without psychotic features Surgical History History of lithotripsy R temporary ureteral stent History of total abdominal hysterectomy and bilateral salpingo-oophorectomy History of section, low vertical X 2 H/O laparoscopy adhesiolysis/repair of incisional hernia with mesh -- 2014 -- Dr. Alicia Family History Other Family history non-contributory Social History Smoking and tobacco/nicotine status: never used tobacco/nicotine Second hand smoke exposure: No Alcohol intake: never Substance/Drug Use: never Adopted: No Lives independently: Yes Marital status: Current gender identity: Female Physical Exam Const: COMMON NORMALS: no acute distress, average body habitus and patient oriented x3 HENMT: COMMON NORMALS: normocephalic and atraumatic HEAD & SCALP: normocephalic and atraumatic Eye: COMMON NORMALS: Equal, round and reactive pupils present, EOMs intact bilaterally and conjunctivae normal CONJUNCTIVA: Yes conjunctivae normal PUPIL: Yes Equal, round and reactive pupils present Neck/C-Spine: COMMON NORMALS: full ROM, no lymphadenopathy and supple Lymph: LYMPHATIC: no lymphadenopathy noted Chest: COMMONS NORMALS: normal inspection of the chest Resp: COMMON NORMALS: normal respiratory effort, No retractions and clear to auscultation bilaterally AUSCULTATION: clear to auscultation bilaterally Cardio: COMMON NORMALS: regular rate and regular rhythm RATE: regular rate RHYTHM: regular rhythm GI: COMMON NORMALS: Normal to inspection, nondistended, normoactive bowel sounds present, Soft to palpation and non-tender PALPATION: Yes Soft to palpation : COMMON NORMALS: Yes no CVA tenderness BLADDER/KIDNEY EXAM: Yes no CVA tenderness Back/Pelvis: COMMON NORMALS: no CVA tenderness Extremity: COMMON NORMALS: capillary refill normal; negative for normal to inspection and negative for full ROM NARRATIVE EXTREMITY EXAM: Right knee deformity/varus deformity on the right knee only with pain with palpation. Neuro: COMMON NORMALS: patient oriented x3 Psych: COMMON NORMALS: mental status grossly normal and Normal thought process present THOUGHT PROCESS: Normal thought process present Skin: COMMON NORMALS: no rashes or lesions noted, no wounds and turgor normal GENERAL SKIN EXAM: no rashes or lesions noted and turgor normal Course Reevaluation(s): Reevaluation #1: No change per patient. Pain medication requested. Consultations: Consultation #1: Discussed with Dr. Gtz on for orthopedics, recommended knee immobilizer and follow-up in his office. Vital Signs: Vital signs: Vital Signs Temperature 98.1 F 04/26/25 20:06 Pulse Rate 87 04/26/25 21:31 Respiratory Rate 17 04/26/25 20:06 Blood Pressure 126/81 04/26/25 21:31 Pulse Oximetry 95 04/26/25 21:31 Oxygen Delivery Me thod Room Air 04/26/25 21:31 MDM - Extremity (Nontraumatic) Medical Decision Making Patient is 70-year-old [facility], presented to the emergency room after stepping, and noting a severe pain in her right knee, followed by a fall. She had the severe knee prior to falling. She fell due to the instability, according the patient. She has a right tibial plateau fracture. Discussed with Dr. Gtz, that recommends knee immobilizer and follow-up in his office. Patient has chronic hydrocodone at the jail, and therefore more was not sent to the jail, and patient can continue her chronic hydrocodone. She was given Norflex at reduced dose due to beers criteria, and hydrocortisone x 1 here. I did discuss side effects and warnings. Medical Records I reviewed the patient's medical records. Lab Data I reviewed the patient's lab results. 04/26/25 20:44 04/26/25 20:44 Radiology Impressions Knee X-Ray 04/26/25 20:07 IMPRESSION: Comminuted fracture of proximal tibial shaft, with probable buckle fracture of fibula at same craniocaudal level. Mild anterior lateral apex angulation. Laboratory Results WBC 10.38 10^3/uL (3.29-11.43) 04/26/25 20:44 RBC 4.38 10^6/uL (3.85-5.65) 04/26/25 20:44 Hgb 12.50 g/dL (11.27-16.99) 04/26/25 20:44 Hct 41.2 % (36-47) 04/26/25 20:44 MCV 94.1 fl (85-98) 04/26/25 20:44 MCH 28.5 pg (27-33) 04/26/25 20:44 MCHC 30.3 g/dL (30-55) 04/26/25 20:44 RDW 16.3 % (12.1-15.1) H 04/26/25 20:44 Plt Count 277 10^3/cmm (157-399) 04/26/25 20:44 MPV 9.7 fL (7.4-10.4) 04/26/25 20:44 Neut % (Auto) 80.4 % 04/26/25 20:44 Lymph % (Auto) 12.4 % 04/26/25 20:44 Nicollet % (Auto) 6.6 % 04/26/25 20:44 Eos % (Auto) 0.0 % 04/26/25 20:44 Baso % (Auto) 0.3 % 04/26/25 20:44 Neut # (Auto) 8.35 10^3/uL (1.8-7.7) H 04/26/25 20:44 Lymph # (Auto) 1.3 10^3/uL (0.8-4.8) 04/26/25 20:44 Nicollet # (Auto) 0.7 10^3/uL (0.2-0.9) 04/26/25 20:44 Eos # (Auto) 0.0 10^3/uL (0.0-0.8) 04/26/25 20:44 Baso # (Auto) 0.0 10^3/uL (0.0-0.1) 04/26/25 20:44 Nucleated RBC % (auto) 0 % 04/26/25 20:44 Nucleated RBCs # 0.0 /100WBC 04/26/25 20:44 Sodium 142 mmol/L (136-145) 04/26/25 20:44 Potassium 3.8 mmol/L (3.5-5.1) 04/26/25 20:44 Chloride 100 mmol/L (98-107) 04/26/25 20:44 Carbon Dioxide 32 mmol/L (22-29) H 04/26/25 20:44 Anion Gap 13.8 (5-19) 04/26/25 20:44 BUN 26 mg/dL (8-23) H 04/26/25 20:44 Creatinine 1.9 mg/dL (0.5-0.9) H 04/26/25 20:44 GFR Calculation 26.2 mL/min (90-130) L 04/26/25 20:44 Glucose 116 mg/dL (65-115) H 04/26/25 20:44 Calculated Osmolality 300 mOsm/kg (285-295) H 04/26/25 20:44 Calcium 9.0 mg/dL (8.5-10.5) 04/26/25 20:44 Total Bilirubin 0.8 mg/dL (0.15-1.2) 04/26/25 20:44 AST 14 U/L (0-32) 04/26/25 20:44 ALT 9 U/L (0-33) 04/26/25 20:44 Alkaline Phosphatase 135 U/L (35-105) H 04/26/25 20:44 Total Protein 6.9 g/dL (6.6-8.7) 04/26/25 20:44 Albumin 3.4 g/dL (3.5-5.2) L 04/26/25 20:44 Globulin 3.5 g/dL (1.3-4.6) 04/26/25 20:44 XR interpretation done by ED provider, pending radiology final review Discharge Plan Discharge Patient Disposition: Home Clinical Impression: Closed fracture of right tibial plateau Qualifiers: Encounter type: initial encounter Qualified Code(s): S82.141A - Displaced bicondylar fracture of right tibia, initial encounter for closed fracture Condition: Stable Prescriptions: No Action hydrocodone-acetaminophen 7.5-325 mg tablet 1 - 2 tab PO Q4H PRN (Reason: Pain) atorvastatin 40 mg tablet 40 mg PO BEDTIME All Day Allergy (cetirizine) 10 mg capsule 10 mg PO DAILY (DME) Cam boot to left See Rx Instructions .Route .MEDSUPPLY Qty: 1 0RF Rx Instructions: As directed sucralfate 100 mg/mL suspension 10 ml PO BID ferrous sulfate 325 mg (65 mg iron) tablet 325 mg PO DAILY diltiazem HCl [DILT-XR] 120 mg capsule,ext.rel 24h degradable 120 mg PO DAILY magnesium oxide 400 mg magnesium tablet 400 mg PO BID amiodarone 200 mg tablet 200 mg PO DAILY Qty: 90 1RF cyanocobalamin (vitamin B-12) 1,000 mcg/mL solution 1,000 mcg IM Q30D gabapentin 300 mg capsule 300 mg PO BID loperamide 2 mg Tablet 4 mg PO Q4H PRN (Reason: Diarrhea) Rx Instructions: administer after each loose stool until symptoms controlled; do not exceed 8 mg per 24 hrs sertraline 50 mg Tablet 50 mg PO BEDTIME Mylanta Coat-Cool 1,200 mg-270 mg -80 mg/10 mL Suspension 30 ml PO Q4H PRN (Reason: Indigestion) quetiapine [Seroquel] 25 mg Tablet 12.5 mg PO BEDTIME acetaminophen 325 mg Tablet 350 mg PO QID PRN (Reason: Pain) Biofreeze (menthol) 4 % Gel 1 applic TOPICAL TID PRN (Reason: Pain) Gold Fish Original Strength 0.15 % Powder 1 applic TOPICAL QID PRN (Reason: redness) polyethylene glycol 3350 17 gram Powder In Packet 17 g PO DAILY PRN (Reason: Constipation) magnesium hydroxide [Milk of Magnesia] 400 mg/5 mL Suspension 30 ml PO DAILY PRN (Reason: Constipation) bisacodyl [Dulcolax (bisacodyl)] 10 mg Suppository 10 mg UT DAILY PRN (Reason: Constipation) ropinirole 2 mg Tablet 2 mg PO BID Fleet Enema 19-7 gram/118 mL Enema 118 ml UT DAILY PRN (Reason: Constipation) albuterol sulfate 2.5 mg /3 mL (0.083 %) solution for nebulization 2.5 mg inhalation Q4H PRN (Reason: wheezing/congestion) ondansetron HCl 4 mg tablet 4 mg PO Q4H PRN (Reason: Nausea) guaifenesin [Robafen] 100 mg/5 mL Liquid 200 mg PO Q4H PRN (Reason: cough/congestion) bisacodyl [Dulcolax (bisacodyl)] 10 mg Suppository 10 mg UT DAILY PRN (Reason: Constipation) calcium carbonate [Tums] 200 mg calcium (500 mg) Tablet,Chewable 200 mg PO DAILY nystatin 100,000 unit/gram Powder 1 applic TOPICAL BID PRN (Reason: Skin Irritation) Culturelle 10 billion cell Capsule 1 cap PO DAILY cholecalciferol (vitamin D3) [Vitamin D3] 50 mcg (2,000 unit) Capsule 100 mcg PO DAILY bumetanide 2 mg tablet 1 mg PO BID 30 Days Qty: 30 0RF pantoprazole [Protonix] 40 mg tablet,delayed release (DR/EC) 40 mg PO BID Qty: 60 0RF Discharge Orders: Discharge ED (Routine); Ordered 04/26/25 Ordered By: Lorena Villalba Referrals: Rafat Gtz DO [Physician, Orthopedics] Sameer Yang DO [Primary Care Provider, Internal Medicine] Discharge Diet: Usual diet Discharge Activity: Limit activity as instructed and Use walker/crutches as instructed Patient Instructions: Fractures - Knee, Opioid Safety, Pain Management, Patient Portal & Ayla Instructions Activity Restrictions/Additional Instructions: As we discussed, you have a fracture on your tibial plateau, that Dr. Gtz with orthopedics recommends a right knee immobilizer, and follow-up in the office. This is a nonweightbearing fracture. You cannot put pressure on this right foot. Utilize your walker only and do not put pressure on your right foot. Take your [facility]codone as [facility] the jail for pain Call in a.m. to make an appoint with Dr. Gtz for follow-up in the office. Continue with your knee immobilizer at all times until you follow-up with Dr. Gtz Return to the emergency room for worsening pain, redness, fever greater than 100.4 ?F Print Language: Lithuanian Coding Level of Care Code ED [employer] for [employer]
[2025-04-26 20:13] VITALS: BP 135/99; PULSE 83; O2SAT 93
[2025-04-26 20:49] LABS: Hematocrit 41.2 % (36-47); Hemoglobin 12.50 g/dL (11.27-16.99); Mean Corpuscular HGB Conc 30.3 g/dL (30-55); Mean Corpuscular Hemoglobin 28.5 pg (27-33); Mean Corpuscular Volume 94.1 fl (85-98); Nucleated Red Blood Cells % 0 %; Platelet Count 277 10^3/cmm (157-399); Red Blood Count 4.38 10^6/uL (3.85-5.65); White Blood Count 10.38 10^3/uL (3.29-11.43)
[2025-04-26 21:07] LABS: Alanine Aminotransferase 9 U/L (0-33); Albumin Level 3.4 g/dL (3.5-5.2); Alkaline Phosphatase 135 U/L (35-105); Anion Gap 13.8 (5-19); Aspartate Amino Transferase 14 U/L (0-32); Blood Urea Nitrogen 26 mg/dL (8-23); Calcium 9.0 mg/dL (8.5-10.5); Carbon Dioxide 32 mmol/L (22-29); Chloride 100 mmol/L (98-107); Creatinine Clr Calc Pharmacy 40.9409; Globulin 3.5 g/dL (1.3-4.6); Glucose 116 mg/dL (65-115); Osmolality Calculated 300 mOsm/kg (285-295); Potassium 3.8 mmol/L (3.5-5.1); Sodium 142 mmol/L (136-145); Total Protein 6.9 g/dL (6.6-8.7)
[2025-04-26 21:31] VITALS: BP 126/81; PULSE 87; O2SAT 95
[2025-04-26] MEDS: HYDROcodone-acetaminophen 10-325 mg Tablet 1 TAB PO ×2 (21:32→22:52)
[2025-04-26] MEDS: orphenadrine 30 mg/mL Inj 2 mL IM (21:32)
[2025-04-27 00:29] VITALS: BP 134/75; PULSE 104; O2SAT 93
== END 2025-04-27 00:39 | disposition home or self-care (01) ==
PROVIDERS: Emergency Provider Physician Assistant; PCP Internal Medicine
DX: S82.141A Displaced bicondylar fracture of right tibia, initial encounter for closed fracture (principal); N18.4 Chronic kidney disease, stage 4 (severe); I50.9 Heart failure, unspecified; X58.XXXA Exposure to other specified factors, initial encounter
CPT/HCPCS: 36415; 73560; 80053; 85025; 96372; 99284; J2360; J9999

== ENCOUNTER → 2025-04-29 08:59 | Outpatient (BNVA) | payer MEDICARE, MEDICAID, SELFPAY | PROVIDERS: PCP Internal Medicine; Visit Provider Orthopaedic Surgery | DX: S82.141A Displaced bicondylar fracture of right tibia, initial encounter for closed fracture (principal); X58.XXXA Exposure to other specified factors, initial encounter | CPT/HCPCS: 99204 ==

== ENCOUNTER 2025-04-29 10:27 | Outpatient (CLI) | payer MEDICARE, MEDICAID, SELFPAY ==
--- NOTE | 2025-04-29 11:00 | CT_ITS ---
WS: [id number] CT RIGHT LOWER LEG, NONCONTRAST HISTORY: FRACTURE OF RIGHT TIBIA Technique: All CT scans at [facility] use at least one of these dose optimization techniques: automated exposure control; mA and/or kV adjustment per patient size (includes targeted exams where dose is matched to clinical indication); or iterative reconstruction. DLP: 932.14 mGy.cm COMPARISON: RIGHT knee radiograph 04/26/2025 Bones are diffusely osteopenic. There is a comminuted slightly impacted fracture involving the proximal tibial diaphysis. Very slight lateral angulation of the apex by 10 degrees. There is an additional fracture involving the proximal fibular diaphysis with slight impaction. Severe degenerative joint disease involving the RIGHT knee. Joint spaces are narrowed with large marginal osteophytes. Lateral subluxation of the tibia, with comparison to the condyles. There is bone upon bone in the medial compartment. Moderate-sized suprapatellar joint effusion. There is soft tissue edema surrounding the fracture site in the proximal tibia and fibula. No soft tissue masses identified. No abnormality at the ankle. CT/CT lower leg RT wo con* [id number] IMPRESSION: 1. Comminuted, slightly impacted fracture involving the proximal tibial diaphy sis with lateral angulation at the apex. 2. Additional minimally comminuted proximal fibular fracture. 3. Diffuse osteopenia. 4. Severe degenerative joint disease involving the RIGHT knee.
== END 2025-04-29 10:28 | disposition home or self-care (01) ==
LOC: RAD 10:30
PROVIDERS: PCP Internal Medicine; Visit Provider Orthopaedic Surgery
DX: S82.251A Displaced comminuted fracture of shaft of right tibia, initial encounter for closed fracture (principal); X58.XXXA Exposure to other specified factors, initial encounter; M17.11 Unilateral primary osteoarthritis, right knee; M85.88 Other specified disorders of bone density and structure, other site
CPT/HCPCS: 73700

== ENCOUNTER 2025-05-03 10:54 | Observation (INO) | payer MEDICARE, MEDICAID, SELFPAY ==
[2025-05-03] VITALS (21 sets, daily range): BP systolic 101–152; BP diastolic 57–103; PULSE 76–113; RESP 13–18; TEMP 36.2–37.4; O2SAT 92–99
--- NOTE | 2025-05-03 | XR_ITS ---
WS: [id number] Lumbar spine, C-arm fluoroscopy views, 05/03/2025 Clinical Data: or pic, fusion Comparison: Right knee, 04/26/2025 Findings: Dr. Gtz repaired the proximal right tibial fracture with an intramedullary matt and screws, also an additional medial proximal plate and screws was added. XR/XR tibia fibula RT 2V [id number] Impression: Internal fixation of proximal right tibial fracture with a long intramedullary matt.
--- NOTE | 2025-05-03 08:14 | ANES.PREANE2 ---
Pre-Anesthetic Assessment Height/Weight: Height 5 ft 5 in Weight 285 lb Preop Diagnosis: Right tibia fracture Operation Date: 05/03/25 09:30 Proposed Procedures p IM Tibial Nail Insertion(Right) - Rafat Gtz DO Was Beta Marina taken within 24 hours: N/A Was Clonidine taken within 24 hours: N/A Social No alcohol and No tobacco Exam alert, oriented x 3, clear to auscultation bilaterally and regular rate & rhythm Airway Submandibular: within normal limits Cervical ROM: within normal limits Mallampati: Class II Dentition: full Comments: Comments: Poor dentition, denies any loose teeth Anesthetic Plan ASA status: 3 Anesthesia: General and Regional (specify below) Other: No prior issues with anesthesia N.p.o. since yesterday evening History of CKD stage IV Chronic opioid use, hydrocodone 7.5 twice every 4 hours for the last week. Has been on hydrocodone for over 10 years ANDRA, no treatment A-fib, on amiodarone and diltiazem GERD on Protonix Labs reviewed from 04/26/2025 acceptable for procedure Plan for general anesthesia with possible peripheral nerve block Medications/Allergies Home Medications ?Medication ?Instructions ?Recorded ?Confirmed ?Last Taken ?Type atorvastatin 40 mg tablet 40 mg PO BEDTIME 11/04/19 04/30/25 05/02/25 History cetirizine 10 mg capsule (All Day 10 mg PO DAILY 11/04/19 04/30/25 05/02/25 History Allergy (cetirizine)) hydrocodone 7.5 mg-acetaminophen 1 - 2 tab PO Q4H PRN Pain 05/12/21 04/30/25 05/02/25 History 325 mg tablet magnesium oxide 400 mg PO BID 06/28/21 04/30/25 10/10/24 History cyanocobalamin (vitamin B-12) 1,000 mcg IM Q30D 07/18/21 04/30/25 04/09/25 History 1,000 mcg/mL injection solution gabapentin 300 mg capsule 300 mg PO BID 07/18/21 04/30/25 05/02/25 History amiodarone 200 mg tablet 200 mg PO DAILY #90 tabs 05/02/23 04/30/25 05/02/25 Rx acetaminophen 325 mg tablet 350 mg PO QID PRN Pain 04/13/24 04/30/25 10/06/24 History calcium carb 1,200 mg-mag hydrox 30 ml PO Q4H PRN Indigestion 04/13/24 04/30/25 04/10/24 History 270 mg-simeth 80 mg/10 mL oral susp (Mylanta Coat-Cool) magnesium hydroxide 400 mg/5 mL 30 ml PO DAILY PRN Constipation 04/13/24 04/30/25 Unknown History oral suspension (Milk of Magnesia) menthol 0.15 % topical powder 1 applic topical QID PRN redness 04/13/24 04/30/25 09/07/23 History (Gold Fish Original Strength) menthol 4 % topical gel (Biofreeze 1 applic topical TID PRN Pain 04/13/24 04/30/25 10/07/23 History (menthol)) polyethylene glycol 3350 17 gram 17 g PO DAILY PRN Constipation 04/13/24 04/30/25 04/11/24 History oral powder packet quetiapine 25 mg tablet (Seroquel) 12.5 mg PO BEDTIME 04/13/24 04/30/25 05/02/25 History ropinirole 2 mg tablet 2 mg PO BID 04/13/24 04/30/25 05/02/25 History sertraline 50 mg tablet 50 mg PO BEDTIME 04/13/24 04/30/25 05/02/25 History sodium phosphates 19 gram-7 118 ml VT DAILY PRN Constipation 04/13/24 04/30/25 Unknown History gram/118 mL enema (Fleet Enema) Lactobacillus rhamnosus GG 10 1 cap PO DAILY 10/10/24 04/30/25 10/10/24 History billion cell capsule (Culturelle) albuterol sulfate 2.5 mg/3 mL 2.5 mg inhalation Q4H PRN 10/10/24 04/30/25 10/09/24 History (0.083 %) solution for nebulization wheezing/congestion bisacodyl 10 mg rectal suppository 10 mg VT DAILY PRN Constipation 10/10/24 04/30/25 Unknown History (Dulcolax (bisacodyl)) calcium carbonate (Tums) 200 mg PO DAILY 10/10/24 04/30/25 10/10/24 History guaifenesin 100 mg/5 mL oral 200 mg PO Q4H PRN cough/congestion 10/10/24 04/30/25 10/09/24 History liquid (Robafen) nystatin 100,000 unit/gram topical 1 applic topical BID PRN Skin 10/10/24 04/30/25 10/08/24 History powder Irritation ondansetron HCl 4 mg tablet 4 mg PO Q4H PRN Nausea 10/10/24 04/30/25 10/04/24 History pantoprazole 40 mg tablet,delayed 40 mg PO BID #60 tabs 10/15/24 04/30/25 05/02/25 Rx release (Protonix) diltiazem HCl 120 mg 120 mg PO DAILY 03/09/25 04/30/25 05/02/25 History capsule,extended release 24 hr, controlled (DILT-XR) ferrous sulfate 325 mg (65 mg 325 mg PO .M&F 03/09/25 04/30/25 05/02/25 History iron) tablet sucralfate 100 mg/mL oral 10 ml PO BID 03/09/25 04/30/25 05/02/25 History suspension Cam boot to left #1 ea 04/20/25 04/29/25 Unknown Rx bumetanide 2 mg tablet 2 mg PO BID 04/30/25 04/30/25 05/02/25 History Allergies Allergy/AdvReac Type Severity Reaction Status Date / Time spironolactone AdvReac ADV-Weaknes Verified 04/30/25 10:52 s [facility] Anesthesia Medical History (Updated 04/29/25 @ 10:01 by Rafat Gtz DO) CKD (chronic kidney disease) stage 4, GFR 15-29 ml/min Atrial fibrillation with controlled ventricular response Iron deficiency anemia Bradycardia History of kidney stones Recurrent incisional hernia CHF (congestive heart failure), NYHA class III Cellulitis Atrial fibrillation with RVR BMI over 35 BMI of 61.7 Restless leg syndrome Obstructive sleep apnea Major depressive disorder, recurrent severe without psychotic features Surgical History History of lithotripsy R temporary ureteral stent History of total abdominal hysterectomy and bilateral salpingo-oophorectomy History of section, low vertical X 2 H/O laparoscopy adhesiolysis/repair of incisional hernia with mesh -- 2014 -- Dr. Alicia Family History Other Family history non-contributory Social History Smoking and tobacco/nicotine status: never used tobacco/nicotine Second hand smoke exposure: No Alcohol intake: never Substance/Drug Use: never Adopted: No Lives independently: Yes Marital status: Current gender identity: Female Data Anesthesia Cardiac Studies: Echocardiogram 04/13/24 Cardiac Event Monitor 07/22/21
--- NOTE | 2025-05-03 08:27 | W.PM.OPSUD ---
Surgery/Procedure H&P Update DATE OF PROCEDURE: May 03, 2025 DATE H&P PERFORMED: 04/29/25 H&P UPDATE INFORMATION: I have reviewed H&P completed within last 30 days, I have examined patient prior to procedure and No changes to prior documentation PREOP DIAGNOSIS: Right tibia fracture PLANNED PROCEDURE: Operation Date: 05/03/25 09:30 Proposed Procedures p IM Tibial Nail Insertion(Right) - Rafat Gtz DO
[2025-05-03] MEDS: ceFAZolin 3,000 MG in sodium chloride 0.9% (100 ml) 100 ML 200 MG IV (09:37)
[2025-05-03] MEDS: fentaNYL 50 mcg/mL INJ 2mL IVP ×2 (10:55→11:03)
--- NOTE | 2025-05-03 10:59 | PM.OP ---
Operative Report Date of procedure: May 03, 2025 Pre-op diagnosis: Right tibia fracture shaft Post-op diagnosis: same Procedure done: Intramedullary nail of the right tibia Surgeon: Rafat Gtz DO Estimated blood loss (mL): 25 Procedure: Intramedullary nail of the right tibia Patient was brought to the op suite after undergoing anesthesia was placed in the supine position. All areas impingement well-padded. Skin incision was made anteriorly in order to identify the fracture. A one third tubular plate was placed to help hold the fracture reduced while we placed the nail. Once this was placed and confirmed under C-arm guidance. Patient had the knee flexed up into triangle. Starting point was made. Splitting the patella tendon. Guidewire was inserted. Opening reamer was inserted. Prior to this I placed a polar blocking screw on the proximal fragment. The guidewire was passed across the fracture. And then reamed to 11-1/2 mm. And then a size 10 x 330 Efrem nail was inserted. 2 screws were placed proximally. 1 the screw holes was too distal. And the other screw hole was blocked by the plate. The stent was brought to placing the 2 distal locking screws. This was done using perfect marshall technique. Holes were drilled and then the screws were placed. Wounds were irrigated and closed with 0 Vicryl 2-0 Vicryl and Monocryl. Sterile dressings were applied patient was transferred to the PACU in stable condition.
[2025-05-03] MEDS: HYDROmorphone 1 mg/mL INJ 1ml 0.5 MG IVP ×2 (11:21→11:30)
--- NOTE | 2025-05-03 11:37 | ANE.PACU2 ---
Inpatient post-anesthesia follow up: Airway intact: Yes Vital signs: Temperature 98.5 F Pulse Rate 83 Respiratory Rate 16 Blood Pressure 123/78 Pulse Oximetry 97 Oxygen Delivery Me thod Room Air Oxygen Flow Rate 3 Fraction of Inspir ed Oxygen 4 Hydration adequate: Yes Nausea and vomiting: No Pain level: 1 Mental status: Baseline
--- NOTE | 2025-05-03 11:55 | ANES.PROC ---
Anesthesia Procedures Procedure/Date: 05/03/25 Nerve Block ^: Nerve Block 1: Main Anesthesia: general anesthesia Time Out Performed: Yes Consent: requested by attending/covering physician and from patient Laterality: Right Nerve block location: popliteal Anesthesia monitors applied: pulse oximetry, EKG, BP cuff and oxygen Nerve block position: supine Anesthetic Used: ropivicaine 0.5% and other Amount of anesthesia used (mL): 20 Ultrasound used to: recognize landmarks Nerve Stimulator Used?: Yes Interscalene/Femoral BLK: other needle (pjunk 4inch) Injection: neg aspiration of heme Patient Tolerated Procedure: well Complications: none Nerve Block 2: Main Anesthesia: general anesthesia Time Out Performed: Yes Consent: requested by attending/covering physician and from patient Laterality: Right Nerve block location: femoral Anesthesia monitors applied: pulse oximetry, EKG, BP cuff and oxygen Nerve block position: supine Anesthetic Used: ropivicaine 0.5% Amount of anesthesia used (mL): 20 Ultrasound used to: recognize landmarks Nerve Stimulator Used?: Yes Interscalene/Femoral BLK: other needle (pjunk 4inch) Injection: neg aspiration of heme Patient Tolerated Procedure: well Complications: none
--- NOTE | 2025-05-03 12:32 | SUR.PHASEI ---
patient was received in pacu having pain to right leg she rated as a 10. pain was not relieved by iv pain medicine. performed nerve block to right leg 30ml ropivicaine 0.5%. after 10 minutes patient was reporting much relief with a pain rating of 4. patient vitals stable, report was given to floor nurse.
[2025-05-03] MEDS: HYDROcodone-acetaminophen 10-325 mg Tablet PO ×2 (14:24→20:52)
--- NOTE | 2025-05-03 15:26 | XR_ITS ---
WS: [id number] Lumbar spine, C-arm fluoroscopy views, 05/03/2025 Clinical Data: or pic, fusion Comparison: Right knee, 04/26/2025 Findings: Dr. Gtz repaired the proximal right tibial fracture with an intramedullary matt and screws, also an additional medial proximal plate and screws was added.
[2025-05-03] MEDS: sucralfate 1 gm/10 mL Oral Liq UDC PO (18:30)
[2025-05-03] MEDS: ferrous sulfate EC 325 mg Tablet PO (18:31)
[2025-05-03] MEDS: ceFAZolin 2,000 mg SDV 2000 MG IVP (18:34)
[2025-05-04] MEDS: ceFAZolin 2,000 mg SDV 2000 MG IVP ×2 (01:36→09:13)
[2025-05-04 04:00] VITALS: BP 116/66; PULSE 80; RESP 16; TEMP 36.8; O2SAT 96
[2025-05-04 07:23] VITALS: BP 119/64; PULSE 59; RESP 18; TEMP 36.6; O2SAT 95
[2025-05-04 09:04] VITALS: PULSE 70; RESP 16; O2SAT 94
[2025-05-04] MEDS: lactobacillus 1 Tablet 1 TAB PO (09:13)
[2025-05-04] MEDS: HYDROcodone-acetaminophen 10-325 mg Tablet PO (09:13)
[2025-05-04] MEDS: sucralfate 1 gm/10 mL Oral Liq UDC PO (09:13)
[2025-05-04] MEDS: dilTIAZem ER (24HR) 120 mg Capsule PO (09:14)
[2025-05-04 11:06] VITALS: BP 128/64; PULSE 76; RESP 18; TEMP 36.5; O2SAT 92
[2025-05-04 13:27] VITALS: BP 128/64; PULSE 76; RESP 18; TEMP 36.5; O2SAT 92
--- NOTE | 2025-05-04 13:27 | PC.NURSE ---
Called report to Sydney Horan LPN at [facility]
--- NOTE | 2025-05-18 14:38 | P.DS_ITS ---
Discharge Providers Date of Admission: 05/03/25 10:54 Date of Discharge: May 04, 2025 Attending Provider at Admission: Rafat Pham DO Attending Provider at Discharge: Rafat Pham DO Primary Care Provider: Sameer Yang DO Reason for Visit Reason for Visit: [id number] Physical Exam Narrative: Pain controlled Discharge Data Studies Completed and Pending Completed Studies During Hospitalization Category Date Time Status XR tibia fibula RT 2V [id number] Routine Exams 05/03/25 00:00 Completed Radiology Impressions Tibia/Fibula X-Ray 05/03/25 00:00 Impression: Internal fixation of proximal right tibial fracture with a long intramedullary matt. Laboratory Results POC Glucose 113 mg/dL (70-110) H 05/03/25 08:40 Vitals Last Vital Signs Temp 97.7 F 05/04/25 13:27 Pulse 76 05/04/25 13:27 Resp 18 05/04/25 13:27 BP 128/64 05/04/25 13:27 Pulse Ox 92 05/04/25 13:27 O2 Del Method Nasal Cannula 05/04/25 11:06 O2 Flow Rate 0.5 05/04/25 09:04 FiO2 4 05/03/25 11:37 Discharge Plan Discharge Patient Disposition: Xfer SNF Condition: Stable Prescriptions: New aspirin 325 mg tablet 325 mg PO DAILY 30 Days Qty: 30 0RF Continued atorvastatin 40 mg tablet 40 mg PO BEDTIME All Day Allergy (cetirizine) 10 mg capsule 10 mg PO DAILY (DME) Cam boot to left See Rx Instructions .Route .MEDSUPPLY Qty: 1 0RF Rx Instructions: As directed sucralfate 100 mg/mL suspension 10 ml PO BID ferrous sulfate 325 mg (65 mg iron) tablet 325 mg PO .M&F diltiazem HCl [DILT-XR] 120 mg capsule,ext.rel 24h degradable 120 mg PO DAILY magnesium oxide 400 mg magnesium tablet 400 mg PO BID amiodarone 200 mg tablet 200 mg PO DAILY Qty: 90 1RF cyanocobalamin (vitamin B-12) 1,000 mcg/mL solution 1,000 mcg IM Q30D gabapentin 300 mg capsule 300 mg PO BID sertraline 50 mg Tablet 50 mg PO BEDTIME Mylanta Coat-Cool 1,200 mg-270 mg -80 mg/10 mL Suspension 30 ml PO Q4H PRN (Reason: Indigestion) quetiapine [Seroquel] 25 mg Tablet 12.5 mg PO BEDTIME acetaminophen 325 mg Tablet 350 mg PO QID PRN (Reason: Pain) Biofreeze (menthol) 4 % Gel 1 applic TOPICAL TID PRN (Reason: Pain) Gold Fish Original Strength 0.15 % Powder 1 applic TOPICAL QID PRN (Reason: redness) polyethylene glycol 3350 17 gram Powder In Packet 17 g PO DAILY PRN (Reason: Constipation) magnesium hydroxide [Milk of Magnesia] 400 mg/5 mL Suspension 30 ml PO DAILY PRN (Reason: Constipation) ropinirole 2 mg Tablet 2 mg PO BID Fleet Enema 19-7 gram/118 mL Enema 118 ml AR DAILY PRN (Reason: Constipation) albuterol sulfate 2.5 mg /3 mL (0.083 %) solution for nebulization 2.5 mg inhalation Q4H PRN (Reason: wheezing/congestion) ondansetron HCl 4 mg tablet 4 mg PO Q4H PRN (Reason: Nausea) guaifenesin [Robafen] 100 mg/5 mL Liquid 200 mg PO Q4H PRN (Reason: cough/congestion) bisacodyl [Dulcolax (bisacodyl)] 10 mg Suppository 10 mg AR DAILY PRN (Reason: Constipation) calcium carbonate [Tums] 200 mg calcium (500 mg) Tablet,Chewable 200 mg PO DAILY nystatin 100,000 unit/gram Powder 1 applic TOPICAL BID PRN (Reason: Skin Irritation) Culturelle 10 billion cell Capsule 1 cap PO DAILY pantoprazole [Protonix] 40 mg tablet,delayed release (DR/EC) 40 mg PO BID Qty: 60 0RF bumetanide 2 mg tablet 2 mg PO BID Discontinued hydrocodone-acetaminophen 7.5-325 mg tablet 1 - 2 tab PO Q4H PRN (Reason: Pain) Discharge Order = DC NOW: Discharge Order (Routine); Ordered 05/04/25 Ordered By: Rafat Pham Referrals: Rafat Pham DO [Physician, Orthopedics] - 05/18/25 8:00 am Referral Note: Discharge Diet: Advance as tolerated Discharge Activity: Limit activity as instructed Patient Instructions: Hydrocodone/Acetaminophen (By mouth), Aspirin (By mouth), Acute Wound Care (DC), Post Anesthesia Care Activity Restrictions/Additional Instructions: You are being discharged from the hospital today during which time you have been under the care of Dr Pham. You had a tibia fracture. You were treated for this injury with tibia IM nail. You may resume you normal diet (including any special diets as directed by your primary doctor) as well as your home medications. You should follow up with you primary doctor if you have any questions regarding medication you took prior to your stay in the hospital. You may take your pain medication as prescribed. After the first few days, take your pain medication as needed. Do not drive or drink alcohol while taking your pain medication. Your injury may increase your risk of developing a blood clot,or DVT, in your arm or leg. This could potentially dislodge and travel to your lungs and become a life threatening condition called apulmonary embolus,or PE. You have been prescribed asprin to be taken to prevent this. Frequent movement of the legs will also help prevent this from occurring. If you develop any new or worsening cough, chestpain, bloody sputum or shortness of breath, call 911 or go to the EmergencyRoom. Always keep your surgical incision/dressing clean and dry. If you experience increasing pain at your incision site, redness, swelling, increasing discharge, foul odors, or fevers (greater than 100.4), night sweats or chills you should call the office at the above number. If you feel this is an emergency you should be evaluated in the Emergency Department of a nearby hospital. Orthopedic Patient Instructions Summary: Weight Bearing: nwb Activity: as tolerated. Diet: regular. Wound Care: Keep dressing clean and dry. Anticoagulation: asa Pain Medication: Take only as needed. Ice, rest and elevation will be of great benefit. Please plan to follow-up [facility] Dr Pham in 2 weeks. You will need to call the clinic [phone] to schedule this visit. Thank you far allowing me to participate in your care. Do not hesitate to call the office with any questions or concerns. Discharge Attestations Time Spent in Discharge Care*: less than 30 min Quality Metrics Clinical Quality Measures [ No reported AMI, CVA or VTE this stay] Coding Level of Care Code Acute Code for [facility] Fwd
== END 2025-05-04 13:00 | disposition skilled nursing facility (03) ==
LOC: MEDSURG 10:54
PROVIDERS: Admitting Provider Orthopaedic Surgery; PCP Internal Medicine; Visit Provider Orthopaedic Surgery
PROC: (CPT 27759; principal; 2025-05-03 09:10)
DX: S82.291A Other fracture of shaft of right tibia, initial encounter for closed fracture (principal); X58.XXXA Exposure to other specified factors, initial encounter; K21.9 Gastro-esophageal reflux disease without esophagitis; G47.33 Obstructive sleep apnea (adult) (pediatric); N18.4 Chronic kidney disease, stage 4 (severe); I48.91 Unspecified atrial fibrillation; R00.1 Bradycardia, unspecified; I50.9 Heart failure, unspecified; F32.9 Major depressive disorder, single episode, unspecified
CPT/HCPCS: 27759; 36416; 72100; 73590; 76000; 82962; 97161; 97167; C1713; G0378; J0690; J1100; J1171; J2250; J2405; J2704; J3010; J3490; J7030; J9999

== ENCOUNTER → 2025-05-18 16:07 | Outpatient (BNVA) | payer MEDICARE, MEDICAID, SELFPAY | PROVIDERS: PCP Internal Medicine; Visit Provider Orthopaedic Surgery | DX: Z98.890 Other specified postprocedural states (principal) | CPT/HCPCS: 73590; 99024 ==

== ENCOUNTER → 2025-05-31 09:50 | Outpatient (BNVA) | payer MEDICARE, MEDICAID, SELFPAY | PROVIDERS: PCP Internal Medicine; Visit Provider Podiatrist Foot & Ankle Surgery | DX: S92.352A Displaced fracture of fifth metatarsal bone, left foot, initial encounter for closed fracture (principal); X58.XXXA Exposure to other specified factors, initial encounter; Z46.89 Encounter for fitting and adjustment of other specified devices; S92.355D Nondisplaced fracture of fifth metatarsal bone, left foot, subsequent encounter for fracture with routine healing; X58.XXXD Exposure to other specified factors, subsequent encounter | CPT/HCPCS: 73630 ==

== ENCOUNTER 2025-05-31 11:38 | Outpatient (CLI) | payer MEDICARE, MEDICAID, SELFPAY | END 2025-05-31 11:39 | disposition home or self-care (01) | LOC: SPT 11:38 | PROVIDERS: PCP Internal Medicine; Visit Provider Podiatrist Foot & Ankle Surgery | DX: Z46.89 Encounter for fitting and adjustment of other specified devices (principal); S92.355D Nondisplaced fracture of fifth metatarsal bone, left foot, subsequent encounter for fracture with routine healing; X58.XXXD Exposure to other specified factors, subsequent encounter | CPT/HCPCS: L3031 ==

== ENCOUNTER → 2025-06-01 13:09 | Outpatient (BNVA) | payer MEDICARE, MEDICAID, SELFPAY | PROVIDERS: PCP Internal Medicine; Visit Provider Orthopaedic Surgery | DX: Z98.890 Other specified postprocedural states (principal) | CPT/HCPCS: 99024 ==

== ENCOUNTER 2025-06-22 08:06 | Outpatient (CLI) | payer MEDICARE, MEDICAID, SELFPAY ==
--- NOTE | 2025-06-22 08:14 | XRR_ITS ---
PROCEDURE INFORMATION: Exam: XR Right Tibia and Fibula Exam date and time: 06/22/2025 8:19 AM Age: 70 years old Clinical indication: Pain; Lower leg; Right; Additional info: Leg pain. History of previous injury and surgery. TECHNIQUE: Imaging protocol: Radiologic exam of the right tibia and fibula. 2image(s) are provided. Views: 2 views. COMPARISON: 1. CR XR tibia fibula RT 2V [id number] 05/18/2025 4:[address] lower leg RT wo con* [id number] 04/29/2025 10:46 AM 3. CR XR knee RT 1-2V 23584 04/26/2025 8:12 PM FINDINGS: Bones/joints: There is slightly decreased bone mineralization overall.Ankle mortise alignment is maintained. There is some advanced multi compartmental degeneration of the knee with medial predominance demonstrating some [id number] type appearance. There is some locked intramedullary matt hardware present of the tibial shaft appearing grossly intact along with the associated plate and screw fixation hardware. There are some degenerative appearing changes of the ankle mortise similar along with sclerosis, subchondral cystic related change. There is similar overall fracture alignment of the proximal tibia and fibular shafts with some increased sclerosis and callus formation indicative of some progressive interval healing. There does appear to be some area of residual nonunion as well as subtle offset of the fibular focus. Soft tissues: No radiopaque foreign body or subcutaneous emphysema is appreciated. There is prominence of the soft tissues overall. No other significant interval changes are appreciated. XR/XR tibia fibula RT 2V [id number] IMPRESSION: There is maintained fracture and hardware alignment with some interval progressive healing demonstrated of the proximal fibula and tibial shaft fractures.
== END 2025-06-22 08:07 ==
LOC: RAD 08:09
PROVIDERS: PCP Internal Medicine; Visit Provider Orthopaedic Surgery
DX: Z98.890 Other specified postprocedural states (principal)
CPT/HCPCS: 73590; 99024

== ENCOUNTER → 2025-06-28 08:46 | Outpatient (BNVA) | payer MEDICARE, MEDICAID, SELFPAY | PROVIDERS: PCP Internal Medicine; Visit Provider Podiatrist Foot & Ankle Surgery | DX: S92.355A Nondisplaced fracture of fifth metatarsal bone, left foot, initial encounter for closed fracture (principal); X58.XXXA Exposure to other specified factors, initial encounter | CPT/HCPCS: 73630; 99213 ==

== ENCOUNTER → 2025-06-29 14:07 | Outpatient (BNVA) | payer MEDICARE, MEDICAID, SELFPAY | PROVIDERS: PCP Internal Medicine; Visit Provider Thoracic Surgery (Cardiothoracic Vascular Surgery) | DX: E11.52 Type 2 diabetes mellitus with diabetic peripheral angiopathy with gangrene (principal); E11.622 Type 2 diabetes mellitus with other skin ulcer; L98.492 Non-pressure chronic ulcer of skin of other sites with fat layer exposed | CPT/HCPCS: 11042; 99213; A6446 ==

== ENCOUNTER 2025-07-06 14:23 | Outpatient (CLI) | payer MEDICARE, MEDICAID, SELFPAY ==
--- NOTE | 2025-07-06 14:29 | XR_ITS ---
WS: [id number] Exam: XR tibia fibula RT 2V [id number] Date/Time of Exam: 07/06/2025 2:46 PM Reason For Exam: leg pain Comparison 06/22/2025. There are healing fractures of the upper metaphyses of the tibia and fibula. The tibial fracture is stabilized with an intramedullary matt, multiple screws as well as medial plate and screw fixation. Both fractures show interval healing and no positional change. No hardware complication is noted. Advanced degenerative changes at the knee with varus deformity. Generalized edema of the lower leg. 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 Osteopenia. XR/XR tibia fibula RT 2V [id number] IMPRESSION: 1. Healing fractures of the upper tibia and fibula without positional change. N o hardware complication noted.
== END 2025-07-06 14:24 | disposition home or self-care (01) ==
LOC: RAD 14:25
PROVIDERS: PCP Internal Medicine; Visit Provider Orthopaedic Surgery
DX: Z98.890 Other specified postprocedural states (principal)
CPT/HCPCS: 73590; 99024

== ENCOUNTER → 2025-07-08 10:55 | Outpatient (BNVA) | payer MEDICARE, MEDICAID, SELFPAY | PROVIDERS: PCP Internal Medicine; Visit Provider Thoracic Surgery (Cardiothoracic Vascular Surgery) | DX: I96 Gangrene, not elsewhere classified (principal); T81.31XA Disruption of external operation (surgical) wound, not elsewhere classified, initial encounter; Y83.8 Other surgical procedures as the cause of abnormal reaction of the patient, or of later complication, without mention of misadventure at the time of the procedure | CPT/HCPCS: 97597; A6212; A6446 ==

== ENCOUNTER → 2025-07-15 10:39 | Outpatient (BNVA) | payer MEDICARE, MEDICAID, SELFPAY | PROVIDERS: PCP Internal Medicine; Visit Provider Thoracic Surgery (Cardiothoracic Vascular Surgery) | DX: I96 Gangrene, not elsewhere classified (principal); T81.31XD Disruption of external operation (surgical) wound, not elsewhere classified, subsequent encounter; Y83.8 Other surgical procedures as the cause of abnormal reaction of the patient, or of later complication, without mention of misadventure at the time of the procedure | CPT/HCPCS: 97597; A6021 ==

== ENCOUNTER → 2025-07-29 15:43 | Outpatient (BNVA) | payer MEDICARE, MEDICAID, SELFPAY | PROVIDERS: PCP Internal Medicine; Visit Provider Orthopaedic Surgery | DX: Z98.890 Other specified postprocedural states (principal); Z09 Encounter for follow-up examination after completed treatment for conditions other than malignant neoplasm; Z87.2 Personal history of diseases of the skin and subcutaneous tissue | CPT/HCPCS: 99024; 99212; A6212 ==

== ENCOUNTER 2025-08-06 13:50 | Emergency (ER) | payer MEDICARE, MEDICAID, SELFPAY ==
[2025-08-06] VITALS (7 sets, daily range): BP systolic 105–116; BP diastolic 58–78; PULSE 71–80; RESP 20–22; TEMP 36.8; O2SAT 91–94; BMI 49.9
--- NOTE | 2025-08-06 13:47 | ECG_ITS ---
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
--- NOTE | 2025-08-06 13:47 | XR_ITS ---
WS: [id number] XR chest 1V portable [id number] REASON FOR EXAM: Shortness of breath FINDINGS: Compared to the presumed normal baseline 07/18/2021, the chest is unchanged. Mild to moderate tortuosity and ectasia of the thoracic aorta. Cardiomegaly with enlarged left atrium. Mild central pulmonary venous congestion. Calcified granulomatous disease bilaterally. No acute pulmonary parenchymal or pleural abnormality. XR/XR chest 1V portable [id number] IMPRESSION: Cardiomegaly with mild pulmonary vein congestion.
--- NOTE | 2025-08-06 13:53 | W.ED.SOB ---
HPI - SOB/Dyspnea General: Chief Complaint: Upper Respiratory Infection Stated Complaint: low o2 - pneumonia History of Present Illness: HPI Narrative: 70-year-old female with a history of morbid obesity, anemia, chronic kidney disease, anxiety, hyperlipidemia, depression, insomnia, obstructive sleep apnea, a large abdominal hernia, chronic diastolic congestive heart failure, edema, restless legs, atrial fibrillation and type 2 diabetes who [facility] with worsening shortness of breath, cough and hypoxemia. She has been sick for about a week. She has had a cough. She was started on Levaquin and documented to have a pneumonia at the [facility]. Today however she became worse and started requiring some oxygen. Related Data Home Medications ?Medication ?Instructions ?Recorded ?Confirmed atorvastatin 40 mg tablet 40 mg PO BEDTIME 11/04/19 07/29/25 cetirizine 10 mg capsule (All Day 10 mg PO DAILY 11/04/19 07/29/25 Allergy (cetirizine)) magnesium oxide 400 mg PO BID 06/28/21 07/29/25 cyanocobalamin (vitamin B-12) 1,000 mcg IM Q30D 07/18/21 07/29/25 1,000 mcg/mL injection solution gabapentin 300 mg capsule 300 mg PO BID 07/18/21 07/29/25 acetaminophen 325 mg tablet 350 mg PO QID PRN Pain 04/13/24 07/29/25 calcium carb 1,200 mg-mag hydrox 30 ml PO Q4H PRN Indigestion 04/13/24 07/29/25 270 mg-simeth 80 mg/10 mL oral susp (Mylanta Coat-Cool) magnesium hydroxide 400 mg/5 mL 30 ml PO DAILY PRN Constipation 04/13/24 07/29/25 oral suspension (Milk of Magnesia) menthol 0.15 % topical powder 1 applic topical QID PRN redness 04/13/24 07/29/25 (Gold Fish Original Strength) menthol 4 % topical gel (Biofreeze 1 applic topical TID PRN Pain 04/13/24 07/29/25 (menthol)) polyethylene glycol 3350 17 gram 17 g PO DAILY PRN Constipation 04/13/24 07/29/25 oral powder packet quetiapine 25 mg tablet (Seroquel) 12.5 mg PO BEDTIME 04/13/24 07/29/25 ropinirole 2 mg tablet 2 mg PO BID 04/13/24 07/29/25 sertraline 50 mg tablet 50 mg PO BEDTIME 04/13/24 07/29/25 sodium phosphates 19 gram-7 118 ml NV DAILY PRN Constipation 04/13/24 07/29/25 gram/118 mL enema (Fleet Enema) Lactobacillus rhamnosus GG 10 1 cap PO DAILY 10/10/24 07/29/25 billion cell capsule (Culturelle) albuterol sulfate 2.5 mg/3 mL 2.5 mg inhalation Q4H PRN 10/10/24 07/29/25 (0.083 %) solution for nebulization wheezing/congestion bisacodyl 10 mg rectal suppository 10 mg NV DAILY PRN Constipation 10/10/24 07/29/25 (Dulcolax (bisacodyl)) calcium carbonate (Tums) 200 mg PO DAILY 10/10/24 07/29/25 guaifenesin 100 mg/5 mL oral 200 mg PO Q4H PRN cough/congestion 10/10/24 07/29/25 liquid (Robafen) nystatin 100,000 unit/gram topical 1 applic topical BID PRN Skin 10/10/24 07/29/25 powder Irritation ondansetron HCl 4 mg tablet 4 mg PO Q4H PRN Nausea 10/10/24 07/29/25 diltiazem HCl 120 mg 120 mg PO DAILY 03/09/25 07/29/25 capsule,extended release 24 hr, controlled (DILT-XR) ferrous sulfate 325 mg (65 mg 325 mg PO .M&F 03/09/25 07/29/25 iron) tablet sucralfate 100 mg/mL oral 10 ml PO BID 03/09/25 07/29/25 suspension bumetanide 2 mg tablet 2 mg PO BID 04/30/25 07/29/25 Previous Rx's ?Medication ?Instructions ?Recorded amiodarone 200 mg tablet 200 mg PO DAILY #90 tabs 05/02/23 pantoprazole 40 mg tablet,delayed 40 mg PO BID #60 tabs 10/15/24 release (Protonix) Cam boot to left #1 ea 04/20/25 carbon fiber insole #1 ea 05/31/25 benzonatate 200 mg capsule 200 mg PO TID PRN cough #30 caps 08/06/25 prednisone 20 mg tablet 60 mg (3 x 20 mg) PO DAILY 5 days 08/06/25 #15 tabs Allergies Allergy/AdvReac Type Severity Reaction Status Date / Time spironolactone AdvReac ADV-Weaknes Verified 08/06/25 14:01 s Review of Systems Narrative: Constitutional symptoms: Negative except as documented in HPI. Skin symptoms: Negative except as documented in HPI. Eye symptoms: Negative except as documented in HPI. ENMT symptoms: Negative except as documented in HPI. Respiratory symptoms: Negative except as documented in HPI. Cardiovascular symptoms: Negative except as documented in HPI. Gastrointestinal symptoms: Negative except as documented in HPI. Genitourinary symptoms: Negative except as documented in HPI. Musculoskeletal symptoms: Negative except as documented in HPI. Neurologic symptoms: Negative except as documented in HPI. Psychiatric symptoms: Negative except as documented in HPI. Endocrine symptoms: Negative except as documented in HPI. PFS ED PFSH: Medical History (Updated 08/06/25 @ 15:58 by Camille Agarwal MD) CKD (chronic kidney disease) stage 4, GFR 15-29 ml/min Atrial fibrillation with controlled ventricular response Iron deficiency anemia Bradycardia History of kidney stones Recurrent incisional hernia CHF (congestive heart failure), NYHA class III Cellulitis Atrial fibrillation with RVR BMI over 35 BMI of 61.7 Restless leg syndrome Obstructive sleep apnea Major depressive disorder, recurrent severe without psychotic features Surgical History History of lithotripsy R temporary ureteral stent History of total abdominal hysterectomy and bilateral salpingo-oophorectomy History of section, low vertical X 2 H/O laparoscopy adhesiolysis/repair of incisional hernia with mesh -- 2015 -- Dr. Alicia Family History Other Family history non-contributory Social History Smoking and tobacco/nicotine status: never used tobacco/nicotine Second hand smoke exposure: No Alcohol intake: never Substance/Drug Use: never Adopted: No Lives independently: Yes Marital status: Current gender identity: Female Physical Exam Narrative: EXAM NARRATIVE: General: Alert, no acute distress. Skin: Warm, dry. Head: Normocephalic, atraumatic. Neck: Supple, trachea midline. Eye: Extraocular movements are intact. Ears, nose, mouth and throat: Oral mucosa moist. Cardiovascular: Regular rate and rhythm, Normal peripheral perfusion. Respiratory: coarse, scattered wheeze, mild increased wob. tachypnea, breath sounds are equal, frequent cough Gastrointestinal: Soft, Nontender, Non distended Musculoskeletal: Normal ROM, no deformity. Neurological: Alert and oriented, No focal neurological deficit observed. Psychiatric: Cooperative, appropriate mood & affect. Course Vital Signs: Vital signs: Vital Signs Temperature 98.2 F 08/06/25 13:51 Pulse Rate 77 08/06/25 17:00 Respiratory Rate 22 H 08/06/25 14:20 Blood Pressure 105/76 08/06/25 17:00 Pulse Oximetry 91 08/06/25 17:00 Oxygen Delivery Me thod Nasal Cannula 08/06/25 14:20 Oxygen Flow Rate 2 08/06/25 14:20 MDM - SOB/Dyspnea Medical Decision Making Medical decision making Patient's reason for coming to the emergency room: Shortness of breath, hypoxemia Social determinants: [facility] a [facility]. Retired. I reviewed the patient's medical record. 70-year-old female with a history of morbid obesity, anemia, chronic kidney disease, anxiety, hyperlipidemia, depression, insomnia, obstructive sleep apnea, a large abdominal hernia, chronic diastolic congestive heart failure, edema, restless legs, atrial fibrillation and type 2 diabetes I reviewed the patient's current home meds I reviewed [facility] medication list. Patient is on metoprolol, diltiazem and amiodarone. However I do not see any anticoagulation. Alternate historians: None Differential diagnosis for patient with shortness of breath includes but is not limited to and based on the above HPI, review of systems and physical exam: Pneumonia. Bronchitis. Asthma or COPD with acute exacerbation. Acute coronary syndrome / [place]. Pulmonary embolism. Anxiety. Congestive heart failure. Viral infections including influenza and Covid-19. Atrial fibrillation. Anxiety. Pleural effusion. Pneumothorax. Orders placed to evaluate differential diagnosis based on the above differential, HPI and physical exam EKG: Time 1405. Rate 79. Atrial fibrillation with controlled rate, nonspecific ST changes, no ectopy, This was reviewed and interpreted by myself the ER physician at 1410. Chest x-ray: Cardiomegaly with mild pulmonary vein congestion. No obvious focal infiltrates. This was reviewed and interpreted by myself the emergency room physician. I also reviewed the radiology report. Lab Review: Laboratory results were reviewed and interpreted by myself the emergency room physician. Mild leukocytosis. No anemia. Stable chronic renal insufficiency. proBNP is quite a bit lower than it has been in the past Assessment of risk: Level of risk: High risk patient. Multiple comorbidities. long term patient Hospitalization considerations: Patient has mild oxygen requirement but this can be [facility] care [facility] at the [facility]. She is already been started on Levaquin. I will place her on some steroids and suggest that she continue the antibiotics for 10 days. Also some cough medicine. Reexamination: Patient remained stable. No increased work of breathing. No altered mental status. No focal motor deficits. Patient is stable on 2 L nasal cannula Assessment and plan: Upper respiratory infection Hypoxemia ?Solu-Medrol and breathing treatments in the emergency room along with a dose of cefepime. - Discharged home - Discussed plan with patient. Answered any questions. - Evaluation and treatment of this problem were appropriate in the emergency setting. Lab Data 08/06/25 14:07 08/06/25 14:07 Labs/Radiology: Radiology Impressions Chest X-Ray 08/06/25 13:47 IMPRESSION: Cardiomegaly with mild pulmonary vein congestion. Laboratory Results WBC 12.27 10^3/uL (3.29-11.43) H 08/06/25 14:07 RBC 3.50 10^6/uL (3.85-5.65) L 08/06/25 14:07 Hgb 10.80 g/dL (11.27-16.99) L 08/06/25 14:07 Hct 35.4 % (36-47) L 08/06/25 14:07 MCV 101.1 fl (85-98) H 08/06/25 14:07 MCH 30.9 pg (27-33) 08/06/25 14:07 MCHC 30.5 g/dL (30-55) 08/06/25 14:07 RDW 15.7 % (12.1-15.1) H 08/06/25 14:07 Plt Count 200 10^3/cmm (157-399) 08/06/25 14:07 MPV 10.4 fL (7.4-10.4) 08/06/25 14:07 Neut % (Auto) 78.6 % 08/06/25 14:07 Lymph % (Auto) 13.7 % 08/06/25 14:07 [place] % (Auto) 7.0 % 08/06/25 14:07 Eos % (Auto) 0.0 % 08/06/25 14:07 Baso % (Auto) 0.2 % 08/06/25 14:07 Neut # (Auto) 9.65 10^3/uL (1.8-7.7) H 08/06/25 14:07 Lymph # (Auto) 1.7 10^3/uL (0.8-4.8) 08/06/25 14:07 [place] # (Auto) 0.9 10^3/uL (0.2-0.9) 08/06/25 14:07 Eos # (Auto) 0.0 10^3/uL (0.0-0.8) 08/06/25 14:07 Baso # (Auto) 0.0 10^3/uL (0.0-0.1) 08/06/25 14:07 Nucleated RBC % (auto) 0 % 08/06/25 14:07 Nucleated RBCs # 0.0 /100WBC 08/06/25 14:07 Specimen Type Arterial 08/06/25 14:28 Sample Site Brachial, left 08/06/25 14:28 ABG pH 7.40 (7.35-7.45) 08/06/25 14:28 ABG pCO2 55.4 mmHg (35-45) H 08/06/25 14:28 ABG pO2 83.8 mmHg (80.0-100.0) 08/06/25 14:28 ABG PO2/FiO2 Ratio 299 08/06/25 14:28 ABG HCO3 34.6 mmol/L (22-26) H 08/06/25 14:28 ABG O2 Saturation 96.5 08/06/25 14:28 ABG Base Excess 8.3 mmol/L (-2.0-2.0) H 08/06/25 14:28 James Test N/a 08/06/25 14:28 A-a O2 Gradient 6.3 mmHg (5-10) 08/06/25 14:28 Hematocrit 34.4 % (37-47) L 08/06/25 14:28 Hgb O2 Saturation 94.8 % (95-100) L 08/06/25 14:28 Carboxyhemoglobin 1.4 %THgb (0.4-20.1) 08/06/25 14:28 Methemoglobin 0.3 % (0.4-1.5) L 08/06/25 14:28 Total Hemoglobin 11.2 g/dL (12-16) L 08/06/25 14:28 Sodium 145.0 mmol/L (131-143) H 08/06/25 14:28 Potassium 3.8 mmol/L (3.5-5.0) 08/06/25 14:28 Glucose 105.0 mg/dL (70-115) 08/06/25 14:28 Ionized Calcium 1.1 mmol/L (1.1-1.4) 08/06/25 14:28 O2 Delivery Device Nc 08/06/25 14:28 O2 Liters/Min 2.0 % 08/06/25 14:28 FiO2 28.0 % 08/06/25 14:28 Employment Interviewer ID glc 08/06/25 14:28 Sodium 142 mmol/L (136-145) 08/06/25 14:07 Potassium 4.0 mmol/L (3.5-5.1) 08/06/25 14:07 Chloride 101 mmol/L (98-107) 08/06/25 14:07 Carbon Dioxide 31 mmol/L (22-29) H 08/06/25 14:07 Anion Gap 14.0 (5-19) 08/06/25 14:07 BUN 20 mg/dL (8-23) 08/06/25 14:07 Creatinine 1.4 mg/dL (0.5-0.9) H 08/06/25 14:07 GFR Calculation 37.3 mL/min (90-130) L 08/06/25 14:07 Glucose 112 mg/dL (65-115) 08/06/25 14:07 Calculated Osmolality 297 mOsm/kg (285-295) H 08/06/25 14:07 Lactic Acid 1.3 mmol/L (0.5-2.2) 08/06/25 14:07 Calcium 8.5 mg/dL (8.5-10.5) 08/06/25 14:07 Total Bilirubin 1.3 mg/dL (0.15-1.2) H 08/06/25 14:07 AST 14 U/L (0-32) 08/06/25 14:07 ALT 9 U/L (0-33) 08/06/25 14:07 Alkaline Phosphatase 96 U/L (35-105) 08/06/25 14:07 Troponin T Baseline 59 ng/L (0-10) H 08/06/25 14:07 Troponin T 60 Minute 58.83 ng/L (0-10) H 08/06/25 15:35 Delta Troponin T -0.17 ABS# (0-10) L 08/06/25 15:35 NT-Pro-B Natriuret Pep 2551 pg/mL (0-125) H 08/06/25 14:07 Total Protein 5.9 g/dL (6.6-8.7) L 08/06/25 14:07 Albumin 3.3 g/dL (3.5-5.2) L 08/06/25 14:07 Globulin 2.6 g/dL (1.3-4.6) 08/06/25 14:07 Procalcitonin 0.12 ng/mL (0-0.5) 08/06/25 14:07 All radiology interpretation(s) finalized by discharge Discharge Plan Discharge Patient Disposition: Home Clinical Impression: Acute upper respiratory infection, Hypoxemia Condition: Stable Prescriptions: New benzonatate 200 mg capsule 200 mg PO TID PRN (Reason: cough) Qty: 30 0RF prednisone 20 mg tablet 60 mg PO DAILY 5 Days Qty: 15 0RF No Action atorvastatin 40 mg tablet 40 mg PO BEDTIME All Day Allergy (cetirizine) 10 mg capsule 10 mg PO DAILY (DME) Cam boot to left See Rx Instructions .Route .MEDSUPPLY Qty: 1 0RF Rx Instructions: As directed sucralfate 100 mg/mL suspension 10 ml PO BID ferrous sulfate 325 mg (65 mg iron) tablet 325 mg PO .M&F diltiazem HCl [DILT-XR] 120 mg capsule,ext.rel 24h degradable 120 mg PO DAILY (DME) carbon fiber insole See Rx Instructions .Route .MEDSUPPLY Qty: 1 0RF Rx Instructions: As directed magnesium oxide 400 mg magnesium tablet 400 mg PO BID amiodarone 200 mg tablet 200 mg PO DAILY Qty: 90 1RF cyanocobalamin (vitamin B-12) 1,000 mcg/mL solution 1,000 mcg IM Q30D gabapentin 300 mg capsule 300 mg PO BID sertraline 50 mg Tablet 50 mg PO BEDTIME Mylanta Coat-Cool 1,200 mg-270 mg -80 mg/10 mL Suspension 30 ml PO Q4H PRN (Reason: Indigestion) quetiapine [Seroquel] 25 mg Tablet 12.5 mg PO BEDTIME acetaminophen 325 mg Tablet 350 mg PO QID PRN (Reason: Pain) Biofreeze (menthol) 4 % Gel 1 applic TOPICAL TID PRN (Reason: Pain) Gold Fish Original Strength 0.15 % Powder 1 applic TOPICAL QID PRN (Reason: redness) polyethylene glycol 3350 17 gram Powder In Packet 17 g PO DAILY PRN (Reason: Constipation) magnesium hydroxide [Milk of Magnesia] 400 mg/5 mL Suspension 30 ml PO DAILY PRN (Reason: Constipation) ropinirole 2 mg Tablet 2 mg PO BID Fleet Enema 19-7 gram/118 mL Enema 118 ml NV DAILY PRN (Reason: Constipation) albuterol sulfate 2.5 mg /3 mL (0.083 %) solution for nebulization 2.5 mg inhalation Q4H PRN (Reason: wheezing/congestion) ondansetron HCl 4 mg tablet 4 mg PO Q4H PRN (Reason: Nausea) guaifenesin [Robafen] 100 mg/5 mL Liquid 200 mg PO Q4H PRN (Reason: cough/congestion) bisacodyl [Dulcolax (bisacodyl)] 10 mg Suppository 10 mg NV DAILY PRN (Reason: Constipation) calcium carbonate [Tums] 200 mg calcium (500 mg) Tablet,Chewable 200 mg PO DAILY nystatin 100,000 unit/gram Powder 1 applic TOPICAL BID PRN (Reason: Skin Irritation) Culturelle 10 billion cell Capsule 1 cap PO DAILY pantoprazole [Protonix] 40 mg tablet,delayed release (DR/EC) 40 mg PO BID Qty: 60 0RF bumetanide 2 mg tablet 2 mg PO BID Discharge Orders: Discharge ED (Routine); Ordered 08/06/25 Ordered By: Camille Agarwal Referrals: Yang,Sameer Chong, DO [Primary Care Provider, Internal Medicine] Discharge Diet: Usual diet Discharge Activity: Increase activity as tolerated Patient Instructions: Upper Respiratory Infection (ED), Opioid Safety, Pain Management, Patient Portal & Ayla Instructions Activity Restrictions/Additional Instructions: Continue Levaquin 750 mg daily for 10 days total. Thank you for choosing [facility] for your healthcare needs today. You have been screened and evaluated and felt safe for discharge. Health conditions do change or evolve sometimes and as such it is important that you follow up with your Primary Doctor to be re checked, 3-5 days is a general good time frame for follow up. You are always welcome to return to the ED for re assessment if your symptoms are worsening or you have new concerns. (Please note that included in your discharge packet is information concerning opioid safety and pain management. This information is given to all patients who are discharged from the ER regardless of their discharge diagnosis or the medicines they usually take or are prescribed.) Print Language: Telugu Coding Level of Care Code ED Pediatric Geneticist for Adore [facility]
[2025-08-06 14:18] LABS: Hematocrit 35.4 % (36-47); Hemoglobin 10.80 g/dL (11.27-16.99); Mean Corpuscular HGB Conc 30.5 g/dL (30-55); Mean Corpuscular Hemoglobin 30.9 pg (27-33); Mean Corpuscular Volume 101.1 fl (85-98); Nucleated Red Blood Cells % 0 %; Platelet Count 200 10^3/cmm (157-399); Red Blood Count 3.50 10^6/uL (3.85-5.65); White Blood Count 12.27 10^3/uL (3.29-11.43)
[2025-08-06 14:38] LABS: ABG PCO2 55.4 mmHg (35-45); ABG PH Result 7.40 (7.35-7.45); Alveolar-Arterial Oxygen Gradi 6.3 mmHg (5-10); Arterial Blood Gas Hematocrit 34.4 % (37-47); Blood Gas LPM 2.0 %; Blood Gas Operator Identificat glc; Blood Gas Sample Site Brachial, left; Blood Gas Sample Type Arterial; Carboxyhemoglobin 1.4 %THgb (0.4-20.1); Glucose Level-ABG 105.0 mg/dL (70-115); HCO3 ABG 34.6 mmol/L (22-26); Ionized Calcium Level - ABG 1.1 mmol/L (1.1-1.4); Methemoglobin 0.3 % (0.4-1.5); Oxygen Saturation ABG 96.5; PO2 ABG 83.8 mmHg (80.0-100.0); PO2 FiO2 Ratio Arterial Blood 299; Potassium Level - ABG 3.8 mmol/L (3.5-5.0); Sodium Level - ABG 145.0 mmol/L (131-143)
[2025-08-06 14:43] LABS: Troponin(5th) Baseline 59 ng/L (0-10)
[2025-08-06 14:44] LABS: Lactic Sepsis W/Reflex 1.3 mmol/L (0.5-2.2)
[2025-08-06 14:53] LABS: NT Pro B Type Natriuretic Pept 2551 pg/mL (0-125); Procalcitonin 0.12 ng/mL (0-0.5)
--- NOTE | 2025-08-06 15:03 | ECG_ITS ---
[facility]06 Pat Name: Sirena Priest Department: Room: Gender: Female Financial Agent: : [id number] Requested By: Camille Britt Order Number: [id number] Juan R MD: ANI REDD Measurements Intervals [place] Rate: 73 P: 0 UT: 0 QRS: 52 QRSD: 105 T: 38 QT: 389 QTc: 429 Interpretive Statements ATRIAL FIBRILLATION NONSPECIFIC T-WAVE ABNORMALITY ABNORMAL RHYTHM ECG Compared to ECG 08/06/2025 14:05:24 No significant changes Electronically Signed On 08-06-2025 18:34:10 DOCUMENT IMAGING SPECIALIST by ANI REDD [email or web address]
[2025-08-06 15:04] LABS: Alanine Aminotransferase 9 U/L (0-33); Albumin Level 3.3 g/dL (3.5-5.2); Alkaline Phosphatase 96 U/L (35-105); Anion Gap 14.0 (5-19); Aspartate Amino Transferase 14 U/L (0-32); Blood Urea Nitrogen 20 mg/dL (8-23); Calcium 8.5 mg/dL (8.5-10.5); Carbon Dioxide 31 mmol/L (22-29); Chloride 101 mmol/L (98-107); Globulin 2.6 g/dL (1.3-4.6); Glucose 112 mg/dL (65-115); Osmolality Calculated 297 mOsm/kg (285-295); Potassium 4.0 mmol/L (3.5-5.1); Sodium 142 mmol/L (136-145); Total Protein 5.9 g/dL (6.6-8.7)
[2025-08-06] MEDS: methylPREDNISolone sod succ 125 mg/2 mL INJ IVP (15:24)
[2025-08-06] MEDS: cefepime 2,000 mg SDV 2000 MG IVP (15:25)
[2025-08-06] MEDS: linezolid premix 600 MG/300 ML PREMIX 300 MG IV (15:28)
--- NOTE | 2025-08-06 16:06 | PC.NURSE ---
report called to [facility], facility is sending staff to pick pt up.
[2025-08-06 17:50] LABS: Respiratory Syncytial Virus Ce NEGATIVE (Negative); SARS-CoV-2 PCR NEGATIVE (Negative)
== END 2025-08-06 17:00 | disposition home or self-care (01) ==
PROVIDERS: Emergency Provider Emergency Medicine; PCP Internal Medicine
DX: J06.9 Acute upper respiratory infection, unspecified (principal); R09.02 Hypoxemia; E11.22 Type 2 diabetes mellitus with diabetic chronic kidney disease; N18.4 Chronic kidney disease, stage 4 (severe); E78.5 Hyperlipidemia, unspecified; I50.32 Chronic diastolic (congestive) heart failure
CPT/HCPCS: 36415; 36600; 71045; 80051; 80053; 82330; 82805; 83605; 83880; 84145; 84484; 85025; 87040; 87637; 93005; 94640; 96374; 96375; 99285; J0692; J2020; J2919; J7613; J9999

== ENCOUNTER → 2025-08-17 13:28 | Outpatient (BNVA) | payer MEDICARE, MEDICAID, SELFPAY | PROVIDERS: PCP Internal Medicine; Visit Provider Orthopaedic Surgery | DX: S82.201A Unspecified fracture of shaft of right tibia, initial encounter for closed fracture (principal); W19.XXXA Unspecified fall, initial encounter | CPT/HCPCS: 99213 ==